=== PATIENT | male | born 1965 | race Caucasian/White ===

== ENCOUNTER 2019-08-23 18:44 | Inpatient (IN) | payer BC ==
--- NOTE | 2019-08-23 19:12 | EDM.PDOC ---
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 Patient has pain to his right knee with swelling and temperature despite taking Motrin. Patient has an unusual history of having a fever of unknown origin for 21 days and being on a respirator in another state. Patient is on no medication and is a healthy gentleman patient denies smoking or drinking or any previous injuries. Patient presents with a temperature 100.9 and tachycardic 120. At this time he meets sepsis criteria Onset: Gradual Duration: Day(s): (2 days) Location: Reports: Lower Extremity, Right Quality: Reports: Ache Severity: Moderate Improves with: Reports: None Worsens with: Reports: None Associated Symptoms: Reports: Fever/Chills Treatments INTERNAL CARVER: Reports: NSAIDS Right Knee Pain Score (Numeric/FACES): 9 - Related Data Allergies Allergy/AdvReac Type Severity Reaction Status Date / Time No Known Allergies Allergy Verified 08/23/19 19:03 Home Meds: Home Meds . [No Known Home Meds] 08/23/19 [History] Review of Systems - Review of Systems Review Of Systems: See Below Constitutional: Reports: Chills, Diaphoresis, Fever, Weakness Eyes: Reports: No Symptoms Ears: Reports: No Symptoms Nose: Reports: No Symptoms Mouth/Throat: Reports: No Symptoms Respiratory: Reports: Cough Cardiovascular: Reports: No Symptoms GI/Abdominal: Reports: No Symptoms Genitourinary: Reports: No Symptoms Musculoskeletal: Reports: Joint Pain, Joint Swelling, Other (And appears to have a bursitis in the right knee) Skin: Reports: No Symptoms Neurological: Reports: No Symptoms Psychiatric: Reports: No Symptoms ED EXAM, GENERAL - Physical Exam Exam: See Below Free Text/Narrative:: 4-year-old gentleman presenting to the emergency room with a fever and right knee pain after laying carpet 2 days ago. On physical exam vitals show patient has a fever of 100.9 and is tachycardic to 120. Patient's blood pressure is stable. HEENT: Head is normal pupils are equal reactive light and accommodation throat is normal no evidence of redness no nuchal rigidity Chest: Normal S1-S2 no murmurs Lungs are clear throughout abd : NABS non tender extreamity : rt knee bursitis with pain on movement negative flank pain Exam Limited By: No Limitations General Appearance: Alert, WD/WN, No Apparent Distress Eye Exam: Bilateral Eye: PERRL Ears: Normal External Exam, Normal Canal, Hearing Grossly Normal, Normal TMs Ear Exam: Bilateral Ear: Auricle Normal, Canal Normal Nose: Normal Inspection, Normal Mucosa, No Blood Throat/Mouth: Normal Inspection, Normal Lips, Normal Teeth, Normal Gums, Normal Voice, No Airway Compromise Head: Atraumatic, Normocephalic Neck: Normal Inspection, Supple, Non-Tender, Full Range of Motion Respiratory/Chest: No Respiratory Distress, Lungs Clear, Normal Breath Sounds, No Accessory Muscle Use, Chest Non-Tender Cardiovascular: Normal Peripheral Pulses, Regular Rate, Rhythm, No Edema, No Gallop, No JVD GI/Abdominal: Normal Bowel Sounds, Soft, Non-Tender, No Organomegaly, No Distention, No Abnormal Bruit, Tender (Male) Exam: No Hernia, Normal Inspection Rectal (Males) Exam: Deferred Back Exam: Normal Inspection, Full Range of Motion Extremities: Leg Pain, Other (HE has there is to be bursitis in the knee. Swelling over the knee pain on palpation and movement) ED TRAUMA EXTREMITY PROCEDURES - Additional/Other Procedure(s) Other (Free Text) Procedure(s): To to aspirate the bursa of the right knee it clean the area use lidocaine 1% unable to aspirate any fluids. Patient tolerated the procedure well. Course - Vital Signs Text/Narrative:: -54 year-old gentleman presents to the emergency room with a chief complaint of febrile illness and left right knee pain. 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 Patient also states he has had a cough in the past. Through the course of therapy patient has received antibiotics fluids and septic work-up. Patient's white count is 9.9. Patient is received antibiotics negative urine negative chest negative CT scan of the knee. Bursa was attempted to be aspirated. No redness to the knee Discussed case with Dr. Klein. For admission Last Recorded V/S: Last Vital Signs Temp 102.9 F H 08/23/19 22:19 Pulse 113 H 08/23/19 22:42 Resp 18 08/23/19 22:42 BP 99/59 L 08/23/19 22:42 Pulse Ox 94 L 08/23/19 22:42 - Orders/Labs/Meds Orders: Active Orders 24 hr Category Date Time Status CELL COUNT,BODY FLUID [BF] Stat Lab 08/23/19 22:00 Ordered CULTURE BLOOD [BC] Stat Lab 08/23/19 19:25 Received CULTURE BLOOD [BC] Stat Lab 08/23/19 19:48 Received GRAM STAIN [RM] Stat Lab 08/23/19 21:56 Ordered URIC ACID,SYNOVIAL FL [BF] Stat Lab 08/23/19 21:59 Ordered Sodium Chloride 0.9% [Normal Saline] 1,000 ml Med 08/23/19 22:43 Active IV .Bolus Sodium Chloride 0.9% [Saline Flush] Med 08/23/19 19:13 Active 10 ml FLUSH ASDIRECTED PRN Sodium Chloride 0.9% [Saline Flush] Med 08/23/19 19:13 Active 2.5 ml FLUSH ASDIRECTED PRN Blood Culture x2 Reflex Set [OM.PC] Stat Oth 08/23/19 19:13 Ordered Saline Lock Insert [OM.PC] Stat Oth 08/23/19 19:13 Ordered Medication Orders Sodium Chloride (Normal Saline) 1,000 mls @ 999 mls/hr IV .Bolus ONE Stop: 08/23/19 23:43 Last Admin: 08/23/19 22:44 Dose: 999 mls/hr Sodium Chloride (Saline Flush) 10 ml FLUSH ASDIRECTED PRN PRN Reason: Keep Vein Open Sodium Chloride (Saline Flush) 2.5 ml FLUSH ASDIRECTED PRN PRN Reason: Keep Vein Open Labs: Laboratory Tests 08/23/19 08/23/19 08/23/19 Range/Units 19:25 19:25 19:25 WBC 9.99 (4.0-11.0) K/uL RBC 4.51 (4.50-5.90) M/uL Hgb 13.9 (13.0-17.0) g/dL Hct 40.6 (38.0-50.0) % MCV 90.0 (80.0-98.0) fL MCH 30.8 (27.0-32.0) pg MCHC 34.2 (31.0-37.0) g/dL RDW Std Deviation 43.4 (28.0-62.0) fl RDW Coeff of [place] 13 (11.0-15.0) % Plt Count 255 (150-400) K/uL MPV 9.00 (7.40-12.00) fL Neut % (Auto) 86.2 H (48.0-80.0) % Lymph % (Auto) 8.7 L (16.0-40.0) % [facility] % (Auto) 3.6 (0.0-15.0) % Eos % (Auto) 1.4 (0.0-7.0) % Baso % (Auto) 0.1 (0.0-1.5) % Neut # (Auto) 8.6 H (1.4-5.7) K/uL Lymph # (Auto) 0.9 (0.6-2.4) K/uL [facility] # (Auto) 0.4 (0.0-0.8) K/uL Eos # (Auto) 0.1 (0.0-0.7) K/uL Baso # (Auto) 0.0 (0.0-0.1) K/uL Nucleated RBC % 0.0 /100WBC Nucleated RBCs # 0 K/uL Lactate 1.7 (0.20-2.00) mmol/L Sodium 140 (136-148) mmol/L Potassium 3.8 (3.5-5.1) mmol/L Chloride 103 (98-107) mmol/L Carbon Dioxide 24.9 (21.0-32.0) mmol/L BUN 21 H (7.0-18.0) mg/dL Creatinine 1.3 (0.8-1.3) mg/dL Est Cr Clr Drug Dosing 61.38 mL/min Estimated GFR (MDRD) 57.1 ml/min Glucose 115 H (74-106) mg/dL Calcium 9.0 (8.5-10.1) mg/dL Total Bilirubin 0.3 (0.2-1.0) mg/dL AST 22 (15-37) IU/L ALT 28 (14-63) IU/L Alkaline Phosphatase 142 H (46-116) U/L Total Protein 7.7 (6.4-8.2) g/dL Albumin 3.8 (3.4-5.0) g/dL Globulin 3.9 (2.6-4.0) g/dL Albumin/Globulin Ratio 1.0 (0.9-1.6) Urine Color Urine Appearance Urine pH (5.0-8.0) Ur Specific [place] (1.001-1.035) Urine Protein (NEGATIVE) mg/dL Urine Glucose (UA) (NEGATIVE) mg/dL Urine Ketones (NEGATIVE) mg/dL Urine Occult Blood (NEGATIVE) Urine Nitrite (NEGATIVE) Urine Bilirubin (NEGATIVE) Urine Urobilinogen (<2.0) EU/dL Ur Leukocyte Esterase (NEGATIVE) 08/23/19 Range/Units 21:20 WBC (4.0-11.0) K/uL RBC (4.50-5.90) M/uL Hgb (13.0-17.0) g/dL Hct (38.0-50.0) % MCV (80.0-98.0) fL MCH (27.0-32.0) pg MCHC (31.0-37.0) g/dL RDW Std Deviation (28.0-62.0) fl RDW Coeff of [place] (11.0-15.0) % Plt Count (150-400) K/uL MPV (7.40-12.00) fL Neut % (Auto) (48.0-80.0) % Lymph % (Auto) (16.0-40.0) % [facility] % (Auto) (0.0-15.0) % Eos % (Auto) (0.0-7.0) % Baso % (Auto) (0.0-1.5) % Neut # (Auto) (1.4-5.7) K/uL Lymph # (Auto) (0.6-2.4) K/uL [facility] # (Auto) (0.0-0.8) K/uL Eos # (Auto) (0.0-0.7) K/uL Baso # (Auto) (0.0-0.1) K/uL Nucleated RBC % /100WBC Nucleated RBCs # K/uL Lactate (0.20-2.00) mmol/L Sodium (136-148) mmol/L Potassium (3.5-5.1) mmol/L Chloride (98-107) mmol/L Carbon Dioxide (21.0-32.0) mmol/L BUN (7.0-18.0) mg/dL Creatinine (0.8-1.3) mg/dL Est Cr Clr Drug Dosing mL/min Estimated GFR (MDRD) ml/min Glucose (74-106) mg/dL Calcium (8.5-10.1) mg/dL Total Bilirubin (0.2-1.0) mg/dL AST (15-37) IU/L ALT (14-63) IU/L Alkaline Phosphatase (46-116) U/L Total Protein (6.4-8.2) g/dL Albumin (3.4-5.0) g/dL Globulin (2.6-4.0) g/dL Albumin/Globulin Ratio (0.9-1.6) Urine Color YELLOW Urine Appearance CLEAR Urine pH 6.5 (5.0-8.0) Ur Specific [place] <= 1.005 (1.001-1.035) Urine Protein NEGATIVE (NEGATIVE) mg/dL Urine Glucose (UA) NEGATIVE (NEGATIVE) mg/dL Urine Ketones NEGATIVE (NEGATIVE) mg/dL Urine Occult Blood NEGATIVE (NEGATIVE) Urine Nitrite NEGATIVE (NEGATIVE) Urine Bilirubin NEGATIVE (NEGATIVE) Urine Urobilinogen 0.2 (<2.0) EU/dL Ur Leukocyte Esterase NEGATIVE (NEGATIVE) Meds: Medications Generic Name Dose Route Start Last Admin Trade Name Freq PRN Reason Stop Dose Admin Sodium Chloride 1,000 mls @ 999 mls/hr 08/23/19 22:43 08/23/19 22:44 Normal Saline IV 08/23/19 23:43 999 mls/hr .Bolus ONE Administration Sodium Chloride 10 ml 08/23/19 19:13 Saline Flush FLUSH ASDIRECTED PRN Keep Vein Open Sodium Chloride 2.5 ml 08/23/19 19:13 Saline Flush FLUSH ASDIRECTED PRN Keep Vein Open Discontinued Medications Generic Name Dose Route Start Last Admin Trade Name Freq PRN Reason Stop Dose Admin Acetaminophen 1,000 mg 08/23/19 20:17 08/23/19 20:30 Tylenol Extra Strength PO 08/23/19 20:18 1,000 mg ONETIME ONE Administration Ampicillin Sodium/Sulbactam 100 mls @ 200 mls/hr 08/23/19 19:13 08/23/19 19: 49 Sodium 3 gm/ Sodium Chloride IV 08/23/19 19:42 200 mls/hr ONETIME ONE Administration Sodium Chloride 1,000 mls @ 999 mls/hr 08/23/19 19:19 08/23/19 19:35 Normal Saline IV 08/23/19 20:19 999 mls/hr .Bolus ONE Administration Sodium Chloride 1,000 mls @ 999 mls/hr 08/23/19 21:19 08/23/19 21:25 Normal Saline IV 08/23/19 22:19 999 mls/hr .Bolus ONE Administration Iopamidol 100 ml 08/23/19 20:50 08/23/19 20:50 Isovue Multipack-370 (76%) IVPUSH 08/23/19 20:51 100 ml ONETIME ONE Administration Lidocaine/Epinephrine 10 ml 08/23/19 22:02 08/23/19 22:20 Xylocaine 1% With Epinephrine 1:100,000 INJECT 08/23/19 22:03 10 ml ONETIME ONE Administration Lidocaine/Epinephrine Confirm 08/23/19 22:12 08/23/19 22:19 Xylocaine 1% With Epinephrine 1:100,000 Administered 08/23/19 22:13 Not Given Dose 20 ml .ROUTE .STK-MED ONE Departure - Departure Time of Disposition: 22:54 Disposition: Refer to Observation Clinical Impression: Fever and chills - Discharge Information Referrals: Satinder Gillis MD [Primary Care Provider] - Forms: ED Department Discharge Sepsis Event Note - Focused Exam Vital Signs: Vital Signs Temp Temp Temp Pulse Resp BP Pulse Ox 08/23/19 22:42 113 H 18 99/59 L 94 L 08/23/19 22:19 102.9 F H 114 H 20 102/51 L 94 L 08/23/19 21:00 102.7 F H 08/23/19 20:30 102.2 F H 08/23/19 20:12 102.2 F H 113 H 20 147/69 H 96 08/23/19 19:46 112 H 20 132/69 96 08/23/19 19:00 100.9 F H 119 H 18 119/84 93 L Date Exam was Performed: 08/23/19 Time Exam was Performed: 22:51 - My Orders Last 24 Hours: My Active Orders 08/23/19 19:13 Sodium Chloride 0.9% [Saline Flush] 10 ml FLUSH ASDIRECTED PRN Sodium Chloride 0.9% [Saline Flush] 2.5 ml FLUSH ASDIRECTED PRN Blood Culture x2 Reflex Set [OM.PC] Stat Saline Lock Insert [OM.PC] Stat 08/23/19 19:25 CULTURE BLOOD [BC] Stat 08/23/19 19:48 CULTURE BLOOD [BC] Stat 08/23/19 21:56 GRAM STAIN [RM] Stat 08/23/19 21:59 URIC ACID,SYNOVIAL FL [BF] Stat 08/23/19 22:00 CELL COUNT,BODY FLUID [BF] Stat 08/23/19 22:43 Sodium Chloride 0.9% [Normal Saline] 1,000 ml IV .Bolus - Assessment/Plan Last 24 Hours: My Active Orders 08/23/19 19:13 Sodium Chloride 0.9% [Saline Flush] 10 ml FLUSH ASDIRECTED PRN Sodium Chloride 0.9% [Saline Flush] 2.5 ml FLUSH ASDIRECTED PRN Blood Culture x2 Reflex Set [OM.PC] Stat Saline Lock Insert [OM.PC] Stat 08/23/19 19:25 CULTURE BLOOD [BC] Stat 08/23/19 19:48 CULTURE BLOOD [BC] Stat 08/23/19 21:56 GRAM STAIN [RM] Stat 08/23/19 21:59 URIC ACID,SYNOVIAL FL [BF] Stat 08/23/19 22:00 CELL COUNT,BODY FLUID [BF] Stat 08/23/19 22:43 Sodium Chloride 0.9% [Normal Saline] 1,000 ml IV .Bolus
[2019-08-23] MEDS ORDERED: Sodium Chloride 0.9% 2.5 ML Syringe FLUSH PRN (19:13)
[2019-08-23] MEDS ORDERED: Ampicillin/Sulbactam Na 3 GM in Sodium Chloride 0.9% 100 ML IV ONE (19:13)
[2019-08-23] MEDS ORDERED: Sodium Chloride 0.9% 10 ML Syringe FLUSH PRN (19:13)
[2019-08-23] MEDS ORDERED: Sodium Chloride 0.9% 1,000 ML IV ONE ×3 (19:19→22:43)
[2019-08-23 19:57] LABS: CARBON DIOXIDE,CO2 24.9 mmol/L (21.0-32.0); POTASSIUM,K 3.8 mmol/L (3.5-5.1)
[2019-08-23] MEDS ORDERED: Acetaminophen 500 MG Tab PO ONE (20:17)
[2019-08-23] MEDS ORDERED: Iopamidol 755 MG/ML 200 ML Multipack Bottle IVPUSH ONE (20:50)
--- NOTE | 2019-08-23 21:35 | CT ---
INDICATION: Knee pain. No injury. Fever. TECHNIQUE: Axial images. Sagittal and coronal reconstructions. 80 mL of Isovue-370 IV. FINDINGS: Prepatellar soft tissue swelling is noted which extends into the anterior infrapatellar soft tissues. No knee joint effusion. No fracture. No significant arthritic changes are identified. IMPRESSION: Prepatellar soft tissue swelling. Given the lack of recent trauma to suggest this is related to a contusion, this could be related to bursitis, which is likely either infectious or inflammatory in nature. Dictated by Dago Ray MD @ 08/23/2019 9:34:20 PM Please note that all CT scans at this facility use dose modulation, iterative reconstruction, and/or weight-based dosing when appropriate to reduce radiation dose to as low as reasonably achievable. Dictated by: Dago Ray MD @ 08/23/2019 21:34:26 (Electronically Signed)
--- NOTE | 2019-08-23 21:37 | CR ---
Indication: Fever Technique: Chest 2 views Comparison: None Findings/Impression: Cardiovascular and mediastinum: Normal cardiac size. Aortic arch calcifications. Lungs and pleural spaces: Apparent mild superior traction of the left hilum. No consolidation. An 8 mm left lower lung nodular opacity adjacent to the posterior 9th rib, which could represent a nipple shadow. Follow-up with nipple markers. No pleural effusions. Bones and soft tissues: No significant findings. Dictated by Conner Fuentes MD @ 08/23/2019 9:36:35 PM Dictated by: Conner Fuentes MD @ 08/23/2019 21:36:40 (Electronically Signed)
[2019-08-23] MEDS ORDERED: Lidocaine 1% with EPINEPHrine 1:100,000 10 ML MDV INJECT ONE (22:02)
[2019-08-23] MEDS ORDERED: Lidocaine 1% with EPINEPHrine 1:100,000 20 ML MDV ONE (22:12)
--- NOTE | 2019-08-23 23:43 | PCM.HP.2 ---
H&P History of Present Illness - General Date of Service: 08/23/19 Admit Problem/Dx: Admission Diagnosis/Problem Admission Diagnosis/Problem Cellulitis - History of Present Illness Initial Comments - Free Text/Narative: 54 yo male who presents with fever and knee pain. 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 He reports at 4 p.m. he started to develop fevers. HE noted a pain in his right knee and some mild swelling. He was noted to be tachycardic and febrile on admission. No erythema was noted over right knee. CT scan noted possible bursitis or contusion. ER physician attempted to aspirate fluid from right knee but no fluid was obtained. Dr. Veloz was consulted in the ED. Patient had abrasion of right arm several weeks ago. He reports a history of unknown febrile illness with respiratory failure in 1987 which he was hospitalized for months. Right Knee Pain Score (Numeric/FACES): 9 - Related Data Allergies/Adverse Reactions: Allergies Allergy/AdvReac Type Severity Reaction Status Date / Time No Known Allergies Allergy Verified 08/26/19 05:50 Home Medications: Home Meds . [No Known Home Meds] 08/23/19 [History] Past Medical History HEENT History: Reports: None Cardiovascular History: Reports: High Cholesterol Respiratory History: Reports: SOB Gastrointestinal History: Reports: None Genitourinary History: Reports: None Musculoskeletal History: Reports: None Neurological History: Reports: None Psychiatric History: Reports: None Endocrine/Metabolic History: Reports: None Hematologic History: Reports: Blood Transfusion(s) Immunologic History: Reports: None Oncologic (Cancer) History: Reports: None Dermatologic History: Reports: None - Infectious Disease History Infectious Disease History: Reports: Chicken Pox - Past Surgical History Head Surgeries/Procedures: Reports: None HEENT Surgical History: Reports: Oral Surgery Respiratory Surgical History: Reports: Lung Biopsies Social & Family History - Tobacco Use Smoking Status *Q: Former Smoker Used Tobacco, but Quit: Yes Month/Year Tobacco Last Used: 2009 - Caffeine Use Caffeine Use: Reports: Coffee - Recreational Drug Use Recreational Drug Use: No H&P Review of Systems - Review of Systems: Review Of Systems: Comprehensive ROS is negative, except as noted in HPI. Exam - Exam Exam: See Below - Vital Signs Vital Signs: Last Vital Signs Temp 39.4 C H 08/23/19 22:19 Pulse 111 H 08/23/19 23:21 Resp 26 H 08/23/19 23:21 BP 105/57 L 08/23/19 23:21 Pulse Ox 93 L 08/23/19 23:21 Weight: 74.843 kg - Exam General: Alert, Oriented HEENT: Mucosa Moist & [place], Normal Nasal Septum Neck: Supple, Trachea Midline Lungs: Clear to Auscultation, Normal Respiratory Effort Cardiovascular: Regular Rate, Regular Rhythm GI/Abdominal Exam: Soft, Non-Tender Extremities: Other (mild edema around right patela, no erythema, no ) - Patient Data Lab Results Last 24 hrs: Laboratory Results - last 24 hr 08/23/19 08/23/19 08/23/19 Range/Units 19:25 19:25 19:25 WBC 9.99 (4.0-11.0) K/uL RBC 4.51 (4.50-5.90) M/uL Hgb 13.9 (13.0-17.0) g/dL Hct 40.6 (38.0-50.0) % MCV 90.0 (80.0-98.0) fL MCH 30.8 (27.0-32.0) pg MCHC 34.2 (31.0-37.0) g/dL RDW Std Deviation 43.4 (28.0-62.0) fl RDW Coeff of [place] 13 (11.0-15.0) % Plt Count 255 (150-400) K/uL MPV 9.00 (7.40-12.00) fL Neut % (Auto) 86.2 H (48.0-80.0) % Lymph % (Auto) 8.7 L (16.0-40.0) % [place] % (Auto) 3.6 (0.0-15.0) % Eos % (Auto) 1.4 (0.0-7.0) % Baso % (Auto) 0.1 (0.0-1.5) % Neut # (Auto) 8.6 H (1.4-5.7) K/uL Lymph # (Auto) 0.9 (0.6-2.4) K/uL [place] # (Auto) 0.4 (0.0-0.8) K/uL Eos # (Auto) 0.1 (0.0-0.7) K/uL Baso # (Auto) 0.0 (0.0-0.1) K/uL Nucleated RBC % 0.0 /100WBC Nucleated RBCs # 0 K/uL Lactate 1.7 (0.20-2.00) mmol/L Sodium 140 (136-148) mmol/L Potassium 3.8 (3.5-5.1) mmol/L Chloride 103 (98-107) mmol/L Carbon Dioxide 24.9 (21.0-32.0) mmol/L BUN 21 H (7.0-18.0) mg/dL Creatinine 1.3 (0.8-1.3) mg/dL Est Cr Clr Drug Dosing 61.38 mL/min Estimated GFR (MDRD) 57.1 ml/min Glucose 115 H (74-106) mg/dL Calcium 9.0 (8.5-10.1) mg/dL Total Bilirubin 0.3 (0.2-1.0) mg/dL AST 22 (15-37) IU/L ALT 28 (14-63) IU/L Alkaline Phosphatase 142 H (46-116) U/L Total Protein 7.7 (6.4-8.2) g/dL Albumin 3.8 (3.4-5.0) g/dL Globulin 3.9 (2.6-4.0) g/dL Albumin/Globulin Ratio 1.0 (0.9-1.6) Urine Color Urine Appearance Urine pH (5.0-8.0) Ur Specific [place] (1.001-1.035) Urine Protein (NEGATIVE) mg/dL Urine Glucose (UA) (NEGATIVE) mg/dL Urine Ketones (NEGATIVE) mg/dL Urine Occult Blood (NEGATIVE) Urine Nitrite (NEGATIVE) Urine Bilirubin (NEGATIVE) Urine Urobilinogen (<2.0) EU/dL Ur Leukocyte Esterase (NEGATIVE) 08/23/19 Range/Units 21:20 WBC (4.0-11.0) K/uL RBC (4.50-5.90) M/uL Hgb (13.0-17.0) g/dL Hct (38.0-50.0) % MCV (80.0-98.0) fL MCH (27.0-32.0) pg MCHC (31.0-37.0) g/dL RDW Std Deviation (28.0-62.0) fl RDW Coeff of [place] (11.0-15.0) % Plt Count (150-400) K/uL MPV (7.40-12.00) fL Neut % (Auto) (48.0-80.0) % Lymph % (Auto) (16.0-40.0) % [place] % (Auto) (0.0-15.0) % Eos % (Auto) (0.0-7.0) % Baso % (Auto) (0.0-1.5) % Neut # (Auto) (1.4-5.7) K/uL Lymph # (Auto) (0.6-2.4) K/uL [place] # (Auto) (0.0-0.8) K/uL Eos # (Auto) (0.0-0.7) K/uL Baso # (Auto) (0.0-0.1) K/uL Nucleated RBC % /100WBC Nucleated RBCs # K/uL Lactate (0.20-2.00) mmol/L Sodium (136-148) mmol/L Potassium (3.5-5.1) mmol/L Chloride (98-107) mmol/L Carbon Dioxide (21.0-32.0) mmol/L BUN (7.0-18.0) mg/dL Creatinine (0.8-1.3) mg/dL Est Cr Clr Drug Dosing mL/min Estimated GFR (MDRD) ml/min Glucose (74-106) mg/dL Calcium (8.5-10.1) mg/dL Total Bilirubin (0.2-1.0) mg/dL AST (15-37) IU/L ALT (14-63) IU/L Alkaline Phosphatase (46-116) U/L Total Protein (6.4-8.2) g/dL Albumin (3.4-5.0) g/dL Globulin (2.6-4.0) g/dL Albumin/Globulin Ratio (0.9-1.6) Urine Color YELLOW Urine Appearance CLEAR Urine pH 6.5 (5.0-8.0) Ur Specific [place] <= 1.005 (1.001-1.035) Urine Protein NEGATIVE (NEGATIVE) mg/dL Urine Glucose (UA) NEGATIVE (NEGATIVE) mg/dL Urine Ketones NEGATIVE (NEGATIVE) mg/dL Urine Occult Blood NEGATIVE (NEGATIVE) Urine Nitrite NEGATIVE (NEGATIVE) Urine Bilirubin NEGATIVE (NEGATIVE) Urine Urobilinogen 0.2 (<2.0) EU/dL Ur Leukocyte Esterase NEGATIVE (NEGATIVE) Result Diagrams: 08/26/19 06:00 08/26/19 06:00 Rusty Results Last 24 hrs: Microbiology 08/23/19 21:15 Influenza Type A Antigen Screen - Final Nasopharyngeal Swab NEGATIVE INFLUENZA A VIRUS AG REFERENCE RANGE: NEGATIVE Influenza Type B Antigen Screen - Final NEGATIVE INFLUENZA B VIRUS AG REFERENCE RANGE: NEGATIVE Sepsis Event Note - Evaluation Sepsis Screening Result: Possible Sepsis Risk - Focused Exam Vital Signs: Vital Signs Temp Temp Temp Pulse Resp BP Pulse Ox 08/23/19 23:21 111 H 26 H 105/57 L 93 L 08/23/19 22:55 112 H 20 97/52 L 87 L 08/23/19 22:42 113 H 18 99/59 L 94 L 08/23/19 22:19 39.4 C H 114 H 20 102/51 L 94 L 08/23/19 21:00 39.3 C H 08/23/19 20:30 39.0 C H 08/23/19 20:12 39.0 C H 113 H 20 147/69 H 96 08/23/19 19:46 112 H 20 132/69 96 08/23/19 19:00 38.3 C H 119 H 18 119/84 93 L Date Exam was Performed: 08/26/19 Time Exam was Performed: 12:01 Problem List Initiated/Reviewed/Updated: Yes Orders Last 24hrs: Active Orders 24 hr Category Date Time Status Admission Status [Patient Status] [ADT] Stat ADT 08/23/19 23:21 Active Antiembolic Devices [RC] PER UNIT ROUTINE Care 08/23/19 23:34 Ordered Notify Provider Consults [RC] ASDIRECTED Care 08/23/19 23:35 Ordered Oxygen Therapy Adult [Oxygen Therapy, ED] [RC] Care 08/23/19 23:30 Ordered ASDIRECTED Oxygen Therapy [RC] PRN Care 08/23/19 23:33 Ordered VTE/DVT Education [RC] PER UNIT ROUTINE Care 08/23/19 23:33 Ordered Vital Signs [RC] Q4H Care 08/23/19 23:33 Ordered Consult to Physician [CONS] Stat Cons 08/23/19 23:34 Ordered Regular Diet [DIET] Diet 08/23/19 Breakfast Ordered BASIC METABOLIC PANEL,BMP [CHEM] AM Lab 08/24/19 05:11 Ordered CBC WITH AUTO DIFF [HEME] AM Lab 08/24/19 05:11 Ordered CELL COUNT,BODY FLUID [BF] Stat Lab 08/23/19 22:00 Ordered CULTURE BLOOD [BC] Stat Lab 08/23/19 19:25 Received CULTURE BLOOD [BC] Stat Lab 08/23/19 19:48 Received GRAM STAIN [RM] Stat Lab 08/23/19 21:56 Ordered LACTIC ACID,WHOLE BLOOD [BG] Q5H Lab 08/24/19 01:00 Ordered LACTIC ACID,WHOLE BLOOD [BG] Q5H Lab 08/24/19 06:00 Ordered URIC ACID,SYNOVIAL FL [BF] Stat Lab 08/23/19 21:59 Ordered Ampicillin/Sulbactam Na [Unasyn] 3 gm Med 08/24/19 02:00 Ordered Sodium Chloride 0.9% [Normal Saline] 100 ml IV Q6H Heparin Sodium Med 08/23/19 23:45 Ordered 5,000 units SUBCUT Q8H Pharmacy to Dose - Vancomycin Med 08/23/19 23:30 Ordered 1 dose .XX ASDIRECTED Sodium Chloride 0.9% @ 125 MLS/HR (1000ml) Med 08/23/19 23:45 Ordered Sodium Chloride 0.9% [Normal Saline] 1,000 ml IV ASDIRECTED Sodium Chloride 0.9% [Normal Saline] 1,000 ml Med 08/23/19 22:43 Active IV .Bolus Sodium Chloride 0.9% [Saline Flush] Med 08/23/19 19:13 Active 10 ml FLUSH ASDIRECTED PRN Sodium Chloride 0.9% [Saline Flush] Med 08/23/19 19:13 Active 2.5 ml FLUSH ASDIRECTED PRN Blood Culture x2 Reflex Set [OM.PC] Stat Oth 08/23/19 19:13 Ordered Saline Lock Insert [OM.PC] Stat Oth 08/23/19 19:13 Ordered Sequential Compression Device [OM.PC] Per Unit Routine Oth 08/23/19 23:33 Ordered Resuscitation Status Routine Resus Stat 08/23/19 23:32 Ordered Medication Orders Heparin Sodium (Porcine) (Heparin Sodium) 5,000 units SUBCUT Q8H ALIVIA Sodium Chloride (Normal Saline) 1,000 mls @ 999 mls/hr IV .Bolus ONE Stop: 08/23/19 23:43 Last Admin: 08/23/19 22:44 Dose: 999 mls/hr Ampicillin Sodium/Sulbactam (Sodium 3 gm/ Sodium Chloride) 100 mls @ 200 mls/ hr IV Q6H ALIVIA Sodium Chloride (Normal Saline) 1,000 mls @ 125 mls/hr IV ASDIRECTED ALIVIA Sodium Chloride (Saline Flush) 10 ml FLUSH ASDIRECTED PRN PRN Reason: Keep Vein Open Sodium Chloride (Saline Flush) 2.5 ml FLUSH ASDIRECTED PRN PRN Reason: Keep Vein Open Vancomycin HCl (Pharmacy To Dose - Vancomycin) 1 dose .XX ASDIRECTED [facility] Assessment/Plan Comment:: 54 yo male admitted for febrile illness, likely source is cellulitis/burstitis of right knee. Sepsis from cellulitis/bursitis: patient has received 3 liters of fluid with improvement in tachycardia, lactic acid is normal. Will treat with vancomycin and Unasyn. Dr. Veloz has been consulted.
[2019-08-23] MEDS: Sodium Chloride 0.9% 1,000 ML IV SCH (23:47)
[2019-08-24] MEDS: Heparin Sodium 5,000 Units/ML Vial SUBCUT SCH ×4 (00:11→23:56)
[2019-08-24] MEDS ORDERED: Pneumococcal Polyvalent-23 Vaccine 0.5 ML SDV IM ONE (00:17)
[2019-08-24] MEDS: Ampicillin/Sulbactam Na 3 GM in Sodium Chloride 0.9% 100 ML IV SCH ×4 (01:55→20:14)
[2019-08-24 06:30] LABS: BLOOD UREA NITROGEN,BUN 17 mg/dL (7.0-18.0); CARBON DIOXIDE,CO2 23.4 mmol/L (21.0-32.0); CHLORIDE,CL 108 mmol/L (98-107); GLUCOSE RANDOM 130 mg/dL (74-106); POTASSIUM,K 3.8 mmol/L (3.5-5.1); SODIUM,NA 141 mmol/L (136-148)
--- NOTE | 2019-08-24 07:52 | PCM.PN ---
Addendum entered and electronically signed by Alejandrina Christine NP 08/24/19 12:09 : Discussed imaging findings of CT chest, abdomen and pelvis with patient and . No acute findings. Did thorough skin assessment, has history of many abscesses to groin and buttock. He reports "they drain all the time, they fill up and drain and then slowly fill up again". Gluteal crease, old healing wound noted. No induration, no drainage and no erythema. He reports one to his R groin that has recently drained. This is tender to palpation, scant induration, no fluctuance. No drainage with palpation , tiny punctate opening noted. Many notable scars to buttock and groin from previous sores. Back has many blackheads, no abscesses or erythematous regions. Discussed region with Dr Carter, he reviewed CT and was not able to see anything suspicious in the nika-rectal region and no abscess noted to groin. Continue Vancomycin and Unasyn for now. Monitor skin daily. Dr Klein updated on above. Original Note: - General Info Date of Service: 08/24/19 Admission Dx/Problem (Free Text): Admission Diagnosis/Problem Admission Diagnosis/Problem Fevers, Sepsis secondary to R knee cellulitis/ bursitis Subjective Update: Feeling about the same this morning, knee pain continues. He is able to bend knee, mild pain elicited. No redness, but knee very hot to touch. No chest pain or SOB. No abdominal pain. No skin sores. Functional Status: Reports: Pain Controlled, Tolerating Diet - Review of Systems General: Reports: Fever, Weakness, Fatigue, Malaise HEENT: Reports: No Symptoms. Denies: Headaches, Sore Throat, Visual Changes Pulmonary: Denies: Shortness of Breath Cardiovascular: Denies: Chest Pain Gastrointestinal: Denies: Abdominal Pain, Nausea, Vomiting Genitourinary: Reports: No Symptoms. Denies: Dysuria, Frequency, Burning Musculoskeletal: Reports: Joint Pain (R knee pain). Denies: Neck Pain Skin: Reports: No Symptoms Neurological: Reports: No Symptoms Psychiatric: Reports: No Symptoms - Patient Data Vitals - Most Recent: Last Vital Signs Temp 102.2 F H 08/24/19 06:44 Pulse 108 H 08/24/19 03:23 Resp 26 H 08/24/19 03:23 BP 112/63 08/24/19 03:23 Pulse Ox 93 L 08/24/19 03:23 Weight - Most Recent: 79.7 kg I&O - Last 24 Hours: Intake & Output 08/23/19 08/24/19 08/24/19 22:59 06:59 14:59 Output Total 800 Balance -800 Lab Results Last 24 Hours: Laboratory Results - last 24 hr 08/23/19 08/23/19 08/23/19 Range/Units 19:25 19:25 19:25 WBC 9.99 (4.0-11.0) K/uL RBC 4.51 (4.50-5.90) M/uL Hgb 13.9 (13.0-17.0) g/dL Hct 40.6 (38.0-50.0) % MCV 90.0 (80.0-98.0) fL MCH 30.8 (27.0-32.0) pg MCHC 34.2 (31.0-37.0) g/dL RDW Std Deviation 43.4 (28.0-62.0) fl RDW Coeff of [place] 13 (11.0-15.0) % Plt Count 255 (150-400) K/uL MPV 9.00 (7.40-12.00) fL Neut % (Auto) 86.2 H (48.0-80.0) % Lymph % (Auto) 8.7 L (16.0-40.0) % [place] % (Auto) 3.6 (0.0-15.0) % Eos % (Auto) 1.4 (0.0-7.0) % Baso % (Auto) 0.1 (0.0-1.5) % Neut # (Auto) 8.6 H (1.4-5.7) K/uL Lymph # (Auto) 0.9 (0.6-2.4) K/uL [place] # (Auto) 0.4 (0.0-0.8) K/uL Eos # (Auto) 0.1 (0.0-0.7) K/uL Baso # (Auto) 0.0 (0.0-0.1) K/uL Nucleated RBC % 0.0 /100WBC Nucleated RBCs # 0 K/uL Lactate 1.7 (0.20-2.00) mmol/L Sodium 140 (136-148) mmol/L Potassium 3.8 (3.5-5.1) mmol/L Chloride 103 (98-107) mmol/L Carbon Dioxide 24.9 (21.0-32.0) mmol/L BUN 21 H (7.0-18.0) mg/dL Creatinine 1.3 (0.8-1.3) mg/dL Est Cr Clr Drug Dosing 61.38 mL/min Estimated GFR (MDRD) 57.1 ml/min Glucose 115 H (74-106) mg/dL Calcium 9.0 (8.5-10.1) mg/dL Total Bilirubin 0.3 (0.2-1.0) mg/dL AST 22 (15-37) IU/L ALT 28 (14-63) IU/L Alkaline Phosphatase 142 H (46-116) U/L Total Protein 7.7 (6.4-8.2) g/dL Albumin 3.8 (3.4-5.0) g/dL Globulin 3.9 (2.6-4.0) g/dL Albumin/Globulin Ratio 1.0 (0.9-1.6) Urine Color Urine Appearance Urine pH (5.0-8.0) Ur Specific Sunflower (1.001-1.035) Urine Protein (NEGATIVE) mg/dL Urine Glucose (UA) (NEGATIVE) mg/dL Urine Ketones (NEGATIVE) mg/dL Urine Occult Blood (NEGATIVE) Urine Nitrite (NEGATIVE) Urine Bilirubin (NEGATIVE) Urine Urobilinogen (<2.0) EU/dL Ur Leukocyte Esterase (NEGATIVE) 08/23/19 08/24/19 08/24/19 Range/Units 21:20 01:00 06:05 WBC (4.0-11.0) K/uL RBC (4.50-5.90) M/uL Hgb (13.0-17.0) g/dL Hct (38.0-50.0) % MCV (80.0-98.0) fL MCH (27.0-32.0) pg MCHC (31.0-37.0) g/dL RDW Std Deviation (28.0-62.0) fl RDW Coeff of [place] (11.0-15.0) % Plt Count (150-400) K/uL MPV (7.40-12.00) fL Neut % (Auto) (48.0-80.0) % Lymph % (Auto) (16.0-40.0) % [place] % (Auto) (0.0-15.0) % Eos % (Auto) (0.0-7.0) % Baso % (Auto) (0.0-1.5) % Neut # (Auto) (1.4-5.7) K/uL Lymph # (Auto) (0.6-2.4) K/uL [place] # (Auto) (0.0-0.8) K/uL Eos # (Auto) (0.0-0.7) K/uL Baso # (Auto) (0.0-0.1) K/uL Nucleated RBC % /100WBC Nucleated RBCs # K/uL Lactate 1.0 1.1 (0.20-2.00) mmol/L Sodium (136-148) mmol/L Potassium (3.5-5.1) mmol/L Chloride (98-107) mmol/L Carbon Dioxide (21.0-32.0) mmol/L BUN (7.0-18.0) mg/dL Creatinine (0.8-1.3) mg/dL Est Cr Clr Drug Dosing mL/min Estimated GFR (MDRD) ml/min Glucose (74-106) mg/dL Calcium (8.5-10.1) mg/dL Total Bilirubin (0.2-1.0) mg/dL AST (15-37) IU/L ALT (14-63) IU/L Alkaline Phosphatase (46-116) U/L Total Protein (6.4-8.2) g/dL Albumin (3.4-5.0) g/dL Globulin (2.6-4.0) g/dL Albumin/Globulin Ratio (0.9-1.6) Urine Color YELLOW Urine Appearance CLEAR Urine pH 6.5 (5.0-8.0) Ur Specific Sunflower <= 1.005 (1.001-1.035) Urine Protein NEGATIVE (NEGATIVE) mg/dL Urine Glucose (UA) NEGATIVE (NEGATIVE) mg/dL Urine Ketones NEGATIVE (NEGATIVE) mg/dL Urine Occult Blood NEGATIVE (NEGATIVE) Urine Nitrite NEGATIVE (NEGATIVE) Urine Bilirubin NEGATIVE (NEGATIVE) Urine Urobilinogen 0.2 (<2.0) EU/dL Ur Leukocyte Esterase NEGATIVE (NEGATIVE) 08/24/19 08/24/19 Range/Units 06:05 06:05 WBC 12.81 H (4.0-11.0) K/uL RBC 4.22 L (4.50-5.90) M/uL Hgb 12.9 L (13.0-17.0) g/dL Hct 38.5 (38.0-50.0) % MCV 91.2 (80.0-98.0) fL MCH 30.6 (27.0-32.0) pg MCHC 33.5 (31.0-37.0) g/dL RDW Std Deviation 45.6 (28.0-62.0) fl RDW Coeff of [place] 14 (11.0-15.0) % Plt Count 195 (150-400) K/uL MPV 9.10 (7.40-12.00) fL Neut % (Auto) 89.7 H (48.0-80.0) % Lymph % (Auto) 4.7 L (16.0-40.0) % [place] % (Auto) 5.4 (0.0-15.0) % Eos % (Auto) 0.1 (0.0-7.0) % Baso % (Auto) 0.1 (0.0-1.5) % Neut # (Auto) 11.5 H (1.4-5.7) K/uL Lymph # (Auto) 0.6 (0.6-2.4) K/uL [place] # (Auto) 0.7 (0.0-0.8) K/uL Eos # (Auto) 0.0 (0.0-0.7) K/uL Baso # (Auto) 0.0 (0.0-0.1) K/uL Nucleated RBC % 0.0 /100WBC Nucleated RBCs # 0 K/uL Lactate (0.20-2.00) mmol/L Sodium 141 (136-148) mmol/L Potassium 3.8 (3.5-5.1) mmol/L Chloride 108 H (98-107) mmol/L Carbon Dioxide 23.4 (21.0-32.0) mmol/L BUN 17 (7.0-18.0) mg/dL Creatinine 1.2 (0.8-1.3) mg/dL Est Cr Clr Drug Dosing 66.50 mL/min Estimated GFR (MDRD) > 60.0 ml/min Glucose 130 H (74-106) mg/dL Calcium 8.0 L (8.5-10.1) mg/dL Total Bilirubin (0.2-1.0) mg/dL AST (15-37) IU/L ALT (14-63) IU/L Alkaline Phosphatase (46-116) U/L Total Protein (6.4-8.2) g/dL Albumin (3.4-5.0) g/dL Globulin (2.6-4.0) g/dL Albumin/Globulin Ratio (0.9-1.6) Urine Color Urine Appearance Urine pH (5.0-8.0) Ur Specific Sun[place] (1.001-1.035) Urine Protein (NEGATIVE) mg/dL Urine Glucose (UA) (NEGATIVE) mg/dL Urine Ketones (NEGATIVE) mg/dL Urine Occult Blood (NEGATIVE) Urine Nitrite (NEGATIVE) Urine Bilirubin (NEGATIVE) Urine Urobilinogen (<2.0) EU/dL Ur Leukocyte Esterase (NEGATIVE) Rusty Results Last 24 Hours: Microbiology 08/23/19 21:15 Influenza Type A Antigen Screen - Final Nasopharyngeal Swab NEGATIVE INFLUENZA A VIRUS AG REFERENCE RANGE: NEGATIVE Influenza Type B Antigen Screen - Final NEGATIVE INFLUENZA B VIRUS AG REFERENCE RANGE: NEGATIVE Med Orders - Current: Current Medications Heparin Sodium (Porcine) (Heparin Sodium) 5,000 units SUBCUT Q8H [facility] Last Admin: 08/24/19 00:11 Dose: 5,000 units Ampicillin Sodium/Sulbactam (Sodium 3 gm/ Sodium Chloride) 100 mls @ 200 mls/ hr IV Q6H [facility] Last Admin: 08/24/19 01:55 Dose: 200 mls/hr Sodium Chloride (Normal Saline) 1,000 mls @ 125 mls/hr IV ASDIRECTED [facility] Last Admin: 08/23/19 23:47 Dose: 125 mls/hr Vancomycin HCl 1 gm/ Sodium (Chloride) 250 mls @ 166 mls/hr IV Q12H [facility] Last Admin: 08/24/19 00:12 Dose: 166 mls/hr Sodium Chloride (Saline Flush) 10 ml FLUSH ASDIRECTED PRN PRN Reason: Keep Vein Open Sodium Chloride (Saline Flush) 2.5 ml FLUSH ASDIRECTED PRN PRN Reason: Keep Vein Open Vancomycin HCl (Pharmacy To Dose - Vancomycin) 1 dose .XX ASDIRECTED ALIVIA Discontinued Medications Acetaminophen (Tylenol Extra Strength) 1,000 mg PO ONETIME ONE Stop: 08/23/19 20:18 Last Admin: 08/23/19 20:30 Dose: 1,000 mg Ampicillin Sodium/Sulbactam (Sodium 3 gm/ Sodium Chloride) 100 mls @ 200 mls/ hr IV ONETIME ONE Stop: 08/23/19 19:42 Last Admin: 08/23/19 19:49 Dose: 200 mls/hr Sodium Chloride (Normal Saline) 1,000 mls @ 999 mls/hr IV .Bolus ONE Stop: 08/23/19 20:19 Last Admin: 08/23/19 19:35 Dose: 999 mls/hr Sodium Chloride (Normal Saline) 1,000 mls @ 999 mls/hr IV .Bolus ONE Stop: 08/23/19 22:19 Last Admin: 08/23/19 21:25 Dose: 999 mls/hr Sodium Chloride (Normal Saline) 1,000 mls @ 999 mls/hr IV .Bolus ONE Stop: 08/23/19 23:43 Last Admin: 08/23/19 22:44 Dose: 999 mls/hr Influenza Virus Vaccine (Pharmacy To Dose - Influenza Vaccine) 1 each IM ONETIME ONE Stop: 08/24/19 00:18 Iopamidol (Isovue Multipack-370 (76%)) 100 ml IVPUSH ONETIME ONE Stop: 08/23/19 20:51 Last Admin: 08/23/19 20:50 Dose: 100 ml Lidocaine/Epinephrine (Xylocaine 1% With Epinephrine 1:100,000) 10 ml INJECT ONETIME ONE Stop: 08/23/19 22:03 Last Admin: 08/23/19 22:20 Dose: 10 ml Lidocaine/Epinephrine (Xylocaine 1% With Epinephrine 1:100,000) Confirm Administered Dose 20 ml .ROUTE .STK-MED ONE Stop: 08/23/19 22:13 Last Admin: 08/23/19 22:19 Dose: Not Given Pneumococcal Polyvalent Vaccine (Pneumovax 23) 0.5 ml IM .ONCE ONE Stop: 08/24/19 00:18 - Exam General: Alert, Oriented, Cooperative, No Acute Distress Lungs: Clear to Auscultation, Normal Respiratory Effort Cardiovascular: Regular Rate, Regular Rhythm GI/Abdominal Exam: Normal Bowel Sounds, Soft, Non-Tender Extremities: No Pedal Edema, Normal Capillary Refill. No: Normal Range of Motion (slihtly decreased to R knee due to pain) Wound/Incisions: Other (swelling noted to R knee with warmth.puncture wound noted from aspiration in the ED.). No: Erythema Neurological: No New Focal Deficit Psy/Mental Status: Alert, Normal Affect, Normal Mood Sepsis Event Note - Evaluation Sepsis Screening Result: Sepsis Risk - Focused Exam Vital Signs: Vital Signs Temp Temp Temp Pulse Resp BP Pulse Ox 08/24/19 06:44 102.2 F H 08/24/19 05:44 102.8 F H 08/24/19 04:37 102.6 F H 08/24/19 03:23 102.7 F H 102.1 F H 108 H 26 H 112/63 93 L 08/24/19 00:21 102.4 F H 107 H 17 105/58 L 94 L 08/23/19 23:21 111 H 26 H 105/57 L 93 L 08/23/19 22:55 112 H 20 97/52 L 87 L 08/23/19 22:42 113 H 18 99/59 L 94 L 08/23/19 22:19 102.9 F H 114 H 20 102/51 L 94 L 08/23/19 21:00 102.7 F H 08/23/19 20:30 102.2 F H 08/23/19 20:12 102.2 F H 113 H 20 147/69 H 96 Date Exam was Performed: 08/24/19 Time Exam was Performed: 10:50 - Problem List & Annotations (1) Fever and chills SNOMED Code(s): 720089406 Code(s): R50.9 - FEVER, UNSPECIFIED Status: Acute Current Visit: Yes (2) Knee pain, right SNOMED Code(s): 51786471 Code(s): M25.561 - PAIN IN RIGHT KNEE Status: Acute Current Visit: Yes Qualifiers: Chronicity: acute Qualified Code(s): M25.561 - Pain in right knee (3) Hx of respiratory failure SNOMED Code(s): 887792944 Code(s): Z87.09 - PERSONAL HISTORY OF OTHER DISEASES OF THE RESPIRATORY SYSTEM Status: Chronic Current Visit: Yes - Problem List Review Problem List Initiated/Reviewed/Updated: Yes - Plan Plan:: 54 yo male admitted for sepsis, febrile illness, likely source is cellulitis/ bursitis of right knee. 1. Sepsis from cellulitis/bursitis: VS remain stable. Continues to be febrile. BC return positive this morning with aerobic bottle, gram + cocci in chains. Repeat BC now. Continue Unasyn and Vancomycin. Orthopedics consulted, Dr. Veloz may consider knee wash out in am. Place NPO after midnight. 2. Fevers: Continued to be febrile all night. Added Tylenol for discomfort PRN. Source potentially R knee bursitis, cellulitis, but with past history of similar illness with subsequent respiratory failure, will obtain CT of chest and abdomen/pelvis to rule out another source of infection. ECHO and Doppler to R lower leg ordered as well. HIV negative, [place] negative, influenza negative. BC returned positive, gram + cocci in chains. Continue current regimen. Obtain records from previous hospitalization in [place] VTE prophylaxis: Heparin, will hold this evening for possible surgery tomorrow. DIspo: 2-3 days pending improvement.
[2019-08-24] MEDS: Acetaminophen 325 MG Tab PO PRN ×2 (09:07→15:50)
[2019-08-24] MEDS ORDERED: Iopamidol 755 MG/ML 500 ML Multipack Bottle IVPUSH STA (10:14)
[2019-08-24] MEDS: Sodium Chloride 0.9% 1,000 ML IV SCH ×2 (10:33→20:47)
--- NOTE | 2019-08-24 10:55 | CT ---
CT abdomen and pelvis Technique: Multiple axial sections were obtained from above the dome of the diaphragm inferiorly through the pubic symphysis. Intravenous contrast was utilized. No oral contrast has been given. Comparison: No prior abdominal imaging is available. Findings: Mild atelectasis noted within both posterior lung bases. Liver shows no focal parenchymal abnormality. Spleen appears within normal limits. Small hiatal hernia is noted. Adrenal glands show no nodule. Pancreas shows no discrete abnormality. Kidneys show symmetric contrast enhancement without hydronephrosis or mass. Gallbladder contains no calcified gallstones. Aorta shows atherosclerotic calcification which continues into the iliac vessels. No retroperitoneal adenopathy or mesenteric abnormalities are seen. Appendix is seen which is normal in size. No pelvic mass or adenopathy is noted. No free fluid or inflammatory change is identified. Bone window settings were reviewed which shows mild degenerative change within the spine most prominent at L5-S1 with vacuum disc phenomena. Degenerative change is also noted within both hips, worse on the right side. Impression: 1. Findings as noted above. 2. Nothing acute is appreciated on CT study of the abdomen and pelvis. Diagnostic code #2 This report was dictated in [place] Standard Time
--- NOTE | 2019-08-24 11:16 | CT ---
CT chest Technique: Multiple axial sections were obtained from above the lung apices inferiorly through the lung bases. Intravenous contrast was utilized. Findings: Minimal atelectasis is seen within the posterior right lung base. Mild emphysematous change appears to be present. Mild scattered areas of parenchymal scarring are noted. No acute appearing parenchymal densities are seen. No discrete nodule is seen. No pericardial thickening is seen. Extensive coronary artery calcification is noted. Aorta shows atherosclerotic change without aneurysm. Mediastinal lymph nodes are seen believed to be within normal limits. No axillary adenopathy is seen. Bone window settings were reviewed. Scattered degenerative endplate spurring is noted within the spine. No acute osseous finding is appreciated. Impression: 1. Mild emphysematous change with scattered areas of scarring. Mild atelectasis within the right posterior lung base. 2. Coronary artery calcification. 3. Nothing acute is appreciated on CT study of the chest. Diagnostic code #2 This report was dictated in [place] Standard Time
--- NOTE | 2019-08-24 13:21 | US ---
Right lower extremity deep venous ultrasound: Duplex and color Doppler imaging was obtained of the right common femoral, superficial femoral, popliteal, posterior tibial and anterior tibial veins. Comparison: No prior venous imaging is available. Findings: Normal compression and Doppler blood flow seen within the deep veins. Mild edema is noted around the knee and calf. Impression: 1. Mild soft tissue edema as noted above. 2. No evidence of deep venous thrombosis within the right lower extremity. Diagnostic code #2 This report was dictated in [place] Standard Time
--- NOTE | 2019-08-24 14:55 | PCM.CONS ---
H&P History of Present Illness - General Date of Service: 08/24/19 Admit Problem/Dx: Admission Diagnosis/Problem Admission Diagnosis/Problem Fevers, Sepsis secondary to R knee cellulitis/ bursitis Source of Information: Patient, Family, Provider History Limitations: Reports: No Limitations - History of Present Illness Onset of Symptoms: Reports: Gradual Symptom Onset Date: 08/22/19 Duration of Symptoms: Reports: Day(s): Location: Reports: Lower Extremity, Right Quality: Reports: Burning, Pressure, Throbbing Severity: Moderate Improves with: Reports: Immobilization Worsens with: Reports: Movement Associated Symptoms: Reports: Other Right Knee Pain Score (Numeric/FACES): 0 - Related Data Allergies/Adverse Reactions: Allergies Allergy/AdvReac Type Severity Reaction Status Date / Time No Known Allergies Allergy Verified 08/24/19 00:41 Home Medications: Home Meds . [No Known Home Meds] 08/23/19 [History] Past Medical History HEENT History: Reports: None Cardiovascular History: Reports: High Cholesterol Respiratory History: Reports: SOB Gastrointestinal History: Reports: None Genitourinary History: Reports: None Musculoskeletal History: Reports: None Neurological History: Reports: None Psychiatric History: Reports: None Endocrine/Metabolic History: Reports: None Hematologic History: Reports: Blood Transfusion(s) Immunologic History: Reports: None Oncologic (Cancer) History: Reports: None Dermatologic History: Reports: None - Infectious Disease History Infectious Disease History: Reports: Chicken Pox - Past Surgical History Head Surgeries/Procedures: Reports: None HEENT Surgical History: Reports: Oral Surgery Respiratory Surgical History: Reports: Lung Biopsies Social & Family History - Family History Family Medical History: Noncontributory - Tobacco Use Smoking Status *Q: Former Smoker Used Tobacco, but Quit: No Month/Year Tobacco Last Used: 2009 Tobacco Use Comment: uses dip currently. Second Hand Smoke Exposure: No - Caffeine Use Caffeine Use: Reports: Soda, Tea - Recreational Drug Use Recreational Drug Use: No H&P Review of Systems - Review of Systems: Review Of Systems: See Below General: Reports: Fever, Malaise, Weakness HEENT: Reports: No Symptoms Pulmonary: Reports: No Symptoms Cardiovascular: Reports: No Symptoms Gastrointestinal: Reports: No Symptoms Genitourinary: Reports: No Symptoms Musculoskeletal: Reports: Joint Pain, Joint Swelling Skin: Reports: Change in Color Psychiatric: Reports: No Symptoms Neurological: Reports: No Symptoms Hematologic/Lymphatic: Reports: No Symptoms Immunologic: Reports: No Symptoms Exam - Exam Exam: See Below - Vital Signs Vital Signs: Last Vital Signs Temp 37.7 C 08/24/19 12:00 Pulse 94 08/24/19 12:00 Resp 20 08/24/19 08:11 BP 108/58 L 08/24/19 12:00 Pulse Ox 92 L 08/24/19 08:11 Weight: 79.7 kg - Exam General: Alert, Oriented, Moderate Distress HEENT: Conjunctiva Clear, Hearing Intact, Mucosa Moist & [place], Nares Patent, Pupils Equal, Pupils Reactive Neck: Supple, Trachea Midline Lungs: Normal Respiratory Effort Extremities: Joint Swelling, Leg Pain, Increased Warmth Peripheral Pulses: 2+: Dorsalis Pedis (R) Skin: Warm, Dry, Intact Neurological: Cranial Nerves Intact Neuro Extensive - Mental Status: Alert, Oriented x3, Normal Mood/Affect, Normal Cognition, Memory Intact Psychiatric: Alert, Normal Affect, Normal Mood - Patient Data Lab Results Last 24 hrs: Laboratory Results - last 24 hr 08/23/19 08/23/19 08/23/19 Range/Units 19:25 19:25 19:25 WBC 9.99 (4.0-11.0) K/uL RBC 4.51 (4.50-5.90) M/uL Hgb 13.9 (13.0-17.0) g/dL Hct 40.6 (38.0-50.0) % MCV 90.0 (80.0-98.0) fL MCH 30.8 (27.0-32.0) pg MCHC 34.2 (31.0-37.0) g/dL RDW Std Deviation 43.4 (28.0-62.0) fl RDW Coeff of [place] 13 (11.0-15.0) % Plt Count 255 (150-400) K/uL MPV 9.00 (7.40-12.00) fL Neut % (Auto) 86.2 H (48.0-80.0) % Lymph % (Auto) 8.7 L (16.0-40.0) % [place] % (Auto) 3.6 (0.0-15.0) % Eos % (Auto) 1.4 (0.0-7.0) % Baso % (Auto) 0.1 (0.0-1.5) % Neut # (Auto) 8.6 H (1.4-5.7) K/uL Lymph # (Auto) 0.9 (0.6-2.4) K/uL [place] # (Auto) 0.4 (0.0-0.8) K/uL Eos # (Auto) 0.1 (0.0-0.7) K/uL Baso # (Auto) 0.0 (0.0-0.1) K/uL Nucleated RBC % 0.0 /100WBC Nucleated RBCs # 0 K/uL ESR (0-19) mm/hr Lactate 1.7 (0.20-2.00) mmol/L Sodium 140 (136-148) mmol/L Potassium 3.8 (3.5-5.1) mmol/L Chloride 103 (98-107) mmol/L Carbon Dioxide 24.9 (21.0-32.0) mmol/L BUN 21 H (7.0-18.0) mg/dL Creatinine 1.3 (0.8-1.3) mg/dL Est Cr Clr Drug Dosing 61.38 mL/min Estimated GFR (MDRD) 57.1 ml/min Glucose 115 H (74-106) mg/dL Hemoglobin A1c (4.5-6.2) % Calcium 9.0 (8.5-10.1) mg/dL Total Bilirubin 0.3 (0.2-1.0) mg/dL AST 22 (15-37) IU/L ALT 28 (14-63) IU/L Alkaline Phosphatase 142 H (46-116) U/L C-Reactive Protein (0.00-0.90) mg/dL Total Protein 7.7 (6.4-8.2) g/dL Albumin 3.8 (3.4-5.0) g/dL Globulin 3.9 (2.6-4.0) g/dL Albumin/Globulin Ratio 1.0 (0.9-1.6) Urine Color Urine Appearance Urine pH (5.0-8.0) Ur Specific [place] (1.001-1.035) Urine Protein (NEGATIVE) mg/dL Urine Glucose (UA) (NEGATIVE) mg/dL Urine Ketones (NEGATIVE) mg/dL Urine Occult Blood (NEGATIVE) Urine Nitrite (NEGATIVE) Urine Bilirubin (NEGATIVE) Urine Urobilinogen (<2.0) EU/dL Ur Leukocyte Esterase (NEGATIVE) Monoscreen (NEG) HIV 1&2 Ag/Ab, 4th Gen (<1.0) INDEX 08/23/19 08/24/19 08/24/19 Range/Units 21:20 01:00 06:05 WBC (4.0-11.0) K/uL RBC (4.50-5.90) M/uL Hgb (13.0-17.0) g/dL Hct (38.0-50.0) % MCV (80.0-98.0) fL MCH (27.0-32.0) pg MCHC (31.0-37.0) g/dL RDW Std Deviation (28.0-62.0) fl RDW Coeff of [place] (11.0-15.0) % Plt Count (150-400) K/uL MPV (7.40-12.00) fL Neut % (Auto) (48.0-80.0) % Lymph % (Auto) (16.0-40.0) % O[place]Brien % (Auto) (0.0-15.0) % Eos % (Auto) (0.0-7.0) % Baso % (Auto) (0.0-1.5) % Neut # (Auto) (1.4-5.7) K/uL Lymph # (Auto) (0.6-2.4) K/uL [place] # (Auto) (0.0-0.8) K/uL Eos # (Auto) (0.0-0.7) K/uL Baso # (Auto) (0.0-0.1) K/uL Nucleated RBC % /100WBC Nucleated RBCs # K/uL ESR (0-19) mm/hr Lactate 1.0 1.1 (0.20-2.00) mmol/L Sodium (136-148) mmol/L Potassium (3.5-5.1) mmol/L Chloride (98-107) mmol/L Carbon Dioxide (21.0-32.0) mmol/L BUN (7.0-18.0) mg/dL Creatinine (0.8-1.3) mg/dL Est Cr Clr Drug Dosing mL/min Estimated GFR (MDRD) ml/min Glucose (74-106) mg/dL Hemoglobin A1c (4.5-6.2) % Calcium (8.5-10.1) mg/dL Total Bilirubin (0.2-1.0) mg/dL AST (15-37) IU/L ALT (14-63) IU/L Alkaline Phosphatase (46-116) U/L C-Reactive Protein (0.00-0.90) mg/dL Total Protein (6.4-8.2) g/dL Albumin (3.4-5.0) g/dL Globulin (2.6-4.0) g/dL Albumin/Globulin Ratio (0.9-1.6) Urine Color YELLOW Urine Appearance CLEAR Urine pH 6.5 (5.0-8.0) Ur Specific [place] <= 1.005 (1.001-1.035) Urine Protein NEGATIVE (NEGATIVE) mg/dL Urine Glucose (UA) NEGATIVE (NEGATIVE) mg/dL Urine Ketones NEGATIVE (NEGATIVE) mg/dL Urine Occult Blood NEGATIVE (NEGATIVE) Urine Nitrite NEGATIVE (NEGATIVE) Urine Bilirubin NEGATIVE (NEGATIVE) Urine Urobilinogen 0.2 (<2.0) EU/dL Ur Leukocyte Esterase NEGATIVE (NEGATIVE) Monoscreen (NEG) HIV 1&2 Ag/Ab, 4th Gen (<1.0) INDEX 08/24/19 08/24/19 08/24/19 Range/Units 06:05 06:05 06:05 WBC 12.81 H (4.0-11.0) K/uL RBC 4.22 L (4.50-5.90) M/uL Hgb 12.9 L (13.0-17.0) g/dL Hct 38.5 (38.0-50.0) % MCV 91.2 (80.0-98.0) fL MCH 30.6 (27.0-32.0) pg MCHC 33.5 (31.0-37.0) g/dL RDW Std Deviation 45.6 (28.0-62.0) fl RDW Coeff of [place] 14 (11.0-15.0) % Plt Count 195 (150-400) K/uL MPV 9.10 (7.40-12.00) fL Neut % (Auto) 89.7 H (48.0-80.0) % Lymph % (Auto) 4.7 L (16.0-40.0) % [place] % (Auto) 5.4 (0.0-15.0) % Eos % (Auto) 0.1 (0.0-7.0) % Baso % (Auto) 0.1 (0.0-1.5) % Neut # (Auto) 11.5 H (1.4-5.7) K/uL Lymph # (Auto) 0.6 (0.6-2.4) K/uL [place] # (Auto) 0.7 (0.0-0.8) K/uL Eos # (Auto) 0.0 (0.0-0.7) K/uL Baso # (Auto) 0.0 (0.0-0.1) K/uL Nucleated RBC % 0.0 /100WBC Nucleated RBCs # 0 K/uL ESR 34 H (0-19) mm/hr Lactate (0.20-2.00) mmol/L Sodium 141 (136-148) mmol/L Potassium 3.8 (3.5-5.1) mmol/L Chloride 108 H (98-107) mmol/L Carbon Dioxide 23.4 (21.0-32.0) mmol/L BUN 17 (7.0-18.0) mg/dL Creatinine 1.2 (0.8-1.3) mg/dL Est Cr Clr Drug Dosing 66.50 mL/min Estimated GFR (MDRD) > 60.0 ml/min Glucose 130 H (74-106) mg/dL Hemoglobin A1c (4.5-6.2) % Calcium 8.0 L (8.5-10.1) mg/dL Total Bilirubin (0.2-1.0) mg/dL AST (15-37) IU/L ALT (14-63) IU/L Alkaline Phosphatase (46-116) U/L C-Reactive Protein (0.00-0.90) mg/dL Total Protein (6.4-8.2) g/dL Albumin (3.4-5.0) g/dL Globulin (2.6-4.0) g/dL Albumin/Globulin Ratio (0.9-1.6) Urine Color Urine Appearance Urine pH (5.0-8.0) Ur Specific [place] (1.001-1.035) Urine Protein (NEGATIVE) mg/dL Urine Glucose (UA) (NEGATIVE) mg/dL Urine Ketones (NEGATIVE) mg/dL Urine Occult Blood (NEGATIVE) Urine Nitrite (NEGATIVE) Urine Bilirubin (NEGATIVE) Urine Urobilinogen (<2.0) EU/dL Ur Leukocyte Esterase (NEGATIVE) Monoscreen (NEG) HIV 1&2 Ag/Ab, 4th Gen (<1.0) INDEX 08/24/19 08/24/19 08/24/19 Range/Units 06:05 06:05 06:05 WBC (4.0-11.0) K/uL RBC (4.50-5.90) M/uL Hgb (13.0-17.0) g/dL Hct (38.0-50.0) % MCV (80.0-98.0) fL MCH (27.0-32.0) pg MCHC (31.0-37.0) g/dL RDW Std Deviation (28.0-62.0) fl RDW Coeff of [place] (11.0-15.0) % Plt Count (150-400) K/uL MPV (7.40-12.00) fL Neut % (Auto) (48.0-80.0) % Lymph % (Auto) (16.0-40.0) % [place] % (Auto) (0.0-15.0) % Eos % (Auto) (0.0-7.0) % Baso % (Auto) (0.0-1.5) % Neut # (Auto) (1.4-5.7) K/uL Lymph # (Auto) (0.6-2.4) K/uL [place] # (Auto) (0.0-0.8) K/uL Eos # (Auto) (0.0-0.7) K/uL Baso # (Auto) (0.0-0.1) K/uL Nucleated RBC % /100WBC Nucleated RBCs # K/uL ESR (0-19) mm/hr Lactate (0.20-2.00) mmol/L Sodium (136-148) mmol/L Potassium (3.5-5.1) mmol/L Chloride (98-107) mmol/L Carbon Dioxide (21.0-32.0) mmol/L BUN (7.0-18.0) mg/dL Creatinine (0.8-1.3) mg/dL Est Cr Clr Drug Dosing mL/min Estimated GFR (MDRD) ml/min Glucose (74-106) mg/dL Hemoglobin A1c (4.5-6.2) % Calcium (8.5-10.1) mg/dL Total Bilirubin (0.2-1.0) mg/dL AST (15-37) IU/L ALT (14-63) IU/L Alkaline Phosphatase (46-116) U/L C-Reactive Protein 12.90 H (0.00-0.90) mg/dL Total Protein (6.4-8.2) g/dL Albumin (3.4-5.0) g/dL Globulin (2.6-4.0) g/dL Albumin/Globulin Ratio (0.9-1.6) Urine Color Urine Appearance Urine pH (5.0-8.0) Ur Specific [place] (1.001-1.035) Urine Protein (NEGATIVE) mg/dL Urine Glucose (UA) (NEGATIVE) mg/dL Urine Ketones (NEGATIVE) mg/dL Urine Occult Blood (NEGATIVE) Urine Nitrite (NEGATIVE) Urine Bilirubin (NEGATIVE) Urine Urobilinogen (<2.0) EU/dL Ur Leukocyte Esterase (NEGATIVE) Monoscreen NEGATIVE (NEG) HIV 1&2 Ag/Ab, 4th Gen 0.1 (<1.0) INDEX 08/24/19 Range/Units 06:05 WBC (4.0-11.0) K/uL RBC (4.50-5.90) M/uL Hgb (13.0-17.0) g/dL Hct (38.0-50.0) % MCV (80.0-98.0) fL MCH (27.0-32.0) pg MCHC (31.0-37.0) g/dL RDW Std Deviation (28.0-62.0) fl RDW Coeff of [place] (11.0-15.0) % Plt Count (150-400) K/uL MPV (7.40-12.00) fL Neut % (Auto) (48.0-80.0) % Lymph % (Auto) (16.0-40.0) % [place] % (Auto) (0.0-15.0) % Eos % (Auto) (0.0-7.0) % Baso % (Auto) (0.0-1.5) % Neut # (Auto) (1.4-5.7) K/uL Lymph # (Auto) (0.6-2.4) K/uL [place] # (Auto) (0.0-0.8) K/uL Eos # (Auto) (0.0-0.7) K/uL Baso # (Auto) (0.0-0.1) K/uL Nucleated RBC % /100WBC Nucleated RBCs # K/uL ESR (0-19) mm/hr Lactate (0.20-2.00) mmol/L Sodium (136-148) mmol/L Potassium (3.5-5.1) mmol/L Chloride (98-107) mmol/L Carbon Dioxide (21.0-32.0) mmol/L BUN (7.0-18.0) mg/dL Creatinine (0.8-1.3) mg/dL Est Cr Clr Drug Dosing mL/min Estimated GFR (MDRD) ml/min Glucose (74-106) mg/dL Hemoglobin A1c 6.0 (4.5-6.2) % Calcium (8.5-10.1) mg/dL Total Bilirubin (0.2-1.0) mg/dL AST (15-37) IU/L ALT (14-63) IU/L Alkaline Phosphatase (46-116) U/L C-Reactive Protein (0.00-0.90) mg/dL Total Protein (6.4-8.2) g/dL Albumin (3.4-5.0) g/dL Globulin (2.6-4.0) g/dL Albumin/Globulin Ratio (0.9-1.6) Urine Color Urine Appearance Urine pH (5.0-8.0) Ur Specific [place] (1.001-1.035) Urine Protein (NEGATIVE) mg/dL Urine Glucose (UA) (NEGATIVE) mg/dL Urine Ketones (NEGATIVE) mg/dL Urine Occult Blood (NEGATIVE) Urine Nitrite (NEGATIVE) Urine Bilirubin (NEGATIVE) Urine Urobilinogen (<2.0) EU/dL Ur Leukocyte Esterase (NEGATIVE) Monoscreen (NEG) HIV 1&2 Ag/Ab, 4th Gen (<1.0) INDEX Result Diagrams: 08/24/19 06:05 08/24/19 06:05 Rusty Results Last 24 hrs: Microbiology 08/23/19 19:48 Aerobic Blood Culture - Preliminary Blood - Venous - Lab Draw 08/23/19 21:15 Influenza Type A Antigen Screen - Final Nasopharyngeal Swab NEGATIVE INFLUENZA A VIRUS AG REFERENCE RANGE: NEGATIVE Influenza Type B Antigen Screen - Final NEGATIVE INFLUENZA B VIRUS AG REFERENCE RANGE: NEGATIVE Sepsis Event Note - Evaluation Sepsis Screening Result: Sepsis Risk - Focused Exam Vital Signs: Vital Signs Temp Temp Temp Pulse Resp BP Pulse Ox 08/24/19 12:00 37.7 C 94 108/58 L 08/24/19 09:07 38.2 C H 08/24/19 08:11 38.6 C H 99 20 105/51 L 92 L 08/24/19 06:44 39.0 C H 08/24/19 05:44 39.3 C H 08/24/19 04:37 39.2 C H 08/24/19 03:23 39.3 C H 38.9 C H 108 H 26 H 112/63 93 L Date Exam was Performed: 08/24/19 Time Exam was Performed: 14:51 Consult PN Assessment/Plan POD#: 0 Procedures: Procedures ASSAY OF FREE THYROXINE (10/05/17) ASSAY THYROID STIM HORMONE (10/05/17) COMPLETE CBC W/AUTO DIFF WBC (12/06/18) COMPREHEN METABOLIC PANEL (12/06/18) GLYCOSYLATED HEMOGLOBIN TEST (10/05/17) LIPID PANEL (12/06/18) ROUTINE VENIPUNCTURE (12/06/18) (1) Patellar bursitis of right knee SNOMED Code(s): 4459183223077586 Code(s): M70.51 - OTHER BURSITIS OF KNEE, RIGHT KNEE Current Visit: Yes Problem List Initiated/Reviewed/Updated: Yes Plan: A: 54 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
[2019-08-25] MEDS: Acetaminophen 325 MG Tab PO PRN ×3 (00:14→16:39)
[2019-08-25] MEDS: Ampicillin/Sulbactam Na 3 GM in Sodium Chloride 0.9% 100 ML IV SCH ×4 (02:57→20:18)
[2019-08-25 06:24] LABS: BLOOD UREA NITROGEN,BUN 13 mg/dL (7.0-18.0); CARBON DIOXIDE,CO2 21.6 mmol/L (21.0-32.0); CHLORIDE,CL 105 mmol/L (98-107); GLUCOSE RANDOM 97 mg/dL (74-106); POTASSIUM,K 3.5 mmol/L (3.5-5.1); SODIUM,NA 137 mmol/L (136-148)
[2019-08-25] MEDS: Sodium Chloride 0.9% 1,000 ML IV SCH ×2 (07:00→18:32)
--- NOTE | 2019-08-25 07:58 | PCM.PN ---
- General Info Date of Service: 08/25/19 Admission Dx/Problem (Free Text): Admission Diagnosis/Problem Admission Diagnosis/Problem Fevers, Sepsis secondary to R knee cellulitis/ bursitis Subjective Update: Pain continues to R knee. Febrile overnight. No chest pain or SOB. Denies overt pain to R groin, but it is tender to palpation and reports serous drainage. Functional Status: Reports: Pain Controlled - Review of Systems General: Reports: Fever, Malaise. Denies: Weakness HEENT: Reports: No Symptoms. Denies: Headaches, Sore Throat Pulmonary: Reports: No Symptoms. Denies: Shortness of Breath Cardiovascular: Reports: No Symptoms. Denies: Chest Pain Gastrointestinal: Reports: No Symptoms. Denies: Abdominal Pain, Nausea, Vomiting Genitourinary: Reports: No Symptoms. Denies: Dysuria, Frequency Musculoskeletal: Reports: Joint Pain (R knee pain) Skin: Reports: Other (draining area to R groin) Psychiatric: Reports: No Symptoms - Patient Data Vitals - Most Recent: Last Vital Signs Temp 100 F 08/25/19 07:00 Pulse 92 08/25/19 07:00 Resp 12 08/25/19 07:00 BP 111/63 08/25/19 07:00 Pulse Ox 92 L 08/25/19 07:00 Weight - Most Recent: 79.7 kg I&O - Last 24 Hours: Intake & Output 08/24/19 08/25/19 08/25/19 22:59 06:59 14:59 Intake Total 3412 700 999 Output Total 500 Balance 3412 200 999 Lab Results Last 24 Hours: Laboratory Results - last 24 hr 08/24/19 08/24/19 08/24/19 Range/Units 06:05 06:05 06:05 WBC (4.0-11.0) K/uL RBC (4.50-5.90) M/uL Hgb (13.0-17.0) g/dL Hct (38.0-50.0) % MCV (80.0-98.0) fL MCH (27.0-32.0) pg MCHC (31.0-37.0) g/dL RDW Std Deviation (28.0-62.0) fl RDW Coeff of [place] (11.0-15.0) % Plt Count (150-400) K/uL MPV (7.40-12.00) fL Neut % (Auto) (48.0-80.0) % Lymph % (Auto) (16.0-40.0) % [place] % (Auto) (0.0-15.0) % Eos % (Auto) (0.0-7.0) % Baso % (Auto) (0.0-1.5) % Neut # (Auto) (1.4-5.7) K/uL Lymph # (Auto) (0.6-2.4) K/uL [place] # (Auto) (0.0-0.8) K/uL Eos # (Auto) (0.0-0.7) K/uL Baso # (Auto) (0.0-0.1) K/uL Nucleated RBC % /100WBC Nucleated RBCs # K/uL ESR 34 H (0-19) mm/hr Sodium (136-148) mmol/L Potassium (3.5-5.1) mmol/L Chloride (98-107) mmol/L Carbon Dioxide (21.0-32.0) mmol/L BUN (7.0-18.0) mg/dL Creatinine (0.8-1.3) mg/dL Est Cr Clr Drug Dosing mL/min Estimated GFR (MDRD) ml/min Glucose (74-106) mg/dL Hemoglobin A1c (4.5-6.2) % Calcium (8.5-10.1) mg/dL C-Reactive Protein 12.90 H (0.00-0.90) mg/dL Monoscreen NEGATIVE (NEG) HIV 1&2 Ag/Ab, 4th Gen (<1.0) INDEX 08/24/19 08/24/19 08/25/19 Range/Units 06:05 06:05 05:44 WBC 15.19 H (4.0-11.0) K/uL RBC 4.16 L (4.50-5.90) M/uL Hgb 12.7 L (13.0-17.0) g/dL Hct 38.2 (38.0-50.0) % MCV 91.8 (80.0-98.0) fL MCH 30.5 (27.0-32.0) pg MCHC 33.2 (31.0-37.0) g/dL RDW Std Deviation 47.1 (28.0-62.0) fl RDW Coeff of [place] 14 (11.0-15.0) % Plt Count 171 (150-400) K/uL MPV 9.50 (7.40-12.00) fL Neut % (Auto) 90.7 H (48.0-80.0) % Lymph % (Auto) 6.7 L (16.0-40.0) % [place] % (Auto) 2.2 (0.0-15.0) % Eos % (Auto) 0.3 (0.0-7.0) % Baso % (Auto) 0.1 (0.0-1.5) % Neut # (Auto) 13.8 H (1.4-5.7) K/uL Lymph # (Auto) 1.0 (0.6-2.4) K/uL [place] # (Auto) 0.3 (0.0-0.8) K/uL Eos # (Auto) 0.0 (0.0-0.7) K/uL Baso # (Auto) 0.0 (0.0-0.1) K/uL Nucleated RBC % 0.0 /100WBC Nucleated RBCs # 0 K/uL ESR (0-19) mm/hr Sodium (136-148) mmol/L Potassium (3.5-5.1) mmol/L Chloride (98-107) mmol/L Carbon Dioxide (21.0-32.0) mmol/L BUN (7.0-18.0) mg/dL Creatinine (0.8-1.3) mg/dL Est Cr Clr Drug Dosing mL/min Estimated GFR (MDRD) ml/min Glucose (74-106) mg/dL Hemoglobin A1c 6.0 (4.5-6.2) % Calcium (8.5-10.1) mg/dL C-Reactive Protein (0.00-0.90) mg/dL Monoscreen (NEG) HIV 1&2 Ag/Ab, 4th Gen 0.1 (<1.0) INDEX 08/25/19 Range/Units 05:44 WBC (4.0-11.0) K/uL RBC (4.50-5.90) M/uL Hgb (13.0-17.0) g/dL Hct (38.0-50.0) % MCV (80.0-98.0) fL MCH (27.0-32.0) pg MCHC (31.0-37.0) g/dL RDW Std Deviation (28.0-62.0) fl RDW Coeff of [place] (11.0-15.0) % Plt Count (150-400) K/uL MPV (7.40-12.00) fL Neut % (Auto) (48.0-80.0) % Lymph % (Auto) (16.0-40.0) % [place] % (Auto) (0.0-15.0) % Eos % (Auto) (0.0-7.0) % Baso % (Auto) (0.0-1.5) % Neut # (Auto) (1.4-5.7) K/uL Lymph # (Auto) (0.6-2.4) K/uL [place] # (Auto) (0.0-0.8) K/uL Eos # (Auto) (0.0-0.7) K/uL Baso # (Auto) (0.0-0.1) K/uL Nucleated RBC % /100WBC Nucleated RBCs # K/uL ESR (0-19) mm/hr Sodium 137 (136-148) mmol/L Potassium 3.5 (3.5-5.1) mmol/L Chloride 105 (98-107) mmol/L Carbon Dioxide 21.6 (21.0-32.0) mmol/L BUN 13 (7.0-18.0) mg/dL Creatinine 1.2 (0.8-1.3) mg/dL Est Cr Clr Drug Dosing 66.50 mL/min Estimated GFR (MDRD) > 60.0 ml/min Glucose 97 (74-106) mg/dL Hemoglobin A1c (4.5-6.2) % Calcium 8.0 L (8.5-10.1) mg/dL C-Reactive Protein (0.00-0.90) mg/dL Monoscreen (NEG) HIV 1&2 Ag/Ab, 4th Gen (<1.0) INDEX Rusty Results Last 24 Hours: Microbiology 08/23/19 19:48 Aerobic Blood Culture - Preliminary Blood - Venous - Lab Draw Anaerobic Blood Culture - Preliminary NO GROWTH AFTER 1 DAY 08/23/19 19:25 Aerobic Blood Culture - Preliminary Blood - Venous NO GROWTH AFTER 1 DAY Anaerobic Blood Culture - Preliminary NO GROWTH AFTER 1 DAY Med Orders - Current: Current Medications Acetaminophen (Tylenol) 650 mg PO Q4H PRN PRN Reason: fever over 101 and pain Last Admin: 08/25/19 00:14 Dose: 650 mg Heparin Sodium (Porcine) (Heparin Sodium) 5,000 units SUBCUT Q8H [facility] Last Admin: 08/24/19 23:56 Dose: 5,000 units Ampicillin Sodium/Sulbactam (Sodium 3 gm/ Sodium Chloride) 100 mls @ 200 mls/ hr IV Q6H [facility] Last Admin: 08/25/19 02:57 Dose: 200 mls/hr Sodium Chloride (Normal Saline) 1,000 mls @ 125 mls/hr IV ASDIRECTED [facility] Last Admin: 08/25/19 07:00 Dose: 125 mls/hr Vancomycin HCl 1 gm/ Sodium (Chloride) 250 mls @ 166 mls/hr IV Q12H [facility] Last Admin: 08/24/19 23:53 Dose: 166 mls/hr Sodium Chloride (Saline Flush) 10 ml FLUSH ASDIRECTED PRN PRN Reason: Keep Vein Open Sodium Chloride (Saline Flush) 2.5 ml FLUSH ASDIRECTED PRN PRN Reason: Keep Vein Open Vancomycin HCl (Pharmacy To Dose - Vancomycin) 1 dose .XX ASDIRECTED [facility] Discontinued Medications Acetaminophen (Tylenol Extra Strength) 1,000 mg PO ONETIME ONE Stop: 08/23/19 20:18 Last Admin: 08/23/19 20:30 Dose: 1,000 mg Heparin Sodium (Porcine) (Heparin Sodium) 5,000 units SUBCUT Q8H [facility] Stop: 08/24/19 17:00 Last Admin: 08/24/19 15:18 Dose: 5,000 units Ampicillin Sodium/Sulbactam (Sodium 3 gm/ Sodium Chloride) 100 mls @ 200 mls/ hr IV ONETIME ONE Stop: 08/23/19 19:42 Last Admin: 08/23/19 19:49 Dose: 200 mls/hr Sodium Chloride (Normal Saline) 1,000 mls @ 999 mls/hr IV .Bolus ONE Stop: 08/23/19 20:19 Last Admin: 08/23/19 19:35 Dose: 999 mls/hr Sodium Chloride (Normal Saline) 1,000 mls @ 999 mls/hr IV .Bolus ONE Stop: 08/23/19 22:19 Last Admin: 08/23/19 21:25 Dose: 999 mls/hr Sodium Chloride (Normal Saline) 1,000 mls @ 999 mls/hr IV .Bolus ONE Stop: 08/23/19 23:43 Last Admin: 08/23/19 22:44 Dose: 999 mls/hr Influenza Virus Vaccine (Pharmacy To Dose - Influenza Vaccine) 1 each IM ONETIME ONE Stop: 08/24/19 00:18 Iopamidol (Isovue Multipack-370 (76%)) 100 ml IVPUSH ONETIME ONE Stop: 08/23/19 20:51 Last Admin: 08/23/19 20:50 Dose: 100 ml Iopamidol (Isovue Multipack-370 (76%)) 100 ml IVPUSH ONETIME STA Stop: 08/24/19 10:15 Last Admin: 08/24/19 10:15 Dose: 100 ml Lidocaine/Epinephrine (Xylocaine 1% With Epinephrine 1:100,000) 10 ml INJECT ONETIME ONE Stop: 08/23/19 22:03 Last Admin: 08/23/19 22:20 Dose: 10 ml Lidocaine/Epinephrine (Xylocaine 1% With Epinephrine 1:100,000) Confirm Administered Dose 20 ml .ROUTE .STK-MED ONE Stop: 08/23/19 22:13 Last Admin: 08/23/19 22:19 Dose: Not Given Pneumococcal Polyvalent Vaccine (Pneumovax 23) 0.5 ml IM .ONCE ONE Stop: 08/24/19 00:18 - Exam General: Alert, Oriented, Cooperative, No Acute Distress Lungs: Clear to Auscultation, Normal Respiratory Effort Cardiovascular: Regular Rate, Regular Rhythm GI/Abdominal Exam: Normal Bowel Sounds, Soft, Non-Tender Back Exam: Normal Inspection, Full Range of Motion Extremities: Normal Inspection, No Pedal Edema. No: Normal Range of Motion ( slightly decreased to R knee due to pain, but still able to joint.) Wound/Incisions: Erythema (Erythema noted to R knee and very hot to touch in comparision to rest of body temp.) Neurological: No New Focal Deficit Psy/Mental Status: Alert, Normal Affect, Normal Mood Sepsis Event Note - Evaluation Sepsis Screening Result: No Definite Risk - Focused Exam Vital Signs: Vital Signs Temp Temp Temp Pulse Resp BP Pulse Ox 08/25/19 07:00 100 F 92 12 111/63 92 L 08/25/19 04:00 100.4 F 89 22 H 101/57 L 94 L 08/25/19 01:30 100.0 F 08/25/19 00:14 102.5 F H 08/25/19 00:00 102.5 F H 95 20 107/55 L 93 L 08/24/19 20:00 100.4 F 83 21 H 90/52 L 92 L Date Exam was Performed: 08/25/19 Time Exam was Performed: 11:35 - Problem List & Annotations (1) Fever and chills SNOMED Code(s): 751217164 Code(s): R50.9 - FEVER, UNSPECIFIED Status: Acute Current Visit: Yes (2) Knee pain, right SNOMED Code(s): 71978749 Code(s): M25.561 - PAIN IN RIGHT KNEE Status: Acute Current Visit: Yes Qualifiers: Chronicity: acute Qualified Code(s): M25.561 - Pain in right knee (3) Hx of respiratory failure SNOMED Code(s): 228535686 Code(s): Z87.09 - PERSONAL HISTORY OF OTHER DISEASES OF THE RESPIRATORY SYSTEM Status: Chronic Current Visit: Yes - Problem List Review Problem List Initiated/Reviewed/Updated: Yes - My Orders Last 24 Hours: My Active Orders 08/24/19 08:13 Acetaminophen [Tylenol] 650 mg PO Q4H PRN 08/24/19 10:22 Blood Culture x2 Reflex Set [OM.PC] Stat 08/24/19 10:23 Echo Comp wo Cont [US] Urgent 08/24/19 10:38 CULTURE BLOOD [BC] Stat 08/24/19 10:48 CULTURE BLOOD [BC] Stat 08/24/19 Dinner NPO After Midnight [Nothing per Oral After Midnight Diet] [DIET] 08/26/19 05:11 BMP [BASIC METABOLIC PANEL,BMP] [CHEM] AM CBC WITH AUTO DIFF [HEME] AM 08/27/19 05:11 BMP [BASIC METABOLIC PANEL,BMP] [CHEM] AM CBC WITH AUTO DIFF [HEME] AM - Plan Plan:: 54 yo male admitted for sepsis, febrile illness, likely source is cellulitis/ bursitis of right knee. 1. Sepsis from cellulitis/bursitis: Sepsis resolved. VS remain stable. Continues to be febrile. BC return positive 1/4 aerobic bottle, gram + cocci in chains. Repeat BC negative. Continue Unasyn and Vancomycin. Orthopedics consulted, Dr. Veloz to take to OR today for knee wash out. Knee is more erythematous today and very hot to touch, pain continues. 2. Fevers: Continued to be febrile all night.Tylenol for discomfort PRN. Source likely R knee bursitis/cellulitis. CT of chest and abdomen/pelvis to rule out another source of infection, all negative. Does have draining area to R groin, which he says is there all the time, but not erythematous. Radiology reviewed CT again and was not able to see any type of abscess or fluid collection in this area. ECHO pending. Doppler to R lower leg negative for DVT. Unable to obtain records from previous hospitalization in [place] due how many years ago it was. VTE prophylaxis: Heparin on hold for surgery. DIspo: 2-3 days pending improvement.
[2019-08-25] MEDS: Heparin Sodium 5,000 Units/ML Vial SUBCUT SCH ×2 (08:07→16:31)
[2019-08-25] MEDS ORDERED: Propofol 200 MG/20 ML SDV ONE ×2 (09:55→12:12)
[2019-08-25] MEDS ORDERED: fentaNYL 100 MCG/2 ML SDV ONE ×2 (09:55→12:06)
[2019-08-25] MEDS ORDERED: Rocuronium 100 MG/10 ML Syringe ONE (09:56)
[2019-08-25] MEDS ORDERED: ePHEDrine 50 MG/ML SDV ONE (09:56)
[2019-08-25] MEDS ORDERED: Midazolam 1 MG/ML 2 ML SDV ONE (09:56)
[2019-08-25] MEDS ORDERED: Phenylephrine/Normal Saline 100 MCG/ML 10 ML Syringe ONE (09:56)
[2019-08-25] MEDS ORDERED: Sodium Chloride 0.9% 20 ML ONE (09:56)
[2019-08-25] MEDS ORDERED: Bupivacaine 0.25% 10 ML SDV ONE (10:35)
[2019-08-25] MEDS ORDERED: Bupivacaine 0.5% 30 ML SDV ONE (10:36)
[2019-08-25] MEDS ORDERED: Lidocaine 1% 20 ML MDV ONE (10:38)
--- NOTE | 2019-08-25 11:11 | PCM.PREANE ---
Preanesthetic Assessment - Anesthesia/Transfusion/Family Hx Anesthesia History: No Prior Anesthesia Family History of Anesthesia Reaction: No Transfusion History: Prior Transfusion Without Reaction Intubation History: Unknown - Review of Systems General: No Symptoms Pulmonary: No Symptoms Cardiovascular: No Symptoms Gastrointestinal: No Symptoms Neurological: No Symptoms Other: Reports: None - Physical Assessment Vital Signs: Last Vital Signs Temp 38.4 C H 08/25/19 08:27 Pulse 92 08/25/19 07:00 Resp 12 08/25/19 07:00 BP 111/63 08/25/19 07:00 Pulse Ox 92 L 08/25/19 07:00 Height: 5 ft 8 in Weight: 79.7 kg ASA Class: 2 Mental Status: Alert & Oriented x3 Airway Class: Mallampati = 1 Dentition: Reports: Dentures (upper and lower) Thyro-Mental Finger Breadths: 3 Mouth Opening Finger Breadths: 3 ROM/Head Extension: Full Lungs: Clear to Auscultation, Normal Respiratory Effort Cardiovascular: Regular Rate, Regular Rhythm - Lab Values: Laboratory Last Values WBC 15.19 K/uL (4.0-11.0) H 08/25/19 05:44 RBC 4.16 M/uL (4.50-5.90) L 08/25/19 05:44 Hgb 12.7 g/dL (13.0-17.0) L 08/25/19 05:44 Hct 38.2 % (38.0-50.0) 08/25/19 05:44 MCV 91.8 fL (80.0-98.0) 08/25/19 05:44 MCH 30.5 pg (27.0-32.0) 08/25/19 05:44 MCHC 33.2 g/dL (31.0-37.0) 08/25/19 05:44 RDW Std Deviation 47.1 fl (28.0-62.0) 08/25/19 05:44 RDW Coeff of [place] 14 % (11.0-15.0) 08/25/19 05:44 Plt Count 171 K/uL (150-400) 08/25/19 05:44 MPV 9.50 fL (7.40-12.00) 08/25/19 05:44 Neut % (Auto) 90.7 % (48.0-80.0) H 08/25/19 05:44 Lymph % (Auto) 6.7 % (16.0-40.0) L 08/25/19 05:44 [place] % (Auto) 2.2 % (0.0-15.0) 08/25/19 05:44 Eos % (Auto) 0.3 % (0.0-7.0) 08/25/19 05:44 Baso % (Auto) 0.1 % (0.0-1.5) 08/25/19 05:44 Neut # (Auto) 13.8 K/uL (1.4-5.7) H 08/25/19 05:44 Lymph # (Auto) 1.0 K/uL (0.6-2.4) 08/25/19 05:44 [place] # (Auto) 0.3 K/uL (0.0-0.8) 08/25/19 05:44 Eos # (Auto) 0.0 K/uL (0.0-0.7) 08/25/19 05:44 Baso # (Auto) 0.0 K/uL (0.0-0.1) 08/25/19 05:44 Nucleated RBC % 0.0 /100WBC 08/25/19 05:44 Nucleated RBCs # 0 K/uL 08/25/19 05:44 ESR 34 mm/hr (0-19) H 08/24/19 06:05 Lactate 1.1 mmol/L (0.20-2.00) 08/24/19 06:05 Sodium 137 mmol/L (136-148) 08/25/19 05:44 Potassium 3.5 mmol/L (3.5-5.1) 08/25/19 05:44 Chloride 105 mmol/L (98-107) 08/25/19 05:44 Carbon Dioxide 21.6 mmol/L (21.0-32.0) 08/25/19 05:44 BUN 13 mg/dL (7.0-18.0) 08/25/19 05:44 Creatinine 1.2 mg/dL (0.8-1.3) 08/25/19 05:44 Est Cr Clr Drug Dosing 66.50 mL/min 08/25/19 05:44 Estimated GFR (MDRD) > 60.0 ml/min 08/25/19 05:44 Glucose 97 mg/dL (74-106) 08/25/19 05:44 Hemoglobin A1c 6.0 % (4.5-6.2) 08/24/19 06:05 Calcium 8.0 mg/dL (8.5-10.1) L 08/25/19 05:44 Total Bilirubin 0.3 mg/dL (0.2-1.0) 08/23/19 19:25 AST 22 IU/L (15-37) 08/23/19 19:25 ALT 28 IU/L (14-63) 08/23/19 19:25 Alkaline Phosphatase 142 U/L (46-116) H 08/23/19 19:25 C-Reactive Protein 12.90 mg/dL (0.00-0.90) H 08/24/19 06:05 Total Protein 7.7 g/dL (6.4-8.2) 08/23/19 19:25 Albumin 3.8 g/dL (3.4-5.0) 08/23/19 19:25 Globulin 3.9 g/dL (2.6-4.0) 08/23/19 19:25 Albumin/Globulin Ratio 1.0 (0.9-1.6) 08/23/19 19:25 Urine Color YELLOW 08/23/19 21:20 Urine Appearance CLEAR 08/23/19 21:20 Urine pH 6.5 (5.0-8.0) 08/23/19 21:20 Ur Specific [place] <= 1.005 (1.001-1.035) 08/23/19 21:20 Urine Protein NEGATIVE mg/dL (NEGATIVE) 08/23/19 21:20 Urine Glucose (UA) NEGATIVE mg/dL (NEGATIVE) 08/23/19 21:20 Urine Ketones NEGATIVE mg/dL (NEGATIVE) 08/23/19 21:20 Urine Occult Blood NEGATIVE (NEGATIVE) 08/23/19 21:20 Urine Nitrite NEGATIVE (NEGATIVE) 08/23/19 21:20 Urine Bilirubin NEGATIVE (NEGATIVE) 08/23/19 21:20 Urine Urobilinogen 0.2 EU/dL (<2.0) 08/23/19 21:20 Ur Leukocyte Esterase NEGATIVE (NEGATIVE) 08/23/19 21:20 Monoscreen NEGATIVE (NEG) 08/24/19 06:05 HIV 1&2 Ag/Ab, 4th Gen 0.1 INDEX (<1.0) 08/24/19 06:05 - Allergies Allergies/Adverse Reactions: Allergies Allergy/AdvReac Type Severity Reaction Status Date / Time No Known Allergies Allergy Verified 08/24/19 00:41 - Blood Blood Available: No - Anesthesia Plan Pre-Op Medication Ordered: None - Acknowledgements Anesthesia Type Planned: General Anesthesia Pt an Appropriate Candidate for the Planned Anesthesia: Yes Alternatives and Risks of Anesthesia Discussed w Pt/Guardian: Yes Pt/Guardian Understands and Agrees with Anesthesia Plan: Yes PreAnesthesia Questionnaire HEENT History: Reports: None Cardiovascular History: Reports: High Cholesterol, Other (See Below) (venous dopler yesterday was ok, cardiac ECHO not red yet) Respiratory History: Reports: SOB (only on heavy exertion) Gastrointestinal History: Reports: None Genitourinary History: Reports: None Musculoskeletal History: Reports: Other (See Below) (infected rt. knee patellar bursa) Neurological History: Reports: None Psychiatric History: Reports: None Endocrine/Metabolic History: Reports: None Hematologic History: Reports: Blood Transfusion(s) Immunologic History: Reports: None Oncologic (Cancer) History: Reports: None Dermatologic History: Reports: None - Infectious Disease History Infectious Disease History: Reports: Chicken Pox - Past Surgical History Head Surgeries/Procedures: Reports: None HEENT Surgical History: Reports: Oral Surgery Respiratory Surgical History: Reports: Lung Biopsies (over 30 years ago) - SUBSTANCE USE Smoking Status *Q: Former Smoker (quit 2010) Tobacco Use Within Last Twelve Months: Cigarettes, Snuff/Dip Second Hand Smoke Exposure: No Recreational Drug Use History: No - HOME MEDS Home Medications: Home Meds . [No Known Home Meds] 08/23/19 [History] - CURRENT (IN HOUSE) MEDS Current Meds: Current Medications Acetaminophen (Tylenol) 650 mg PO Q4H PRN PRN Reason: fever over 101 and pain Last Admin: 08/25/19 08:27 Dose: 650 mg Heparin Sodium (Porcine) (Heparin Sodium) 5,000 units SUBCUT Q8H [facility] Last Admin: 08/25/19 08:07 Dose: 5,000 units Ampicillin Sodium/Sulbactam (Sodium 3 gm/ Sodium Chloride) 100 mls @ 200 mls/ hr IV Q6H [facility] Last Admin: 08/25/19 08:11 Dose: 200 mls/hr Sodium Chloride (Normal Saline) 1,000 mls @ 125 mls/hr IV ASDIRECTED [facility] Last Admin: 08/25/19 07:00 Dose: 125 mls/hr Vancomycin HCl 1 gm/ Sodium (Chloride) 250 mls @ 166 mls/hr IV Q12H [facility] Last Admin: 08/24/19 23:53 Dose: 166 mls/hr Sodium Chloride (Saline Flush) 10 ml FLUSH ASDIRECTED PRN PRN Reason: Keep Vein Open Sodium Chloride (Saline Flush) 2.5 ml FLUSH ASDIRECTED PRN PRN Reason: Keep Vein Open Vancomycin HCl (Pharmacy To Dose - Vancomycin) 1 dose .XX ASDIRECTED [facility] Discontinued Medications Acetaminophen (Tylenol Extra Strength) 1,000 mg PO ONETIME ONE Stop: 08/23/19 20:18 Last Admin: 08/23/19 20:30 Dose: 1,000 mg Bupivacaine HCl (Sensorcaine-Mpf 0.25%) Confirm Administered Dose 10 ml .ROUTE .STK-MED ONE Stop: 08/25/19 10:36 Bupivacaine HCl (Marcaine 0.5%) Confirm Administered Dose 30 ml .ROUTE .STK-MED ONE Stop: 08/25/19 10:37 Ephedrine Sulfate (Ephedrine Sulfate) Confirm Administered Dose 50 mg .ROUTE .STK-MED ONE Stop: 08/25/19 09:57 Fentanyl (Sublimaze) Confirm Administered Dose 100 mcg .ROUTE .STK-MED ONE Stop: 08/25/19 09:56 Heparin Sodium (Porcine) (Heparin Sodium) 5,000 units SUBCUT Q8H [facility] Stop: 08/24/19 17:00 Last Admin: 08/24/19 15:18 Dose: 5,000 units Ampicillin Sodium/Sulbactam (Sodium 3 gm/ Sodium Chloride) 100 mls @ 200 mls/ hr IV ONETIME ONE Stop: 08/23/19 19:42 Last Admin: 08/23/19 19:49 Dose: 200 mls/hr Sodium Chloride (Normal Saline) 1,000 mls @ 999 mls/hr IV .Bolus ONE Stop: 08/23/19 20:19 Last Admin: 08/23/19 19:35 Dose: 999 mls/hr Sodium Chloride (Normal Saline) 1,000 mls @ 999 mls/hr IV .Bolus ONE Stop: 08/23/19 22:19 Last Admin: 08/23/19 21:25 Dose: 999 mls/hr Sodium Chloride (Normal Saline) 1,000 mls @ 999 mls/hr IV .Bolus ONE Stop: 08/23/19 23:43 Last Admin: 08/23/19 22:44 Dose: 999 mls/hr Sodium Chloride (Normal Saline) Confirm Administered Dose 20 mls @ as directed .ROUTE .STK-MED ONE Stop: 08/25/19 09:57 Influenza Virus Vaccine (Pharmacy To Dose - Influenza Vaccine) 1 each IM ONETIME ONE Stop: 08/24/19 00:18 Iopamidol (Isovue Multipack-370 (76%)) 100 ml IVPUSH ONETIME ONE Stop: 08/23/19 20:51 Last Admin: 08/23/19 20:50 Dose: 100 ml Iopamidol (Isovue Multipack-370 (76%)) 100 ml IVPUSH ONETIME STA Stop: 08/24/19 10:15 Last Admin: 08/24/19 10:15 Dose: 100 ml Lidocaine HCl (Xylocaine 1%) Confirm Administered Dose 20 ml .ROUTE .STK-MED ONE Stop: 08/25/19 10:39 Lidocaine/Epinephrine (Xylocaine 1% With Epinephrine 1:100,000) 10 ml INJECT ONETIME ONE Stop: 08/23/19 22:03 Last Admin: 08/23/19 22:20 Dose: 10 ml Lidocaine/Epinephrine (Xylocaine 1% With Epinephrine 1:100,000) Confirm Administered Dose 20 ml .ROUTE .STK-MED ONE Stop: 08/23/19 22:13 Last Admin: 08/23/19 22:19 Dose: Not Given Midazolam HCl (Versed 1 Mg/Ml) Confirm Administered Dose 2 mg .ROUTE .STK-MED ONE Stop: 08/25/19 09:57 Phenylephrine HCl (Phenylephrine In Ns 100 Mcg/Ml) Confirm Administered Dose 1 mg .ROUTE .STK-MED ONE Stop: 08/25/19 09:57 Pneumococcal Polyvalent Vaccine (Pneumovax 23) 0.5 ml IM .ONCE ONE Stop: 08/24/19 00:18 Propofol (Diprivan 20 Ml) Confirm Administered Dose 200 mg .ROUTE .STK-MED ONE Stop: 08/25/19 09:56 Rocuronium [place] (Zemuron) Confirm Administered Dose 100 mg .ROUTE .STK-MED ONE Stop: 08/25/19 09:57 Succinylcholine Chloride (Succinylcholine Chloride) Confirm Administered Dose 200 mg .ROUTE .STK-MED ONE Stop: 08/25/19 09:57
[2019-08-25] MEDS ORDERED: EPINEPHrine 1:10,000 1 MG/10 ML Syringe IVPUSH PRN (11:26)
[2019-08-25] MEDS ORDERED: Naloxone 0.4 MG/ML Syringe IVPUSH PRN (11:26)
[2019-08-25] MEDS ORDERED: 50% Dextrose in Water 50 ML Syringe IVPUSH PRN (11:26)
[2019-08-25] MEDS ORDERED: Atropine 0.1 MG/ML 10 ML Syringe IVPUSH PRN ×2 (11:26)
[2019-08-25] MEDS ORDERED: Albuterol 0.083% 2.5 MG/3 ML Neb Soln NEB PRN (11:26)
[2019-08-25] MEDS ORDERED: fentaNYL 100 MCG/2 ML SDV IVPUSH PRN (11:26)
[2019-08-25] MEDS ORDERED: Bupivacaine 25%/EPINEPHrine/PF 0 ML ONE (11:42)
--- NOTE | 2019-08-25 12:33 | PCM.OPNOTE ---
- General Post-Op/Procedure Note Date of Surgery/Procedure: 08/25/19 Operative Procedure(s): right knee patellar bursectomy Pre Op Diagnosis: right knee patellar bursitis Post-Op Diagnosis: Same Anesthesia Technique: General LMA Primary Surgeon: James Veloz Pathology: aerobic and anaerobic cultures EBL in mLs: 200 Complications: None Condition: Fair Free Text/Narrative:: Intake & Output 08/24/19 08/25/19 08/25/19 22:59 06:59 14:59 Intake Total 3412 700 999 Output Total 500 Balance 3412 200 999
--- NOTE | 2019-08-25 13:06 | PCM.POSTAN ---
POST ANESTHESIA ASSESSMENT - MENTAL STATUS Mental Status: Alert, Oriented - VITAL SIGNS Vital Signs: Last Vital Signs Temp 36.7 C 08/25/19 12:31 Pulse 92 08/25/19 13:01 Resp 20 08/25/19 13:01 BP 94/60 08/25/19 13:01 Pulse Ox 95 08/25/19 13:01 - RESPIRATORY Respiratory Status: Respiratory Rate WNL, Airway Patent, O2 Saturation Stable, Supplemental Oxygen (Pt on 2L O2/NC) - CARDIOVASCULAR CV Status: Pulse Rate WNL, Blood Pressure Stable - GASTROINTESTINAL GI Status: No Symptoms - PAIN Pain Score: 2 - POST OP HYDRATION Hydration Status: Adequate & Stable
--- NOTE | 2019-08-25 13:25 | OR ---
SURGEON: James Veloz DATE OF PROCEDURE: 08/25/2019 PREOPERATIVE DIAGNOSIS: Right knee patellar bursitis. POSTOPERATIVE DIAGNOSIS: Right knee patellar bursitis. PROCEDURE: Right knee patellar bursectomy. PRIMARY SURGEON: James Veloz DO. ANESTHESIA: General endotracheal intubation. FLUID: Lactated Ringer's solution. ESTIMATED BLOOD LOSS: 200 mL. COMPLICATIONS: None. SPECIMEN: Aerobic and anaerobic cultures. DISCHARGE DISPOSITION: Stable to PACU. HISTORY AND INDICATIONS FOR THE PROCEDURE: The patient was seen on the floor, was admitted through the ED. 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 He was tachycardic, and the Medicine Service admitted him and found out that he was septic and that he had gram-positive cocci growing. He also had a very warm right knee with what appeared to be a mild bursitis. Multiple imaging studies were done and it was determined that the most likely source of the sepsis was the patellar bursitis. Risks and goals of the procedure were explained to the patient. Informed consent was obtained. DETAILS OF PROCEDURE: The patient was seen preoperatively by myself and the Anesthesia staff. He was brought to the operative suite by Anesthesia staff where general anesthesia was administered. All extremities were found to be well padded. The right lower extremity was prepped and draped in a sterile manner. Time-out was called to identify the correct patient, the correct procedure, the correct site, and that antibiotics were in at appropriate period of time. A midline incision was made. Bleeding was controlled with Bovie electrocautery. There was some purulent fluid encountered after incision, cultures were taken in that fluid sac. I used allis forceps to hold open the skin and then I did a full bursectomy removing as much material as possible. After that had been accomplished, I then copiously irrigated with Betadine infused irrigation and then packed it to stop the bleeding and applied some Avitene. I then closed with 0 Stratafix subcutaneously followed by skin graham followed by dressing with Betadine- soaked Adaptic, fluffs, and an Timothy wrap. The patient was allowed to awaken from general anesthesia and taken to the PACU in stable condition. [id number] / MODL /[id number] MTDShavon
[2019-08-26] MEDS: Acetaminophen 325 MG Tab PO PRN ×3 (00:20→19:01)
[2019-08-26] MEDS: Heparin Sodium 5,000 Units/ML Vial SUBCUT SCH ×3 (00:22→15:46)
[2019-08-26] MEDS: Ampicillin/Sulbactam Na 3 GM in Sodium Chloride 0.9% 100 ML IV SCH ×4 (02:42→20:00)
[2019-08-26] MEDS: Sodium Chloride 0.9% 1,000 ML IV SCH ×3 (07:00→20:50)
[2019-08-26 07:06] LABS: BLOOD UREA NITROGEN,BUN 11 mg/dL (7.0-18.0); CHLORIDE,CL 105 mmol/L (98-107); GLUCOSE RANDOM 103 mg/dL (74-106); POTASSIUM,K 3.5 mmol/L (3.5-5.1); SODIUM,NA 136 mmol/L (136-148)
--- NOTE | 2019-08-26 08:41 | PCM48HPAN ---
Post Anesthesia Note - EVALUATION WITHIN 48HRS OF ANESTHETIC Vital Signs in Normal Range: Yes Patient Participated in Evaluation: Yes Respiratory Function Stable: Yes Airway Patent: Yes Cardiovascular Function Stable: Yes Hydration Status Stable: Yes Pain Control Satisfactory: Yes Nausea and Vomiting Control Satisfactory: Yes Mental Status Recovered: Yes Vital Signs: Last Vital Signs Temp 37.1 C 08/26/19 07:10 Pulse 93 08/26/19 07:10 Resp 20 08/26/19 07:10 BP 133/79 08/26/19 07:10 Pulse Ox 93 L 08/26/19 07:10
--- NOTE | 2019-08-26 11:35 | PCM.PN ---
- General Info Date of Service: 08/26/19 - Review of Systems Systems Review Comment:: feeling better, knee still hurts - Patient Data Vitals - Most Recent: Last Vital Signs Temp 38.4 C H 08/26/19 09:39 Pulse 93 08/26/19 07:10 Resp 20 08/26/19 07:10 BP 133/79 08/26/19 07:10 Pulse Ox 93 L 08/26/19 07:10 Weight - Most Recent: 79.7 kg I&O - Last 24 Hours: Intake & Output 08/25/19 08/26/19 08/26/19 22:59 06:59 14:59 Intake Total 1387 2050 Output Total 920 880 Balance 467 1170 Lab Results Last 24 Hours: Laboratory Results - last 24 hr 08/26/19 08/26/19 Range/Units 06:00 06:00 WBC 11.72 H (4.0-11.0) K/uL RBC 3.26 L (4.50-5.90) M/uL Hgb 10.0 L (13.0-17.0) g/dL Hct 29.9 L (38.0-50.0) % MCV 91.7 (80.0-98.0) fL MCH 30.7 (27.0-32.0) pg MCHC 33.4 (31.0-37.0) g/dL RDW Std Deviation 47.1 (28.0-62.0) fl RDW Coeff of [place] 14 (11.0-15.0) % Plt Count 198 (150-400) K/uL MPV 9.80 (7.40-12.00) fL Neut % (Auto) 84.1 H (48.0-80.0) % Lymph % (Auto) 12.3 L (16.0-40.0) % [place] % (Auto) 3.0 (0.0-15.0) % Eos % (Auto) 0.5 (0.0-7.0) % Baso % (Auto) 0.1 (0.0-1.5) % Neut # (Auto) 9.9 H (1.4-5.7) K/uL Lymph # (Auto) 1.4 (0.6-2.4) K/uL [place] # (Auto) 0.4 (0.0-0.8) K/uL Eos # (Auto) 0.1 (0.0-0.7) K/uL Baso # (Auto) 0.0 (0.0-0.1) K/uL Nucleated RBC % 0.0 /100WBC Nucleated RBCs # 0 K/uL Sodium 136 (136-148) mmol/L Potassium 3.5 (3.5-5.1) mmol/L Chloride 105 (98-107) mmol/L Carbon Dioxide 20.0 L (21.0-32.0) mmol/L BUN 11 (7.0-18.0) mg/dL Creatinine 0.9 (0.8-1.3) mg/dL Est Cr Clr Drug Dosing 88.67 mL/min Estimated GFR (MDRD) > 60.0 ml/min Glucose 103 (74-106) mg/dL Calcium 7.6 L (8.5-10.1) mg/dL Rusty Results Last 24 Hours: Microbiology 08/24/19 10:48 Aerobic Blood Culture - Preliminary Blood - Venous - Lab Draw NO GROWTH AFTER 2 DAYS Anaerobic Blood Culture - Preliminary NO GROWTH AFTER 2 DAYS 08/24/19 10:38 Aerobic Blood Culture - Preliminary Blood - Venous NO GROWTH AFTER 2 DAYS Anaerobic Blood Culture - Preliminary NO GROWTH AFTER 2 DAYS 08/23/19 19:48 Aerobic Blood Culture - Final Blood - Venous - Lab Draw Streptococcus Group A Anaerobic Blood Culture - Preliminary NO GROWTH AFTER 2 DAYS 08/23/19 19:25 Aerobic Blood Culture - Preliminary Blood - Venous NO GROWTH AFTER 2 DAYS Anaerobic Blood Culture - Preliminary NO GROWTH AFTER 2 DAYS 08/25/19 12:08 Gram Stain - Final Knee, Right Med Orders - Current: Current Medications Acetaminophen (Tylenol) 650 mg PO Q4H PRN PRN Reason: fever over 101 and pain Last Admin: 08/26/19 09:39 Dose: 650 mg Albuterol (Proventil Neb Soln) 2.5 mg NEB ONETIME PRN PRN Reason: Wheezing Atropine Sulfate (Atropine 0.1 Mg/Ml) 1 mg IVPUSH ASDIRECTED PRN PRN Reason: Hypo-Perfusion Dextrose/Water (Dextrose 50% In Water) 50 ml IVPUSH ASDIRECTED PRN PRN Reason: Hypoglycemia Epinephrine HCl (Epinephrine 1:10,000) 1 mg IVPUSH ASDIRECTED PRN PRN Reason: ACLS Guidelines Fentanyl (Sublimaze) 50 mcg IVPUSH Q5M PRN PRN Reason: Pain Last Admin: 08/25/19 12:54 Dose: 50 mcg Heparin Sodium (Porcine) (Heparin Sodium) 5,000 units SUBCUT Q8H [facility] Last Admin: 08/26/19 08:41 Dose: 5,000 units Ampicillin Sodium/Sulbactam (Sodium 3 gm/ Sodium Chloride) 100 mls @ 200 mls/ hr IV Q6H [facility] Last Admin: 08/26/19 08:41 Dose: 200 mls/hr Sodium Chloride (Normal Saline) 1,000 mls @ 125 mls/hr IV ASDIRECTED [facility] Last Admin: 08/26/19 10:59 Dose: 125 mls/hr Vancomycin HCl 1.25 gm/ Sodium (Chloride) 250 mls @ 166.667 mls/hr IV Q12H [facility] Last Admin: 08/26/19 11:22 Dose: 166 mls/hr Naloxone HCl (Narcan) 0.1 mg IVPUSH ASDIRECTED PRN PRN Reason: Respiratory Depression Sodium Chloride (Saline Flush) 10 ml FLUSH ASDIRECTED PRN PRN Reason: Keep Vein Open Sodium Chloride (Saline Flush) 2.5 ml FLUSH ASDIRECTED PRN PRN Reason: Keep Vein Open Vancomycin HCl (Pharmacy To Dose - Vancomycin) 1 dose .XX ASDIRECTED [facility] Discontinued Medications Acetaminophen (Tylenol Extra Strength) 1,000 mg PO ONETIME ONE Stop: 08/23/19 20:18 Last Admin: 08/23/19 20:30 Dose: 1,000 mg Atropine Sulfate (Atropine 0.1 Mg/Ml) 0.5 mg IVPUSH ASDIRECTED PRN PRN Reason: Hypo-perfusion Stop: 08/25/19 11:27 Bupivacaine HCl (Sensorcaine-Mpf 0.25%) Confirm Administered Dose 10 ml .ROUTE .STK-MED ONE Stop: 08/25/19 10:36 Bupivacaine HCl (Marcaine 0.5%) Confirm Administered Dose 30 ml .ROUTE .STK-MED ONE Stop: 08/25/19 10:37 Ephedrine Sulfate (Ephedrine Sulfate) Confirm Administered Dose 50 mg .ROUTE .STK-MED ONE Stop: 08/25/19 09:57 Fentanyl (Sublimaze) Confirm Administered Dose 100 mcg .ROUTE .STK-MED ONE Stop: 08/25/19 09:56 Fentanyl (Sublimaze) Confirm Administered Dose 100 mcg .ROUTE .STK-MED ONE Stop: 08/25/19 12:07 Heparin Sodium (Porcine) (Heparin Sodium) 5,000 units SUBCUT Q8H [facility] Stop: 08/24/19 17:00 Last Admin: 08/24/19 15:18 Dose: 5,000 units Ampicillin Sodium/Sulbactam (Sodium 3 gm/ Sodium Chloride) 100 mls @ 200 mls/ hr IV ONETIME ONE Stop: 08/23/19 19:42 Last Admin: 08/23/19 19:49 Dose: 200 mls/hr Sodium Chloride (Normal Saline) 1,000 mls @ 999 mls/hr IV .Bolus ONE Stop: 08/23/19 20:19 Last Admin: 08/23/19 19:35 Dose: 999 mls/hr Sodium Chloride (Normal Saline) 1,000 mls @ 999 mls/hr IV .Bolus ONE Stop: 08/23/19 22:19 Last Admin: 08/23/19 21:25 Dose: 999 mls/hr Sodium Chloride (Normal Saline) 1,000 mls @ 999 mls/hr IV .Bolus ONE Stop: 08/23/19 23:43 Last Admin: 08/23/19 22:44 Dose: 999 mls/hr Vancomycin HCl 1 gm/ Sodium (Chloride) 250 mls @ 166 mls/hr IV Q12H [facility] Last Admin: 08/24/19 23:53 Dose: 166 mls/hr Sodium Chloride (Normal Saline) Confirm Administered Dose 20 mls @ as directed .ROUTE .STK-MED ONE Stop: 08/25/19 09:57 Bupivacaine HCl/Epinephrine Bitart (Sensorc Mpf 0.25%-Epi 1:780466) Confirm Administered Dose 30 mls @ as directed .ROUTE .STK-MED ONE Stop: 08/25/19 11:43 Influenza Virus Vaccine (Pharmacy To Dose - Influenza Vaccine) 1 each IM ONETIME ONE Stop: 08/24/19 00:18 Iopamidol (Isovue Multipack-370 (76%)) 100 ml IVPUSH ONETIME ONE Stop: 08/23/19 20:51 Last Admin: 08/23/19 20:50 Dose: 100 ml Iopamidol (Isovue Multipack-370 (76%)) 100 ml IVPUSH ONETIME STA Stop: 08/24/19 10:15 Last Admin: 08/24/19 10:15 Dose: 100 ml Lidocaine HCl (Xylocaine 1%) Confirm Administered Dose 20 ml .ROUTE .STK-MED ONE Stop: 08/25/19 10:39 Lidocaine/Epinephrine (Xylocaine 1% With Epinephrine 1:100,000) 10 ml INJECT ONETIME ONE Stop: 08/23/19 22:03 Last Admin: 08/23/19 22:20 Dose: 10 ml Lidocaine/Epinephrine (Xylocaine 1% With Epinephrine 1:100,000) Confirm Administered Dose 20 ml .ROUTE .STK-MED ONE Stop: 08/23/19 22:13 Last Admin: 08/23/19 22:19 Dose: Not Given Midazolam HCl (Versed 1 Mg/Ml) Confirm Administered Dose 2 mg .ROUTE .STK-MED ONE Stop: 08/25/19 09:57 Phenylephrine HCl (Phenylephrine In Ns 100 Mcg/Ml) Confirm Administered Dose 1 mg .ROUTE .STK-MED ONE Stop: 08/25/19 09:57 Pneumococcal Polyvalent Vaccine (Pneumovax 23) 0.5 ml IM .ONCE ONE Stop: 08/24/19 00:18 Propofol (Diprivan 20 Ml) Confirm Administered Dose 200 mg .ROUTE .STK-MED ONE Stop: 08/25/19 09:56 Propofol (Diprivan 20 Ml) Confirm Administered Dose 200 mg .ROUTE .STK-MED ONE Stop: 08/25/19 12:13 Rocuronium [place] (Zemuron) Confirm Administered Dose 100 mg .ROUTE .STK-MED ONE Stop: 08/25/19 09:57 Succinylcholine Chloride (Succinylcholine Chloride) Confirm Administered Dose 200 mg .ROUTE .STK-MED ONE Stop: 08/25/19 09:57 - Exam General: Alert, Oriented Lungs: Clear to Auscultation, Normal Respiratory Effort Cardiovascular: Regular Rate, Regular Rhythm Extremities: Other (no erythema or drainage around surgical wound knee still warm) Neurological: No New Focal Deficit Sepsis Event Note - Evaluation Sepsis Screening Result: Sepsis Risk - Focused Exam Vital Signs: Vital Signs Temp Temp Pulse Resp BP Pulse Ox 08/26/19 09:39 38.4 C H 08/26/19 07:10 37.1 C 93 20 133/79 93 L 08/26/19 04:00 38.1 C 85 20 90/46 L 92 L 08/26/19 00:20 39.1 C H 08/26/19 00:00 39.1 C H 102 H 21 H 140/68 95 Date Exam was Performed: 08/26/19 Time Exam was Performed: 11:36 - Problem List Review Problem List Initiated/Reviewed/Updated: Yes - My Orders Last 24 Hours: My Active Orders 08/25/19 12:00 Vancomycin 1.25 gm Sodium Chloride 0.9% [Normal Saline (AdvBag)] 250 ml IV Q12H 08/26/19 23:30 VANCOMYCIN TROUGH [CHEM] Routine - Plan Plan:: 54 yo male admitted for sepsis from cellulitis/bursitis of right knee. 1. Sepsis from cellulitis/pre patellar bursitis: Dr. Veloz performed prepatellar bursectomy and noted some purulent material. BC return positive 1/ 4 aerobic bottle, going Strep Group A s. Cultures from bursectomy pending. Still having fevers but white count is improving. Continue Unasyn and Vancomycin.
[2019-08-26] MEDS ORDERED: Docusate Sodium 100 MG Cap PO PRN (20:41)
[2019-08-27] MEDS: Heparin Sodium 5,000 Units/ML Vial SUBCUT SCH ×3 (00:47→16:31)
[2019-08-27] MEDS: Ampicillin/Sulbactam Na 3 GM in Sodium Chloride 0.9% 100 ML IV SCH ×4 (02:47→20:24)
[2019-08-27 06:27] LABS: BLOOD UREA NITROGEN,BUN 9 mg/dL (7.0-18.0); CARBON DIOXIDE,CO2 20.4 mmol/L (21.0-32.0); CHLORIDE,CL 106 mmol/L (98-107); GLUCOSE RANDOM 107 mg/dL (74-106); POTASSIUM,K 3.1 mmol/L (3.5-5.1); SODIUM,NA 138 mmol/L (136-148)
[2019-08-27] MEDS: Sodium Chloride 0.9% 1,000 ML IV SCH ×2 (07:07→16:34)
--- NOTE | 2019-08-27 11:07 | PCM.PN ---
- General Info Date of Service: 08/26/19 Admission Dx/Problem (Free Text): Admission Diagnosis/Problem Admission Diagnosis/Problem Cellulitis Functional Status: Reports: Pain Controlled, Tolerating Diet, Ambulating, Urinating - Review of Systems General: Reports: Fever, Chills HEENT: Reports: No Symptoms Pulmonary: Reports: No Symptoms Cardiovascular: Reports: No Symptoms Gastrointestinal: Reports: No Symptoms Genitourinary: Reports: No Symptoms Musculoskeletal: Reports: Leg Pain, Joint Pain, Joint Swelling Skin: Reports: No Symptoms Neurological: Reports: No Symptoms Psychiatric: Reports: No Symptoms - Patient Data Vitals - Most Recent: Last Vital Signs Temp 38.1 C 08/27/19 07:10 Pulse 80 08/27/19 07:10 Resp 20 08/27/19 07:10 BP 134/77 08/27/19 07:10 Pulse Ox 93 L 08/27/19 07:10 Weight - Most Recent: 74.843 kg I&O - Last 24 Hours: Intake & Output 08/26/19 08/27/19 08/27/19 22:59 06:59 14:59 Intake Total 2656 1863 Output Total 750 1375 Balance 1906 488 Lab Results Last 24 Hours: Laboratory Results - last 24 hr 08/27/19 08/27/19 08/27/19 Range/Units 00:00 05:55 05:55 WBC 8.79 (4.0-11.0) K/uL RBC 3.17 L (4.50-5.90) M/uL Hgb 9.7 L (13.0-17.0) g/dL Hct 28.7 L (38.0-50.0) % MCV 90.5 (80.0-98.0) fL MCH 30.6 (27.0-32.0) pg MCHC 33.8 (31.0-37.0) g/dL RDW Std Deviation 47.1 (28.0-62.0) fl RDW Coeff of [place] 14 (11.0-15.0) % Plt Count 186 (150-400) K/uL MPV 9.10 (7.40-12.00) fL Neut % (Auto) 78.9 (48.0-80.0) % Lymph % (Auto) 15.0 L (16.0-40.0) % [place] % (Auto) 4.6 (0.0-15.0) % Eos % (Auto) 1.4 (0.0-7.0) % Baso % (Auto) 0.1 (0.0-1.5) % Neut # (Auto) 6.9 H (1.4-5.7) K/uL Lymph # (Auto) 1.3 (0.6-2.4) K/uL [place] # (Auto) 0.4 (0.0-0.8) K/uL Eos # (Auto) 0.1 (0.0-0.7) K/uL Baso # (Auto) 0.0 (0.0-0.1) K/uL Nucleated RBC % 0.0 /100WBC Nucleated RBCs # 0 K/uL Sodium 138 (136-148) mmol/L Potassium 3.1 L (3.5-5.1) mmol/L Chloride 106 (98-107) mmol/L Carbon Dioxide 20.4 L (21.0-32.0) mmol/L BUN 9 (7.0-18.0) mg/dL Creatinine 0.8 (0.8-1.3) mg/dL Est Cr Clr Drug Dosing 99.75 mL/min Estimated GFR (MDRD) > 60.0 ml/min Glucose 107 H (74-106) mg/dL Calcium 7.8 L (8.5-10.1) mg/dL Total Bilirubin 0.6 (0.2-1.0) mg/dL AST 27 (15-37) IU/L ALT 32 (14-63) IU/L Alkaline Phosphatase 90 (46-116) U/L Total Protein 6.0 L (6.4-8.2) g/dL Albumin 2.1 L (3.4-5.0) g/dL Globulin 3.9 (2.6-4.0) g/dL Albumin/Globulin Ratio 0.5 L (0.9-1.6) Vancomycin Trough 8.7 (5.0-10.0) ug/mL Rusty Results Last 24 Hours: Microbiology 08/24/19 10:48 Aerobic Blood Culture - Preliminary Blood - Venous - Lab Draw NO GROWTH AFTER 3 DAYS Anaerobic Blood Culture - Preliminary NO GROWTH AFTER 3 DAYS 08/24/19 10:38 Aerobic Blood Culture - Preliminary Blood - Venous NO GROWTH AFTER 3 DAYS Anaerobic Blood Culture - Preliminary NO GROWTH AFTER 3 DAYS 08/23/19 19:48 Aerobic Blood Culture - Final Blood - Venous - Lab Draw Streptococcus Group A Anaerobic Blood Culture - Preliminary NO GROWTH AFTER 3 DAYS 08/23/19 19:25 Aerobic Blood Culture - Preliminary Blood - Venous NO GROWTH AFTER 3 DAYS Anaerobic Blood Culture - Preliminary NO GROWTH AFTER 3 DAYS Med Orders - Current: Current Medications Acetaminophen (Tylenol) 650 mg PO Q4H PRN PRN Reason: fever over 101 and pain Last Admin: 08/26/19 19:01 Dose: 650 mg Albuterol (Proventil Neb Soln) 2.5 mg NEB ONETIME PRN PRN Reason: Wheezing Atropine Sulfate (Atropine 0.1 Mg/Ml) 1 mg IVPUSH ASDIRECTED PRN PRN Reason: Hypo-Perfusion Dextrose/Water (Dextrose 50% In Water) 50 ml IVPUSH ASDIRECTED PRN PRN Reason: Hypoglycemia Docusate Sodium (Colace) 100 mg PO DAILY PRN PRN Reason: Constipation Last Admin: 08/27/19 01:01 Dose: 100 mg Epinephrine HCl (Epinephrine 1:10,000) 1 mg IVPUSH ASDIRECTED PRN PRN Reason: ACLS Guidelines Fentanyl (Sublimaze) 50 mcg IVPUSH Q5M PRN PRN Reason: Pain Last Admin: 08/25/19 12:54 Dose: 50 mcg Heparin Sodium (Porcine) (Heparin Sodium) 5,000 units SUBCUT Q8H [facility] Last Admin: 08/27/19 08:14 Dose: 5,000 units Ampicillin Sodium/Sulbactam (Sodium 3 gm/ Sodium Chloride) 100 mls @ 200 mls/ hr IV Q6H [facility] Last Admin: 08/27/19 08:13 Dose: 200 mls/hr Sodium Chloride (Normal Saline) 1,000 mls @ 125 mls/hr IV ASDIRECTED [facility] Last Admin: 08/27/19 07:07 Dose: 125 mls/hr Vancomycin HCl 1 gm/ Sodium (Chloride) 250 mls @ 166 mls/hr IV Q8H [facility] Last Admin: 08/27/19 09:27 Dose: 166 mls/hr Naloxone HCl (Narcan) 0.1 mg IVPUSH ASDIRECTED PRN PRN Reason: Respiratory Depression Sodium Chloride (Saline Flush) 10 ml FLUSH ASDIRECTED PRN PRN Reason: Keep Vein Open Sodium Chloride (Saline Flush) 2.5 ml FLUSH ASDIRECTED PRN PRN Reason: Keep Vein Open Vancomycin HCl (Pharmacy To Dose - Vancomycin) 1 dose .XX ASDIRECTED [facility] Discontinued Medications Acetaminophen (Tylenol Extra Strength) 1,000 mg PO ONETIME ONE Stop: 08/23/19 20:18 Last Admin: 08/23/19 20:30 Dose: 1,000 mg Atropine Sulfate (Atropine 0.1 Mg/Ml) 0.5 mg IVPUSH ASDIRECTED PRN PRN Reason: Hypo-perfusion Stop: 08/25/19 11:27 Bupivacaine HCl (Sensorcaine-Mpf 0.25%) Confirm Administered Dose 10 ml .ROUTE .STK-MED ONE Stop: 08/25/19 10:36 Bupivacaine HCl (Marcaine 0.5%) Confirm Administered Dose 30 ml .ROUTE .STK-MED ONE Stop: 08/25/19 10:37 Ephedrine Sulfate (Ephedrine Sulfate) Confirm Administered Dose 50 mg .ROUTE .STK-MED ONE Stop: 08/25/19 09:57 Fentanyl (Sublimaze) Confirm Administered Dose 100 mcg .ROUTE .STK-MED ONE Stop: 08/25/19 09:56 Fentanyl (Sublimaze) Confirm Administered Dose 100 mcg .ROUTE .STK-MED ONE Stop: 08/25/19 12:07 Heparin Sodium (Porcine) (Heparin Sodium) 5,000 units SUBCUT Q8H [facility] Stop: 08/24/19 17:00 Last Admin: 08/24/19 15:18 Dose: 5,000 units Ampicillin Sodium/Sulbactam (Sodium 3 gm/ Sodium Chloride) 100 mls @ 200 mls/ hr IV ONETIME ONE Stop: 08/23/19 19:42 Last Admin: 08/23/19 19:49 Dose: 200 mls/hr Sodium Chloride (Normal Saline) 1,000 mls @ 999 mls/hr IV .Bolus ONE Stop: 08/23/19 20:19 Last Admin: 08/23/19 19:35 Dose: 999 mls/hr Sodium Chloride (Normal Saline) 1,000 mls @ 999 mls/hr IV .Bolus ONE Stop: 08/23/19 22:19 Last Admin: 08/23/19 21:25 Dose: 999 mls/hr Sodium Chloride (Normal Saline) 1,000 mls @ 999 mls/hr IV .Bolus ONE Stop: 08/23/19 23:43 Last Admin: 08/23/19 22:44 Dose: 999 mls/hr Vancomycin HCl 1 gm/ Sodium (Chloride) 250 mls @ 166 mls/hr IV Q12H [facility] Last Admin: 08/24/19 23:53 Dose: 166 mls/hr Sodium Chloride (Normal Saline) Confirm Administered Dose 20 mls @ as directed .ROUTE .STK-MED ONE Stop: 08/25/19 09:57 Vancomycin HCl 1.25 gm/ Sodium (Chloride) 250 mls @ 166.667 mls/hr IV Q12H [facility] Last Admin: 08/27/19 01:11 Dose: Not Given Bupivacaine HCl/Epinephrine Bitart (Sensorc Mpf 0.25%-Epi 1:[id number]) Confirm Administered Dose 30 mls @ as directed .ROUTE .STK-MED ONE Stop: 08/25/19 11:43 Influenza Virus Vaccine (Pharmacy To Dose - Influenza Vaccine) 1 each IM ONETIME ONE Stop: 08/24/19 00:18 Iopamidol (Isovue Multipack-370 (76%)) 100 ml IVPUSH ONETIME ONE Stop: 08/23/19 20:51 Last Admin: 08/23/19 20:50 Dose: 100 ml Iopamidol (Isovue Multipack-370 (76%)) 100 ml IVPUSH ONETIME STA Stop: 08/24/19 10:15 Last Admin: 08/24/19 10:15 Dose: 100 ml Lidocaine HCl (Xylocaine 1%) Confirm Administered Dose 20 ml .ROUTE .STK-MED ONE Stop: 08/25/19 10:39 Lidocaine/Epinephrine (Xylocaine 1% With Epinephrine 1:100,000) 10 ml INJECT ONETIME ONE Stop: 08/23/19 22:03 Last Admin: 08/23/19 22:20 Dose: 10 ml Lidocaine/Epinephrine (Xylocaine 1% With Epinephrine 1:100,000) Confirm Administered Dose 20 ml .ROUTE .STK-MED ONE Stop: 08/23/19 22:13 Last Admin: 08/23/19 22:19 Dose: Not Given Midazolam HCl (Versed 1 Mg/Ml) Confirm Administered Dose 2 mg .ROUTE .STK-MED ONE Stop: 08/25/19 09:57 Phenylephrine HCl (Phenylephrine In Ns 100 Mcg/Ml) Confirm Administered Dose 1 mg .ROUTE .STK-MED ONE Stop: 08/25/19 09:57 Pneumococcal Polyvalent Vaccine (Pneumovax 23) 0.5 ml IM .ONCE ONE Stop: 08/24/19 00:18 Propofol (Diprivan 20 Ml) Confirm Administered Dose 200 mg .ROUTE .STK-MED ONE Stop: 08/25/19 09:56 Propofol (Diprivan 20 Ml) Confirm Administered Dose 200 mg .ROUTE .STK-MED ONE Stop: 08/25/19 12:13 Rocuronium [place] (Zemuron) Confirm Administered Dose 100 mg .ROUTE .STK-MED ONE Stop: 08/25/19 09:57 Succinylcholine Chloride (Succinylcholine Chloride) Confirm Administered Dose 200 mg .ROUTE .STK-MED ONE Stop: 08/25/19 09:57 - Exam General: Alert, Oriented HEENT: Pupils Equal, Pupils Reactive, EOMI, Mucous Membr. Moist/[place] Neck: Supple, Trachea Midline Lungs: Normal Respiratory Effort Extremities: Leg Pain, Increased Warmth Peripheral Pulses: 2+: Dorsalis Pedis (R) Skin: Warm, Dry, Intact Wound/Incisions: Healing Well, Dressing Dry and Intact, No Drainage Neurological: No New Focal Deficit Psy/Mental Status: Alert, Normal Affect, Normal Mood Physical Findings Comments:: continued good ROM of right knee without deep joint pain, appropriate incisional pain Sepsis Event Note - Evaluation Sepsis Screening Result: No Definite Risk - Focused Exam Vital Signs: Vital Signs Temp Pulse Resp BP Pulse Ox 08/27/19 07:10 38.1 C 80 20 134/77 93 L 08/27/19 04:57 38.1 C 08/27/19 04:01 36.6 C 79 20 117/73 96 08/27/19 02:49 37.9 C 08/27/19 00:00 37.2 C 93 23 H 112/68 95 Date Exam was Performed: 08/27/19 Time Exam was Performed: 11:05 - Problem List & Annotations (1) Patellar bursitis of right knee SNOMED Code(s): 4150330019674291 Code(s): M70.51 - OTHER BURSITIS OF KNEE, RIGHT KNEE Status: Acute Current Visit: Yes - Problem List Review Problem List Initiated/Reviewed/Updated: Yes - Plan Plan:: POD 1 right knee bursectomy with continued fever P: PT/OT, pain control, await C and S
--- NOTE | 2019-08-27 11:09 | PCM.PN ---
- General Info Date of Service: 08/27/19 Admission Dx/Problem (Free Text): Admission Diagnosis/Problem Admission Diagnosis/Problem Cellulitis Functional Status: Reports: Pain Controlled - Review of Systems General: Reports: Fever HEENT: Reports: No Symptoms Pulmonary: Reports: No Symptoms Cardiovascular: Reports: No Symptoms Gastrointestinal: Reports: No Symptoms Genitourinary: Reports: No Symptoms Musculoskeletal: Reports: Leg Pain, Joint Pain, Joint Swelling Neurological: Reports: No Symptoms Psychiatric: Reports: No Symptoms - Patient Data Vitals - Most Recent: Last Vital Signs Temp 38.1 C 08/27/19 07:10 Pulse 80 08/27/19 07:10 Resp 20 08/27/19 07:10 BP 134/77 08/27/19 07:10 Pulse Ox 93 L 08/27/19 07:10 Weight - Most Recent: 74.843 kg I&O - Last 24 Hours: Intake & Output 08/26/19 08/27/19 08/27/19 22:59 06:59 14:59 Intake Total 2656 1863 Output Total 750 1375 Balance 1906 488 Lab Results Last 24 Hours: Laboratory Results - last 24 hr 08/27/19 08/27/19 08/27/19 Range/Units 00:00 05:55 05:55 WBC 8.79 (4.0-11.0) K/uL RBC 3.17 L (4.50-5.90) M/uL Hgb 9.7 L (13.0-17.0) g/dL Hct 28.7 L (38.0-50.0) % MCV 90.5 (80.0-98.0) fL MCH 30.6 (27.0-32.0) pg MCHC 33.8 (31.0-37.0) g/dL RDW Std Deviation 47.1 (28.0-62.0) fl RDW Coeff of [place] 14 (11.0-15.0) % Plt Count 186 (150-400) K/uL MPV 9.10 (7.40-12.00) fL Neut % (Auto) 78.9 (48.0-80.0) % Lymph % (Auto) 15.0 L (16.0-40.0) % [place] % (Auto) 4.6 (0.0-15.0) % Eos % (Auto) 1.4 (0.0-7.0) % Baso % (Auto) 0.1 (0.0-1.5) % Neut # (Auto) 6.9 H (1.4-5.7) K/uL Lymph # (Auto) 1.3 (0.6-2.4) K/uL [place] # (Auto) 0.4 (0.0-0.8) K/uL Eos # (Auto) 0.1 (0.0-0.7) K/uL Baso # (Auto) 0.0 (0.0-0.1) K/uL Nucleated RBC % 0.0 /100WBC Nucleated RBCs # 0 K/uL Sodium 138 (136-148) mmol/L Potassium 3.1 L (3.5-5.1) mmol/L Chloride 106 (98-107) mmol/L Carbon Dioxide 20.4 L (21.0-32.0) mmol/L BUN 9 (7.0-18.0) mg/dL Creatinine 0.8 (0.8-1.3) mg/dL Est Cr Clr Drug Dosing 99.75 mL/min Estimated GFR (MDRD) > 60.0 ml/min Glucose 107 H (74-106) mg/dL Calcium 7.8 L (8.5-10.1) mg/dL Total Bilirubin 0.6 (0.2-1.0) mg/dL AST 27 (15-37) IU/L ALT 32 (14-63) IU/L Alkaline Phosphatase 90 (46-116) U/L Total Protein 6.0 L (6.4-8.2) g/dL Albumin 2.1 L (3.4-5.0) g/dL Globulin 3.9 (2.6-4.0) g/dL Albumin/Globulin Ratio 0.5 L (0.9-1.6) Vancomycin Trough 8.7 (5.0-10.0) ug/mL Rusty Results Last 24 Hours: Microbiology 08/24/19 10:48 Aerobic Blood Culture - Preliminary Blood - Venous - Lab Draw NO GROWTH AFTER 3 DAYS Anaerobic Blood Culture - Preliminary NO GROWTH AFTER 3 DAYS 08/24/19 10:38 Aerobic Blood Culture - Preliminary Blood - Venous NO GROWTH AFTER 3 DAYS Anaerobic Blood Culture - Preliminary NO GROWTH AFTER 3 DAYS 08/23/19 19:48 Aerobic Blood Culture - Final Blood - Venous - Lab Draw Streptococcus Group A Anaerobic Blood Culture - Preliminary NO GROWTH AFTER 3 DAYS 08/23/19 19:25 Aerobic Blood Culture - Preliminary Blood - Venous NO GROWTH AFTER 3 DAYS Anaerobic Blood Culture - Preliminary NO GROWTH AFTER 3 DAYS Med Orders - Current: Current Medications Acetaminophen (Tylenol) 650 mg PO Q4H PRN PRN Reason: fever over 101 and pain Last Admin: 08/26/19 19:01 Dose: 650 mg Albuterol (Proventil Neb Soln) 2.5 mg NEB ONETIME PRN PRN Reason: Wheezing Atropine Sulfate (Atropine 0.1 Mg/Ml) 1 mg IVPUSH ASDIRECTED PRN PRN Reason: Hypo-Perfusion Dextrose/Water (Dextrose 50% In Water) 50 ml IVPUSH ASDIRECTED PRN PRN Reason: Hypoglycemia Docusate Sodium (Colace) 100 mg PO DAILY PRN PRN Reason: Constipation Last Admin: 08/27/19 01:01 Dose: 100 mg Epinephrine HCl (Epinephrine 1:10,000) 1 mg IVPUSH ASDIRECTED PRN PRN Reason: ACLS Guidelines Fentanyl (Sublimaze) 50 mcg IVPUSH Q5M PRN PRN Reason: Pain Last Admin: 08/25/19 12:54 Dose: 50 mcg Heparin Sodium (Porcine) (Heparin Sodium) 5,000 units SUBCUT Q8H [facility] Last Admin: 08/27/19 08:14 Dose: 5,000 units Ampicillin Sodium/Sulbactam (Sodium 3 gm/ Sodium Chloride) 100 mls @ 200 mls/ hr IV Q6H [facility] Last Admin: 08/27/19 08:13 Dose: 200 mls/hr Sodium Chloride (Normal Saline) 1,000 mls @ 125 mls/hr IV ASDIRECTED [facility] Last Admin: 08/27/19 07:07 Dose: 125 mls/hr Vancomycin HCl 1 gm/ Sodium (Chloride) 250 mls @ 166 mls/hr IV Q8H [facility] Last Admin: 08/27/19 09:27 Dose: 166 mls/hr Naloxone HCl (Narcan) 0.1 mg IVPUSH ASDIRECTED PRN PRN Reason: Respiratory Depression Sodium Chloride (Saline Flush) 10 ml FLUSH ASDIRECTED PRN PRN Reason: Keep Vein Open Sodium Chloride (Saline Flush) 2.5 ml FLUSH ASDIRECTED PRN PRN Reason: Keep Vein Open Vancomycin HCl (Pharmacy To Dose - Vancomycin) 1 dose .XX ASDIRECTED [facility] Discontinued Medications Acetaminophen (Tylenol Extra Strength) 1,000 mg PO ONETIME ONE Stop: 08/23/19 20:18 Last Admin: 08/23/19 20:30 Dose: 1,000 mg Atropine Sulfate (Atropine 0.1 Mg/Ml) 0.5 mg IVPUSH ASDIRECTED PRN PRN Reason: Hypo-perfusion Stop: 08/25/19 11:27 Bupivacaine HCl (Sensorcaine-Mpf 0.25%) Confirm Administered Dose 10 ml .ROUTE .STK-MED ONE Stop: 08/25/19 10:36 Bupivacaine HCl (Marcaine 0.5%) Confirm Administered Dose 30 ml .ROUTE .STK-MED ONE Stop: 08/25/19 10:37 Ephedrine Sulfate (Ephedrine Sulfate) Confirm Administered Dose 50 mg .ROUTE .STK-MED ONE Stop: 08/25/19 09:57 Fentanyl (Sublimaze) Confirm Administered Dose 100 mcg .ROUTE .STK-MED ONE Stop: 08/25/19 09:56 Fentanyl (Sublimaze) Confirm Administered Dose 100 mcg .ROUTE .STK-MED ONE Stop: 08/25/19 12:07 Heparin Sodium (Porcine) (Heparin Sodium) 5,000 units SUBCUT Q8H [facility] Stop: 08/24/19 17:00 Last Admin: 08/24/19 15:18 Dose: 5,000 units Ampicillin Sodium/Sulbactam (Sodium 3 gm/ Sodium Chloride) 100 mls @ 200 mls/ hr IV ONETIME ONE Stop: 08/23/19 19:42 Last Admin: 08/23/19 19:49 Dose: 200 mls/hr Sodium Chloride (Normal Saline) 1,000 mls @ 999 mls/hr IV .Bolus ONE Stop: 08/23/19 20:19 Last Admin: 08/23/19 19:35 Dose: 999 mls/hr Sodium Chloride (Normal Saline) 1,000 mls @ 999 mls/hr IV .Bolus ONE Stop: 08/23/19 22:19 Last Admin: 08/23/19 21:25 Dose: 999 mls/hr Sodium Chloride (Normal Saline) 1,000 mls @ 999 mls/hr IV .Bolus ONE Stop: 08/23/19 23:43 Last Admin: 08/23/19 22:44 Dose: 999 mls/hr Vancomycin HCl 1 gm/ Sodium (Chloride) 250 mls @ 166 mls/hr IV Q12H [facility] Last Admin: 08/24/19 23:53 Dose: 166 mls/hr Sodium Chloride (Normal Saline) Confirm Administered Dose 20 mls @ as directed .ROUTE .STK-MED ONE Stop: 08/25/19 09:57 Vancomycin HCl 1.25 gm/ Sodium (Chloride) 250 mls @ 166.667 mls/hr IV Q12H [facility] Last Admin: 08/27/19 01:11 Dose: Not Given Bupivacaine HCl/Epinephrine Bitart (Sensorc Mpf 0.25%-Epi 1:478622) Confirm Administered Dose 30 mls @ as directed .ROUTE .STK-MED ONE Stop: 08/25/19 11:43 Influenza Virus Vaccine (Pharmacy To Dose - Influenza Vaccine) 1 each IM ONETIME ONE Stop: 08/24/19 00:18 Iopamidol (Isovue Multipack-370 (76%)) 100 ml IVPUSH ONETIME ONE Stop: 08/23/19 20:51 Last Admin: 08/23/19 20:50 Dose: 100 ml Iopamidol (Isovue Multipack-370 (76%)) 100 ml IVPUSH ONETIME STA Stop: 08/24/19 10:15 Last Admin: 08/24/19 10:15 Dose: 100 ml Lidocaine HCl (Xylocaine 1%) Confirm Administered Dose 20 ml .ROUTE .STK-MED ONE Stop: 08/25/19 10:39 Lidocaine/Epinephrine (Xylocaine 1% With Epinephrine 1:100,000) 10 ml INJECT ONETIME ONE Stop: 08/23/19 22:03 Last Admin: 08/23/19 22:20 Dose: 10 ml Lidocaine/Epinephrine (Xylocaine 1% With Epinephrine 1:100,000) Confirm Administered Dose 20 ml .ROUTE .STK-MED ONE Stop: 08/23/19 22:13 Last Admin: 08/23/19 22:19 Dose: Not Given Midazolam HCl (Versed 1 Mg/Ml) Confirm Administered Dose 2 mg .ROUTE .STK-MED ONE Stop: 08/25/19 09:57 Phenylephrine HCl (Phenylephrine In Ns 100 Mcg/Ml) Confirm Administered Dose 1 mg .ROUTE .STK-MED ONE Stop: 08/25/19 09:57 Pneumococcal Polyvalent Vaccine (Pneumovax 23) 0.5 ml IM .ONCE ONE Stop: 08/24/19 00:18 Propofol (Diprivan 20 Ml) Confirm Administered Dose 200 mg .ROUTE .STK-MED ONE Stop: 08/25/19 09:56 Propofol (Diprivan 20 Ml) Confirm Administered Dose 200 mg .ROUTE .STK-MED ONE Stop: 08/25/19 12:13 Rocuronium [place] (Zemuron) Confirm Administered Dose 100 mg .ROUTE .STK-MED ONE Stop: 08/25/19 09:57 Succinylcholine Chloride (Succinylcholine Chloride) Confirm Administered Dose 200 mg .ROUTE .STK-MED ONE Stop: 08/25/19 09:57 - Exam General: Alert, Oriented HEENT: Pupils Equal, Pupils Reactive, EOMI, Mucous Membr. Moist/[place] Neck: Supple, Trachea Midline Lungs: Clear to Auscultation, Normal Respiratory Effort GI/Abdominal Exam: No Distention Extremities: Leg Pain, Limited Range of Motion, Increased Warmth Peripheral Pulses: 2+: Dorsalis Pedis (R) Skin: Warm, Dry, Intact Wound/Incisions: Healing Well, Dressing Dry and Intact, No Drainage Neurological: No New Focal Deficit Psy/Mental Status: Alert, Normal Affect, Normal Mood Physical Findings Comments:: continue to have good post surgical rom of right knee without deep pain, appropriate incisional pain Sepsis Event Note - Evaluation Sepsis Screening Result: No Definite Risk - Focused Exam Vital Signs: Vital Signs Temp Pulse Resp BP Pulse Ox 08/27/19 07:10 38.1 C 80 20 134/77 93 L 08/27/19 04:57 38.1 C 08/27/19 04:01 36.6 C 79 20 117/73 96 08/27/19 02:49 37.9 C 08/27/19 00:00 37.2 C 93 23 H 112/68 95 Date Exam was Performed: 08/27/19 Time Exam was Performed: 11:07 - Problem List & Annotations (1) Patellar bursitis of right knee SNOMED Code(s): 6180361613427934 Code(s): M70.51 - OTHER BURSITIS OF KNEE, RIGHT KNEE Status: Acute Current Visit: Yes - Problem List Review Problem List Initiated/Reviewed/Updated: Yes - Plan Plan:: POD 2 right knee bursectomy with continued fever P: PT/OT, pain control, await C and S
[2019-08-27] MEDS ORDERED: Potassium Chloride 20 MEQ Tab.ER PO ONE (12:37)
--- NOTE | 2019-08-27 12:40 | PCM.PN ---
- General Info Date of Service: 08/27/19 - Review of Systems Systems Review Comment:: no complaints, feeling well - Patient Data Vitals - Most Recent: Last Vital Signs Temp 38.1 C 08/27/19 07:10 Pulse 80 08/27/19 07:10 Resp 20 08/27/19 07:10 BP 134/77 08/27/19 07:10 Pulse Ox 93 L 08/27/19 07:10 Weight - Most Recent: 74.843 kg I&O - Last 24 Hours: Intake & Output 08/26/19 08/27/19 08/27/19 22:59 06:59 14:59 Intake Total 2656 1863 Output Total 750 1375 Balance 1906 488 Lab Results Last 24 Hours: Laboratory Results - last 24 hr 08/27/19 08/27/19 08/27/19 Range/Units 00:00 05:55 05:55 WBC 8.79 (4.0-11.0) K/uL RBC 3.17 L (4.50-5.90) M/uL Hgb 9.7 L (13.0-17.0) g/dL Hct 28.7 L (38.0-50.0) % MCV 90.5 (80.0-98.0) fL MCH 30.6 (27.0-32.0) pg MCHC 33.8 (31.0-37.0) g/dL RDW Std Deviation 47.1 (28.0-62.0) fl RDW Coeff of [place] 14 (11.0-15.0) % Plt Count 186 (150-400) K/uL MPV 9.10 (7.40-12.00) fL Neut % (Auto) 78.9 (48.0-80.0) % Lymph % (Auto) 15.0 L (16.0-40.0) % [place] % (Auto) 4.6 (0.0-15.0) % Eos % (Auto) 1.4 (0.0-7.0) % Baso % (Auto) 0.1 (0.0-1.5) % Neut # (Auto) 6.9 H (1.4-5.7) K/uL Lymph # (Auto) 1.3 (0.6-2.4) K/uL [place] # (Auto) 0.4 (0.0-0.8) K/uL Eos # (Auto) 0.1 (0.0-0.7) K/uL Baso # (Auto) 0.0 (0.0-0.1) K/uL Nucleated RBC % 0.0 /100WBC Nucleated RBCs # 0 K/uL Sodium 138 (136-148) mmol/L Potassium 3.1 L (3.5-5.1) mmol/L Chloride 106 (98-107) mmol/L Carbon Dioxide 20.4 L (21.0-32.0) mmol/L BUN 9 (7.0-18.0) mg/dL Creatinine 0.8 (0.8-1.3) mg/dL Est Cr Clr Drug Dosing 99.75 mL/min Estimated GFR (MDRD) > 60.0 ml/min Glucose 107 H (74-106) mg/dL Calcium 7.8 L (8.5-10.1) mg/dL Total Bilirubin 0.6 (0.2-1.0) mg/dL AST 27 (15-37) IU/L ALT 32 (14-63) IU/L Alkaline Phosphatase 90 (46-116) U/L Total Protein 6.0 L (6.4-8.2) g/dL Albumin 2.1 L (3.4-5.0) g/dL Globulin 3.9 (2.6-4.0) g/dL Albumin/Globulin Ratio 0.5 L (0.9-1.6) Vancomycin Trough 8.7 (5.0-10.0) ug/mL Rusty Results Last 24 Hours: Microbiology 08/24/19 10:48 Aerobic Blood Culture - Preliminary Blood - Venous - Lab Draw NO GROWTH AFTER 3 DAYS Anaerobic Blood Culture - Preliminary NO GROWTH AFTER 3 DAYS 08/24/19 10:38 Aerobic Blood Culture - Preliminary Blood - Venous NO GROWTH AFTER 3 DAYS Anaerobic Blood Culture - Preliminary NO GROWTH AFTER 3 DAYS 08/23/19 19:48 Aerobic Blood Culture - Final Blood - Venous - Lab Draw Streptococcus Group A Anaerobic Blood Culture - Preliminary NO GROWTH AFTER 3 DAYS 08/23/19 19:25 Aerobic Blood Culture - Preliminary Blood - Venous NO GROWTH AFTER 3 DAYS Anaerobic Blood Culture - Preliminary NO GROWTH AFTER 3 DAYS Med Orders - Current: Current Medications Acetaminophen (Tylenol) 650 mg PO Q4H PRN PRN Reason: fever over 101 and pain Last Admin: 08/26/19 19:01 Dose: 650 mg Albuterol (Proventil Neb Soln) 2.5 mg NEB ONETIME PRN PRN Reason: Wheezing Atropine Sulfate (Atropine 0.1 Mg/Ml) 1 mg IVPUSH ASDIRECTED PRN PRN Reason: Hypo-Perfusion Dextrose/Water (Dextrose 50% In Water) 50 ml IVPUSH ASDIRECTED PRN PRN Reason: Hypoglycemia Docusate Sodium (Colace) 100 mg PO DAILY PRN PRN Reason: Constipation Last Admin: 08/27/19 01:01 Dose: 100 mg Epinephrine HCl (Epinephrine 1:10,000) 1 mg IVPUSH ASDIRECTED PRN PRN Reason: ACLS Guidelines Fentanyl (Sublimaze) 50 mcg IVPUSH Q5M PRN PRN Reason: Pain Last Admin: 08/25/19 12:54 Dose: 50 mcg Heparin Sodium (Porcine) (Heparin Sodium) 5,000 units SUBCUT Q8H [facility] Last Admin: 08/27/19 08:14 Dose: 5,000 units Ampicillin Sodium/Sulbactam (Sodium 3 gm/ Sodium Chloride) 100 mls @ 200 mls/ hr IV Q6H [facility] Last Admin: 08/27/19 08:13 Dose: 200 mls/hr Sodium Chloride (Normal Saline) 1,000 mls @ 125 mls/hr IV ASDIRECTED [facility] Last Admin: 08/27/19 07:07 Dose: 125 mls/hr Vancomycin HCl 1 gm/ Sodium (Chloride) 250 mls @ 166 mls/hr IV Q8H [facility] Last Admin: 08/27/19 09:27 Dose: 166 mls/hr Naloxone HCl (Narcan) 0.1 mg IVPUSH ASDIRECTED PRN PRN Reason: Respiratory Depression Potassium Chloride (Klor-Con M20) 40 meq PO ONETIME ONE Stop: 08/27/19 12:38 Sodium Chloride (Saline Flush) 10 ml FLUSH ASDIRECTED PRN PRN Reason: Keep Vein Open Sodium Chloride (Saline Flush) 2.5 ml FLUSH ASDIRECTED PRN PRN Reason: Keep Vein Open Vancomycin HCl (Pharmacy To Dose - Vancomycin) 1 dose .XX ASDIRECTED [facility] Discontinued Medications Acetaminophen (Tylenol Extra Strength) 1,000 mg PO ONETIME ONE Stop: 08/23/19 20:18 Last Admin: 08/23/19 20:30 Dose: 1,000 mg Atropine Sulfate (Atropine 0.1 Mg/Ml) 0.5 mg IVPUSH ASDIRECTED PRN PRN Reason: Hypo-perfusion Stop: 08/25/19 11:27 Bupivacaine HCl (Sensorcaine-Mpf 0.25%) Confirm Administered Dose 10 ml .ROUTE .STK-MED ONE Stop: 08/25/19 10:36 Bupivacaine HCl (Marcaine 0.5%) Confirm Administered Dose 30 ml .ROUTE .STK-MED ONE Stop: 08/25/19 10:37 Ephedrine Sulfate (Ephedrine Sulfate) Confirm Administered Dose 50 mg .ROUTE .STK-MED ONE Stop: 08/25/19 09:57 Fentanyl (Sublimaze) Confirm Administered Dose 100 mcg .ROUTE .STK-MED ONE Stop: 08/25/19 09:56 Fentanyl (Sublimaze) Confirm Administered Dose 100 mcg .ROUTE .STK-MED ONE Stop: 08/25/19 12:07 Heparin Sodium (Porcine) (Heparin Sodium) 5,000 units SUBCUT Q8H [facility] Stop: 08/24/19 17:00 Last Admin: 08/24/19 15:18 Dose: 5,000 units Ampicillin Sodium/Sulbactam (Sodium 3 gm/ Sodium Chloride) 100 mls @ 200 mls/ hr IV ONETIME ONE Stop: 08/23/19 19:42 Last Admin: 08/23/19 19:49 Dose: 200 mls/hr Sodium Chloride (Normal Saline) 1,000 mls @ 999 mls/hr IV .Bolus ONE Stop: 08/23/19 20:19 Last Admin: 08/23/19 19:35 Dose: 999 mls/hr Sodium Chloride (Normal Saline) 1,000 mls @ 999 mls/hr IV .Bolus ONE Stop: 08/23/19 22:19 Last Admin: 08/23/19 21:25 Dose: 999 mls/hr Sodium Chloride (Normal Saline) 1,000 mls @ 999 mls/hr IV .Bolus ONE Stop: 08/23/19 23:43 Last Admin: 08/23/19 22:44 Dose: 999 mls/hr Vancomycin HCl 1 gm/ Sodium (Chloride) 250 mls @ 166 mls/hr IV Q12H [facility] Last Admin: 08/24/19 23:53 Dose: 166 mls/hr Sodium Chloride (Normal Saline) Confirm Administered Dose 20 mls @ as directed .ROUTE .STK-MED ONE Stop: 08/25/19 09:57 Vancomycin HCl 1.25 gm/ Sodium (Chloride) 250 mls @ 166.667 mls/hr IV Q12H [facility] Last Admin: 08/27/19 01:11 Dose: Not Given Bupivacaine HCl/Epinephrine Bitart (Sensorc Mpf 0.25%-Epi 1:[id number]) Confirm Administered Dose 30 mls @ as directed .ROUTE .STK-MED ONE Stop: 08/25/19 11:43 Influenza Virus Vaccine (Pharmacy To Dose - Influenza Vaccine) 1 each IM ONETIME ONE Stop: 08/24/19 00:18 Iopamidol (Isovue Multipack-370 (76%)) 100 ml IVPUSH ONETIME ONE Stop: 08/23/19 20:51 Last Admin: 08/23/19 20:50 Dose: 100 ml Iopamidol (Isovue Multipack-370 (76%)) 100 ml IVPUSH ONETIME STA Stop: 08/24/19 10:15 Last Admin: 08/24/19 10:15 Dose: 100 ml Lidocaine HCl (Xylocaine 1%) Confirm Administered Dose 20 ml .ROUTE .STK-MED ONE Stop: 08/25/19 10:39 Lidocaine/Epinephrine (Xylocaine 1% With Epinephrine 1:100,000) 10 ml INJECT ONETIME ONE Stop: 08/23/19 22:03 Last Admin: 08/23/19 22:20 Dose: 10 ml Lidocaine/Epinephrine (Xylocaine 1% With Epinephrine 1:100,000) Confirm Administered Dose 20 ml .ROUTE .STK-MED ONE Stop: 08/23/19 22:13 Last Admin: 08/23/19 22:19 Dose: Not Given Midazolam HCl (Versed 1 Mg/Ml) Confirm Administered Dose 2 mg .ROUTE .STK-MED ONE Stop: 08/25/19 09:57 Phenylephrine HCl (Phenylephrine In Ns 100 Mcg/Ml) Confirm Administered Dose 1 mg .ROUTE .STK-MED ONE Stop: 08/25/19 09:57 Pneumococcal Polyvalent Vaccine (Pneumovax 23) 0.5 ml IM .ONCE ONE Stop: 08/24/19 00:18 Propofol (Diprivan 20 Ml) Confirm Administered Dose 200 mg .ROUTE .STK-MED ONE Stop: 08/25/19 09:56 Propofol (Diprivan 20 Ml) Confirm Administered Dose 200 mg .ROUTE .STK-MED ONE Stop: 08/25/19 12:13 Rocuronium [place] (Zemuron) Confirm Administered Dose 100 mg .ROUTE .STK-MED ONE Stop: 08/25/19 09:57 Succinylcholine Chloride (Succinylcholine Chloride) Confirm Administered Dose 200 mg .ROUTE .STK-MED ONE Stop: 08/25/19 09:57 - Exam General: Alert, Oriented Lungs: Clear to Auscultation, Normal Respiratory Effort Cardiovascular: Regular Rate, Regular Rhythm GI/Abdominal Exam: Soft, Non-Tender, No Distention Extremities: Other (edema of knee stable, wound healing well, erythema around patella stable) Neurological: No New Focal Deficit Sepsis Event Note - Evaluation Sepsis Screening Result: No Definite Risk - Focused Exam Vital Signs: Vital Signs Temp Pulse Resp BP Pulse Ox 08/27/19 07:10 38.1 C 80 20 134/77 93 L 08/27/19 04:57 38.1 C 08/27/19 04:01 36.6 C 79 20 117/73 96 08/27/19 02:49 37.9 C Date Exam was Performed: 08/27/19 Time Exam was Performed: 12:38 - Problem List Review Problem List Initiated/Reviewed/Updated: Yes - My Orders Last 24 Hours: My Active Orders 08/26/19 20:41 Docusate Sodium [Colace] 100 mg PO DAILY PRN 08/27/19 01:00 Vancomycin [Vancocin] 1 gm Sodium Chloride 0.9% [Normal Saline (AdvBag)] 250 ml IV Q8H 08/27/19 09:59 Communication Order [RC] PRN 08/27/19 12:37 Potassium Chloride [Klor-Con M20] 40 meq PO ONETIME ONE 08/28/19 05:11 BASIC METABOLIC PANEL,BMP [CHEM] AM CBC WITH AUTO DIFF [HEME] AM - Plan Plan:: 54 yo male with right knee prepatellar bursitis. We will continue Vancomycin and Unasyn. Awaiting cultures from washout.
[2019-08-27] MEDS: Acetaminophen 325 MG Tab PO PRN (16:30)
[2019-08-28] MEDS: Heparin Sodium 5,000 Units/ML Vial SUBCUT SCH ×3 (00:01→16:08)
[2019-08-28] MEDS: Ampicillin/Sulbactam Na 3 GM in Sodium Chloride 0.9% 100 ML IV SCH ×4 (01:44→20:30)
[2019-08-28] MEDS: Sodium Chloride 0.9% 1,000 ML IV SCH (05:11)
[2019-08-28 08:56] LABS: BLOOD UREA NITROGEN,BUN 7 mg/dL (7.0-18.0); CHLORIDE,CL 106 mmol/L (98-107); GLUCOSE RANDOM 100 mg/dL (74-106); POTASSIUM,K 3.5 mmol/L (3.5-5.1); SODIUM,NA 140 mmol/L (136-148)
[2019-08-28] MEDS: Acetaminophen 325 MG Tab PO PRN (09:37)
--- NOTE | 2019-08-28 09:47 | PCM.PN ---
- General Info Date of Service: 08/28/19 Admission Dx/Problem (Free Text): Admission Diagnosis/Problem Admission Diagnosis/Problem R knee Cellulitis and prepatellar bursitis Subjective Update: Feeling much improved today, getting up and ambulating with assistance. Had fever last evening around 1630. No chest pain or SOB. Knee pain is tolerable. Him and asking about discharge home. Functional Status: Reports: Pain Controlled, Tolerating Diet, Ambulating, Urinating - Review of Systems Pulmonary: Reports: No Symptoms. Denies: Shortness of Breath Cardiovascular: Reports: No Symptoms. Denies: Chest Pain Gastrointestinal: Reports: No Symptoms. Denies: Abdominal Pain, Diarrhea, Nausea, Vomiting Genitourinary: Reports: No Symptoms Musculoskeletal: Reports: Leg Pain (R knee pain.) Neurological: Reports: No Symptoms Psychiatric: Reports: No Symptoms - Patient Data Vitals - Most Recent: Last Vital Signs Temp 99.2 F 08/28/19 07:30 Pulse 75 08/28/19 07:30 Resp 14 08/28/19 07:30 BP 123/76 08/28/19 07:30 Pulse Ox 94 L 08/28/19 07:30 Weight - Most Recent: 74.843 kg I&O - Last 24 Hours: Intake & Output 08/27/19 08/28/19 08/28/19 22:59 06:59 14:59 Intake Total 2430 3218 Output Total 975 Balance 1455 3218 Lab Results Last 24 Hours: Laboratory Results - last 24 hr 08/28/19 08/28/19 08/28/19 Range/Units 08:07 08:07 08:07 WBC 6.98 (4.0-11.0) K/uL RBC 3.21 L (4.50-5.90) M/uL Hgb 9.8 L (13.0-17.0) g/dL Hct 29.1 L (38.0-50.0) % MCV 90.7 (80.0-98.0) fL MCH 30.5 (27.0-32.0) pg MCHC 33.7 (31.0-37.0) g/dL RDW Std Deviation 47.9 (28.0-62.0) fl RDW Coeff of [place] 14 (11.0-15.0) % Plt Count 214 (150-400) K/uL MPV 9.10 (7.40-12.00) fL Neut % (Auto) 69.3 (48.0-80.0) % Lymph % (Auto) 21.6 (16.0-40.0) % [place] % (Auto) 6.3 (0.0-15.0) % Eos % (Auto) 2.7 (0.0-7.0) % Baso % (Auto) 0.1 (0.0-1.5) % Neut # (Auto) 4.8 (1.4-5.7) K/uL Lymph # (Auto) 1.5 (0.6-2.4) K/uL [place] # (Auto) 0.4 (0.0-0.8) K/uL Eos # (Auto) 0.2 (0.0-0.7) K/uL Baso # (Auto) 0.0 (0.0-0.1) K/uL Nucleated RBC % 0.0 /100WBC Nucleated RBCs # 0 K/uL Sodium 140 (136-148) mmol/L Potassium 3.5 (3.5-5.1) mmol/L Chloride 106 (98-107) mmol/L Carbon Dioxide 22.0 (21.0-32.0) mmol/L BUN 7 (7.0-18.0) mg/dL Creatinine 0.8 (0.8-1.3) mg/dL Est Cr Clr Drug Dosing 99.75 mL/min Estimated GFR (MDRD) > 60.0 ml/min Glucose 100 (74-106) mg/dL Calcium 8.0 L (8.5-10.1) mg/dL Vancomycin Trough 8.8 (5.0-10.0) ug/mL Rusty Results Last 24 Hours: Microbiology 08/25/19 12:08 Gram Stain - Final Knee, Right Wound Culture - Final NO GROWTH AFTER 3 DAYS 08/23/19 19:48 Aerobic Blood Culture - Final Blood - Venous - Lab Draw Streptococcus Group A Anaerobic Blood Culture - Preliminary NO GROWTH AFTER 4 DAYS 08/23/19 19:25 Aerobic Blood Culture - Preliminary Blood - Venous NO GROWTH AFTER 4 DAYS Anaerobic Blood Culture - Preliminary NO GROWTH AFTER 4 DAYS 08/24/19 10:48 Aerobic Blood Culture - Preliminary Blood - Venous - Lab Draw NO GROWTH AFTER 3 DAYS Anaerobic Blood Culture - Preliminary NO GROWTH AFTER 3 DAYS 08/24/19 10:38 Aerobic Blood Culture - Preliminary Blood - Venous NO GROWTH AFTER 3 DAYS Anaerobic Blood Culture - Preliminary NO GROWTH AFTER 3 DAYS Med Orders - Current: Current Medications Acetaminophen (Tylenol) 650 mg PO Q4H PRN PRN Reason: fever over 101 and pain Last Admin: 08/28/19 09:37 Dose: 650 mg Docusate Sodium (Colace) 100 mg PO DAILY PRN PRN Reason: Constipation Last Admin: 08/27/19 01:01 Dose: 100 mg Heparin Sodium (Porcine) (Heparin Sodium) 5,000 units SUBCUT Q8H ALIVIA Last Admin: 08/28/19 08:31 Dose: 5,000 units Ampicillin Sodium/Sulbactam (Sodium 3 gm/ Sodium Chloride) 100 mls @ 200 mls/ hr IV Q6H [facility] Last Admin: 08/28/19 07:50 Dose: 200 mls/hr Vancomycin HCl 1 gm/ Sodium (Chloride) 250 mls @ 166 mls/hr IV Q8H [facility] Last Admin: 08/28/19 00:01 Dose: 166 mls/hr Sodium Chloride (Saline Flush) 10 ml FLUSH ASDIRECTED PRN PRN Reason: Keep Vein Open Sodium Chloride (Saline Flush) 2.5 ml FLUSH ASDIRECTED PRN PRN Reason: Keep Vein Open Vancomycin HCl (Pharmacy To Dose - Vancomycin) 1 dose .XX ASDIRECTED [facility] Discontinued Medications Acetaminophen (Tylenol Extra Strength) 1,000 mg PO ONETIME ONE Stop: 08/23/19 20:18 Last Admin: 08/23/19 20:30 Dose: 1,000 mg Albuterol (Proventil Neb Soln) 2.5 mg NEB ONETIME PRN PRN Reason: Wheezing Atropine Sulfate (Atropine 0.1 Mg/Ml) 0.5 mg IVPUSH ASDIRECTED PRN PRN Reason: Hypo-perfusion Stop: 08/25/19 11:27 Atropine Sulfate (Atropine 0.1 Mg/Ml) 1 mg IVPUSH ASDIRECTED PRN PRN Reason: Hypo-Perfusion Bupivacaine HCl (Sensorcaine-Mpf 0.25%) Confirm Administered Dose 10 ml .ROUTE .STK-MED ONE Stop: 08/25/19 10:36 Bupivacaine HCl (Marcaine 0.5%) Confirm Administered Dose 30 ml .ROUTE .STK-MED ONE Stop: 08/25/19 10:37 Dextrose/Water (Dextrose 50% In Water) 50 ml IVPUSH ASDIRECTED PRN PRN Reason: Hypoglycemia Ephedrine Sulfate (Ephedrine Sulfate) Confirm Administered Dose 50 mg .ROUTE .STK-MED ONE Stop: 08/25/19 09:57 Epinephrine HCl (Epinephrine 1:10,000) 1 mg IVPUSH ASDIRECTED PRN PRN Reason: ACLS Guidelines Fentanyl (Sublimaze) Confirm Administered Dose 100 mcg .ROUTE .STK-MED ONE Stop: 08/25/19 09:56 Fentanyl (Sublimaze) 50 mcg IVPUSH Q5M PRN PRN Reason: Pain Last Admin: 08/25/19 12:54 Dose: 50 mcg Fentanyl (Sublimaze) Confirm Administered Dose 100 mcg .ROUTE .STK-MED ONE Stop: 08/25/19 12:07 Heparin Sodium (Porcine) (Heparin Sodium) 5,000 units SUBCUT Q8H [facility]IVIA Stop: 08/24/19 17:00 Last Admin: 08/24/19 15:18 Dose: 5,000 units Ampicillin Sodium/Sulbactam (Sodium 3 gm/ Sodium Chloride) 100 mls @ 200 mls/ hr IV ONETIME ONE Stop: 08/23/19 19:42 Last Admin: 08/23/19 19:49 Dose: 200 mls/hr Sodium Chloride (Normal Saline) 1,000 mls @ 999 mls/hr IV .Bolus ONE Stop: 08/23/19 20:19 Last Admin: 08/23/19 19:35 Dose: 999 mls/hr Sodium Chloride (Normal Saline) 1,000 mls @ 999 mls/hr IV .Bolus ONE Stop: 08/23/19 22:19 Last Admin: 08/23/19 21:25 Dose: 999 mls/hr Sodium Chloride (Normal Saline) 1,000 mls @ 999 mls/hr IV .Bolus ONE Stop: 08/23/19 23:43 Last Admin: 08/23/19 22:44 Dose: 999 mls/hr Sodium Chloride (Normal Saline) 1,000 mls @ 125 mls/hr IV ASDIRECTED ALIVIA Last Admin: 08/28/19 05:11 Dose: 125 mls/hr Vancomycin HCl 1 gm/ Sodium (Chloride) 250 mls @ 166 mls/hr IV Q12H [facility] Last Admin: 08/24/19 23:53 Dose: 166 mls/hr Sodium Chloride (Normal Saline) Confirm Administered Dose 20 mls @ as directed .ROUTE .STK-MED ONE Stop: 08/25/19 09:57 Vancomycin HCl 1.25 gm/ Sodium (Chloride) 250 mls @ 166.667 mls/hr IV Q12H [facility] Last Admin: 08/27/19 01:11 Dose: Not Given Bupivacaine HCl/Epinephrine Bitart (Sensorc Mpf 0.25%-Epi 1:[id number]) Confirm Administered Dose 0 mls @ as directed .ROUTE .STK-MED ONE Stop: 08/25/19 11:43 Influenza Virus Vaccine (Pharmacy To Dose - Influenza Vaccine) 1 each IM ONETIME ONE Stop: 08/24/19 00:18 Iopamidol (Isovue Multipack-370 (76%)) 100 ml IVPUSH ONETIME ONE Stop: 08/23/19 20:51 Last Admin: 08/23/19 20:50 Dose: 100 ml Iopamidol (Isovue Multipack-370 (76%)) 100 ml IVPUSH ONETIME STA Stop: 08/24/19 10:15 Last Admin: 08/24/19 10:15 Dose: 100 ml Lidocaine HCl (Xylocaine 1%) Confirm Administered Dose 20 ml .ROUTE .STK-MED ONE Stop: 08/25/19 10:39 Lidocaine/Epinephrine (Xylocaine 1% With Epinephrine 1:100,000) 10 ml INJECT ONETIME ONE Stop: 08/23/19 22:03 Last Admin: 08/23/19 22:20 Dose: 10 ml Lidocaine/Epinephrine (Xylocaine 1% With Epinephrine 1:100,000) Confirm Administered Dose 20 ml .ROUTE .STK-MED ONE Stop: 08/23/19 22:13 Last Admin: 08/23/19 22:19 Dose: Not Given Midazolam HCl (Versed 1 Mg/Ml) Confirm Administered Dose 2 mg .ROUTE .STK-MED ONE Stop: 08/25/19 09:57 Naloxone HCl (Narcan) 0.1 mg IVPUSH ASDIRECTED PRN PRN Reason: Respiratory Depression Phenylephrine HCl (Phenylephrine In Ns 100 Mcg/Ml) Confirm Administered Dose 1 mg .ROUTE .STK-MED ONE Stop: 08/25/19 09:57 Pneumococcal Polyvalent Vaccine (Pneumovax 23) 0.5 ml IM .ONCE ONE Stop: 08/24/19 00:18 Potassium Chloride (Klor-Con M20) 40 meq PO ONETIME ONE Stop: 08/27/19 12:38 Last Admin: 08/27/19 12:54 Dose: 40 meq Propofol (Diprivan 20 Ml) Confirm Administered Dose 200 mg .ROUTE .STK-MED ONE Stop: 08/25/19 09:56 Propofol (Diprivan 20 Ml) Confirm Administered Dose 200 mg .ROUTE .STK-MED ONE Stop: 08/25/19 12:13 Rocuronium [place] (Zemuron) Confirm Administered Dose 100 mg .ROUTE .STK-MED ONE Stop: 08/25/19 09:57 Succinylcholine Chloride (Succinylcholine Chloride) Confirm Administered Dose 200 mg .ROUTE .STK-MED ONE Stop: 08/25/19 09:57 - Exam General: Alert, Oriented, Cooperative, No Acute Distress Lungs: Clear to Auscultation, Normal Respiratory Effort Cardiovascular: Regular Rate, Regular Rhythm GI/Abdominal Exam: Normal Bowel Sounds, Soft, Non-Tender Extremities: Normal Inspection, Normal Range of Motion, Non-Tender, No Pedal Edema Skin: Rash (red papules noted to back, no itching or irritation. ) Wound/Incisions: Dressing Dry and Intact (R knee) Psy/Mental Status: Alert, Normal Affect, Normal Mood Sepsis Event Note - Evaluation Sepsis Screening Result: No Definite Risk - Focused Exam Vital Signs: Vital Signs Temp Pulse Resp BP Pulse Ox 08/28/19 07:30 99.2 F 75 14 123/76 94 L 08/28/19 03:50 100 F 78 20 128/73 94 L 08/28/19 00:00 99 F 76 21 H 118/71 94 L Date Exam was Performed: 08/28/19 Time Exam was Performed: 11:20 - Problem List & Annotations (1) Fever and chills SNOMED Code(s): 884730022 Code(s): R50.9 - FEVER, UNSPECIFIED Status: Acute Current Visit: Yes (2) Knee pain, right SNOMED Code(s): 36461196 Code(s): M25.561 - PAIN IN RIGHT KNEE Status: Acute Current Visit: Yes Qualifiers: Chronicity: acute Qualified Code(s): M25.561 - Pain in right knee (3) Hx of respiratory failure SNOMED Code(s): 685879916 Code(s): Z87.09 - PERSONAL HISTORY OF OTHER DISEASES OF THE RESPIRATORY SYSTEM Status: Chronic Current Visit: Yes - Problem List Review Problem List Initiated/Reviewed/Updated: Yes - My Orders Last 24 Hours: My Active Orders 08/28/19 09:04 Enamel Buffer Discontinue [Cardiac Monitoring Discontinue] [RC] Click to Edit - Plan Plan:: 54 yo male admitted for sepsis secondary to prepatellar cellulitis/bursitis of right knee. 1. Bacteremia: 09/02 bottle Strep pyogenes, group A grew out. Repeat cultures negative. Will switch antibiotics to Clindamycin and leave Unasyn on for now. Will monitor for continued fevers. 2. R knee cellulitis/bursitis: Fevers improved, but continue x 1 yesterday evening. R knee washout with Orthopedics, cultures returned with no grow. VTE prophylaxis: Heparin DIspo: 1-2 days pending improvement in fevers
[2019-08-28] MEDS: Clindamycin Phosphate in D5W 600 MG in Premix Bag 1 BAG IV SCH ×6 (10:20→21:34)
[2019-08-29] MEDS: Heparin Sodium 5,000 Units/ML Vial SUBCUT SCH ×2 (00:06→08:19)
[2019-08-29] MEDS: Ampicillin/Sulbactam Na 3 GM in Sodium Chloride 0.9% 100 ML IV SCH ×2 (02:48→08:19)
[2019-08-29] MEDS: Clindamycin Phosphate in D5W 600 MG in Premix Bag 1 BAG IV SCH ×4 (03:38→10:07)
[2019-08-29 06:12] LABS: BLOOD UREA NITROGEN,BUN 9 mg/dL (7.0-18.0); CHLORIDE,CL 104 mmol/L (98-107); GLUCOSE RANDOM 107 mg/dL (74-106); POTASSIUM,K 3.3 mmol/L (3.5-5.1); SODIUM,NA 138 mmol/L (136-148)
[2019-08-29] MEDS ORDERED: Potassium Chloride 20 MEQ Tab.ER PO ONE (07:43)
--- NOTE | 2019-08-29 11:11 | PCM.DCSUM1 ---
Discharge Summary - Hospital Course Brief History: 54 yo male who presents with fever and knee pain. 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 He reports at 4 p.m. he started to develop fevers. HE noted a pain in his right knee and some mild swelling. He was noted to be tachycardic and febrile on admission. No erythema was noted over right knee. CT scan noted possible bursitis or contusion. ER physician attempted to aspirate fluid from right knee but no fluid was obtained. Dr. Veloz was consulted in the ED. Patient had abrasion of right arm several weeks ago. He reports a history of unknown febrile illness with respiratory failure in 1987 which he was hospitalized for months. Diagnosis: Stroke: No - Discharge Data Discharge Date: 08/29/19 Discharge Disposition: Home, Self-Care 01 Condition: Good - Referral to Home Health Primary Care Physician: Satinder Gillis MD - Discharge Diagnosis/Problem(s) (1) Fever and chills SNOMED Code(s): 423846726 ICD Code: R50.9 - FEVER, UNSPECIFIED Status: Acute (2) Knee pain, right SNOMED Code(s): 97553764 ICD Code: M25.561 - PAIN IN RIGHT KNEE Status: Acute Qualifiers: Chronicity: acute Qualified Code(s): M25.561 - Pain in right knee (3) Hx of respiratory failure SNOMED Code(s): 221790677 ICD Code: Z87.09 - PERSONAL HISTORY OF OTHER DISEASES OF THE RESPIRATORY SYSTEM Status: Chronic - Patient Summary/Data Operative Procedure(s) Performed: right knee patellar bursectomy Consults: Consultations 08/23/19 23:34 Consult to Physician [CONS] Stat 08/25/19 12:30 PT Evaluation and Treatment [CONS] Routine 08/25/19 12:31 OT Evaluation and Treatment [CONS] Routine - Patient Instructions Diet: Regular Diet as Tolerated Activity: No Strenuous Activities Showering/Bathing: May Shower, No Tub Bathing/Swimming Wound/Incision Care: Keep Operative Site/Wound Site Clean and Dry, Change Dressing Daily Notify Provider of: Fever, Increased Pain, Swelling and Redness, Drainage, Nausea and/or Vomiting - Discharge Plan *PRESCRIPTION DRUG MONITORING PROGRAM REVIEWED*: Not Applicable *COPY OF PRESCRIPTION DRUG MONITORING REPORT IN PATIENT ROCAEL: Not Applicable Prescriptions/Med Rec: RX: Clindamycin HCl [Cleocin] 450 mg PO Q8H 8 Days #72 cap RX: Ibuprofen 400 mg PO Q6H PRN #1 tablet PRN Reason: Pain Lactobacillus Acidophilus/Fos [Acidophilus Probiotic Tablet] 1 each PO DAILY # 60 tablet Home Medications: Home Meds Lactobacillus Acidophilus/Fos [Acidophilus Probiotic Tablet] 1 each PO DAILY # 60 tablet 08/29/19 [Rx] RX: Acetaminophen [Tylenol] 650 mg PO Q4H PRN tablet 08/29/19 [Rx] RX: Clindamycin HCl [Cleocin] 450 mg PO Q8H 8 Days #72 cap 08/29/19 [Rx] RX: Ibuprofen 400 mg PO Q6H PRN #1 tablet 08/29/19 [Rx] Oxygen Therapy Mode: Room Air Patient Handouts: Cellulitis, Adult, Lactobacillus Oral formulations, Ibuprofen tablets and capsules, Clindamycin capsules, Stitches, Torsten, or Adhesive Wound Closure Referrals: Asaf Lopez,[facility] [Ordering Only Provider] - Marcella Guerrero NP [Nurse Practitioner] - 09/15/19 8:00 am Satinder Gillis MD [Primary Care Provider] - 09/05/19 11:15 am - Discharge Summary/Plan Comment DC Time >30 min.: No Discharge Summary/Plan Comment: Admitting Diagnoses: Sepsis Cellulitis R knee pain/bursitis Discharge Diagnoses: Sepsis- resolved Strep A bacteremia R knee bursitis/cellulitis S/P Prepatellar bursectomy and wash out Jaden was admitted for sepsis with suspected R knee cellulitis. He was started on Vancomycin and Unasyn for possible septic joint. Initially source of infection not completely apparent. Full skin assessment completed, he is noted to have history of many abscess to groin and buttock. On small region was draining to R groin, but no erythema or purulence noted to this region. Monitored closely, CT chest negative as well as CT abd/pelvis for infectious site. Back noted to have multiple blackheads, no obvious abscess or cellulitic regions. Orthopedics, Dr Veloz was consulted and felt patient's knee was very concerning and planned for I/D in the OR. He continued to have fevers. Day 1 BC returned with gram positive cocci in chains, Vancomycin and Unasyn continued. Repeat cultures obtained, which remained negative x 4 days with no growth. I/D of knee found purulent drainage and bursectomy was performed, please see Dr Jeffery operative notes. Cultures from surgery negative for bacteria growth. Leukocytosis improved slowly. Strep pyogenes group A grew out 1/4 bottles of blood cultures. Antibiotics adjusted to Clindamycin and Unasyn. He then remained afebrile for over 24 hours. Leukocytosis has resolved after day 6 of admission. [place] to R knee in place, mild erythema noted around knee, no drainage. Pain well controlled. He will be discharged today with oral Clindamycin, as blood cultures have remained negative with no growth x 4 days, he is afebrile, and surgical debridement of infectious site was completed. He is to continue Clindamycin for another 8 days, 450 mg TID along with probiotic. He is to return to the ED or clinic if concerns should arise with diarrhea, fevers, chills or worsening pain to R knee. he verbalized understanding. he will have follow up with PCP and Orthopedics as outpatient. He was encouraged to change dressing to knee once daily and ok to shower, no tub bathing, per recommendations obtained from Dr Veloz. He will also be discharged home with a walker to help with ambulation. - General Info Date of Service: 08/29/19 Admission Dx/Problem (Free Text: Admission Diagnosis/Problem Admission Diagnosis/Problem R knee Cellulitis and prepatellar bursitis Subjective Update: Feeling well today, very eager for discharge today, he explains he is over eing in the hospital. No chest pain or SOB. Reports knee pain tolerable, no concerns. Functional Status: Reports: Pain Controlled, Tolerating Diet, Ambulating - Review of Systems Pulmonary: Reports: No Symptoms. Denies: Shortness of Breath Cardiovascular: Reports: No Symptoms. Denies: Chest Pain Gastrointestinal: Reports: No Symptoms. Denies: Abdominal Pain, Diarrhea, Nausea, Vomiting Skin: Reports: No Symptoms Neurological: Reports: No Symptoms Psychiatric: Reports: No Symptoms - Patient Data Vitals - Most Recent: Last Vital Signs Temp 98.4 F 08/29/19 08:00 Pulse 67 08/29/19 08:00 Resp 18 08/29/19 08:00 BP 135/72 08/29/19 08:00 Pulse Ox 96 08/29/19 08:00 Weight - Most Recent: 74.843 kg I&O - Last 24 hours: Intake & Output 08/28/19 08/29/19 08/29/19 22:59 06:59 14:59 Intake Total 1280 350 Output Total 1100 Balance 1280 -750 Lab Results - Last 24 hrs: Laboratory Results - last 24 hr 08/29/19 08/29/19 Range/Units 05:30 05:30 WBC 6.00 (4.0-11.0) K/uL RBC 3.08 L (4.50-5.90) M/uL Hgb 9.4 L (13.0-17.0) g/dL Hct 27.7 L (38.0-50.0) % MCV 89.9 (80.0-98.0) fL MCH 30.5 (27.0-32.0) pg MCHC 33.9 (31.0-37.0) g/dL RDW Std Deviation 47.3 (28.0-62.0) fl RDW Coeff of [place] 14 (11.0-15.0) % Plt Count 261 (150-400) K/uL MPV 9.20 (7.40-12.00) fL Neut % (Auto) 62.4 (48.0-80.0) % Lymph % (Auto) 25.7 (16.0-40.0) % [place] % (Auto) 9.5 (0.0-15.0) % Eos % (Auto) 2.2 (0.0-7.0) % Baso % (Auto) 0.2 (0.0-1.5) % Neut # (Auto) 3.8 (1.4-5.7) K/uL Lymph # (Auto) 1.5 (0.6-2.4) K/uL [place] # (Auto) 0.6 (0.0-0.8) K/uL Eos # (Auto) 0.1 (0.0-0.7) K/uL Baso # (Auto) 0.0 (0.0-0.1) K/uL Nucleated RBC % 0.0 /100WBC Nucleated RBCs # 0 K/uL Sodium 138 (136-148) mmol/L Potassium 3.3 L (3.5-5.1) mmol/L Chloride 104 (98-107) mmol/L Carbon Dioxide 21.0 (21.0-32.0) mmol/L BUN 9 (7.0-18.0) mg/dL Creatinine 0.8 (0.8-1.3) mg/dL Est Cr Clr Drug Dosing 99.75 mL/min Estimated GFR (MDRD) > 60.0 ml/min Glucose 107 H (74-106) mg/dL Calcium 7.9 L (8.5-10.1) mg/dL PATRIC Results - Last 24 hrs: Microbiology 08/24/19 10:48 Aerobic Blood Culture - Final Blood - Venous - Lab Draw NO GROWTH AFTER 5 DAYS Anaerobic Blood Culture - Final NO GROWTH AFTER 5 DAYS 08/24/19 10:38 Aerobic Blood Culture - Final Blood - Venous NO GROWTH AFTER 5 DAYS Anaerobic Blood Culture - Final NO GROWTH AFTER 5 DAYS 08/23/19 19:48 Aerobic Blood Culture - Final Blood - Venous - Lab Draw Streptococcus Group A Anaerobic Blood Culture - Final NO GROWTH AFTER 5 DAYS 08/23/19 19:25 Aerobic Blood Culture - Final Blood - Venous NO GROWTH AFTER 5 DAYS Anaerobic Blood Culture - Final NO GROWTH AFTER 5 DAYS 08/25/19 12:08 Anaerobic Culture - Preliminary Wound - Knee, Right 08/25/19 12:08 Gram Stain - Final Knee, Right Wound Culture - Final NO GROWTH AFTER 3 DAYS Med Orders - Current: Current Medications Acetaminophen (Tylenol) 650 mg PO Q4H PRN PRN Reason: fever over 101 and pain Last Admin: 08/28/19 09:37 Dose: 650 mg Docusate Sodium (Colace) 100 mg PO DAILY PRN PRN Reason: Constipation Last Admin: 08/27/19 01:01 Dose: 100 mg Heparin Sodium (Porcine) (Heparin Sodium) 5,000 units SUBCUT Q8H [facility] Last Admin: 08/29/19 08:19 Dose: 5,000 units Ampicillin Sodium/Sulbactam (Sodium 3 gm/ Sodium Chloride) 100 mls @ 200 mls/ hr IV Q6H [facility] Last Admin: 08/29/19 08:19 Dose: 200 mls/hr Clindamycin Phosphate 600 mg/ (Premix) 50 mls @ 100 mls/hr IV Q6H [facility] Last Admin: 08/29/19 10:07 Dose: 100 mls/hr Sodium Chloride (Saline Flush) 10 ml FLUSH ASDIRECTED PRN PRN Reason: Keep Vein Open Sodium Chloride (Saline Flush) 2.5 ml FLUSH ASDIRECTED PRN PRN Reason: Keep Vein Open Discontinued Medications Acetaminophen (Tylenol Extra Strength) 1,000 mg PO ONETIME ONE Stop: 08/23/19 20:18 Last Admin: 08/23/19 20:30 Dose: 1,000 mg Albuterol (Proventil Neb Soln) 2.5 mg NEB ONETIME PRN PRN Reason: Wheezing Atropine Sulfate (Atropine 0.1 Mg/Ml) 0.5 mg IVPUSH ASDIRECTED PRN PRN Reason: Hypo-perfusion Stop: 08/25/19 11:27 Atropine Sulfate (Atropine 0.1 Mg/Ml) 1 mg IVPUSH ASDIRECTED PRN PRN Reason: Hypo-Perfusion Bupivacaine HCl (Sensorcaine-Mpf 0.25%) Confirm Administered Dose 10 ml .ROUTE .STK-MED ONE Stop: 08/25/19 10:36 Bupivacaine HCl (Marcaine 0.5%) Confirm Administered Dose 30 ml .ROUTE .STK-MED ONE Stop: 08/25/19 10:37 Dextrose/Water (Dextrose 50% In Water) 50 ml IVPUSH ASDIRECTED PRN PRN Reason: Hypoglycemia Ephedrine Sulfate (Ephedrine Sulfate) Confirm Administered Dose 50 mg .ROUTE .STK-MED ONE Stop: 08/25/19 09:57 Epinephrine HCl (Epinephrine 1:10,000) 1 mg IVPUSH ASDIRECTED PRN PRN Reason: ACLS Guidelines Fentanyl (Sublimaze) Confirm Administered Dose 100 mcg .ROUTE .STK-MED ONE Stop: 08/25/19 09:56 Fentanyl (Sublimaze) 50 mcg IVPUSH Q5M PRN PRN Reason: Pain Last Admin: 08/25/19 12:54 Dose: 50 mcg Fentanyl (Sublimaze) Confirm Administered Dose 100 mcg .ROUTE .STK-MED ONE Stop: 08/25/19 12:07 Heparin Sodium (Porcine) (Heparin Sodium) 5,000 units SUBCUT Q8H ALIVIA Stop: 08/24/19 17:00 Last Admin: 08/24/19 15:18 Dose: 5,000 units Ampicillin Sodium/Sulbactam (Sodium 3 gm/ Sodium Chloride) 100 mls @ 200 mls/ hr IV ONETIME ONE Stop: 08/23/19 19:42 Last Admin: 08/23/19 19:49 Dose: 200 mls/hr Sodium Chloride (Normal Saline) 1,000 mls @ 999 mls/hr IV .Bolus ONE Stop: 08/23/19 20:19 Last Admin: 08/23/19 19:35 Dose: 999 mls/hr Sodium Chloride (Normal Saline) 1,000 mls @ 999 mls/hr IV .Bolus ONE Stop: 08/23/19 22:19 Last Admin: 08/23/19 21:25 Dose: 999 mls/hr Sodium Chloride (Normal Saline) 1,000 mls @ 999 mls/hr IV .Bolus ONE Stop: 08/23/19 23:43 Last Admin: 08/23/19 22:44 Dose: 999 mls/hr Sodium Chloride (Normal Saline) 1,000 mls @ 125 mls/hr IV ASDIRECTED [facility] Last Admin: 08/28/19 05:11 Dose: 125 mls/hr Vancomycin HCl 1 gm/ Sodium (Chloride) 250 mls @ 166 mls/hr IV Q12H [facility] Last Admin: 08/24/19 23:53 Dose: 166 mls/hr Sodium Chloride (Normal Saline) Confirm Administered Dose 20 mls @ as directed .ROUTE .STK-MED ONE Stop: 08/25/19 09:57 Vancomycin HCl 1.25 gm/ Sodium (Chloride) 250 mls @ 166.667 mls/hr IV Q12H [facility] Last Admin: 08/27/19 01:11 Dose: Not Given Bupivacaine HCl/Epinephrine Bitart (Sensorc Mpf 0.25%-Epi 1:[id number]) Confirm Administered Dose 0 mls @ as directed .ROUTE .STK-MED ONE Stop: 08/25/19 11:43 Vancomycin HCl 1 gm/ Sodium (Chloride) 250 mls @ 166 mls/hr IV Q8H [facility] Last Admin: 08/28/19 15:36 Dose: Not Given Vancomycin HCl 1.25 gm/ Sodium (Chloride) 250 mls @ 166 mls/hr IV Q8H [facility] Last Admin: 08/28/19 15:36 Dose: Not Given Influenza Virus Vaccine (Pharmacy To Dose - Influenza Vaccine) 1 each IM ONETIME ONE Stop: 08/24/19 00:18 Iopamidol (Isovue Multipack-370 (76%)) 100 ml IVPUSH ONETIME ONE Stop: 08/23/19 20:51 Last Admin: 08/23/19 20:50 Dose: 100 ml Iopamidol (Isovue Multipack-370 (76%)) 100 ml IVPUSH ONETIME STA Stop: 08/24/19 10:15 Last Admin: 08/24/19 10:15 Dose: 100 ml Lidocaine HCl (Xylocaine 1%) Confirm Administered Dose 20 ml .ROUTE .STK-MED ONE Stop: 08/25/19 10:39 Lidocaine/Epinephrine (Xylocaine 1% With Epinephrine 1:100,000) 10 ml INJECT ONETIME ONE Stop: 08/23/19 22:03 Last Admin: 08/23/19 22:20 Dose: 10 ml Lidocaine/Epinephrine (Xylocaine 1% With Epinephrine 1:100,000) Confirm Administered Dose 20 ml .ROUTE .STK-MED ONE Stop: 08/23/19 22:13 Last Admin: 08/23/19 22:19 Dose: Not Given Midazolam HCl (Versed 1 Mg/Ml) Confirm Administered Dose 2 mg .ROUTE .STK-MED ONE Stop: 08/25/19 09:57 Naloxone HCl (Narcan) 0.1 mg IVPUSH ASDIRECTED PRN PRN Reason: Respiratory Depression Phenylephrine HCl (Phenylephrine In Ns 100 Mcg/Ml) Confirm Administered Dose 1 mg .ROUTE .STK-MED ONE Stop: 08/25/19 09:57 Pneumococcal Polyvalent Vaccine (Pneumovax 23) 0.5 ml IM .ONCE ONE Stop: 08/24/19 00:18 Potassium Chloride (Klor-Con M20) 40 meq PO ONETIME ONE Stop: 08/27/19 12:38 Last Admin: 08/27/19 12:54 Dose: 40 meq Potassium Chloride (Klor-Con M20) 40 meq PO ONETIME ONE Stop: 08/29/19 07:44 Last Admin: 08/29/19 08:18 Dose: 40 meq Propofol (Diprivan 20 Ml) Confirm Administered Dose 200 mg .ROUTE .STK-MED ONE Stop: 08/25/19 09:56 Propofol (Diprivan 20 Ml) Confirm Administered Dose 200 mg .ROUTE .STK-MED ONE Stop: 08/25/19 12:13 Rocuronium [place] (Zemuron) Confirm Administered Dose 100 mg .ROUTE .STK-MED ONE Stop: 08/25/19 09:57 Succinylcholine Chloride (Succinylcholine Chloride) Confirm Administered Dose 200 mg .ROUTE .STK-MED ONE Stop: 08/25/19 09:57 Vancomycin HCl (Pharmacy To Dose - Vancomycin) 1 dose .XX ASDIRECTED ALIVIA - Exam Quality Assessment: Reports: DVT Prophylaxis. Denies: Supplemental Oxygen General: Reports: Alert, Oriented, Cooperative Lungs: Reports: Clear to Auscultation, Normal Respiratory Effort Cardiovascular: Reports: Regular Rate, Regular Rhythm GI/Abdominal Exam: Normal Bowel Sounds, Soft, Non-Tender Skin: Reports: Warm, Dry Wound/Incisions: Reports: Dressing Dry and Intact, No Drainage, Erythema Improving, Other (torsten intact.) Psy/Mental Status: Reports: Alert, Normal Affect, Normal Mood
--- NOTE | 2019-08-29 13:22 | ECHO ---
EXAM DATE: 08/23/19 PATIENT'S AGE: 54 The echocardiogram report can be seen in this patient's EMR (Electronic Medical Record) in the Reports section. The report has also been scanned into PACs. CLAUDE
== END 2019-08-29 12:00 | disposition home or self-care (01) | DRG 710 ==
LOC: MW.ED 18:44 → MW.MS 23:37
PROVIDERS: ADMIT Internal Medicine; ATTEND Internal Medicine
PROC: 0MTP0ZZ Resection of Left Knee Bursa and Ligament, Open Approach (ICD-10-PCS; principal; 2019-08-25)
DX: A40.0 Sepsis due to streptococcus, group A (principal); L03.115 Cellulitis of right lower limb; M70.51 Other bursitis of knee, right knee; E78.00 Pure hypercholesterolemia, unspecified; Z87.891 Personal history of nicotine dependence; Z79.2 Long term (current) use of antibiotics; Z79.899 Other long term (current) drug therapy
CPT/HCPCS: 36415; 71046; 71046-26; 71260; 71260-26; 73701-26-RT; 73701-RT; 74177; 74177-26; 80048; 80053; 80202; 81003; 83036; 83605; 85025; 85652; 86140; 86308; 87040; 87070; 87077; 87186; 87205; 87389; 87804; 93306; 93971-26-RT; 93971-RT; 96361; 96365; 97161-GP; 99285-25; A9270-GY; J0295; J0330; J1644; J2001; J2250; J2370; J2704; J3010; J3370; J3490; J7030; J7050; Q9967

== ENCOUNTER 2019-08-31 16:10 | Observation (INO) | payer BC ==
[2019-08-31] MEDS ORDERED: Sodium Chloride 0.9% 1,000 ML IV ONE (18:01)
[2019-08-31] MEDS ORDERED: Piperacillin/Tazobactam 3.375 GM in Sodium Chloride 0.9% 50 ML IV ONE (18:02)
[2019-08-31] MEDS ORDERED: Vancomycin 1.5 GM in Sodium Chloride 0.9% 500 ML IV SCH (18:15)
[2019-08-31 19:14] LABS: BLOOD UREA NITROGEN,BUN 10 mg/dL (7.0-18.0); CARBON DIOXIDE,CO2 21.9 mmol/L (21.0-32.0); CHLORIDE,CL 102 mmol/L (98-107); GLUCOSE RANDOM 98 mg/dL (74-106); POTASSIUM,K 4.1 mmol/L (3.5-5.1); SODIUM,NA 136 mmol/L (136-148)
--- NOTE | 2019-08-31 19:24 | CR ---
INDICATION: Right knee pain, swelling and fever. TECHNIQUE: X-ray right knee, 2 views. COMPARISON: CT knee 08/23/2019 Findings: There is similar appearing prepatellar soft tissue swelling. Surgical graham are present over the skin at the midline. Negative for joint effusion. Negative for acute fracture or dislocation. No osseous abnormality is seen. Negative for radiopaque foreign body. Impression: Postprocedural changes with multiple skin graham at the anterior midline of the knee. Similar-appearing underlying prepatellar soft tissue swelling. Negative for acute fracture, dislocation or other osseous abnormality. Dictated by Eden Arciniega MD @ 08/31/2019 7:23:02 PM Dictated by: Eden Arciniega MD @ 08/31/2019 19:23:15 (Electronically Signed)
--- NOTE | 2019-08-31 19:25 | EDM.PDOC ---
ED HPI GENERAL MEDICAL PROBLEM - General Chief Complaint: Fever Stated Complaint: FEVER Time Seen by Provider: 08/31/19 17:13 - History of Present Illness INITIAL COMMENTS - FREE TEXT/NARRATIVE: HPI 54 y/o male with recent sepsis 2/2 septic bursitis w/ surrounding cellulitis of the right knee presents with APAP responsive fevers of ~1 day duration along with increased right knee swelling, warmth, and pain. Patient received acetaminophen merely prior to arrival. Patient has had a temperature to 100.3F at home. Patient is without cough, shortness of breath, chills, dysuria, urinary frequency, diarrhea, constipation, rash, neck stiffness, headache. Patient on clindamycin. Surgery performed by Dr. James Veloz on 08/23/19. M/S/F/SocHx notable for: please see HPI; remainder reviewed with patient and in chart. ROS: Negative constitutional, eye, cardiovascular, pulmonary, GI, , MSK, skin , neurologic, psychiatric, endocrine unless noted in the HPI. Exam HR 64, RR 16, BP 91/56, T 36.9C, SaO2 96% at 5:20 PM. Gen: pleasant, mildly uncomfortable appearing but not in extremis. HEENT: NC, AT, PEERL, EOMI. Resp: Clear to auscultation bilaterally, normal work of breathing, no accessory muscle usage. Card: Regular rate and rhythm with no murmurs, rubs, or gallops, extremities warm and well perfused. GI: Non-tender to palpation throughout all quadrants, no focal tenderness at McBurney's point, negative Wilkins's sign, non-distended, no rebound or guarding. : No suprapubic tenderness to palpation. MSK/skin: right knee with a stapled midline anterior surgical incision. Surrounding erythema, warmth, and tenderness. No crepitus appreciated. Joint does not appear to have an effusion. No significant pain in the joint on flexion and extension, however patient endorses overlying pain. Mild distal edema on the calf and ankle. Foot warm and well perfused with sensation intact to touch. Neuro: alert and oriented 3, no facial asymmetry, vision and hearing WNL. Psych: Mood and affect appropriate. Labs / Imaging: WBC 8.3, HB 11.2, lactic acid 1.0, sodium 136, potassium 4.1, CRP 11.9. XR R knee: mild soft tissue swelling, no gas, no effusion. No periosteal reaction. Radiologist read pending. MDM Previous chart, nursing note, labs, imaging, and vitals reviewed. A: 54 y/o male with recent sepsis 2/2 septic bursitis w/ surrounding cellulitis of the right knee presents with APAP responsive fevers of ~1 day duration along with increased right knee swelling, warmth, and pain. Evaluation: patients worsening surgical site pain, warmth, and possible swelling in the setting of a fever and hypotension is concerning for early sepsis pathophysiology. However his white blood cell count and lactic acid are normal. CRP is elevated, however is unclear if this is secondary recovery surgery versus infection. The patient symptoms may represent a treatment failure versus an alternate process causing temperature elevation (e.g. early viral syndrome, etc.). History exam are without evidence of alternate source. Discuss case with Dr. Corbin, the orthopedist on-call, no clear operative interventions, admission (if warranted) the hospitalist recommended. Given the patients above features observation overnight is indicated in the patient was admitted to Dr. Klein. While in the ED the patient was given 1 L NS, 1.5 g vancomycin, and 3.375 g Zosyn. Impression: fever,? Knee infection. 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 - Related Data Allergies Allergy/AdvReac Type Severity Reaction Status Date / Time No Known Allergies Allergy Verified 08/31/19 16:56 Home Meds: Home Meds Acetaminophen [Tylenol] 650 mg PO Q4H PRN tablet 08/29/19 [Rx] Clindamycin HCl [Cleocin] 450 mg PO Q8H 8 Days #72 cap 08/29/19 [Rx] Ibuprofen 400 mg PO Q6H PRN #1 tablet 08/29/19 [Rx] Lactobacillus Acidophilus/Fos [Acidophilus Probiotic Tablet] 1 each PO DAILY # 60 tablet 08/29/19 [Rx] Past Medical History HEENT History: Reports: None Cardiovascular History: Reports: High Cholesterol Respiratory History: Reports: SOB Gastrointestinal History: Reports: None Genitourinary History: Reports: None Musculoskeletal History: Reports: None Neurological History: Reports: None Psychiatric History: Reports: None Endocrine/Metabolic History: Reports: None Hematologic History: Reports: Blood Transfusion(s) Immunologic History: Reports: None Oncologic (Cancer) History: Reports: None Dermatologic History: Reports: None - Infectious Disease History Infectious Disease History: Reports: Chicken Pox - Past Surgical History Head Surgeries/Procedures: Reports: None HEENT Surgical History: Reports: Oral Surgery Respiratory Surgical History: Reports: Lung Biopsies Musculoskeletal Surgical History: Reports: Arthroscopic Knee Other Musculoskeletal Surgeries/Procedures:: Aspiration of Right knee Social & Family History - Family History Family Medical History: Noncontributory - Tobacco Use Smoking Status *Q: Never Smoker Second Hand Smoke Exposure: No - Caffeine Use Caffeine Use: Reports: Coffee - Recreational Drug Use Recreational Drug Use: No ED ROS GENERAL - Review of Systems Review Of Systems: See Below ED EXAM, GENERAL - Physical Exam Exam: See Below Course - Vital Signs Last Recorded V/S: Last Vital Signs Temp 36.9 C 08/31/19 17:20 Pulse 64 08/31/19 17:20 Resp 16 08/31/19 17:20 BP 91/56 L 08/31/19 17:20 Pulse Ox 96 08/31/19 17:20 - Orders/Labs/Meds Orders: Active Orders 24 hr Category Date Time Status CULTURE BLOOD [BC] Stat Lab 08/31/19 18:15 Results CULTURE BLOOD [BC] Stat Lab 08/31/19 18:25 Received SEDIMENTATION RATE AUTO [HEME] Stat Lab 08/31/19 18:15 Received Vancomycin/Water For Inj (Peg) [Vancomycin 1.5 GM/300 Med 08/31/19 19:30 Active ML Bag] 1.5 gm Premix Bag 1 bag IV Q24H Blood Culture x2 Reflex Set [OM.PC] Stat Oth 08/31/19 17:35 Ordered Medication Orders Vancomycin HCl 1.5 gm/ Premix 300 mls @ 300 mls/hr IV Q24H ALIVIA Labs: Laboratory Tests 08/31/19 08/31/19 08/31/19 Range/Units 18:15 18:15 18:15 WBC 8.31 (4.0-11.0) K/uL RBC 3.68 L (4.50-5.90) M/uL Hgb 11.2 L (13.0-17.0) g/dL Hct 33.4 L (38.0-50.0) % MCV 90.8 (80.0-98.0) fL MCH 30.4 (27.0-32.0) pg MCHC 33.5 (31.0-37.0) g/dL RDW Std Deviation 47.7 (28.0-62.0) fl RDW Coeff of [place] 14 (11.0-15.0) % Plt Count 471 H (150-400) K/uL MPV 9.00 (7.40-12.00) fL Neut % (Auto) 61.0 (48.0-80.0) % Lymph % (Auto) 28.2 (16.0-40.0) % [place] % (Auto) 7.1 (0.0-15.0) % Eos % (Auto) 3.5 (0.0-7.0) % Baso % (Auto) 0.2 (0.0-1.5) % Neut # (Auto) 5.1 (1.4-5.7) K/uL Lymph # (Auto) 2.3 (0.6-2.4) K/uL [place]rell # (Auto) 0.6 (0.0-0.8) K/uL Eos # (Auto) 0.3 (0.0-0.7) K/uL Baso # (Auto) 0.0 (0.0-0.1) K/uL Nucleated RBC % 0.0 /100WBC Nucleated RBCs # 0 K/uL Lactate 1.0 (0.20-2.00) mmol/L Sodium 136 (136-148) mmol/L Potassium 4.1 (3.5-5.1) mmol/L Chloride 102 (98-107) mmol/L Carbon Dioxide 21.9 (21.0-32.0) mmol/L BUN 10 (7.0-18.0) mg/dL Creatinine 0.9 (0.8-1.3) mg/dL Est Cr Clr Drug Dosing 88.67 mL/min Estimated GFR (MDRD) > 60.0 ml/min Glucose 98 (74-106) mg/dL Calcium 8.6 (8.5-10.1) mg/dL C-Reactive Protein 11.90 H (0.00-0.90) mg/dL Meds: Medications Generic Name Dose Route Start Last Admin Trade Name Freq PRN Reason Stop Dose Admin Vancomycin HCl 1.5 gm/ Premix 300 mls @ 300 mls/hr 08/31/19 19:30 IV Q24H ALIVIA Discontinued Medications Generic Name Dose Route Start Last Admin Trade Name Freq PRN Reason Stop Dose Admin Piperacillin Sod/Tazobactam 50 mls @ 100 mls/hr 08/31/19 18:02 08/31/19 18:59 Sod 3.375 gm/ Sodium Chloride IV 08/31/19 18:31 100 mls/hr ONETIME ONE Administration Sodium Chloride 1,000 mls @ 1,000 mls/hr 08/31/19 18:01 08/31/19 18:59 Normal Saline IV 08/31/19 19:00 1,000 mls/hr .Bolus ONE Administration Vancomycin HCl 1.5 gm/ Sodium 500 mls @ 333 mls/hr 08/31/19 18:15 Chloride IV Q24H ALIVIA Departure - Departure Time of Disposition: 19:25 Disposition: Admitted As Inpatient 64 Clinical Impression: Fever - Discharge Information Referrals: Satinder Gillis MD [Primary Care Provider] - Sepsis Event Note - Evaluation Sepsis Screening Result: No Definite Risk - Focused Exam Vital Signs: Vital Signs Temp Pulse Resp BP Pulse Ox 08/31/19 17:20 36.9 C 64 16 91/56 L 96 Date Exam was Performed: 08/31/19 Time Exam was Performed: 19:25 - My Orders Last 24 Hours: My Active Orders 08/31/19 17:35 Blood Culture x2 Reflex Set [OM.PC] Stat 08/31/19 18:15 CULTURE BLOOD [BC] Stat SEDIMENTATION RATE AUTO [HEME] Stat 08/31/19 18:25 CULTURE BLOOD [BC] Stat 08/31/19 19:30 Vancomycin/Water For Inj (Peg) [Vancomycin 1.5 GM/300 ML Bag] 1.5 gm Premix Bag 1 bag IV Q24H - Assessment/Plan Last 24 Hours: My Active Orders 08/31/19 17:35 Blood Culture x2 Reflex Set [OM.PC] Stat 08/31/19 18:15 CULTURE BLOOD [BC] Stat SEDIMENTATION RATE AUTO [HEME] Stat 08/31/19 18:25 CULTURE BLOOD [BC] Stat 08/31/19 19:30 Vancomycin/Water For Inj (Peg) [Vancomycin 1.5 GM/300 ML Bag] 1.5 gm Premix Bag 1 bag IV Q24H
[2019-08-31] MEDS ORDERED: VANCOMYCIN/WATER FOR INJ (PEG) 1.5 GM in Premix Bag 1 BAG IV SCH (19:30)
[2019-08-31] MEDS ORDERED: Ibuprofen 400 MG Tab PO PRN (23:31)
--- NOTE | 2019-08-31 23:50 | PCM.HP.2 ---
H&P History of Present Illness - General Date of Service: 08/31/19 Admit Problem/Dx: Admission Diagnosis/Problem Admission Diagnosis/Problem Fever - History of Present Illness Initial Comments - Free Text/Narative: 54 yo male who was discharged two days ago for a hospitalization for treatment of sepsis from right knee cellulitis and patellar bursitis. He had a right patellar bursectomy performed by Dr. Veloz. He did have 1/4 blood cultures grow Group A strep. PAtient was treated with VAncomycin and Unasyn and switched to oral clindamycin at discharge. Patient reports since discharge he has noted fevers and the redness of his knee has spread. Right Knee Pain Score (Numeric/FACES): 7 - Related Data Allergies/Adverse Reactions: Allergies Allergy/AdvReac Type Severity Reaction Status Date / Time No Known Allergies Allergy Verified 08/31/19 20:56 Home Medications: Home Meds Acetaminophen [Tylenol] 650 mg PO Q4H PRN tablet 08/29/19 [Rx] Clindamycin HCl [Cleocin] 450 mg PO Q8H 8 Days #72 cap 08/29/19 [Rx] Ibuprofen 400 mg PO Q6H PRN #1 tablet 08/29/19 [Rx] Lactobacillus Acidophilus/Fos [Acidophilus Probiotic Tablet] 1 each PO DAILY # 60 tablet 08/29/19 [Rx] Past Medical History HEENT History: Reports: None Cardiovascular History: Reports: High Cholesterol Respiratory History: Reports: SOB Gastrointestinal History: Reports: None Genitourinary History: Reports: None Musculoskeletal History: Reports: Back Pain, Chronic Neurological History: Reports: None Psychiatric History: Reports: None Endocrine/Metabolic History: Reports: None Hematologic History: Reports: Blood Transfusion(s) Immunologic History: Reports: None Oncologic (Cancer) History: Reports: None Dermatologic History: Reports: None - Infectious Disease History Infectious Disease History: Reports: Chicken Pox - Past Surgical History Head Surgeries/Procedures: Reports: None HEENT Surgical History: Reports: Oral Surgery Cardiovascular Surgical History: Reports: None Respiratory Surgical History: Reports: Lung Biopsies Musculoskeletal Surgical History: Reports: Other (See Below) Other Musculoskeletal Surgeries/Procedures:: Aspiration of Right knee Social & Family History - Family History Family Medical History: Noncontributory - Tobacco Use Smoking Status *Q: Former Smoker Used Tobacco, but Quit: Yes Month/Year Tobacco Last Used: 2014 Second Hand Smoke Exposure: No - Caffeine Use Caffeine Use: Reports: Coffee - Recreational Drug Use Recreational Drug Use: No H&P Review of Systems - Review of Systems: Review Of Systems: Comprehensive ROS is negative, except as noted in HPI. Exam - Exam Exam: See Below - Vital Signs Vital Signs: Last Vital Signs Temp 37.0 C 08/31/19 20:44 Pulse 75 08/31/19 20:44 Resp 18 08/31/19 20:44 BP 91/56 L 08/31/19 17:20 Pulse Ox 98 08/31/19 20:44 Weight: 78.2 kg - Exam General: Alert, Oriented HEENT: Mucosa Moist & [place] Lungs: Clear to Auscultation, Normal Respiratory Effort Cardiovascular: Regular Rate, Regular Rhythm GI/Abdominal Exam: Normal Bowel Sounds, Soft, Non-Tender Extremities: Other (right knee erythmea extending has spread since discharge. No drainage noted from surgical wound. He has full extension of his knee but can only bend his knee 90 degrees) Neurological: Cranial Nerves Intact - Patient Data Lab Results Last 24 hrs: Laboratory Results - last 24 hr 08/31/19 08/31/19 08/31/19 Range/Units 18:15 18:15 18:15 WBC 8.31 (4.0-11.0) K/uL RBC 3.68 L (4.50-5.90) M/uL Hgb 11.2 L (13.0-17.0) g/dL Hct 33.4 L (38.0-50.0) % MCV 90.8 (80.0-98.0) fL MCH 30.4 (27.0-32.0) pg MCHC 33.5 (31.0-37.0) g/dL RDW Std Deviation 47.7 (28.0-62.0) fl RDW Coeff of [place] 14 (11.0-15.0) % Plt Count 471 H (150-400) K/uL MPV 9.00 (7.40-12.00) fL Neut % (Auto) 61.0 (48.0-80.0) % Lymph % (Auto) 28.2 (16.0-40.0) % [place] % (Auto) 7.1 (0.0-15.0) % Eos % (Auto) 3.5 (0.0-7.0) % Baso % (Auto) 0.2 (0.0-1.5) % Neut # (Auto) 5.1 (1.4-5.7) K/uL Lymph # (Auto) 2.3 (0.6-2.4) K/uL [place] # (Auto) 0.6 (0.0-0.8) K/uL Eos # (Auto) 0.3 (0.0-0.7) K/uL Baso # (Auto) 0.0 (0.0-0.1) K/uL Nucleated RBC % 0.0 /100WBC Nucleated RBCs # 0 K/uL ESR 109 H (0-19) mm/hr Lactate 1.0 (0.20-2.00) mmol/L Sodium (136-148) mmol/L Potassium (3.5-5.1) mmol/L Chloride (98-107) mmol/L Carbon Dioxide (21.0-32.0) mmol/L BUN (7.0-18.0) mg/dL Creatinine (0.8-1.3) mg/dL Est Cr Clr Drug Dosing mL/min Estimated GFR (MDRD) ml/min Glucose (74-106) mg/dL Calcium (8.5-10.1) mg/dL C-Reactive Protein (0.00-0.90) mg/dL 08/31/19 Range/Units 18:15 WBC (4.0-11.0) K/uL RBC (4.50-5.90) M/uL Hgb (13.0-17.0) g/dL Hct (38.0-50.0) % MCV (80.0-98.0) fL MCH (27.0-32.0) pg MCHC (31.0-37.0) g/dL RDW Std Deviation (28.0-62.0) fl RDW Coeff of [place] (11.0-15.0) % Plt Count (150-400) K/uL MPV (7.40-12.00) fL Neut % (Auto) (48.0-80.0) % Lymph % (Auto) (16.0-40.0) % [place] % (Auto) (0.0-15.0) % Eos % (Auto) (0.0-7.0) % Baso % (Auto) (0.0-1.5) % Neut # (Auto) (1.4-5.7) K/uL Lymph # (Auto) (0.6-2.4) K/uL [place] # (Auto) (0.0-0.8) K/uL Eos # (Auto) (0.0-0.7) K/uL Baso # (Auto) (0.0-0.1) K/uL Nucleated RBC % /100WBC Nucleated RBCs # K/uL ESR (0-19) mm/hr Lactate (0.20-2.00) mmol/L Sodium 136 (136-148) mmol/L Potassium 4.1 (3.5-5.1) mmol/L Chloride 102 (98-107) mmol/L Carbon Dioxide 21.9 (21.0-32.0) mmol/L BUN 10 (7.0-18.0) mg/dL Creatinine 0.9 (0.8-1.3) mg/dL Est Cr Clr Drug Dosing 88.67 mL/min Estimated GFR (MDRD) > 60.0 ml/min Glucose 98 (74-106) mg/dL Calcium 8.6 (8.5-10.1) mg/dL C-Reactive Protein 11.90 H (0.00-0.90) mg/dL Result Diagrams: 08/31/19 18:15 08/31/19 18:15 Rusty Results Last 24 hrs: Microbiology 08/31/19 18:15 Anaerobic Blood Culture - Final Blood Sepsis Event Note - Evaluation Sepsis Screening Result: No Definite Risk - Focused Exam Vital Signs: Vital Signs Temp Pulse Resp BP Pulse Ox 08/31/19 20:44 37.0 C 75 18 98 08/31/19 17:20 36.9 C 64 16 91/56 L 96 Date Exam was Performed: 08/31/19 Time Exam was Performed: 23:44 Problem List Initiated/Reviewed/Updated: Yes Orders Last 24hrs: Active Orders 24 hr Category Date Time Status Patient Status [ADT] Stat ADT 08/31/19 19:32 Active Oxygen Therapy [RC] PRN Care 08/31/19 23:37 Active VTE/DVT Education [RC] PER UNIT ROUTINE Care 08/31/19 23:37 Active Vital Signs [RC] Q4H Care 08/31/19 23:37 Active Regular Diet [DIET] Diet 08/31/19 Breakfast Active BASIC METABOLIC PANEL,BMP [CHEM] AM Lab 09/01/19 05:11 Ordered CBC WITH AUTO DIFF [HEME] AM Lab 09/01/19 05:11 Ordered CULTURE BLOOD [BC] Stat Lab 08/31/19 18:15 Results CULTURE BLOOD [BC] Stat Lab 08/31/19 18:25 Received Heparin Sodium Med 08/31/19 23:45 Ordered 5,000 units SUBCUT Q8H Ibuprofen [Motrin] Med 08/31/19 23:31 Active 400 mg PO Q6H PRN Pharmacy to Dose - Vancomycin Med 08/31/19 23:45 Ordered 1 dose .XX ASDIRECTED Piperacillin/Tazobactam [Piperacil-Tazobact] 3.375 gm Med 09/01/19 01:00 Active Sodium Chloride 0.9% [Normal Saline] 50 ml IV Q6H Blood Culture x2 Reflex Set [OM.PC] Stat Oth 08/31/19 17:35 Ordered Resuscitation Status Routine Resus Stat 08/31/19 23:37 Ordered Medication Orders Heparin Sodium (Porcine) (Heparin Sodium) 5,000 units SUBCUT Q8H ALIVIA Piperacillin Sod/Tazobactam (Sod 3.375 gm/ Sodium Chloride) 50 mls @ 100 mls/ hr IV Q6H ALIVIA Ibuprofen (Motrin) 400 mg PO Q6H PRN PRN Reason: Pain Vancomycin HCl (Pharmacy To Dose - Vancomycin) 1 dose .XX ASDIRECTED ON LICENSE OF [facility] Assessment/Plan Comment:: 54 yo male admitted for worsening right knee cellulitis. We will switch back to IV antibiotics with Vancomycin and Zosyn. We will consult orthpedic surgeon for further evaluation of knee joint.
[2019-09-01] MEDS: Heparin Sodium 5,000 Units/ML Vial SUBCUT SCH ×3 (00:30→16:54)
[2019-09-01] MEDS: Piperacillin/Tazobactam 3.375 GM in Sodium Chloride 0.9% 50 ML IV SCH ×4 (00:32→18:06)
[2019-09-01 06:46] LABS: BLOOD UREA NITROGEN,BUN 12 mg/dL (7.0-18.0); CARBON DIOXIDE,CO2 21.5 mmol/L (21.0-32.0); CHLORIDE,CL 103 mmol/L (98-107); GLUCOSE RANDOM 108 mg/dL (74-106); POTASSIUM,K 4.1 mmol/L (3.5-5.1); SODIUM,NA 136 mmol/L (136-148)
--- NOTE | 2019-09-01 10:32 | US ---
Right lower extremity deep venous ultrasound: Duplex and color Doppler evaluation was obtained of the right common femoral, superficial femoral, popliteal and posterior tibial veins. Comparison: Previous right lower extremity venous ultrasound of 08/24/19. Findings: Normal compression and Doppler blood flow seen within the deep veins. Mild amount of fluid is seen around the patella Impression: 1. Fluid again noted around the patella. 2. No evidence of deep venous thrombosis within the right lower extremity. Diagnostic code #2 This report was dictated in [place] Standard Time
--- NOTE | 2019-09-01 11:47 | PCM.PN ---
- General Info Date of Service: 09/01/19 Admission Dx/Problem (Free Text): Admission Diagnosis/Problem Admission Diagnosis/Problem Fever Subjective Update: Feeling ok this morning, no concerns. No chest pain or SOB. Pain to R knee with palpation, mild temp. Functional Status: Reports: Pain Controlled, Tolerating Diet, Ambulating, Urinating - Review of Systems General: Reports: Fever, Malaise Pulmonary: Reports: No Symptoms. Denies: Shortness of Breath Cardiovascular: Reports: No Symptoms Gastrointestinal: Reports: No Symptoms. Denies: Abdominal Pain, Nausea, Vomiting Genitourinary: Reports: No Symptoms. Denies: Dysuria, Frequency Musculoskeletal: Reports: Joint Pain (R knee pain) Skin: Reports: No Symptoms Neurological: Reports: No Symptoms Psychiatric: Reports: No Symptoms - Patient Data Vitals - Most Recent: Last Vital Signs Temp 100.8 F H 09/01/19 08:12 Pulse 76 09/01/19 08:12 Resp 18 09/01/19 08:12 BP 116/69 09/01/19 08:12 Pulse Ox 95 09/01/19 08:12 Weight - Most Recent: 78.2 kg I&O - Last 24 Hours: Intake & Output 08/31/19 09/01/19 09/01/19 22:59 06:59 14:59 Intake Total 300 250 Balance 300 250 Lab Results Last 24 Hours: Laboratory Results - last 24 hr 08/31/19 08/31/19 08/31/19 Range/Units 18:15 18:15 18:15 WBC 8.31 (4.0-11.0) K/uL RBC 3.68 L (4.50-5.90) M/uL Hgb 11.2 L (13.0-17.0) g/dL Hct 33.4 L (38.0-50.0) % MCV 90.8 (80.0-98.0) fL MCH 30.4 (27.0-32.0) pg MCHC 33.5 (31.0-37.0) g/dL RDW Std Deviation 47.7 (28.0-62.0) fl RDW Coeff of [place] 14 (11.0-15.0) % Plt Count 471 H (150-400) K/uL MPV 9.00 (7.40-12.00) fL Neut % (Auto) 61.0 (48.0-80.0) % Lymph % (Auto) 28.2 (16.0-40.0) % Evans % (Auto) 7.1 (0.0-15.0) % Eos % (Auto) 3.5 (0.0-7.0) % Baso % (Auto) 0.2 (0.0-1.5) % Neut # (Auto) 5.1 (1.4-5.7) K/uL Lymph # (Auto) 2.3 (0.6-2.4) K/uL Evans # (Auto) 0.6 (0.0-0.8) K/uL Eos # (Auto) 0.3 (0.0-0.7) K/uL Baso # (Auto) 0.0 (0.0-0.1) K/uL Nucleated RBC % 0.0 /100WBC Nucleated RBCs # 0 K/uL ESR 109 H (0-19) mm/hr Lactate 1.0 (0.20-2.00) mmol/L Sodium (136-148) mmol/L Potassium (3.5-5.1) mmol/L Chloride (98-107) mmol/L Carbon Dioxide (21.0-32.0) mmol/L BUN (7.0-18.0) mg/dL Creatinine (0.8-1.3) mg/dL Est Cr Clr Drug Dosing mL/min Estimated GFR (MDRD) ml/min Glucose (74-106) mg/dL Calcium (8.5-10.1) mg/dL C-Reactive Protein (0.00-0.90) mg/dL 08/31/19 09/01/19 09/01/19 Range/Units 18:15 06:05 06:05 WBC 8.41 (4.0-11.0) K/uL RBC 3.59 L (4.50-5.90) M/uL Hgb 10.7 L (13.0-17.0) g/dL Hct 33.0 L (38.0-50.0) % MCV 91.9 (80.0-98.0) fL MCH 29.8 (27.0-32.0) pg MCHC 32.4 (31.0-37.0) g/dL RDW Std Deviation 48.8 (28.0-62.0) fl RDW Coeff of [place] 15 (11.0-15.0) % Plt Count 495 H (150-400) K/uL MPV 9.00 (7.40-12.00) fL Neut % (Auto) 66.8 (48.0-80.0) % Lymph % (Auto) 22.2 (16.0-40.0) % Evans % (Auto) 7.5 (0.0-15.0) % Eos % (Auto) 3.1 (0.0-7.0) % Baso % (Auto) 0.4 (0.0-1.5) % Neut # (Auto) 5.6 (1.4-5.7) K/uL Lymph # (Auto) 1.9 (0.6-2.4) K/uL Evans # (Auto) 0.6 (0.0-0.8) K/uL Eos # (Auto) 0.3 (0.0-0.7) K/uL Baso # (Auto) 0.0 (0.0-0.1) K/uL Nucleated RBC % 0.0 /100WBC Nucleated RBCs # 0 K/uL ESR (0-19) mm/hr Lactate (0.20-2.00) mmol/L Sodium 136 136 (136-148) mmol/L Potassium 4.1 4.1 (3.5-5.1) mmol/L Chloride 102 103 (98-107) mmol/L Carbon Dioxide 21.9 21.5 (21.0-32.0) mmol/L BUN 10 12 (7.0-18.0) mg/dL Creatinine 0.9 0.9 (0.8-1.3) mg/dL Est Cr Clr Drug Dosing 88.67 88.67 mL/min Estimated GFR (MDRD) > 60.0 > 60.0 ml/min Glucose 98 108 H (74-106) mg/dL Calcium 8.6 8.2 L (8.5-10.1) mg/dL C-Reactive Protein 11.90 H (0.00-0.90) mg/dL Rusty Results Last 24 Hours: Microbiology 08/31/19 18:15 Anaerobic Blood Culture - Final Blood Med Orders - Current: Current Medications Heparin Sodium (Porcine) (Heparin Sodium) 5,000 units SUBCUT Q8H [facility] Last Admin: 09/01/19 08:04 Dose: 5,000 units Piperacillin Sod/Tazobactam (Sod 3.375 gm/ Sodium Chloride) 50 mls @ 100 mls/ hr IV Q6H [facility] Last Admin: 09/01/19 07:03 Dose: 100 mls/hr Vancomycin HCl 1.25 gm/ Sodium (Chloride) 250 mls @ 166.667 mls/hr IV Q12H [facility] Last Admin: 09/01/19 09:01 Dose: 166.667 mls/hr Ibuprofen (Motrin) 400 mg PO Q6H PRN PRN Reason: Pain Vancomycin HCl (Pharmacy To Dose - Vancomycin) 1 dose .XX ASDIRECTED [facility] Discontinued Medications Piperacillin Sod/Tazobactam (Sod 3.375 gm/ Sodium Chloride) 50 mls @ 100 mls/ hr IV ONETIME ONE Stop: 08/31/19 18:31 Last Admin: 08/31/19 18:59 Dose: 100 mls/hr Sodium Chloride (Normal Saline) 1,000 mls @ 1,000 mls/hr IV .Bolus ONE Stop: 08/31/19 19:00 Last Admin: 08/31/19 18:59 Dose: 1,000 mls/hr Vancomycin HCl 1.5 gm/ Sodium (Chloride) 500 mls @ 333 mls/hr IV Q24H [facility] Last Admin: 08/31/19 19:36 Dose: Not Given Vancomycin HCl 1.5 gm/ Premix 300 mls @ 300 mls/hr IV Q24H [facility] Last Admin: 08/31/19 19:37 Dose: 300 mls/hr Vancomycin HCl 1.25 gm/ Sodium (Chloride) 250 mls @ 166.667 mls/hr IV Q12H [facility] Last Admin: 09/01/19 09:21 Dose: Not Given - Exam General: Alert, Oriented, Cooperative, No Acute Distress Lungs: Clear to Auscultation, Normal Respiratory Effort Cardiovascular: Regular Rate, Regular Rhythm GI/Abdominal Exam: Normal Bowel Sounds, Soft, Non-Tender Extremities: Normal Inspection, Normal Range of Motion, Non-Tender, Pedal Edema (+1 pitting to R foot) Wound/Incisions: Erythema (Surround anterior knee and extends down to medial malleous, lightening in color distally. Pain to palpation of R patellar region with noted possible fluctuance) Psy/Mental Status: Alert, Normal Affect, Normal Mood Sepsis Event Note - Evaluation Sepsis Screening Result: No Definite Risk - Focused Exam Vital Signs: Vital Signs Temp Pulse Resp BP Pulse Ox 09/01/19 08:12 100.8 F H 76 18 116/69 95 09/01/19 04:00 99.1 F 70 16 101/64 93 L 09/01/19 00:00 99.0 F 71 18 122/67 92 L Date Exam was Performed: 09/01/19 Time Exam was Performed: 11:42 - Problem List & Annotations (1) Cellulitis SNOMED Code(s): 801692634 Code(s): L03.90 - CELLULITIS, UNSPECIFIED Status: Acute Current Visit: Yes (2) Fever SNOMED Code(s): 549683860 Code(s): R50.9 - FEVER, UNSPECIFIED Status: Acute Current Visit: Yes (3) Hx of bacteremia SNOMED Code(s): 319335757 Code(s): Z87.898 - PERSONAL HISTORY OF OTHER SPECIFIED CONDITIONS Status: Chronic Current Visit: Yes (4) Knee pain, right SNOMED Code(s): 23346635 Code(s): M25.561 - PAIN IN RIGHT KNEE Status: Acute Current Visit: No Qualifiers: Chronicity: acute Qualified Code(s): M25.561 - Pain in right knee (5) Patellar bursitis of right knee SNOMED Code(s): 4035013516776402 Code(s): M70.51 - OTHER BURSITIS OF KNEE, RIGHT KNEE Status: Acute Current Visit: No - Problem List Review Problem List Initiated/Reviewed/Updated: Yes - My Orders Last 24 Hours: My Active Orders 09/01/19 08:31 Consult to Physician [CONS] Urgent 09/01/19 08:33 Notify Provider Consults [RC] ASDIRECTED - Plan Plan:: 54 yo male admitted for worsening right knee cellulitis. 1. R knee cellulitis: Worsening erythema. Sent home on Clindamycin. Orthopedics consulted due to recent bursectomy with last admission, Dr Corbin will see patient today. Continue Vancomycin and Zosyn. BC pending. Doppler negative for DVT. VTE prophylaxis: Heparin. Dispo: 1-2 days
[2019-09-01] MEDS ORDERED: oxyCODONE 5 MG Tab PO PRN (12:32)
--- NOTE | 2019-09-01 12:42 | PCM.SN ---
- Free Text/Narrative Note: Ortho Note Patient with history of right septic prepatellar bursitis. I&D by Dr. Veloz last week. Seen in ER last night with temperature to 100.6. Normal labs. Admitted to hospital service due to history of sepsis. Ask to assess right knee today. PE: Graham intact without drainage Skin looks ecchymotic, not cellulitis No fluid collection to palpation Removed 3 graham from mid incision and opened incision No fluid collection drained Assessment: Healing right septic prepatellar bursitis Plan: Dry gauze over incision, change daily Follow-up in Ortho as scheduled IV antibiotic per Hospital Service until cultures cleared
[2019-09-02] MEDS: Heparin Sodium 5,000 Units/ML Vial SUBCUT SCH ×2 (01:14→09:09)
[2019-09-02] MEDS: Piperacillin/Tazobactam 3.375 GM in Sodium Chloride 0.9% 50 ML IV SCH ×3 (01:14→13:30)
[2019-09-02 06:49] LABS: BLOOD UREA NITROGEN,BUN 10 mg/dL (7.0-18.0); CARBON DIOXIDE,CO2 24.8 mmol/L (21.0-32.0); CHLORIDE,CL 101 mmol/L (98-107); GLUCOSE RANDOM 108 mg/dL (74-106); POTASSIUM,K 4.5 mmol/L (3.5-5.1); SODIUM,NA 137 mmol/L (136-148)
--- NOTE | 2019-09-02 18:49 | PCM.DCSUM1 ---
Discharge Summary - Hospital Course Free Text/Narrative:: Discharge summary Consultations: Orthopedic Hospital course: Patient is a 4-year-old male recently discharged 2 days prior for treatment of sepsis of right knee cellulitis and patellar bursitis. Patient is status post right patellar bursectomy performed by Dr. Veloz of orthopedics. Patient did have 1 out of 4 blood cultures grow group A strep and was treated with vancomycin and Unasyn ; patient was sent home with clindamycin at discharge. Patient returned secondary to increased fevers and redness of right knee. On admission patient was restarted on vancomycin and Zosyn and orthopedic surgeon was consulted for further evaluation. Per surgery 3 graham removed and incision was opened; no fluid was drained; recommended follow-up in outpatient setting. During remainder of stay patient remained afebrile. Patient was discharged home and advised to complete course of clindamycin. Appropriate appointments were set up ; advised to return if fevers, chills, rigors or any other new symptoms develop. Patient understood plan. Discharge condition:Stable Disposition: Home - Discharge Data Discharge Date: 09/02/19 Discharge Disposition: Home, Self-Care 01 Condition: Stable - Referral to Home Health Primary Care Physician: Satinder Gillis MD - Patient Summary/Data Consults: Consultations 09/01/19 08:31 Consult to Physician [CONS] Urgent - Patient Instructions Diet: Heart Healthy Diet Notify Provider of: Fever, Increased Pain, Swelling and Redness, Drainage, Nausea and/or Vomiting Other/Special Instructions: COMPLETE THE COURSE OF ANTIBIOTICS GIVEN ON YOUR PREVIOUS ADMISSION; CLINDAMYCIN. FOLLOW UP WITH YOUR SURGEON AT THE SCHEDULED DATE. RETURN IF FEVERS DEVELOP OR REDNESS , SWELLING WORSENS. - Discharge Plan Home Medications: Home Meds Acetaminophen [Tylenol] 650 mg PO Q4H PRN tablet 08/29/19 [Rx] Clindamycin HCl [Cleocin] 450 mg PO Q8H 8 Days #72 cap 08/29/19 [Rx] Ibuprofen 400 mg PO Q6H PRN #1 tablet 08/29/19 [Rx] Lactobacillus Acidophilus/Fos [Acidophilus Probiotic Tablet] 1 each PO DAILY # 60 tablet 08/29/19 [Rx] oxyCODONE 5 mg PO Q4H PRN tablet 09/02/19 [Rx] Patient Handouts: Fever, Adult, [id number] Referrals: Marcella Guerrero NP [Nurse Practitioner] - 09/15/19 8:00 am Satinder Gillis MD [Primary Care Provider] - 09/05/19 11:15 am - Discharge Summary/Plan Comment DC Time >30 min.: No - Patient Data Vitals - Most Recent: Last Vital Signs Temp 98.7 F 09/02/19 15:52 Pulse 68 09/02/19 15:52 Resp 16 09/02/19 15:52 BP 120/70 09/02/19 15:52 Pulse Ox 95 09/02/19 15:52 Weight - Most Recent: 172 lb 6.424 oz I&O - Last 24 hours: Intake & Output 09/02/19 09/02/19 09/02/19 06:59 14:59 22:59 Intake Total 1050 350 Output Total 1675 Balance -625 350 Lab Results - Last 24 hrs: Laboratory Results - last 24 hr 09/02/19 09/02/19 09/02/19 Range/Units 05:55 05:55 07:35 WBC 8.52 (4.0-11.0) K/uL RBC 3.80 L (4.50-5.90) M/uL Hgb 11.5 L (13.0-17.0) g/dL Hct 35.4 L (38.0-50.0) % MCV 93.2 (80.0-98.0) fL MCH 30.3 (27.0-32.0) pg MCHC 32.5 (31.0-37.0) g/dL RDW Std Deviation 49.8 (28.0-62.0) fl RDW Coeff of [place] 15 (11.0-15.0) % Plt Count 527 H (150-400) K/uL MPV 9.10 (7.40-12.00) fL Neut % (Auto) 66.3 (48.0-80.0) % Lymph % (Auto) 23.2 (16.0-40.0) % [place] % (Auto) 7.3 (0.0-15.0) % Eos % (Auto) 2.8 (0.0-7.0) % Baso % (Auto) 0.4 (0.0-1.5) % Neut # (Auto) 5.7 (1.4-5.7) K/uL Lymph # (Auto) 2.0 (0.6-2.4) K/uL [place] # (Auto) 0.6 (0.0-0.8) K/uL Eos # (Auto) 0.2 (0.0-0.7) K/uL Baso # (Auto) 0.0 (0.0-0.1) K/uL Nucleated RBC % 0.0 /100WBC Nucleated RBCs # 0 K/uL Sodium 137 (136-148) mmol/L Potassium 4.5 (3.5-5.1) mmol/L Chloride 101 (98-107) mmol/L Carbon Dioxide 24.8 (21.0-32.0) mmol/L BUN 10 (7.0-18.0) mg/dL Creatinine 1.0 (0.8-1.3) mg/dL Est Cr Clr Drug Dosing 79.80 mL/min Estimated GFR (MDRD) > 60.0 ml/min Glucose 108 H (74-106) mg/dL Calcium 8.9 (8.5-10.1) mg/dL Vancomycin Trough 12.8 H (5.0-10.0) ug/mL PATRIC Results - Last 24 hrs: Microbiology 08/31/19 18:25 Aerobic Blood Culture - Preliminary Blood - Venous - Lab Draw NO GROWTH AFTER 1 DAY Anaerobic Blood Culture - Preliminary NO GROWTH AFTER 1 DAY 08/31/19 18:15 Aerobic Blood Culture - Preliminary Blood NO GROWTH AFTER 1 DAY Anaerobic Blood Culture - Final Med Orders - Current: Current Medications Discontinued Medications Heparin Sodium (Porcine) (Heparin Sodium) 5,000 units SUBCUT Q8H [facility] Last Admin: 09/02/19 09:09 Dose: 5,000 units Piperacillin Sod/Tazobactam (Sod 3.375 gm/ Sodium Chloride) 50 mls @ 100 mls/ hr IV ONETIME ONE Stop: 08/31/19 18:31 Last Admin: 08/31/19 18:59 Dose: 100 mls/hr Sodium Chloride (Normal Saline) 1,000 mls @ 1,000 mls/hr IV .Bolus ONE Stop: 08/31/19 19:00 Last Admin: 08/31/19 18:59 Dose: 1,000 mls/hr Vancomycin HCl 1.5 gm/ Sodium (Chloride) 500 mls @ 333 mls/hr IV Q24H [facility] Last Admin: 08/31/19 19:36 Dose: Not Given Vancomycin HCl 1.5 gm/ Premix 300 mls @ 300 mls/hr IV Q24H [facility] Last Admin: 08/31/19 19:37 Dose: 300 mls/hr Piperacillin Sod/Tazobactam (Sod 3.375 gm/ Sodium Chloride) 50 mls @ 100 mls/ hr IV Q6H [facility] Last Admin: 09/02/19 13:30 Dose: 100 mls/hr Vancomycin HCl 1.25 gm/ Sodium (Chloride) 250 mls @ 166.667 mls/hr IV Q12H [facility] Last Admin: 09/01/19 09:21 Dose: Not Given Vancomycin HCl 1.25 gm/ Sodium (Chloride) 250 mls @ 166.667 mls/hr IV Q12H [facility] Last Admin: 09/02/19 09:08 Dose: 166.667 mls/hr Ibuprofen (Motrin) 400 mg PO Q6H PRN PRN Reason: Pain Last Admin: 09/01/19 12:53 Dose: 400 mg Oxycodone HCl (Oxycodone) 5 mg PO Q4H PRN PRN Reason: Pain Vancomycin HCl (Pharmacy To Dose - Vancomycin) 1 dose .XX ASDIRECTED [facility]
== END 2019-09-02 15:45 | disposition home or self-care (01) ==
LOC: MW.ED 16:10 → MW.MS 19:32
PROVIDERS: ADMIT Internal Medicine; ATTEND Internal Medicine
DX: L03.115 Cellulitis of right lower limb (principal); B95.0 Streptococcus, group A, as the cause of diseases classified elsewhere; E78.00 Pure hypercholesterolemia, unspecified; Z87.891 Personal history of nicotine dependence; Z98.890 Other specified postprocedural states; Z86.19 Personal history of other infectious and parasitic diseases
CPT/HCPCS: 36415; 73560; 80048; 80202; 83605; 85025; 85652; 86140; 87040; 93971; A9270; J1644; J2543; J3370; J7030; J7050; 96365; 96366; 96367; 96372; 96376; 99284-25; G0378

== ENCOUNTER 2019-09-27 16:01 | Emergency (ER) | payer BC ==
--- NOTE | 2019-09-27 16:45 | EDM.PDOC ---
ED HPI GENERAL MEDICAL PROBLEM - General Chief Complaint: Lower Extremity Injury/Pain Stated Complaint: OPEN WOUND RT KNEE, 2 DAYS POST OP Time Seen by Provider: 09/27/19 16:42 Source of Information: Reports: Patient History Limitations: Reports: No Limitations - History of Present Illness INITIAL COMMENTS - FREE TEXT/NARRATIVE: HISTORY AND PHYSICAL: History of present illness: Patient is a 54-year-old male presents to the ED with complaint of open wound to the right knee. Patient had surgery to the right knee to have a bursectomy after this was presumed to be a source of sepsis. Patient states he follow up with orthopedics yesterday and was cleared to go to work. Patient states about an hour prior to arrival to the ED the scab fell off. Patient states he has not had any increased redness or pain, purulent drainage or fevers. He has been able to walk on his right leg without difficulty. Review of systems: As per history of present illness and below otherwise all systems reviewed and negative. Past medical history: As per history of present illness and as reviewed below otherwise noncontributory. Surgical history: As per history of present illness and as reviewed below otherwise noncontributory. Social history: No reported history of drug or alcohol abuse. Family history: As per history of present illness and as reviewed below otherwise noncontributory. Physical exam: General: Patient sitting comfortably in no acute distress and nontoxic appearing HEENT: Atraumatic, normocephalic, pupils reactive, negative for conjunctival pallor or scleral icterus, mucous membranes moist, throat clear, neck supple, nontender, trachea midline. No meningeal signs. Lungs: Clear to auscultation, breath sounds equal bilaterally, chest nontender. Heart: S1S2, regular, negative for clicks, rubs, or overt murmur. Abdomen: Soft, nondistended, nontender. Negative for masses or hepatosplenomegaly. Negative for costovertebral tenderness. No rigidity, rebound , guarding. Pelvis: Stable nontender. Genitourinary: Deferred. Rectal: Deferred. Extremities: There is a 5 x 1cm open wound to the incision of the right knee with healthy healing tissue. There is no purulence or fluctuance. There is no surrounding erythema and minimal tenderness to palpation. Atraumatic, negative for cords or calf pain. Neurovascular unremarkable. Neuro: Awake, alert, oriented. Cranial nerves II through XII unremarkable. Cerebellum unremarkable. Motor and sensory unremarkable throughout. Exam nonfocal. Notes: Diagnostics: none Therapeutics: wound dressing applied by nursing staff Prescriptions: none Impression: Wound recheck Plan: Keep the area clean and dry as instructed Follow up with primary care provider Return to ED as needed as discussed Definitive disposition and diagnosis as appropriate pending reevaluation and review of above. - Related Data Allergies Allergy/AdvReac Type Severity Reaction Status Date / Time No Known Allergies Allergy Verified 08/31/19 20:56 Home Meds: Home Meds . [No Known Home Meds] 09/27/19 [History] Past Medical History HEENT History: Reports: None Cardiovascular History: Reports: High Cholesterol Respiratory History: Reports: SOB Gastrointestinal History: Reports: None Genitourinary History: Reports: None Musculoskeletal History: Reports: Back Pain, Chronic Neurological History: Reports: None Psychiatric History: Reports: None Endocrine/Metabolic History: Reports: None Hematologic History: Reports: Blood Transfusion(s) Immunologic History: Reports: None Oncologic (Cancer) History: Reports: None Dermatologic History: Reports: None - Infectious Disease History Infectious Disease History: Reports: Chicken Pox - Past Surgical History Head Surgeries/Procedures: Reports: None HEENT Surgical History: Reports: Oral Surgery Cardiovascular Surgical History: Reports: None Respiratory Surgical History: Reports: Lung Biopsies Musculoskeletal Surgical History: Reports: Other (See Below) Other Musculoskeletal Surgeries/Procedures:: Aspiration of Right knee Social & Family History - Family History Family Medical History: Noncontributory - Tobacco Use Smoking Status *Q: Never Smoker - Caffeine Use Caffeine Use: Reports: Coffee - Recreational Drug Use Recreational Drug Use: No Review of Systems - Review of Systems Review Of Systems: Comprehensive ROS is negative, except as noted in HPI. ED EXAM, GENERAL - Physical Exam Exam: See Below (see dictation) Course - Vital Signs Last Recorded V/S: Last Vital Signs Temp 97.4 F 09/27/19 16:21 Pulse 82 09/27/19 16:21 Resp 16 09/27/19 16:21 BP 115/68 09/27/19 16:21 Pulse Ox 98 09/27/19 16:21 Departure - Departure Time of Disposition: 16:43 Disposition: Home, Self-Care 01 Condition: Good Clinical Impression: Encounter for wound re-check - Discharge Information Instructions: Wound Care, Adult Referrals: Satinder Gillis MD [Primary Care Provider] - Forms: ED Department Discharge Additional Instructions: The following information is given to patients seen in the emergency department who are being discharged to home. This information is to outline your options for follow-up care. We provide all patients seen in our emergency department with a follow-up referral. The need for follow-up, as well as the timing and circumstances, are variable depending upon the specifics of your emergency department visit. If you don't have a primary care physician on staff, we will provide you with a referral. We always advise you to contact your personal physician following an emergency department visit to inform them of the circumstance of the visit and for follow-up with them and/or the need for any referrals to a consulting specialist. The emergency department will also refer you to a specialist when appropriate. This referral assures that you have the opportunity for follow-up care with a specialist. All of these measure are taken in an effort to provide you with optimal care, which includes your follow-up. Under all circumstances we always encourage you to contact your private physician who remains a resource for coordinating your care. When calling for follow-up care, please make the office aware that this follow-up is from your recent emergency room visit. If for any reason you are refused follow-up, please contact the [facility] Emergency Department at and asked to speak to the emergency department charge nurse. [facility] [address] [place] [address] [place] [address] Keep the area clean and dry as instructed Follow up with primary care provider Return to ED as needed as discussed Sepsis Event Note - Evaluation Sepsis Screening Result: No Definite Risk - Focused Exam Vital Signs: Vital Signs Temp Pulse Resp BP Pulse Ox 09/27/19 16:21 97.4 F 82 16 115/68 98 Date Exam was Performed: 09/27/19 Time Exam was Performed: 16:57
== END 2019-09-27 17:06 | disposition home or self-care (01) ==
LOC: MW.ED 16:01
DX: Z48.01 Encounter for change or removal of surgical wound dressing (principal)
CPT/HCPCS: 99282

== ENCOUNTER 2019-10-10 10:53 | Emergency (ER) | payer BC ==
--- NOTE | 2019-10-10 11:20 | EDM.PDOC ---
ED HPI GENERAL MEDICAL PROBLEM - General Chief Complaint: Skin Complaint Stated Complaint: RT KNEE PAIN Time Seen by Provider: 10/10/19 11:13 Source of Information: Reports: Patient History Limitations: Reports: No Limitations - History of Present Illness INITIAL COMMENTS - FREE TEXT/NARRATIVE: Patient is a 54-year-old male who comes in the emergency department for me having some discharge which looks like from his incision site at his right knee today. Patient was seen here a week ago for similar symptoms but no culture was done. Patient had surgery August 31 for an infectious bursitis at which time he was on vancomycin and Zosyn and was discharged in the hospital with clindamycin. Patient was seen 2 weeks ago by his orthopedic surgeon Dr. Veloz who removed his stitches. Patient denies increased redness or swelling at the incision site and knee though I can see erythematous with warmth and a nonfluctuant collection medially to the incision site. I have discussed the patient with Dr. Corbin who is on-call for orthopedics who encouraged me if necessary to put a needle aspiration of the fluctuant site and have patient follow-up with Dr. Veloz week. Duration: Week(s): (two) Location: Reports: Lower Extremity, Right Quality: Reports: Ache Severity: Mild Improves with: Reports: None Worsens with: Reports: None Associated Symptoms: Reports: No Other Symptoms right knee Pain Score (Numeric/FACES): 2 - Related Data Allergies Allergy/AdvReac Type Severity Reaction Status Date / Time No Known Allergies Allergy Verified 10/10/19 11:12 Home Meds: Home Meds . [No Known Home Meds] 09/27/19 [History] Past Medical History HEENT History: Reports: None Cardiovascular History: Reports: High Cholesterol Respiratory History: Reports: SOB Gastrointestinal History: Reports: None Genitourinary History: Reports: None Musculoskeletal History: Reports: Back Pain, Chronic Neurological History: Reports: None Psychiatric History: Reports: None Endocrine/Metabolic History: Reports: None Hematologic History: Reports: Blood Transfusion(s) Immunologic History: Reports: None Oncologic (Cancer) History: Reports: None Dermatologic History: Reports: None - Infectious Disease History Infectious Disease History: Reports: Chicken Pox - Past Surgical History Head Surgeries/Procedures: Reports: None HEENT Surgical History: Reports: Oral Surgery Cardiovascular Surgical History: Reports: None Respiratory Surgical History: Reports: Lung Biopsies Musculoskeletal Surgical History: Reports: Other (See Below) Other Musculoskeletal Surgeries/Procedures:: Aspiration of Right knee Social & Family History - Family History Family Medical History: Noncontributory - Caffeine Use Caffeine Use: Reports: Coffee ED ROS GENERAL - Review of Systems Review Of Systems: Comprehensive ROS is negative, except as noted in HPI. ED EXAM, SKIN/RASH Exam: See Below Exam Limited By: No Limitations General Appearance: Alert Head: Atraumatic Neck: Normal Inspection Respiratory/Chest: No Respiratory Distress Back Exam: Normal Inspection Extremities: Increased Warmth, Redness, Other (Adjacent to incision site on right knee anteriorly.) Neurological: Alert Psychiatric: Normal Affect Skin: Warm, Dry Location, Skin: Upper Extremity, Right Characteristics: Macular, Erythematous Associated features: Warmth, Tenderness, Swelling (Proximately 3 cm x 3 cm in size medial to incision site on right knee.) Course - Vital Signs Text/Narrative:: Using sterile technique I did a needle I&D of fluctuant area on the right knee after numbing the area with 2% lidocaine without any complication. I only got a few drops of a serous brownish fluid which I sent for culture. This does not look infectious to me. Starting patient on antibiotic and recommending follow- up with his orthopedic doctor next week return to emergency department if worse. Last Recorded V/S: Last Vital Signs Temp 36.7 C 10/10/19 11:08 Pulse 81 10/10/19 11:08 Resp 18 10/10/19 11:08 BP 131/79 10/10/19 11:08 Pulse Ox 95 10/10/19 11:08 - Orders/Labs/Meds Meds: Medications Discontinued Medications Generic Name Dose Route Start Last Admin Trade Name Gigi PRN Reason Stop Dose Admin Lidocaine 5 ml 10/10/19 11:55 Xylocaine-Mpf 2% INJECT 10/10/19 11:56 ONETIME ONE Lidocaine/Epinephrine 20 ml 10/10/19 12:03 Xylocaine 1% With Epinephrine 1:100,000 INJECT 10/10/19 12:04 ONETIME ONE Lidocaine/Epinephrine Confirm 10/10/19 12:03 Xylocaine 1% With Epinephrine 1:100,000 Administered 10/10/19 12:04 Dose 20 ml .ROUTE .STK-MED ONE Departure - Departure Time of Disposition: 12:29 Disposition: Home, Self-Care 01 Condition: Good Clinical Impression: Postoperative infection, Patellar bursitis of right knee, Encounter for wound re-check - Discharge Information Referrals: Satinder Gillis MD [Primary Care Provider] - Forms: ED Department Discharge Additional Instructions: Warm compresses up to 4 times a day. Antibiotic as prescribed. Follow-up with orthopedic surgeon next week. Call them sooner if not improving or return to ER if worse. Care Plan Goals: The following information is given to patients seen in the emergency department who are being discharged to home. This information is to outline your options for follow-up care. We provide all patients seen in our emergency department with a follow-up referral. The need for follow-up, as well as the timing and circumstances, are variable depending upon the specifics of your emergency department visit. If you don't have a primary care physician on staff, we will provide you with a referral. We always advise you to contact your personal physician following an emergency department visit to inform them of the circumstance of the visit and for follow-up with them and/or the need for any referrals to a consulting specialist. The emergency department will also refer you to a specialist when appropriate. This referral assures that you have the opportunity for follow-up care with a specialist. All of these measure are taken in an effort to provide you with optimal care, which includes your follow-up. Under all circumstances we always encourage you to contact your private physician who remains a resource for coordinating your care. When calling for follow-up care, please make the office aware that this follow-up is from your recent emergency room visit. If for any reason you are refused follow-up, please contact the [facility] Emergency Department at and asked to speak to the emergency department charge nurse. Sepsis Event Note - Evaluation Sepsis Screening Result: No Definite Risk - Focused Exam Vital Signs: Vital Signs Temp Pulse Resp BP Pulse Ox 10/10/19 11:08 36.7 C 81 18 131/79 95 Date Exam was Performed: 10/10/19 Time Exam was Performed: 12:21
[2019-10-10] MEDS ORDERED: Lidocaine 2% 5 ML SDV INJECT ONE (11:55)
[2019-10-10] MEDS ORDERED: Lidocaine 1% with EPINEPHrine 1:100,000 20 ML MDV ONE (12:03)
[2019-10-10] MEDS ORDERED: Lidocaine 1% with EPINEPHrine 1:100,000 20 ML MDV INJECT ONE (12:03)
== END 2019-10-10 12:46 | disposition home or self-care (01) ==
LOC: MW.ED 10:53
DX: T81.40XA Infection following a procedure, unspecified, initial encounter (principal); M70.41 Prepatellar bursitis, right knee; L02.415 Cutaneous abscess of right lower limb
CPT/HCPCS: 10060; 87070; 99282; 99283-25

== ENCOUNTER 2019-10-30 19:33 | Emergency (ER) | payer BC ==
--- NOTE | 2019-10-30 20:03 | EDM.PDOC ---
ED HPI GENERAL MEDICAL PROBLEM - General Chief Complaint: Gastrointestinal Problem Stated Complaint: SICK Time Seen by Provider: 10/30/19 19:48 Source of Information: Reports: Patient - History of Present Illness INITIAL COMMENTS - FREE TEXT/NARRATIVE: CC diarrhea HPI: This is a 54-year-old male that is been on antibiotics recently for sepsis secondary to postop knee surgery infection. Patient has been having diarrhea more than 10 times per day for weeks now. No vomiting no abdominal pain no melena. Patient denies any fever. Patient is says of the patient is very solid and but has been particularly quiet and withdrawn for the past few weeks. Patient denies any suicidal or homicidal ideation, auditory or visual hallucinations, drug or alcohol use. PMHX/PSHX: Sepsis Social History: Negative for tobacco, negative for alcohol, negative for street drugs or marijuana Family history: Hypertension ROS: see chart PE: VS afebrile vital signs stable General: No apparent distress Head: Atraumatic normocephalic no lumps bumps or bruises Eyes: EOMI PERRLA Ears: TMs intact no hemotympanum no signs of infection no mastoid tenderness Nose: No epistaxis nares patent no septal wall hematoma Throat: No pharyngeal erythema or exudate no tonsillar enlargement Neck: Supple, no cervical lymphadenopathy Chest wall: No point tenderness Heart: Regular rate and rhythm without murmur gallop or rub Lungs: Clear to auscultation and percussion without rales rhonchi or wheeze Abdomen: Soft nontender nondistended without guarding rigidity or rebound Neck: No spinal point tenderness full range of motion in all 6 directions Back: No spinal paraspinal or CVA tenderness Extremities: full rom through out. no effusions well-healing wound to the patient's right knee with some surrounding erythema but no purulence no fluctuance. skin: Warm dry intact no rashes neurologic: cranial nerves II through XII intact. No focal motor or sensory deficits noted MDM: Differential diagnosis: Colitis infectious diarrhea ED course: Patient appears to have mild nonsevere C. difficile infection his stool is positive for C. difficile his white count and electrolytes are normal. His abdomen is benign. Patient will be started on a 10-day course of vancomycin to follow-up with his primary care doctor within 2 to 3 days. He was given strict return precautions. Diagnosis: C. difficile colitis Disposition: Home - Related Data Allergies Allergy/AdvReac Type Severity Reaction Status Date / Time No Known Allergies Allergy Verified 10/30/19 19:46 Home Meds: Home Meds Menthol/Zinc Oxide [Calmoseptine] 71 gm .XX QID PRN #1 tube 10/30/19 [Rx] Vancomycin HCl 125 mg PO QID 10 Days #40 capsule 10/30/19 [Rx] Past Medical History HEENT History: Reports: None Cardiovascular History: Reports: High Cholesterol Respiratory History: Reports: SOB Gastrointestinal History: Reports: None Genitourinary History: Reports: None Musculoskeletal History: Reports: Back Pain, Chronic Neurological History: Reports: None Psychiatric History: Reports: None Endocrine/Metabolic History: Reports: None Hematologic History: Reports: Blood Transfusion(s) Immunologic History: Reports: None Oncologic (Cancer) History: Reports: None Dermatologic History: Reports: None - Infectious Disease History Infectious Disease History: Reports: Chicken Pox, Measles - Past Surgical History Head Surgeries/Procedures: Reports: None HEENT Surgical History: Reports: Oral Surgery Cardiovascular Surgical History: Reports: None Respiratory Surgical History: Reports: Lung Biopsies Musculoskeletal Surgical History: Reports: Other (See Below) Other Musculoskeletal Surgeries/Procedures:: Aspiration of Right knee Social & Family History - Family History Family Medical History: Noncontributory - Caffeine Use Caffeine Use: Reports: Coffee - Recreational Drug Use Recreational Drug Use: No ED ROS GENERAL - Review of Systems Review Of Systems: Comprehensive ROS is negative, except as noted in HPI. ED EXAM, GI/ABD - Physical Exam Exam: See Below Text/Narrative:: My H&P Course - Vital Signs Last Recorded V/S: Last Vital Signs Temp 36.2 C 10/30/19 21:44 Pulse 78 10/30/19 21:44 Resp 18 10/30/19 21:44 BP 118/68 10/30/19 21:44 Pulse Ox 98 10/30/19 21:44 - Orders/Labs/Meds Orders: Active Orders 24 hr Category Date Time Status STOOL CULTURE/SHIGA TOXIN [MREF] Stat Lab 10/30/19 19:56 Ordered Labs: Laboratory Tests 10/30/19 10/30/19 10/30/19 Range/Units 20:00 20:00 21:12 WBC 9.45 (4.0-11.0) K/uL RBC 3.97 L (4.50-5.90) M/uL Hgb 12.1 L (13.0-17.0) g/dL Hct 36.4 L (38.0-50.0) % MCV 91.7 (80.0-98.0) fL MCH 30.5 (27.0-32.0) pg MCHC 33.2 (31.0-37.0) g/dL RDW Std Deviation 47.0 (28.0-62.0) fl RDW Coeff of [place] 14 (11.0-15.0) % Plt Count 325 (150-400) K/uL MPV 8.50 (7.40-12.00) fL Neut % (Auto) 62.4 (48.0-80.0) % Lymph % (Auto) 26.5 (16.0-40.0) % Barren % (Auto) 7.1 (0.0-15.0) % Eos % (Auto) 3.8 (0.0-7.0) % Baso % (Auto) 0.2 (0.0-1.5) % Neut # (Auto) 5.9 H (1.4-5.7) K/uL Lymph # (Auto) 2.5 H (0.6-2.4) K/uL Barren # (Auto) 0.7 (0.0-0.8) K/uL Eos # (Auto) 0.4 (0.0-0.7) K/uL Baso # (Auto) 0.0 (0.0-0.1) K/uL Nucleated RBC % 0.0 /100WBC Nucleated RBCs # 0 K/uL Sodium 140 (136-148) mmol/L Potassium 3.8 (3.5-5.1) mmol/L Chloride 105 (98-107) mmol/L Carbon Dioxide 23.9 (21.0-32.0) mmol/L BUN 13 (7.0-18.0) mg/dL Creatinine 1.2 (0.8-1.3) mg/dL Est Cr Clr Drug Dosing 66.50 mL/min Estimated GFR (MDRD) > 60.0 ml/min Glucose 96 (74-106) mg/dL Calcium 8.5 (8.5-10.1) mg/dL Urine Color YELLOW Urine Appearance CLEAR Urine pH 6.0 (5.0-8.0) Ur Specific [place] 1.015 (1.001-1.035) Urine Protein NEGATIVE (NEGATIVE) mg/dL Urine Glucose (UA) NEGATIVE (NEGATIVE) mg/dL Urine Ketones NEGATIVE (NEGATIVE) mg/dL Urine Occult Blood NEGATIVE (NEGATIVE) Urine Nitrite NEGATIVE (NEGATIVE) Urine Bilirubin NEGATIVE (NEGATIVE) Urine Urobilinogen 0.2 (<2.0) EU/dL Ur Leukocyte Esterase NEGATIVE (NEGATIVE) Departure - Departure Time of Disposition: 22:40 Disposition: Home, Self-Care 01 Clinical Impression: C. difficile colitis, Diarrhea - Discharge Information Prescriptions: Menthol/Zinc Oxide [Calmoseptine] 71 gm .XX QID PRN #1 tube PRN Reason: Skin irritation Vancomycin HCl 125 mg PO QID 10 Days #40 capsule Instructions: Clostridium Difficile Infection, [id number] Referrals: Satinder Gillis MD [Primary Care Provider] - Forms: ED Department Discharge Sepsis Event Note - Evaluation Sepsis Screening Result: No Definite Risk - Focused Exam Vital Signs: Vital Signs Temp Pulse Resp BP Pulse Ox 10/30/19 21:44 36.2 C 78 18 118/68 98 10/30/19 19:43 36.3 C 81 18 121/79 96 Date Exam was Performed: 10/30/19 Time Exam was Performed: 22:39 - My Orders Last 24 Hours: My Active Orders 10/30/19 19:56 STOOL CULTURE/SHIGA TOXIN [MREF] Stat - Assessment/Plan Last 24 Hours: My Active Orders 10/30/19 19:56 STOOL CULTURE/SHIGA TOXIN [MREF] Stat
[2019-10-30 20:40] LABS: BLOOD UREA NITROGEN,BUN 13 mg/dL (7.0-18.0); CARBON DIOXIDE,CO2 23.9 mmol/L (21.0-32.0); CHLORIDE,CL 105 mmol/L (98-107); GLUCOSE RANDOM 96 mg/dL (74-106); POTASSIUM,K 3.8 mmol/L (3.5-5.1); SODIUM,NA 140 mmol/L (136-148)
[2019-10-31] MEDS ORDERED: Vancomycin 125 MG Cap PO SCH
[2019-10-31] MEDS ORDERED: Vancomycin 25 MG/ML Compounding Kit PO SCH
== END 2019-10-30 23:15 | disposition home or self-care (01) ==
LOC: MW.ED 19:33
DX: A04.72 Enterocolitis due to Clostridium difficile, not specified as recurrent (principal)
CPT/HCPCS: 36415; 80048; 81003; 85025; 87045; 87046; 87324; 87899; 99284

== ENCOUNTER 2021-05-12 18:17 | Inpatient (IN) | payer BC ==
--- NOTE | 2021-05-12 18:59 | EDM.PDOC ---
<Nas Cueva - Last Filed: 05/12/21 19:54> ED HPI GENERAL MEDICAL PROBLEM - General Chief Complaint: Respiratory Problem Stated Complaint: COVID, LOW OXYGEN Time Seen by Provider: 05/12/21 18:51 - History of Present Illness INITIAL COMMENTS - FREE TEXT/NARRATIVE: CHIEF COMPLAINT(S): Low oxygen HISTORY OF PRESENT ILLNESS: This is a 56-year-old man and without any significant reported past medical history who comes to the emergency department with a chief complaint of low oxygen. The patient states that on May 08, 2021 he was diagnosed with COVID-19. He states that at that time he had a cough which was nonproductive. He denied any other symptoms. He states that since that time he has been checking his oxygen at home and he has noticed that his oxygen was low. He states that it was 85%. He states that he has a cough which is productive of whitish sputum. He denies any shortness of breath and he does endorse some mild chest pain which he describes as sharp when he coughs. O therwise he denies any chest pain. The chest pain is located throughout the entire front of his rib cage. He denies any radiation of this pain. He currently rates his pain as 0 out of 10. He denies any relieving factors. He states that he does not have a history of COPD or asthma. He denies any history of CAD or CHF. He denies any recent travel, recent surgery or prior history of DVT or PE. He states that he is also not been able to tolerating p.o. as he tries to eat he vomits. He states that he has some occasional diarrhea. He denies any melena, hematochezia, hematemesis or bilious emesis. He denies any other symptoms. REVIEW OF SYSTEMS: Constitutional: Denies fever, chills. Eyes: Denies eye pain Ears, Nose, Mouth, & Throat: Denies earache Cardiovascular: Positive for posttussive chest pain. Respiratory: Positive for productive cough. Denies shortness of breath Gastrointestinal: Positive for nausea, vomiting, diarrhea. Denies hematochezia, hematemesis, bilious emesis, melena, medic easier Genitourinary: Denies hematuria Skin:Denies a rash MSK: Denies joint pain Neurological: Denies blurred vision Psychiatric: Denies depression PAST MEDICAL HISTORY: As per history of present illness and as reviewed below otherwise noncontributory. SURGICAL HISTORY: As per history of present illness and as reviewed below otherwise noncontributory. SOCIAL HISTORY: As per history of present illness and as reviewed below otherwise noncontributory. FAMILY HISTORY: As per history of present illness and as reviewed below otherwise noncontributory. EXAMINATION OF ORGAN SYSTEMS/BODY AREAS: Constitutional: Blood pressure is 129/77, heart rate 101, respiratory rate 16 with an oxygen saturation of 85% on room air. Temperature 38.0. On 2 L nasal cannula patient's oxygen saturation came up to 94%. General: Middle-aged gentleman who does not appear to be in acute distress Psychiatric: Appropriate mood and affect. Eyes: No scleral icterus or conjunctival erythema ENMT: Dry mucous membranes. No pharyngeal erythema. Cardiovascular: Regular, rate, and rhythm. No gallops, murmurs, or rubs. Bilateral upper extremity pulses symmetric and intact. No peripheral edema. No JVD. Respiratory: Lungs clear to auscultation bilaterally. No wheezes, rales, or rhonchi. Gastrointestinal: Soft, non-tender, non-distended. Normoactive bowel sounds Genitourinary: No suprapubic tenderness Musculoskeletal: Normal range of motion. Skin: No lesions or abrasions. Neurological: Alert, GCS 15 MEDICAL DECISION MAKING AND COURSE IN THE ED WITH INTERPRETATION/REVIEW OF DIAGNOSTIC STUDIES: This is a 56-year-old man without any reported significant past medical history with a recent diagnosis of COVID-19 who comes to the emergency department with 2 days of productive cough, vomiting, and diarrhea with hypoxia. At this time I do believe this is all likely secondary to COVID- 19. We will obtain an EKG. EKG was obtained which not reveal any acute signs of ischemia. We did place the patient on nasal cannula 2 L and pulse oximetry with good waveform was 94 to 95%. Cardiac monitoring at this time did reveal sinus rhythm. Will obtain a work-up including CBC, CMP, magnesium, troponin, and chest x-ray. At the time of signout patient's work-up was pending. DISPOSITION: Patient was signed out oncoming night team physician pending work- up and final disposition CONDITION: Serious PROCEDURES: Cardiac monitoring interpretation, pulse oximetry interpretation FINAL IMPRESSION(S)/DIAGNOSES: 1. Acute hypoxic respiratory failure requiring nasal cannula secondary to COVID-19 Nas Cueva M.D. - Related Data Allergies Allergy/AdvReac Type Severity Reaction Status Date / Time No Known Allergies Allergy Verified 10/30/19 19:46 Past Medical History HEENT History: Reports: None Cardiovascular History: Reports: High Cholesterol Respiratory History: Reports: SOB Gastrointestinal History: Reports: None Genitourinary History: Reports: None Musculoskeletal History: Reports: Back Pain, Chronic Neurological History: Reports: None Psychiatric History: Reports: None Endocrine/Metabolic History: Reports: None Hematologic History: Reports: Blood Transfusion(s) Immunologic History: Reports: None Oncologic (Cancer) History: Reports: None Dermatologic History: Reports: None - Infectious Disease History Infectious Disease History: Reports: Chicken Pox, Measles - Past Surgical History Head Surgeries/Procedures: Reports: None HEENT Surgical History: Reports: Oral Surgery Cardiovascular Surgical History: Reports: None Respiratory Surgical History: Reports: Lung Biopsies Musculoskeletal Surgical History: Reports: Other (See Below) Other Musculoskeletal Surgeries/Procedures:: Aspiration of Right knee Social & Family History - Family History Family Medical History: No Pertinent Family History - Tobacco Use Tobacco Use Status *Q: Never Tobacco User - Caffeine Use Caffeine Use: Reports: Coffee - Recreational Drug Use Recreational Drug Use: No ED ROS GENERAL - Review of Systems Review Of Systems: See Below ED EXAM, GENERAL - Physical Exam Exam: See Below Departure - Departure Disposition: Admitted As Inpatient 64 Clinical Impression: COVID-19, Hypoxia - Discharge Information Instructions: COVID-19 Vaccine Information, Hypoxemia, COVID-19 Referrals: Rojas Lewis MD [Primary Care Provider] - Forms: ED Department Discharge <Alverto Alvarez - Last Filed: 05/12/21 20:51> Course - Vital Signs Last Recorded V/S: Last Vital Signs Temp 100.7 F H 05/12/21 19:18 Pulse 109 H 05/12/21 19:18 Resp 18 05/12/21 19:18 BP 115/72 05/12/21 19:18 Pulse Ox 95 05/12/21 19:18 - Orders/Labs/Meds Orders: Active Orders 24 hr Category Date Time Status Patient Status [ADT] Routine ADT 05/12/21 20:50 Ordered Labs: Laboratory Tests 05/12/21 05/12/21 Range/Units 18:57 18:57 WBC 4.78 (4.0-11.0) K/uL RBC 5.08 (4.50-5.90) M/uL Hgb 15.9 (13.0-17.0) g/dL Hct 45.2 (38.0-50.0) % MCV 89.0 (80.0-98.0) fL MCH 31.3 (27.0-32.0) pg MCHC 35.2 (31.0-37.0) g/dL RDW Std Deviation 42.8 (28.0-62.0) fl RDW Coeff of [place] 13 (11.0-15.0) % Plt Count 131 L (150-400) K/uL MPV 9.60 (7.40-12.00) fL Neut % (Auto) 66.6 (48.0-80.0) % Lymph % (Auto) 28.2 (16.0-40.0) % [place] % (Auto) 5.2 (0.0-15.0) % Eos % (Auto) 0.0 (0.0-7.0) % Baso % (Auto) 0.0 (0.0-1.5) % Neut # (Auto) 3.2 (1.4-5.7) K/uL Lymph # (Auto) 1.4 (0.6-2.4) K/uL [place] # (Auto) 0.3 (0.0-0.8) K/uL Eos # (Auto) 0.0 (0.0-0.7) K/uL Baso # (Auto) 0.0 (0.0-0.1) K/uL Nucleated RBC % 0.0 /100WBC Nucleated RBCs # 0 K/uL Sodium 133 L (136-148) mmol/L Potassium 4.4 (3.5-5.1) mmol/L Chloride 98 (98-107) mmol/L Carbon Dioxide 25.5 (21.0-32.0) mmol/L BUN 19 H (7.0-18.0) mg/dL Creatinine 1.3 (0.8-1.3) mg/dL Est Cr Clr Drug Dosing 59.92 mL/min Estimated GFR (MDRD) 56.7 ml/min Glucose 140 H (74-106) mg/dL Calcium 9.2 (8.5-10.1) mg/dL Magnesium 2.0 (1.8-2.4) mg/dL Total Bilirubin 0.5 (0.2-1.0) mg/dL AST 53 H (15-37) IU/L ALT 43 (14-63) IU/L Alkaline Phosphatase 99 (46-116) U/L Troponin I < 0.050 (0.000-0.056) ng/mL Total Protein 7.7 (6.4-8.2) g/dL Albumin 3.7 (3.4-5.0) g/dL Globulin 4.0 (2.6-4.0) g/dL Albumin/Globulin Ratio 0.9 (0.9-1.6) Meds: Medications Discontinued Medications Generic Name Dose Route Start Last Admin Trade Name Freq PRN Reason Stop Dose Admin Acetaminophen 1,000 mg 05/12/21 19:55 05/12/21 20:00 Acetaminophen 325 Mg Tab PO 05/12/21 19:56 1,000 mg NOW ONE Administration - Re-Assessments/Exams Free Text/Narrative Re-Assessment/Exam: 05/12/21 20:[address] Alvarado, who agrees to admit patient. The hospitalist's documentation supersedes all other documentation on this patient with regard to any conflicts or discrepancies from this point forward. Any emergency conditions have been treated to the ability of the ED prior to admission. Departure - Departure Time of Disposition: 20:50 Condition: Good - Discharge Information *PRESCRIPTION DRUG MONITORING PROGRAM REVIEWED*: Not Applicable *COPY OF PRESCRIPTION DRUG MONITORING REPORT IN PATIENT ROCAEL: Not Applicable Sepsis Event Note (ED) - Focused Exam Vital Signs: Vital Signs Temp Pulse Resp BP Pulse Ox 05/12/21 19:18 100.7 F H 109 H 18 115/72 95 05/12/21 18:38 100.4 F 101 H 16 129/77 85 L - My Orders Last 24 Hours: My Active Orders 05/12/21 20:50 Patient Status [ADT] Routine - Assessment/Plan Last 24 Hours: My Active Orders 05/12/21 20:50 Patient Status [ADT] Routine
--- NOTE | 2021-05-12 19:00 | PCM.EKG ---
#1 Interpretation EKG Date: 05/12/21 Time: 18:50 Rhythm: NSR Rate (Beats/Min): 84 [place]: Normal P-Wave: Present QRS: Normal ST-T: Normal QT: Normal Comparison: No Change EKG Interpretation Comments: Sinus Rhythm
[2021-05-12 19:27] LABS: BLOOD UREA NITROGEN,BUN 19 mg/dL (7.0-18.0); CARBON DIOXIDE,CO2 25.5 mmol/L (21.0-32.0); CHLORIDE,CL 98 mmol/L (98-107); GLUCOSE RANDOM 140 mg/dL (74-106); POTASSIUM,K 4.4 mmol/L (3.5-5.1); SODIUM,NA 133 mmol/L (136-148)
--- NOTE | 2021-05-12 19:37 | CR ---
INDICATION: Shortness of breath. TECHNIQUE: Chest 1 views. COMPARISON: 08/23/2019. FINDINGS: Cardiovascular and mediastinum: Heart size and vasculature are normal in caliber and appearance. Lungs and pleural spaces: Lungs are clear. No sign of infiltrate or mass. No sign of pleural effusion. No pneumothorax. Bones and soft tissues: No significant findings. IMPRESSION: No acute findings and no significant changes from the prior exam. Dictated by Kale Montenegro MD @ 05/12/2021 7:35:14 PM (Electronically Signed)
[2021-05-12] MEDS ORDERED: Acetaminophen 325 MG Tab PO ONE (19:55)
[2021-05-12] MEDS ORDERED: Ondansetron 4 MG/2 ML SDV IVPUSH PRN (21:44)
[2021-05-12] MEDS ORDERED: Enoxaparin 40 MG/0.4 ML Syringe SUBCUT SCH (21:45)
[2021-05-12] MEDS ORDERED: REMDESIVIR 200 MG in Sodium Chloride 0.9% 250 ML IV ONE (21:47)
[2021-05-12] MEDS ORDERED: guaiFENesin/Dextromethorphan 100-10 MG/5 ML Soln 10 ML Cup PO PRN (21:52)
[2021-05-12] MEDS ORDERED: Enoxaparin 100 MG/1 ML Syringe SUBCUT SCH (22:00)
[2021-05-12] MEDS: Dexamethasone 4 MG Tab PO SCH (23:02)
--- NOTE | 2021-05-12 23:28 | PCM.HP.2 ---
H&P History of Present Illness - General Date of Service: 05/12/21 Admit Problem/Dx: Admission Diagnosis/Problem Admission Diagnosis/Problem Hypoxia - History of Present Illness Initial Comments - Free Text/Narative: 56-year-old man and without any significant reported past medical history who comes to the emergency department with a chief complaint of low oxygen at home. Patient was diagnosed with COVID_19 on May 08, 2021. Patient states his symptoms started with cough which was nonproductive, some vom iting and loose stools. He denied any other symptoms. His oxygen was fine up till today when it dropped to 80s. He denies any shortness of breath, chest pain. He denies any history of CAD or CHF. He denies any recent travel, recent surgery or prior history of DVT or PE. He states that he is also not been able to tolerating p.o. as he tries to eat he vomits. He states that he has some occasional diarrhea. He denies any melena, hematochezia, hematemesis or bilious emesis. He denies any other symptoms. EKG was obtained which not reveal any acute signs of ischemia. patient was placed on nasal cannula 2 L and pulse oximetry with good waveform was 94 to 95%. Lab work was unremarkable, D-dimer was slightly elevated. Per ER physician low suspicion for PE so CTA wasn't obtained. Patient was admitted to hospital for further management. - Related Data Allergies/Adverse Reactions: Allergies Allergy/AdvReac Type Severity Reaction Status Date / Time No Known Allergies Allergy Verified 05/12/21 22:31 Past Medical History HEENT History: Reports: None Cardiovascular History: Reports: High Cholesterol Respiratory History: Reports: SOB Gastrointestinal History: Reports: None Genitourinary History: Reports: None Musculoskeletal History: Reports: Back Pain, Chronic Neurological History: Reports: Other (See Below) Other Neuro History: Was in a coma for unknown reason 38 years ago Psychiatric History: Reports: None Endocrine/Metabolic History: Reports: None Hematologic History: Reports: Blood Transfusion(s) Immunologic History: Reports: None Oncologic (Cancer) History: Reports: None Dermatologic History: Reports: None - Infectious Disease History Infectious Disease History: Reports: Chicken Pox, Measles - Past Surgical History Head Surgeries/Procedures: Reports: None HEENT Surgical History: Reports: Oral Surgery Cardiovascular Surgical History: Reports: None Respiratory Surgical History: Reports: Lung Biopsies Musculoskeletal Surgical History: Reports: Other (See Below) Other Musculoskeletal Surgeries/Procedures:: Aspiration of Right knee Social & Family History - Family History Family Medical History: No Pertinent Family History - Tobacco Use Tobacco Use Status *Q: Current Every Day Tobacco User Years of Tobacco use: 20 Packs/Tins Daily: 1 Second Hand Smoke Exposure: No - Caffeine Use Caffeine Use: Reports: Coffee Other Caffeine Use: 1 cup/day - Recreational Drug Use Recreational Drug Use: No H&P Review of Systems - Review of Systems: Review Of Systems: See Below General: Reports: Weakness, Fatigue. Denies: Fever, Chills, Malaise Pulmonary: Reports: Pleuritic Chest Pain, Cough, Sputum. Denies: Shortness of Breath Cardiovascular: Denies: Chest Pain, Palpitations, Dyspnea on Exertion, Orthopnea, Syncope, Claudication, Blood Pressure Problem Gastrointestinal: Reports: Anorexia, Diarrhea, Nausea, Vomiting. Denies: Abdominal Pain, Distension, Flatus, Hematemesis Genitourinary: Denies: Dysuria, Frequency, Burning Musculoskeletal: Denies: Neck Pain, Shoulder Pain, Arm Pain Skin: Denies: Cyanosis, Jaundice, Mottled Psychiatric: Denies: Confusion, Depression, Mood Lability Neurological: Denies: Confusion, Dizziness, Headache Exam - Exam Exam: See Below - Vital Signs Vital Signs: Last Vital Signs Temp 36.9 C 05/12/21 22:32 Pulse 74 05/12/21 22:32 Resp 20 05/12/21 22:32 BP 102/67 05/12/21 22:32 Pulse Ox 94 L 05/12/21 22:32 Weight: 77.292 kg - Exam Quality Assessment: Supplemental Oxygen General: Alert, Oriented, Cooperative Neck: Supple Lungs: Normal Respiratory Effort, Crackles. No: Rales, Rhonchi Cardiovascular: Regular Rate, Regular Rhythm GI/Abdominal Exam: Normal Bowel Sounds, Soft, Non-Tender Extremities: Normal Inspection, Normal Range of Motion, Non-Tender - Patient Data Lab Results Last 24 hrs: Laboratory Results - last 24 hr 05/12/21 05/12/21 05/12/21 Range/Units 18:57 18:57 22:20 WBC 4.78 (4.0-11.0) K/uL RBC 5.08 (4.50-5.90) M/uL Hgb 15.9 (13.0-17.0) g/dL Hct 45.2 (38.0-50.0) % MCV 89.0 (80.0-98.0) fL MCH 31.3 (27.0-32.0) pg MCHC 35.2 (31.0-37.0) g/dL RDW Std Deviation 42.8 (28.0-62.0) fl RDW Coeff of [place] 13 (11.0-15.0) % Plt Count 131 L (150-400) K/uL MPV 9.60 (7.40-12.00) fL Neut % (Auto) 66.6 (48.0-80.0) % Lymph % (Auto) 28.2 (16.0-40.0) % [place] % (Auto) 5.2 (0.0-15.0) % Eos % (Auto) 0.0 (0.0-7.0) % Baso % (Auto) 0.0 (0.0-1.5) % Neut # (Auto) 3.2 (1.4-5.7) K/uL Lymph # (Auto) 1.4 (0.6-2.4) K/uL [place] # (Auto) 0.3 (0.0-0.8) K/uL Eos # (Auto) 0.0 (0.0-0.7) K/uL Baso # (Auto) 0.0 (0.0-0.1) K/uL Nucleated RBC % 0.0 /100WBC Nucleated RBCs # 0 K/uL D-Dimer, Quantitative 0.75 H (0.0-0.50) mg/L FEU Sodium 133 L (136-148) mmol/L Potassium 4.4 (3.5-5.1) mmol/L Chloride 98 (98-107) mmol/L Carbon Dioxide 25.5 (21.0-32.0) mmol/L BUN 19 H (7.0-18.0) mg/dL Creatinine 1.3 (0.8-1.3) mg/dL Est Cr Clr Drug Dosing 59.92 mL/min Estimated GFR (MDRD) 56.7 ml/min Glucose 140 H (74-106) mg/dL Calcium 9.2 (8.5-10.1) mg/dL Magnesium 2.0 (1.8-2.4) mg/dL Total Bilirubin 0.5 (0.2-1.0) mg/dL AST 53 H (15-37) IU/L ALT 43 (14-63) IU/L Alkaline Phosphatase 99 (46-116) U/L Troponin I < 0.050 (0.000-0.056) ng/mL Total Protein 7.7 (6.4-8.2) g/dL Albumin 3.7 (3.4-5.0) g/dL Globulin 4.0 (2.6-4.0) g/dL Albumin/Globulin Ratio 0.9 (0.9-1.6) Result Diagrams: 05/19/21 05:40 05/19/21 05:40 Sepsis Event Note - Focused Exam Vital Signs: Vital Signs Temp Pulse Resp BP Pulse Ox 05/12/21 22:32 36.9 C 74 20 102/67 94 L 05/12/21 21:18 36.9 C 79 16 116/63 95 05/12/21 19:18 38.2 C H 109 H 18 115/72 95 05/12/21 18:38 38.0 C 101 H 16 129/77 85 L - Problem List (1) COVID-19 SNOMED Code(s): 898417884 ICD Code: U07.1 - COVID-19 Status: Acute Current Visit: Yes (2) Hypoxia SNOMED Code(s): 839714566 ICD Code: R09.02 - HYPOXEMIA Status: Acute Current Visit: Yes (3) Diarrhea SNOMED Code(s): 09233192 ICD Code: R19.7 - DIARRHEA, UNSPECIFIED Status: Acute Current Visit: No (4) Fever SNOMED Code(s): 209977592 ICD Code: R50.9 - FEVER, UNSPECIFIED Status: Acute Current Visit: No Problem List Initiated/Reviewed/Updated: Yes Orders Last 24hrs: Active Orders 24 hr Category Date Time Status Patient Status [ADT] Routine ADT 05/12/21 20:50 Active Ambulate [RC] ASDIRECTED Care 05/12/21 21:44 Active Antiembolic Devices [RC] PER UNIT ROUTINE Care 05/12/21 21:46 Active Oxygen Therapy [RC] PRN Care 05/12/21 21:45 Active Pulse Oximetry [RC] PRN Care 05/12/21 21:45 Active RT Post Treatment Assessment [RC] Click to Edit Care 05/12/21 21:47 Active RT Pre-Treatment Assessment [RC] Click to Edit Care 05/12/21 21:47 Active VTE/DVT Education [RC] PER UNIT ROUTINE Care 05/12/21 21:45 Active Vital Signs [RC] Q4H Care 05/12/21 21:45 Active Regular Diet [DIET] Diet 05/12/21 Dinner Active CBC WITH AUTO DIFF [HEME] AM Lab 05/13/21 05:11 Ordered CMP [COMPREHENSIVE METABOLIC PN,CMP] [CHEM] AM Lab 05/13/21 05:11 Ordered UA W/PATRIC RFLX IF INDICATED [URIN] Routine Lab 05/12/21 21:55 Ordered Albuterol/Ipratropium [Combivent Respimat] Med 05/13/21 00:00 Active See Dose Instructions INH QID Dextromethorphan/guaiFENesin [Robitussin DM] Med 05/12/21 21:52 Active 10 ml PO Q4H PRN Enoxaparin [Lovenox] Med 05/12/21 22:00 Active 70 mg SUBCUT Q12H Ondansetron [Zofran] Med 05/12/21 21:44 Active 4 mg IVPUSH Q4H PRN Pantoprazole [ProTONIX] Med 05/13/21 07:30 Active 40 mg PO ACBREAKFAST Remdesivir 100 mg Med 05/13/21 22:00 Active Sodium Chloride 0.9% [Normal Saline] 100 ml IV Q24H dexAMETHasone Med 05/12/21 21:47 Active 6 mg PO DAILY Sequential Compression Device [OM.PC] Per Unit Routine Oth 05/12/21 21:45 Ordered Resuscitation Status Routine Resus Stat 05/12/21 21:44 Ordered Medication Orders Albuterol/Ipratropium (Albuterol/Ipratropium 4 Gm Inhalation [place]) 0 gm INH QID ALIVIA Dexamethasone (Dexamethasone 4 Mg Tab) 6 mg PO DAILY ALIVIA Last Admin: 05/12/21 23:02 Dose: 6 mg Documented by: SUN Enoxaparin Sodium (Enoxaparin 100 Mg/1 Ml Syringe) 70 mg SUBCUT Q12H [facility] Last Admin: 05/12/21 23:04 Dose: 70 mg Documented by: SUN Guaifenesin/Dextromethorphan (Guaifenesin/Dextromethorphan 100-10 Mg/5 Ml Soln 10 Ml Cup) 10 ml PO Q4H PRN PRN Reason: Cough Remdesivir 100 mg/ Sodium (Chloride) 100 mls @ 100 mls/hr IV Q24H [facility] Stop: 05/16/21 22:59 Ondansetron HCl (Ondansetron 4 Mg/2 Ml Sdv) 4 mg IVPUSH Q4H PRN PRN Reason: Nausea/Vomiting Pantoprazole Sodium (Pantoprazole 40 Mg Tab.Cr) 40 mg PO ACBREAKFAST [facility] Assessment/Plan Comment:: 56 y/o M admitted for hypoxia CXR unremarkable, but COVID positive cont oxygenation via [place] Start Remdesivir for now oral Decadron Combivent ALIVIA Lovenox full dose for now due to high D-Dimer, will consider obtaining CTA chest Regular diet LFTs daily
[2021-05-13] MEDS: Albuterol/Ipratropium 4 GM Inhalation Spray INH SCH ×5 (01:55→23:56)
[2021-05-13] MEDS: Pantoprazole 40 MG Tab.CR PO SCH (06:34)
[2021-05-13 06:55] LABS: BLOOD UREA NITROGEN,BUN 20 mg/dL (7.0-18.0); CARBON DIOXIDE,CO2 23.8 mmol/L (21.0-32.0); CHLORIDE,CL 100 mmol/L (98-107); GLUCOSE RANDOM 144 mg/dL (74-106); POTASSIUM,K 4.2 mmol/L (3.5-5.1); SODIUM,NA 133 mmol/L (136-148)
--- NOTE | 2021-05-13 08:34 | PCM.PN ---
- General Info Date of Service: 05/13/21 Admission Dx/Problem (Free Text): Admission Diagnosis/Problem Admission Diagnosis/Problem Hypoxia Subjective Update: Reports he is feeling okay this morning. Reports mild dyspnea and cough. Denies any productive cough and no bloody sputum. Denies any chest pain. He has not been ambulating in his room. No concerns Functional Status: Reports: Pain Controlled, Tolerating Diet, Ambulating, Urinating - Review of Systems General: Reports: Fatigue, Malaise. Denies: Fever HEENT: Reports: No Symptoms Pulmonary: Reports: Shortness of Breath, Cough. Denies: Sputum, Hemoptysis Cardiovascular: Denies: Chest Pain Gastrointestinal: Reports: No Symptoms. Denies: Abdominal Pain, Nausea, Vomiting Genitourinary: Reports: No Symptoms Musculoskeletal: Reports: No Symptoms Skin: Reports: No Symptoms Neurological: Reports: No Symptoms Psychiatric: Reports: No Symptoms - Patient Data Vitals - Most Recent: Last Vital Signs Temp 97.6 F 05/13/21 07:24 Pulse 67 05/13/21 07:24 Resp 17 05/13/21 07:24 BP 124/70 05/13/21 07:24 Pulse Ox 96 05/13/21 07:24 Weight - Most Recent: 77.292 kg I&O - Last 24 Hours: Intake & Output 05/12/21 05/13/21 05/13/21 22:59 06:59 14:59 Intake Total 250 Balance 250 Lab Results Last 24 Hours: Laboratory Results - last 24 hr 05/12/21 05/12/21 05/12/21 Range/Units 18:57 18:57 22:20 WBC 4.78 (4.0-11.0) K/uL RBC 5.08 (4.50-5.90) M/uL Hgb 15.9 (13.0-17.0) g/dL Hct 45.2 (38.0-50.0) % MCV 89.0 (80.0-98.0) fL MCH 31.3 (27.0-32.0) pg MCHC 35.2 (31.0-37.0) g/dL RDW Std Deviation 42.8 (28.0-62.0) fl RDW Coeff of [place] 13 (11.0-15.0) % Plt Count 131 L (150-400) K/uL MPV 9.60 (7.40-12.00) fL Neut % (Auto) 66.6 (48.0-80.0) % Lymph % (Auto) 28.2 (16.0-40.0) % [place] % (Auto) 5.2 (0.0-15.0) % Eos % (Auto) 0.0 (0.0-7.0) % Baso % (Auto) 0.0 (0.0-1.5) % Neut # (Auto) 3.2 (1.4-5.7) K/uL Lymph # (Auto) 1.4 (0.6-2.4) K/uL [place] # (Auto) 0.3 (0.0-0.8) K/uL Eos # (Auto) 0.0 (0.0-0.7) K/uL Baso # (Auto) 0.0 (0.0-0.1) K/uL Nucleated RBC % 0.0 /100WBC Nucleated RBCs # 0 K/uL D-Dimer, Quantitative 0.75 H (0.0-0.50) mg/L FEU Sodium 133 L (136-148) mmol/L Potassium 4.4 (3.5-5.1) mmol/L Chloride 98 (98-107) mmol/L Carbon Dioxide 25.5 (21.0-32.0) mmol/L BUN 19 H (7.0-18.0) mg/dL Creatinine 1.3 (0.8-1.3) mg/dL Est Cr Clr Drug Dosing 59.92 mL/min Estimated GFR (MDRD) 56.7 ml/min Glucose 140 H (74-106) mg/dL Calcium 9.2 (8.5-10.1) mg/dL Magnesium 2.0 (1.8-2.4) mg/dL Total Bilirubin 0.5 (0.2-1.0) mg/dL AST 53 H (15-37) IU/L ALT 43 (14-63) IU/L Alkaline Phosphatase 99 (46-116) U/L Troponin I < 0.050 (0.000-0.056) ng/mL Total Protein 7.7 (6.4-8.2) g/dL Albumin 3.7 (3.4-5.0) g/dL Globulin 4.0 (2.6-4.0) g/dL Albumin/Globulin Ratio 0.9 (0.9-1.6) Urine Color Urine Appearance Urine pH (5.0-8.0) Ur Specific [place] (1.001-1.035) Urine Protein (NEGATIVE) mg/dL Urine Glucose (UA) (NEGATIVE) mg/dL Urine Ketones (NEGATIVE) mg/dL Urine Occult Blood (NEGATIVE) Urine Nitrite (NEGATIVE) Urine Bilirubin (NEGATIVE) Urine Urobilinogen (<2.0) EU/dL Ur Leukocyte Esterase (NEGATIVE) Urine RBC (0-2/HPF) Urine WBC (0-5/HPF) Ur Epithelial Cells (NONE-FEW) Urine Bacteria (NEGATIVE) 05/13/21 05/13/21 05/13/21 Range/Units 05:35 05:35 06:30 WBC 3.75 L (4.0-11.0) K/uL RBC 4.89 (4.50-5.90) M/uL Hgb 15.2 (13.0-17.0) g/dL Hct 43.2 (38.0-50.0) % MCV 88.3 (80.0-98.0) fL MCH 31.1 (27.0-32.0) pg MCHC 35.2 (31.0-37.0) g/dL RDW Std Deviation 41.9 (28.0-62.0) fl RDW Coeff of [place] 13 (11.0-15.0) % Plt Count 127 L (150-400) K/uL MPV 9.80 (7.40-12.00) fL Neut % (Auto) 72.5 (48.0-80.0) % Lymph % (Auto) 22.4 (16.0-40.0) % [place] % (Auto) 4.8 (0.0-15.0) % Eos % (Auto) 0.0 (0.0-7.0) % Baso % (Auto) 0.3 (0.0-1.5) % Neut # (Auto) 2.7 (1.4-5.7) K/uL Lymph # (Auto) 0.8 (0.6-2.4) K/uL [place] # (Auto) 0.2 (0.0-0.8) K/uL Eos # (Auto) 0.0 (0.0-0.7) K/uL Baso # (Auto) 0.0 (0.0-0.1) K/uL Nucleated RBC % 0.0 /100WBC Nucleated RBCs # 0 K/uL D-Dimer, Quantitative (0.0-0.50) mg/L FEU Sodium 133 L (136-148) mmol/L Potassium 4.2 (3.5-5.1) mmol/L Chloride 100 (98-107) mmol/L Carbon Dioxide 23.8 (21.0-32.0) mmol/L BUN 20 H (7.0-18.0) mg/dL Creatinine 1.0 (0.8-1.3) mg/dL Est Cr Clr Drug Dosing 77.90 mL/min Estimated GFR (MDRD) > 60.0 ml/min Glucose 144 H (74-106) mg/dL Calcium 8.8 (8.5-10.1) mg/dL Magnesium (1.8-2.4) mg/dL Total Bilirubin 0.5 (0.2-1.0) mg/dL AST 57 H (15-37) IU/L ALT 44 (14-63) IU/L Alkaline Phosphatase 89 (46-116) U/L Troponin I (0.000-0.056) ng/mL Total Protein 7.2 (6.4-8.2) g/dL Albumin 3.3 L (3.4-5.0) g/dL Globulin 3.9 (2.6-4.0) g/dL Albumin/Globulin Ratio 0.9 (0.9-1.6) Urine Color YELLOW Urine Appearance CLEAR Urine pH 6.0 (5.0-8.0) Ur Specific [place] >= 1.030 (1.001-1.035) Urine Protein TRACE H (NEGATIVE) mg/dL Urine Glucose (UA) NEGATIVE (NEGATIVE) mg/dL Urine Ketones 15 H (NEGATIVE) mg/dL Urine Occult Blood NEGATIVE (NEGATIVE) Urine Nitrite NEGATIVE (NEGATIVE) Urine Bilirubin NEGATIVE (NEGATIVE) Urine Urobilinogen 0.2 (<2.0) EU/dL Ur Leukocyte Esterase NEGATIVE (NEGATIVE) Urine RBC 0-1 (0-2/HPF) Urine WBC 0-1 (0-5/HPF) Ur Epithelial Cells RARE (NONE-FEW) Urine Bacteria RARE (NEGATIVE) Med Orders - Current: Current Medications Albuterol/Ipratropium (Albuterol/Ipratropium 4 Gm Inhalation [place]) 0 gm INH QID [facility] Last Admin: 05/13/21 05:58 Dose: 1 puff Documented by: Dexamethasone (Dexamethasone 4 Mg Tab) 6 mg PO DAILY [facility] Last Admin: 05/12/21 23:02 Dose: 6 mg Documented by: Enoxaparin Sodium (Enoxaparin 100 Mg/1 Ml Syringe) 80 mg SUBCUT Q12H [facility] Guaifenesin/Dextromethorphan (Guaifenesin/Dextromethorphan 100-10 Mg/5 Ml Soln 10 Ml Cup) 10 ml PO Q4H PRN PRN Reason: Cough Remdesivir 100 mg/ Sodium (Chloride) 100 mls @ 100 mls/hr IV Q24H [facility] Stop: 05/16/21 22:59 Ondansetron HCl (Ondansetron 4 Mg/2 Ml Sdv) 4 mg IVPUSH Q4H PRN PRN Reason: Nausea/Vomiting Pantoprazole Sodium (Pantoprazole 40 Mg Tab.Cr) 40 mg PO ACBREAKFAST [facility] Last Admin: 05/13/21 06:34 Dose: 40 mg Documented by: Discontinued Medications Acetaminophen (Acetaminophen 325 Mg Tab) 1,000 mg PO NOW ONE Stop: 05/12/21 19:56 Last Admin: 05/12/21 20:00 Dose: 1,000 mg Documented by: Enoxaparin Sodium (Enoxaparin 40 Mg/0.4 Ml Syringe) 40 mg SUBCUT Q24H [facility] Last Admin: 05/12/21 23:25 Dose: Not Given Documented by: Enoxaparin Sodium (Enoxaparin 100 Mg/1 Ml Syringe) 70 mg SUBCUT Q12H [facility] Last Admin: 05/12/21 23:04 Dose: 70 mg Documented by: Pantoprazole Sodium 40 mg/ (Sodium Chloride) 10 mls @ 200 mls/hr IV DAILY [facility] Remdesivir 200 mg/ Sodium (Chloride) 250 mls @ 250 mls/hr IV ONETIME ONE Stop: 05/12/21 21:48 Last Admin: 05/12/21 23:09 Dose: 250 mls/hr Documented by: - Exam General: Alert, Oriented, Cooperative, No Acute Distress Lungs: Decreased Breath Sounds, Crackles (Bibasilar, fine). No: Normal Respiratory Effort Cardiovascular: Regular Rate, Regular Rhythm GI/Abdominal Exam: Normal Bowel Sounds, Soft, Non-Tender Extremities: Normal Inspection, Normal Range of Motion, Non-Tender, No Pedal Edema Wound/Incisions: Healing Well Neurological: No New Focal Deficit Psy/Mental Status: Alert, Normal Affect, Normal Mood - Patient Data Lab Results Last 24 hrs: Laboratory Results - last 24 hr 05/12/21 05/12/21 05/12/21 Range/Units 18:57 18:57 22:20 WBC 4.78 (4.0-11.0) K/uL RBC 5.08 (4.50-5.90) M/uL Hgb 15.9 (13.0-17.0) g/dL Hct 45.2 (38.0-50.0) % MCV 89.0 (80.0-98.0) fL MCH 31.3 (27.0-32.0) pg MCHC 35.2 (31.0-37.0) g/dL RDW Std Deviation 42.8 (28.0-62.0) fl RDW Coeff of [place] 13 (11.0-15.0) % Plt Count 131 L (150-400) K/uL MPV 9.60 (7.40-12.00) fL Neut % (Auto) 66.6 (48.0-80.0) % Lymph % (Auto) 28.2 (16.0-40.0) % [place] % (Auto) 5.2 (0.0-15.0) % Eos % (Auto) 0.0 (0.0-7.0) % Baso % (Auto) 0.0 (0.0-1.5) % Neut # (Auto) 3.2 (1.4-5.7) K/uL Lymph # (Auto) 1.4 (0.6-2.4) K/uL [place] # (Auto) 0.3 (0.0-0.8) K/uL Eos # (Auto) 0.0 (0.0-0.7) K/uL Baso # (Auto) 0.0 (0.0-0.1) K/uL Nucleated RBC % 0.0 /100WBC Nucleated RBCs # 0 K/uL D-Dimer, Quantitative 0.75 H (0.0-0.50) mg/L FEU Sodium 133 L (136-148) mmol/L Potassium 4.4 (3.5-5.1) mmol/L Chloride 98 (98-107) mmol/L Carbon Dioxide 25.5 (21.0-32.0) mmol/L BUN 19 H (7.0-18.0) mg/dL Creatinine 1.3 (0.8-1.3) mg/dL Est Cr Clr Drug Dosing 59.92 mL/min Estimated GFR (MDRD) 56.7 ml/min Glucose 140 H (74-106) mg/dL Calcium 9.2 (8.5-10.1) mg/dL Magnesium 2.0 (1.8-2.4) mg/dL Total Bilirubin 0.5 (0.2-1.0) mg/dL AST 53 H (15-37) IU/L ALT 43 (14-63) IU/L Alkaline Phosphatase 99 (46-116) U/L Troponin I < 0.050 (0.000-0.056) ng/mL Total Protein 7.7 (6.4-8.2) g/dL Albumin 3.7 (3.4-5.0) g/dL Globulin 4.0 (2.6-4.0) g/dL Albumin/Globulin Ratio 0.9 (0.9-1.6) Urine Color Urine Appearance Urine pH (5.0-8.0) Ur Specific [place] (1.001-1.035) Urine Protein (NEGATIVE) mg/dL Urine Glucose (UA) (NEGATIVE) mg/dL Urine Ketones (NEGATIVE) mg/dL Urine Occult Blood (NEGATIVE) Urine Nitrite (NEGATIVE) Urine Bilirubin (NEGATIVE) Urine Urobilinogen (<2.0) EU/dL Ur Leukocyte Esterase (NEGATIVE) Urine RBC (0-2/HPF) Urine WBC (0-5/HPF) Ur Epithelial Cells (NONE-FEW) Urine Bacteria (NEGATIVE) 05/13/21 05/13/21 05/13/21 Range/Units 05:35 05:35 06:30 WBC 3.75 L (4.0-11.0) K/uL RBC 4.89 (4.50-5.90) M/uL Hgb 15.2 (13.0-17.0) g/dL Hct 43.2 (38.0-50.0) % MCV 88.3 (80.0-98.0) fL MCH 31.1 (27.0-32.0) pg MCHC 35.2 (31.0-37.0) g/dL RDW Std Deviation 41.9 (28.0-62.0) fl RDW Coeff of [place] 13 (11.0-15.0) % Plt Count 127 L (150-400) K/uL MPV 9.80 (7.40-12.00) fL Neut % (Auto) 72.5 (48.0-80.0) % Lymph % (Auto) 22.4 (16.0-40.0) % [place] % (Auto) 4.8 (0.0-15.0) % Eos % (Auto) 0.0 (0.0-7.0) % Baso % (Auto) 0.3 (0.0-1.5) % Neut # (Auto) 2.7 (1.4-5.7) K/uL Lymph # (Auto) 0.8 (0.6-2.4) K/uL [place] # (Auto) 0.2 (0.0-0.8) K/uL Eos # (Auto) 0.0 (0.0-0.7) K/uL Baso # (Auto) 0.0 (0.0-0.1) K/uL Nucleated RBC % 0.0 /100WBC Nucleated RBCs # 0 K/uL D-Dimer, Quantitative (0.0-0.50) mg/L FEU Sodium 133 L (136-148) mmol/L Potassium 4.2 (3.5-5.1) mmol/L Chloride 100 (98-107) mmol/L Carbon Dioxide 23.8 (21.0-32.0) mmol/L BUN 20 H (7.0-18.0) mg/dL Creatinine 1.0 (0.8-1.3) mg/dL Est Cr Clr Drug Dosing 77.90 mL/min Estimated GFR (MDRD) > 60.0 ml/min Glucose 144 H (74-106) mg/dL Calcium 8.8 (8.5-10.1) mg/dL Magnesium (1.8-2.4) mg/dL Total Bilirubin 0.5 (0.2-1.0) mg/dL AST 57 H (15-37) IU/L ALT 44 (14-63) IU/L Alkaline Phosphatase 89 (46-116) U/L Troponin I (0.000-0.056) ng/mL Total Protein 7.2 (6.4-8.2) g/dL Albumin 3.3 L (3.4-5.0) g/dL Globulin 3.9 (2.6-4.0) g/dL Albumin/Globulin Ratio 0.9 (0.9-1.6) Urine Color YELLOW Urine Appearance CLEAR Urine pH 6.0 (5.0-8.0) Ur Specific [place] >= 1.030 (1.001-1.035) Urine Protein TRACE H (NEGATIVE) mg/dL Urine Glucose (UA) NEGATIVE (NEGATIVE) mg/dL Urine Ketones 15 H (NEGATIVE) mg/dL Urine Occult Blood NEGATIVE (NEGATIVE) Urine Nitrite NEGATIVE (NEGATIVE) Urine Bilirubin NEGATIVE (NEGATIVE) Urine Urobilinogen 0.2 (<2.0) EU/dL Ur Leukocyte Esterase NEGATIVE (NEGATIVE) Urine RBC 0-1 (0-2/HPF) Urine WBC 0-1 (0-5/HPF) Ur Epithelial Cells RARE (NONE-FEW) Urine Bacteria RARE (NEGATIVE) Result Diagrams: 05/13/21 05:35 05/13/21 05:35 Sepsis Event Note - Evaluation Sepsis Screening Result: No Definite Risk - Focused Exam Vital Signs: Vital Signs Temp Pulse Resp BP Pulse Ox 05/13/21 07:24 97.6 F 67 17 124/70 96 05/13/21 04:17 97.7 F 60 20 105/69 94 L 05/13/21 00:20 97.4 F 71 19 108/72 94 L 05/12/21 22:32 98.5 F 74 20 102/67 94 L 05/12/21 21:18 98.4 F 79 16 116/63 95 - Problem List & Annotations (1) Acute respiratory failure with hypoxia SNOMED Code(s): 52329999, 896571320 Code(s): J96.01 - ACUTE RESPIRATORY FAILURE WITH HYPOXIA Status: Acute Current Visit: Yes (2) COVID-19 SNOMED Code(s): 307057695 Code(s): U07.1 - COVID-19 Status: Acute Current Visit: Yes - Problem List Review Problem List Initiated/Reviewed/Updated: Yes - Plan Plan:: 56 y/o M admitted for hypoxia 1. Acute hypoxic respiratory failure/COVID-19 -D-dimer elevated CT angio obtained which shows no signs of acute PE. Bilateral Covid pneumonia noted. Pulmonary emphysema noted. -Oxygen to keep sats greater than 90%. Wean as possible -Continue remdesivir -Continue dexamethasone -Continue Combivent -Lovenox -Monitor LFTs daily -Encourage I-S and self proning VTE prophylaxis: Decreased Lovenox to once daily with no PE noted GI prophylaxis: Protonix CODE STATUS: Full code Dispo: 2 to 3 days pending improvement.
[2021-05-13] MEDS ORDERED: Pantoprazole 40 MG Vial IV SCH (09:00)
[2021-05-13] MEDS ORDERED: Pantoprazole 40 MG in Sodium Chloride 0.9% 10 ML IV SCH (09:00)
[2021-05-13] MEDS: Dexamethasone 4 MG Tab PO SCH (09:56)
[2021-05-13] MEDS ORDERED: Enoxaparin 100 MG/1 ML Syringe SUBCUT SCH (10:30)
[2021-05-13] MEDS ORDERED: Iopamidol 755 MG/ML 500 ML Multipack Bottle IVPUSH STA (11:20)
--- NOTE | 2021-05-13 12:03 | CT ---
HISTORY: COVID-19. Hypoxia. Evaluate for pulmonary embolism. TECHNIQUE: Intravenous contrast enhanced CT of the chest. 75 mL of intravenous contrast administered. COMPARISON: Radiographs 05/12/2021. FINDINGS: There is no thoracic aortic aneurysm or dissection. Coronary arteriosclerotic vascular calcifications are present. No significant pericardial effusion. There is no acute pulmonary embolism. Small mediastinal and hilar lymph nodes may be reactive. There are areas of ground-glass and reticular infiltrate within both lungs which may relate to COVID-19 pneumonia. Areas of atelectasis are present within the right lower lobe. Mild pulmonary emphysema. No pneumothorax or pleural effusion. Degenerative changes of the spine. No acute fractures. IMPRESSION: 1. Bilateral lung infiltrates which may relate to COVID-19 pneumonia. 2. No acute pulmonary embolism. 3. Mild pulmonary emphysema. Please note that all CT scans at this facility use dose modulation, iterative reconstruction, and/or weight-based dosing when appropriate to reduce radiation dose to as low as reasonably achievable. Dictated by Toby Wright MD @ 05/13/2021 12:02:38 PM (Electronically Signed)
[2021-05-13] MEDS: REMDESIVIR 100 MG in Sodium Chloride 0.9% 100 ML IV SCH (22:45)
[2021-05-14] MEDS: Albuterol/Ipratropium 4 GM Inhalation Spray INH SCH ×3 (06:15→17:30)
[2021-05-14] MEDS: Pantoprazole 40 MG Tab.CR PO SCH ×2 (06:22→06:39)
[2021-05-14] MEDS: Enoxaparin 40 MG/0.4 ML Syringe SUBCUT SCH (08:08)
[2021-05-14] MEDS: Dexamethasone 4 MG Tab PO SCH (08:08)
--- NOTE | 2021-05-14 08:08 | PCM.PN ---
- General Info Date of Service: 05/14/21 Admission Dx/Problem (Free Text): Admission Diagnosis/Problem Admission Diagnosis/Problem Hypoxia Subjective Update: Reports feeling improved today currently on 1 to 2 L nasal cannula. Has some pleuritic chest pain with coughing denies any productive sputum. Reports he is using I-S and Acapella. No other concerns today. He is eating and drinking well Functional Status: Reports: Pain Controlled - Review of Systems General: Reports: Fatigue, Malaise. Denies: Weakness HEENT: Reports: No Symptoms. Denies: Headaches, Sore Throat, Visual Changes Pulmonary: Reports: Shortness of Breath, Pleuritic Chest Pain, Cough. Denies: Sputum, Hemoptysis Cardiovascular: Reports: No Symptoms. Denies: Chest Pain Gastrointestinal: Reports: No Symptoms. Denies: Abdominal Pain, Nausea, Vomiting Genitourinary: Reports: No Symptoms Musculoskeletal: Reports: No Symptoms Skin: Reports: No Symptoms Neurological: Reports: No Symptoms Psychiatric: Reports: No Symptoms - Patient Data Vitals - Most Recent: Last Vital Signs Temp 98.4 F 05/14/21 08:05 Pulse 72 05/14/21 08:05 Resp 17 05/14/21 08:05 BP 111/68 05/14/21 08:05 Pulse Ox 91 L 05/14/21 08:05 Weight - Most Recent: 77.292 kg I&O - Last 24 Hours: Intake & Output 05/13/21 05/14/21 05/14/21 22:59 06:59 14:59 Intake Total 350 Balance 350 Med Orders - Current: Current Medications Albuterol/Ipratropium (Albuterol/Ipratropium 4 Gm Inhalation [place]) 0 gm INH QID [facility] Last Admin: 05/14/21 06:15 Dose: 1 puff Documented by: Dexamethasone (Dexamethasone 4 Mg Tab) 6 mg PO DAILY [facility] Last Admin: 05/13/21 09:56 Dose: 6 mg Documented by: Enoxaparin Sodium (Enoxaparin 40 Mg/0.4 Ml Syringe) 40 mg SUBCUT Q24H [facility] Guaifenesin/Dextromethorphan (Guaifenesin/Dextromethorphan 100-10 Mg/5 Ml Soln 10 Ml Cup) 10 ml PO Q4H PRN PRN Reason: Cough Remdesivir 100 mg/ Sodium (Chloride) 100 mls @ 100 mls/hr IV Q24H [facility] Stop: 05/16/21 22:59 Last Admin: 05/13/21 22:45 Dose: 100 mls/hr Documented by: Ondansetron HCl (Ondansetron 4 Mg/2 Ml Sdv) 4 mg IVPUSH Q4H PRN PRN Reason: Nausea/Vomiting Pantoprazole Sodium (Pantoprazole 40 Mg Tab.Cr) 40 mg PO ACBREAKFAST [facility] Last Admin: 05/14/21 06:39 Dose: Not Given Documented by: Discontinued Medications Acetaminophen (Acetaminophen 325 Mg Tab) 1,000 mg PO NOW ONE Stop: 05/12/21 19:56 Last Admin: 05/12/21 20:00 Dose: 1,000 mg Documented by: Enoxaparin Sodium (Enoxaparin 40 Mg/0.4 Ml Syringe) 40 mg SUBCUT Q24H [facility] Last Admin: 05/12/21 23:25 Dose: Not Given Documented by: Enoxaparin Sodium (Enoxaparin 100 Mg/1 Ml Syringe) 70 mg SUBCUT Q12H [facility] Last Admin: 05/12/21 23:04 Dose: 70 mg Documented by: Enoxaparin Sodium (Enoxaparin 100 Mg/1 Ml Syringe) 80 mg SUBCUT Q12H [facility] Last Admin: 05/13/21 10:35 Dose: 80 mg Documented by: Pantoprazole Sodium 40 mg/ (Sodium Chloride) 10 mls @ 200 mls/hr IV DAILY [facility] Remdesivir 200 mg/ Sodium (Chloride) 250 mls @ 250 mls/hr IV ONETIME ONE Stop: 05/12/21 21:48 Last Admin: 05/12/21 23:09 Dose: 250 mls/hr Documented by: Iopamidol (Iopamidol 755 Mg/Ml 500 Ml Multipack Bottle) 75 ml IVPUSH ONETIME STA Stop: 05/13/21 11:21 Last Admin: 05/13/21 11:30 Dose: 75 ml Documented by: - Exam Quality Assessment: Supplemental Oxygen (1 to 2 L nasal cannula), DVT Proph ylaxis General: Alert, Oriented, Cooperative, No Acute Distress Lungs: Crackles (Bibasilar fine improving from yesterday). No: Normal Respiratory Effort (Mild dyspnea noted) Cardiovascular: Regular Rate, Regular Rhythm GI/Abdominal Exam: Normal Bowel Sounds, Soft, Non-Tender Extremities: Normal Inspection, Normal Range of Motion, Non-Tender, No Pedal Edema Wound/Incisions: Healing Well Neurological: No New Focal Deficit Psy/Mental Status: Alert, Normal Affect, Normal Mood - Patient Data Result Diagrams: 05/14/21 08:45 05/14/21 08:45 Sepsis Event Note - Evaluation Sepsis Screening Result: No Definite Risk - Focused Exam Vital Signs: Vital Signs Temp Pulse Resp BP Pulse Ox 05/14/21 08:05 98.4 F 72 17 111/68 91 L 05/14/21 04:00 98.2 F 68 19 107/69 92 L 05/13/21 23:53 97.7 F 69 18 110/70 91 L - Problem List & Annotations (1) Acute respiratory failure with hypoxia SNOMED Code(s): 86318518, 762851157 Code(s): J96.01 - ACUTE RESPIRATORY FAILURE WITH HYPOXIA Status: Acute Current Visit: Yes (2) COVID-19 SNOMED Code(s): 772939990 Code(s): U07.1 - COVID-19 Status: Acute Current Visit: Yes - Problem List Review Problem List Initiated/Reviewed/Updated: Yes - My Orders Last 24 Hours: My Active Orders 05/14/21 08:06 CBC WITH AUTO DIFF [HEME] Routine COMPREHENSIVE METABOLIC PN,CMP [CHEM] Routine 05/14/21 09:00 Enoxaparin [Lovenox] 40 mg SUBCUT Q24H - Plan Plan:: 56 y/o M admitted for hypoxia 1. Acute hypoxic respiratory failure/COVID-19 -D-dimer elevated CT angio obtained which shows no signs of acute PE. Bilateral Covid pneumonia noted. Pulmonary emphysema noted. -Oxygen to keep sats greater than 90%. Wean as possible -Continue remdesivir day 3 of 5 -Continue dexamethasone -Continue Combivent -Lovenox -Monitor LFTs daily -Encourage I-S and self proning VTE prophylaxis: Lovenox daily GI prophylaxis: Protonix CODE STATUS: Full code Dispo: 2 to 3 days pending improvement.
[2021-05-14 10:04] LABS: BLOOD UREA NITROGEN,BUN 23 mg/dL (7.0-18.0); CHLORIDE,CL 101 mmol/L (98-107); GLUCOSE RANDOM 145 mg/dL (74-106); POTASSIUM,K 3.9 mmol/L (3.5-5.1); SODIUM,NA 136 mmol/L (136-148)
[2021-05-14] MEDS: REMDESIVIR 100 MG in Sodium Chloride 0.9% 100 ML IV SCH (21:33)
[2021-05-15] MEDS: Albuterol/Ipratropium 4 GM Inhalation Spray INH SCH ×4 (06:14→17:09)
[2021-05-15 06:33] LABS: BLOOD UREA NITROGEN,BUN 21 mg/dL (7.0-18.0); CARBON DIOXIDE,CO2 23.6 mmol/L (21.0-32.0); CHLORIDE,CL 103 mmol/L (98-107); GLUCOSE RANDOM 126 mg/dL (74-106); POTASSIUM,K 3.9 mmol/L (3.5-5.1); SODIUM,NA 137 mmol/L (136-148)
[2021-05-15] MEDS: Dexamethasone 4 MG Tab PO SCH (09:45)
[2021-05-15] MEDS: Enoxaparin 40 MG/0.4 ML Syringe SUBCUT SCH (09:45)
[2021-05-15] MEDS: Pantoprazole 40 MG Tab.CR PO SCH (09:45)
--- NOTE | 2021-05-15 10:23 | PCM.PN ---
- General Info Date of Service: 05/15/21 Admission Dx/Problem (Free Text): Admission Diagnosis/Problem Admission Diagnosis/Problem Hypoxia Subjective Update: Continues to feel okay today. Overnight oxygen demands increased to 5 L. Patient reports he feels mildly more short of breath but nothing significant. Reports coughing with pleuritic chest pain continues to have nonproductive cough. Denies any chest pain. Denies any abdominal pain. He is eating and dri nking okay. He is working with [email or web address] and [email or web address] again urged to prone as possible. Functional Status: Reports: Pain Controlled, Tolerating Diet, Ambulating, Urinating - Review of Systems General: Reports: Fatigue, Malaise HEENT: Denies: Headaches, Sore Throat, Visual Changes Pulmonary: Reports: Shortness of Breath, Pleuritic Chest Pain, Cough. Denies: Sputum, Hemoptysis, Wheezing Cardiovascular: Reports: Dyspnea on Exertion Gastrointestinal: Reports: No Symptoms. Denies: Abdominal Pain, Nausea, Vomiting Genitourinary: Reports: No Symptoms. Denies: Dysuria, Frequency, Burning Musculoskeletal: Reports: No Symptoms Skin: Reports: No Symptoms Neurological: Reports: No Symptoms Psychiatric: Reports: No Symptoms - Patient Data Vitals - Most Recent: Last Vital Signs Temp 97.7 F 05/15/21 04:00 Pulse 65 05/15/21 08:00 Resp 20 05/15/21 08:00 BP 110/66 05/15/21 08:00 Pulse Ox 92 L 05/15/21 08:00 Weight - Most Recent: 77.292 kg I&O - Last 24 Hours: Intake & Output 05/14/21 05/15/21 05/15/21 22:59 06:59 14:59 Intake Total 1480 100 Balance 1480 100 Lab Results Last 24 Hours: Laboratory Results - last 24 hr 05/15/21 05/15/21 Range/Units 05:25 05:25 WBC 10.06 (4.0-11.0) K/uL RBC 4.83 (4.50-5.90) M/uL Hgb 14.6 (13.0-17.0) g/dL Hct 42.1 (38.0-50.0) % MCV 87.2 (80.0-98.0) fL MCH 30.2 (27.0-32.0) pg MCHC 34.7 (31.0-37.0) g/dL RDW Std Deviation 41.0 (28.0-62.0) fl RDW Coeff of [place] 13 (11.0-15.0) % Plt Count 173 (150-400) K/uL MPV 9.70 (7.40-12.00) fL Neut % (Auto) 84.5 H (48.0-80.0) % Lymph % (Auto) 9.3 L (16.0-40.0) % [place] % (Auto) 6.2 (0.0-15.0) % Eos % (Auto) 0.0 (0.0-7.0) % Baso % (Auto) 0.0 (0.0-1.5) % Neut # (Auto) 8.5 H (1.4-5.7) K/uL Lymph # (Auto) 0.9 (0.6-2.4) K/uL [place] # (Auto) 0.6 (0.0-0.8) K/uL Eos # (Auto) 0.0 (0.0-0.7) K/uL Baso # (Auto) 0.0 (0.0-0.1) K/uL Nucleated RBC % 0.0 /100WBC Nucleated RBCs # 0 K/uL Sodium 137 (136-148) mmol/L Potassium 3.9 (3.5-5.1) mmol/L Chloride 103 (98-107) mmol/L Carbon Dioxide 23.6 (21.0-32.0) mmol/L BUN 21 H (7.0-18.0) mg/dL Creatinine 0.9 (0.8-1.3) mg/dL Est Cr Clr Drug Dosing 86.56 mL/min Estimated GFR (MDRD) > 60.0 ml/min Glucose 126 H (74-106) mg/dL Calcium 7.8 L (8.5-10.1) mg/dL Total Bilirubin 0.4 (0.2-1.0) mg/dL AST 45 H (15-37) IU/L ALT 41 (14-63) IU/L Alkaline Phosphatase 83 (46-116) U/L Total Protein 6.7 (6.4-8.2) g/dL Albumin 3.0 L (3.4-5.0) g/dL Globulin 3.7 (2.6-4.0) g/dL Albumin/Globulin Ratio 0.8 L (0.9-1.6) Med Orders - Current: Current Medications Albuterol/Ipratropium (Albuterol/Ipratropium 4 Gm Inhalation [place]) 0 gm INH QID [facility] Last Admin: 05/15/21 06:14 Dose: 1 puff Documented by: Dexamethasone (Dexamethasone 4 Mg Tab) 6 mg PO DAILY [facility] Last Admin: 05/15/21 09:45 Dose: 6 mg Documented by: Enoxaparin Sodium (Enoxaparin 40 Mg/0.4 Ml Syringe) 40 mg SUBCUT Q24H [facility] Last Admin: 05/15/21 09:45 Dose: 40 mg Documented by: Guaifenesin/Dextromethorphan (Guaifenesin/Dextromethorphan 100-10 Mg/5 Ml Soln 10 Ml Cup) 10 ml PO Q4H PRN PRN Reason: Cough Remdesivir 100 mg/ Sodium (Chloride) 100 mls @ 100 mls/hr IV Q24H [facility] Stop: 05/16/21 22:59 Last Admin: 05/14/21 21:33 Dose: 100 mls/hr Documented by: Ondansetron HCl (Ondansetron 4 Mg/2 Ml Sdv) 4 mg IVPUSH Q4H PRN PRN Reason: Nausea/Vomiting Pantoprazole Sodium (Pantoprazole 40 Mg Tab.Cr) 40 mg PO ACBREAKFAST [facility] Last Admin: 05/15/21 09:45 Dose: 40 mg Documented by: Discontinued Medications Acetaminophen (Acetaminophen 325 Mg Tab) 1,000 mg PO NOW ONE Stop: 05/12/21 19:56 Last Admin: 05/12/21 20:00 Dose: 1,000 mg Documented by: Enoxaparin Sodium (Enoxaparin 40 Mg/0.4 Ml Syringe) 40 mg SUBCUT Q24H [facility] Last Admin: 05/12/21 23:25 Dose: Not Given Documented by: Enoxaparin Sodium (Enoxaparin 100 Mg/1 Ml Syringe) 70 mg SUBCUT Q12H [facility] Last Admin: 05/12/21 23:04 Dose: 70 mg Documented by: Enoxaparin Sodium (Enoxaparin 100 Mg/1 Ml Syringe) 80 mg SUBCUT Q12H [facility] Last Admin: 05/13/21 10:35 Dose: 80 mg Documented by: Pantoprazole Sodium 40 mg/ (Sodium Chloride) 10 mls @ 200 mls/hr IV DAILY [facility] Remdesivir 200 mg/ Sodium (Chloride) 250 mls @ 250 mls/hr IV ONETIME ONE Stop: 05/12/21 21:48 Last Admin: 05/12/21 23:09 Dose: 250 mls/hr Documented by: Iopamidol (Iopamidol 755 Mg/Ml 500 Ml Multipack Bottle) 75 ml IVPUSH ONETIME [facility] Stop: 05/13/21 11:21 Last Admin: 05/13/21 11:30 Dose: 75 ml Documented by: - Exam Quality Assessment: Supplemental Oxygen (4 L), DVT Prophylaxis General: Alert, Oriented, Cooperative, No Acute Distress Lungs: Decreased Breath Sounds, Crackles (Bibasilar fine). No: Normal Respiratory Effort (Cough and dyspnea with exertion or deep breathing) Cardiovascular: Regular Rate, Regular Rhythm GI/Abdominal Exam: Normal Bowel Sounds, Soft, Non-Tender Back Exam: Normal Inspection, Full Range of Motion Extremities: Normal Inspection, Normal Range of Motion, Non-Tender, No Pedal Edema Neurological: No New Focal Deficit Psy/Mental Status: Alert, Normal Affect, Normal Mood - Patient Data Lab Results Last 24 hrs: Laboratory Results - last 24 hr 05/15/21 05/15/21 Range/Units 05:25 05:25 WBC 10.06 (4.0-11.0) K/uL RBC 4.83 (4.50-5.90) M/uL Hgb 14.6 (13.0-17.0) g/dL Hct 42.1 (38.0-50.0) % MCV 87.2 (80.0-98.0) fL MCH 30.2 (27.0-32.0) pg MCHC 34.7 (31.0-37.0) g/dL RDW Std Deviation 41.0 (28.0-62.0) fl RDW Coeff of [place] 13 (11.0-15.0) % Plt Count 173 (150-400) K/uL MPV 9.70 (7.40-12.00) fL Neut % (Auto) 84.5 H (48.0-80.0) % Lymph % (Auto) 9.3 L (16.0-40.0) % [place] % (Auto) 6.2 (0.0-15.0) % Eos % (Auto) 0.0 (0.0-7.0) % Baso % (Auto) 0.0 (0.0-1.5) % Neut # (Auto) 8.5 H (1.4-5.7) K/uL Lymph # (Auto) 0.9 (0.6-2.4) K/uL [place] # (Auto) 0.6 (0.0-0.8) K/uL Eos # (Auto) 0.0 (0.0-0.7) K/uL Baso # (Auto) 0.0 (0.0-0.1) K/uL Nucleated RBC % 0.0 /100WBC Nucleated RBCs # 0 K/uL Sodium 137 (136-148) mmol/L Potassium 3.9 (3.5-5.1) mmol/L Chloride 103 (98-107) mmol/L Carbon Dioxide 23.6 (21.0-32.0) mmol/L BUN 21 H (7.0-18.0) mg/dL Creatinine 0.9 (0.8-1.3) mg/dL Est Cr Clr Drug Dosing 86.56 mL/min Estimated GFR (MDRD) > 60.0 ml/min Glucose 126 H (74-106) mg/dL Calcium 7.8 L (8.5-10.1) mg/dL Total Bilirubin 0.4 (0.2-1.0) mg/dL AST 45 H (15-37) IU/L ALT 41 (14-63) IU/L Alkaline Phosphatase 83 (46-116) U/L Total Protein 6.7 (6.4-8.2) g/dL Albumin 3.0 L (3.4-5.0) g/dL Globulin 3.7 (2.6-4.0) g/dL Albumin/Globulin Ratio 0.8 L (0.9-1.6) Result Diagrams: 05/15/21 05:25 05/15/21 05:25 Sepsis Event Note - Evaluation Sepsis Screening Result: No Definite Risk - Focused Exam Vital Signs: Vital Signs Temp Pulse Resp BP Pulse Ox 05/15/21 08:00 65 20 110/66 92 L 09/16/21 04:00 97.7 F 66 20 113/69 91 L 05/15/21 00:01 97.2 F 68 18 111/67 89 L - Problem List & Annotations (1) Acute respiratory failure with hypoxia SNOMED Code(s): 87492209, 606776535 Code(s): J96.01 - ACUTE RESPIRATORY FAILURE WITH HYPOXIA Status: Acute Current Visit: Yes (2) COVID-19 SNOMED Code(s): 485728246 Code(s): U07.1 - COVID-19 Status: Acute Current Visit: Yes - Problem List Review Problem List Initiated/Reviewed/Updated: Yes - My Orders Last 24 Hours: My Active Orders 05/14/21 13:35 [facility] Administrator Discontinue [Cardiac Monitoring Discontinue] [RC] Click to Edit 05/16/21 05:11 CBC WITH AUTO DIFF [HEME] AM CMP [COMPREHENSIVE METABOLIC PN,CMP] [CHEM] AM 05/17/21 05:11 CBC WITH AUTO DIFF [HEME] AM CMP [COMPREHENSIVE METABOLIC PN,CMP] [CHEM] AM - Plan Plan:: 56 y/o M admitted for hypoxia 1. Acute hypoxic respiratory failure/COVID-19 -D-dimer elevated CT angio obtained which shows no signs of acute PE. Bilateral Covid pneumonia noted. Pulmonary emphysema noted. -Oxygen to keep sats greater than 90%. Wean as possible -Continue 4 L of oxygen if patient demands continue to increase to high flow will consider Actemra. -Continue remdesivir day 4 of 5 -Continue dexamethasone -Continue Combivent -Lovenox -Monitor LFTs daily -Encourage I-S and self proning VTE prophylaxis: Lovenox daily GI prophylaxis: Protonix CODE STATUS: Full code Dispo: 2 to 3 days pending improvement.
[2021-05-15] MEDS: REMDESIVIR 100 MG in Sodium Chloride 0.9% 100 ML IV SCH (22:32)
[2021-05-16] MEDS: Albuterol/Ipratropium 4 GM Inhalation Spray INH SCH ×5 (00:39→23:17)
[2021-05-16 06:58] LABS: BLOOD UREA NITROGEN,BUN 18 mg/dL (7.0-18.0); CARBON DIOXIDE,CO2 24.1 mmol/L (21.0-32.0); CHLORIDE,CL 103 mmol/L (98-107); GLUCOSE RANDOM 127 mg/dL (74-106); POTASSIUM,K 3.8 mmol/L (3.5-5.1); SODIUM,NA 138 mmol/L (136-148)
[2021-05-16] MEDS: Pantoprazole 40 MG Tab.CR PO SCH (08:29)
[2021-05-16] MEDS: Enoxaparin 40 MG/0.4 ML Syringe SUBCUT SCH (08:30)
[2021-05-16] MEDS: Dexamethasone 4 MG Tab PO SCH (08:30)
--- NOTE | 2021-05-16 10:25 | CR ---
INDICATION: COVID infection. Worsening hypoxia COMPARISON: Portable chest dated 05/12/2021 TECHNIQUE: Portable chest performed at 10:06 a.m. FINDINGS: There has been progression ground-glass opacities within the mid and upper lung zones and left lung base. There is no evidence of pneumothorax. The heart, mediastinum and pulmonary vessels are of normal size. There is no evidence of pleural fluid. IMPRESSION: Progressive ground-glass infiltrates. Dictated by Chas Spears MD @ 05/16/2021 10:24:02 AM (Electronically Signed)
--- NOTE | 2021-05-16 11:50 | PCM.PN ---
- General Info Date of Service: 05/16/21 Admission Dx/Problem (Free Text): Admission Diagnosis/Problem Admission Diagnosis/Problem Hypoxia Subjective Update: Patient reports he feeling okay this morning. Continues to have increased oxygen needs. Denies any overt shortness of breath but is noticeably dyspneic with exertion. Denies any chest pain. Has mild intermittent dry cough. Again counseled heavily on I-S and Acapella use along with proning. We also did discuss possible Actemra use did add CRP and chest x-ray on. He did agree to have MRI but unfortunately CRP is not elevated high enough to fit guidelines for treatment. I will call and speak with her regarding oxygenation requirements. He otherwise had no concerns or questions at this time. - Review of Systems General: Reports: Fatigue, Malaise HEENT: Denies: Headaches, Sore Throat Pulmonary: Reports: Shortness of Breath, Cough. Denies: Sputum, Wheezing Cardiovascular: Reports: No Symptoms. Denies: Chest Pain, Palpitations, Lightheadedness Gastrointestinal: Reports: No Symptoms. Denies: Abdominal Pain, Nausea, Vomiting Genitourinary: Reports: No Symptoms. Denies: Dysuria, Frequency, Burning Musculoskeletal: Reports: No Symptoms Skin: Reports: No Symptoms Neurological: Reports: No Symptoms Psychiatric: Reports: No Symptoms - Patient Data Vitals - Most Recent: Last Vital Signs Temp 97.4 F 05/16/21 08:32 Pulse 64 05/16/21 05:31 Resp 22 H 05/16/21 08:32 BP 123/77 05/16/21 08:32 Pulse Ox 90 L 05/16/21 08:32 Weight - Most Recent: 77.292 kg Lab Results Last 24 Hours: Laboratory Results - last 24 hr 05/16/21 05/16/21 05/16/21 Range/Units 05:50 05:50 05:50 WBC 7.93 (4.0-11.0) K/uL RBC 4.81 (4.50-5.90) M/uL Hgb 14.7 (13.0-17.0) g/dL Hct 41.9 (38.0-50.0) % MCV 87.1 (80.0-98.0) fL MCH 30.6 (27.0-32.0) pg MCHC 35.1 (31.0-37.0) g/dL RDW Std Deviation 41.0 (28.0-62.0) fl RDW Coeff of [place] 13 (11.0-15.0) % Plt Count 172 (150-400) K/uL MPV 9.30 (7.40-12.00) fL Neut % (Auto) 79.3 (48.0-80.0) % Lymph % (Auto) 12.5 L (16.0-40.0) % [place] % (Auto) 8.1 (0.0-15.0) % Eos % (Auto) 0.0 (0.0-7.0) % Baso % (Auto) 0.1 (0.0-1.5) % Neut # (Auto) 6.3 H (1.4-5.7) K/uL Lymph # (Auto) 1.0 (0.6-2.4) K/uL [place] # (Auto) 0.6 (0.0-0.8) K/uL Eos # (Auto) 0.0 (0.0-0.7) K/uL Baso # (Auto) 0.0 (0.0-0.1) K/uL Nucleated RBC % 0.0 /100WBC Nucleated RBCs # 0 K/uL Sodium 138 (136-148) mmol/L Potassium 3.8 (3.5-5.1) mmol/L Chloride 103 (98-107) mmol/L Carbon Dioxide 24.1 (21.0-32.0) mmol/L BUN 18 (7.0-18.0) mg/dL Creatinine 0.9 (0.8-1.3) mg/dL Est Cr Clr Drug Dosing 86.56 mL/min Estimated GFR (MDRD) > 60.0 ml/min Glucose 127 H (74-106) mg/dL Calcium 8.8 (8.5-10.1) mg/dL Total Bilirubin 0.5 (0.2-1.0) mg/dL AST 44 H (15-37) IU/L ALT 52 (14-63) IU/L Alkaline Phosphatase 92 (46-116) U/L C-Reactive Protein 2.20 H (0.00-0.90) mg/dL Total Protein 6.8 (6.4-8.2) g/dL Albumin 3.0 L (3.4-5.0) g/dL Globulin 3.8 (2.6-4.0) g/dL Albumin/Globulin Ratio 0.8 L (0.9-1.6) Med Orders - Current: Current Medications Albuterol/Ipratropium (Albuterol/Ipratropium 4 Gm Inhalation [place]) 0 gm INH QID [facility] Last Admin: 05/16/21 05:36 Dose: 1 puff Documented by: Dexamethasone (Dexamethasone 4 Mg Tab) 6 mg PO DAILY [facility] Last Admin: 05/16/21 08:30 Dose: 6 mg Documented by: Enoxaparin Sodium (Enoxaparin 40 Mg/0.4 Ml Syringe) 40 mg SUBCUT Q24H [facility] Last Admin: 05/16/21 08:30 Dose: 40 mg Documented by: Guaifenesin/Dextromethorphan (Guaifenesin/Dextromethorphan 100-10 Mg/5 Ml Soln 10 Ml Cup) 10 ml PO Q4H PRN PRN Reason: Cough Remdesivir 100 mg/ Sodium (Chloride) 100 mls @ 100 mls/hr IV Q24H [facility] Stop: 05/16/21 22:59 Last Admin: 05/15/21 22:32 Dose: 100 mls/hr Documented by: Ondansetron HCl (Ondansetron 4 Mg/2 Ml Sdv) 4 mg IVPUSH Q4H PRN PRN Reason: Nausea/Vomiting Pantoprazole Sodium (Pantoprazole 40 Mg Tab.Cr) 40 mg PO ACBREAKFAST [facility] Last Admin: 05/16/21 08:29 Dose: 40 mg Documented by: Discontinued Medications Acetaminophen (Acetaminophen 325 Mg Tab) 1,000 mg PO NOW ONE Stop: 05/12/21 19:56 Last Admin: 05/12/21 20:00 Dose: 1,000 mg Documented by: Enoxaparin Sodium (Enoxaparin 40 Mg/0.4 Ml Syringe) 40 mg SUBCUT Q24H [facility] Last Admin: 05/12/21 23:25 Dose: Not Given Documented by: Enoxaparin Sodium (Enoxaparin 100 Mg/1 Ml Syringe) 70 mg SUBCUT Q12H [facility] Last Admin: 05/12/21 23:04 Dose: 70 mg Documented by: Enoxaparin Sodium (Enoxaparin 100 Mg/1 Ml Syringe) 80 mg SUBCUT Q12H [facility] Last Admin: 05/13/21 10:35 Dose: 80 mg Documented by: Pantoprazole Sodium 40 mg/ (Sodium Chloride) 10 mls @ 200 mls/hr IV DAILY [facility] Remdesivir 200 mg/ Sodium (Chloride) 250 mls @ 250 mls/hr IV ONETIME ONE Stop: 05/12/21 21:48 Last Admin: 05/12/21 23:09 Dose: 250 mls/hr Documented by: Iopamidol (Iopamidol 755 Mg/Ml 500 Ml Multipack Bottle) 75 ml IVPUSH ONETIME STA Stop: 05/13/21 11:21 Last Admin: 05/13/21 11:30 Dose: 75 ml Documented by: - Exam Quality Assessment: Supplemental Oxygen (Currently needing upwards of 6 to 7 L high flow will transition to Vapotherm RT consulted and will come place patient on Vapotherm), DVT Prophylaxis General: Alert, Oriented, Cooperative, No Acute Distress Lungs: Decreased Breath Sounds, Crackles (Fine crackles bibasilar). No: Normal Respiratory Effort (Dyspnea with exertion) Cardiovascular: Regular Rate, Regular Rhythm GI/Abdominal Exam: Normal Bowel Sounds, Soft, Non-Tender Back Exam: Normal Inspection, Full Range of Motion Extremities: Normal Inspection, Normal Range of Motion, Non-Tender, No Pedal Edema Neurological: No New Focal Deficit Psy/Mental Status: Alert, Normal Affect, Normal Mood - Patient Data Lab Results Last 24 hrs: Laboratory Results - last 24 hr 05/16/21 05/16/21 05/16/21 Range/Units 05:50 05:50 05:50 WBC 7.93 (4.0-11.0) K/uL RBC 4.81 (4.50-5.90) M/uL Hgb 14.7 (13.0-17.0) g/dL Hct 41.9 (38.0-50.0) % MCV 87.1 (80.0-98.0) fL MCH 30.6 (27.0-32.0) pg MCHC 35.1 (31.0-37.0) g/dL RDW Std Deviation 41.0 (28.0-62.0) fl RDW Coeff of [place] 13 (11.0-15.0) % Plt Count 172 (150-400) K/uL MPV 9.30 (7.40-12.00) fL Neut % (Auto) 79.3 (48.0-80.0) % Lymph % (Auto) 12.5 L (16.0-40.0) % [place] % (Auto) 8.1 (0.0-15.0) % Eos % (Auto) 0.0 (0.0-7.0) % Baso % (Auto) 0.1 (0.0-1.5) % Neut # (Auto) 6.3 H (1.4-5.7) K/uL Lymph # (Auto) 1.0 (0.6-2.4) K/uL [place] # (Auto) 0.6 (0.0-0.8) K/uL Eos # (Auto) 0.0 (0.0-0.7) K/uL Baso # (Auto) 0.0 (0.0-0.1) K/uL Nucleated RBC % 0.0 /100WBC Nucleated RBCs # 0 K/uL Sodium 138 (136-148) mmol/L Potassium 3.8 (3.5-5.1) mmol/L Chloride 103 (98-107) mmol/L Carbon Dioxide 24.1 (21.0-32.0) mmol/L BUN 18 (7.0-18.0) mg/dL Creatinine 0.9 (0.8-1.3) mg/dL Est Cr Clr Drug Dosing 86.56 mL/min Estimated GFR (MDRD) > 60.0 ml/min Glucose 127 H (74-106) mg/dL Calcium 8.8 (8.5-10.1) mg/dL Total Bilirubin 0.5 (0.2-1.0) mg/dL AST 44 H (15-37) IU/L ALT 52 (14-63) IU/L Alkaline Phosphatase 92 (46-116) U/L C-Reactive Protein 2.20 H (0.00-0.90) mg/dL Total Protein 6.8 (6.4-8.2) g/dL Albumin 3.0 L (3.4-5.0) g/dL Globulin 3.8 (2.6-4.0) g/dL Albumin/Globulin Ratio 0.8 L (0.9-1.6) Result Diagrams: 05/16/21 05:50 09/17/21 05:50 Sepsis Event Note - Evaluation Sepsis Screening Result: No Definite Risk - Focused Exam Vital Signs: Vital Signs Temp Pulse Resp BP Pulse Ox Pulse Ox 05/16/21 08:32 97.4 F 22 H 123/77 90 L 05/16/21 06:00 89 L 05/16/21 05:31 97.3 F 64 20 110/47 L 89 L 05/16/21 00:40 97.6 F 62 18 116/65 90 L - Problem List & Annotations (1) Acute respiratory failure with hypoxia SNOMED Code(s): 63251709, 540193879 Code(s): J96.01 - ACUTE RESPIRATORY FAILURE WITH HYPOXIA Status: Acute Current Visit: Yes (2) COVID-19 SNOMED Code(s): 360878262 Code(s): U07.1 - COVID-19 Status: Acute Current Visit: Yes - Problem List Review Problem List Initiated/Reviewed/Updated: Yes - My Orders Last 24 Hours: My Active Orders 05/16/21 10:05 RT Oxygen High Humidity High Flow [RESPCARE] Routine 05/17/21 05:11 CBC WITH AUTO DIFF [HEME] AM CMP [COMPREHENSIVE METABOLIC PN,CMP] [CHEM] AM - Plan Plan:: 56 y/o M admitted for hypoxia 1. Acute hypoxic respiratory failure/COVID-19 -Oxygen needs increased will place on Vapotherm. -Repeat chest x-ray shows worsening bilateral COVID-19 pneumonia -Oxygen to keep sats greater than 90%. Wean as possible -CRP 2.2 does not meet requirements for Actemra or baricitinib treatment at this time -Continue remdesivir day 5 of 5 -Continue dexamethasone until discharge or total of 10 days -Continue Combivent -Lovenox -Monitor LFTs daily -Encourage I-S and self proning VTE prophylaxis: Lovenox daily GI prophylaxis: Protonix CODE STATUS: Full code Dispo: 2 to 3 days pending improvement, spoke with and updated on current treatment plan and status.
[2021-05-16] MEDS ORDERED: Acetaminophen 325 MG Tab PO PRN (11:55)
[2021-05-16] MEDS: REMDESIVIR 100 MG in Sodium Chloride 0.9% 100 ML IV SCH (21:52)
[2021-05-17] MEDS: Albuterol/Ipratropium 4 GM Inhalation Spray INH SCH ×3 (05:45→17:26)
[2021-05-17 07:55] LABS: BLOOD UREA NITROGEN,BUN 18 mg/dL (7.0-18.0); CARBON DIOXIDE,CO2 23.9 mmol/L (21.0-32.0); CHLORIDE,CL 104 mmol/L (98-107); GLUCOSE RANDOM 118 mg/dL (74-106); POTASSIUM,K 3.9 mmol/L (3.5-5.1); SODIUM,NA 138 mmol/L (136-148)
[2021-05-17] MEDS: Pantoprazole 40 MG Tab.CR PO SCH (07:56)
[2021-05-17] MEDS: Dexamethasone 4 MG Tab PO SCH (08:32)
[2021-05-17] MEDS: Enoxaparin 40 MG/0.4 ML Syringe SUBCUT SCH (08:33)
--- NOTE | 2021-05-17 15:13 | PCM.PN ---
- General Info Date of Service: 05/17/21 - Review of Systems Systems Review Comment:: reports shortness of breath stable, dypsnic with exertion. dry cough - Patient Data Vitals - Most Recent: Last Vital Signs Temp 36.2 C 05/17/21 12:00 Pulse 64 05/17/21 12:00 Resp 16 05/17/21 12:00 BP 108/66 05/17/21 12:00 Pulse Ox 93 L 05/17/21 12:00 Weight - Most Recent: 77.292 kg I&O - Last 24 Hours: Intake & Output 05/17/21 05/17/21 05/17/21 06:59 14:59 22:59 Intake Total 720 100 Output Total 650 Balance 70 100 Lab Results Last 24 Hours: Laboratory Results - last 24 hr 05/17/21 05/17/21 Range/Units 06:33 06:33 WBC 8.67 (4.0-11.0) K/uL RBC 4.76 (4.50-5.90) M/uL Hgb 14.8 (13.0-17.0) g/dL Hct 41.4 (38.0-50.0) % MCV 87.0 (80.0-98.0) fL MCH 31.1 (27.0-32.0) pg MCHC 35.7 (31.0-37.0) g/dL RDW Std Deviation 41.2 (28.0-62.0) fl RDW Coeff of [place] 13 (11.0-15.0) % Plt Count 195 (150-400) K/uL MPV 10.10 (7.40-12.00) fL Neut % (Auto) 78.9 (48.0-80.0) % Lymph % (Auto) 13.6 L (16.0-40.0) % [place] % (Auto) 7.5 (0.0-15.0) % Eos % (Auto) 0.0 (0.0-7.0) % Baso % (Auto) 0.0 (0.0-1.5) % Neut # (Auto) 6.8 H (1.4-5.7) K/uL Lymph # (Auto) 1.2 (0.6-2.4) K/uL [place] # (Auto) 0.7 (0.0-0.8) K/uL Eos # (Auto) 0.0 (0.0-0.7) K/uL Baso # (Auto) 0.0 (0.0-0.1) K/uL Nucleated RBC % 0.0 /100WBC Nucleated RBCs # 0 K/uL Sodium 138 (136-148) mmol/L Potassium 3.9 (3.5-5.1) mmol/L Chloride 104 (98-107) mmol/L Carbon Dioxide 23.9 (21.0-32.0) mmol/L BUN 18 (7.0-18.0) mg/dL Creatinine 0.8 (0.8-1.3) mg/dL Est Cr Clr Drug Dosing 97.38 mL/min Estimated GFR (MDRD) > 60.0 ml/min Glucose 118 H (74-106) mg/dL Calcium 8.7 (8.5-10.1) mg/dL Total Bilirubin 0.5 (0.2-1.0) mg/dL AST 36 (15-37) IU/L ALT 54 (14-63) IU/L Alkaline Phosphatase 89 (46-116) U/L Total Protein 6.9 (6.4-8.2) g/dL Albumin 3.0 L (3.4-5.0) g/dL Globulin 3.9 (2.6-4.0) g/dL Albumin/Globulin Ratio 0.8 L (0.9-1.6) Med Orders - Current: Current Medications Acetaminophen (Acetaminophen 325 Mg Tab) 650 mg PO Q4H PRN PRN Reason: Pain Albuterol/Ipratropium (Albuterol/Ipratropium 4 Gm Inhalation [place]) 0 gm INH QID [facility] Last Admin: 05/17/21 11:42 Dose: 1 puff Documented by: Dexamethasone (Dexamethasone 4 Mg Tab) 6 mg PO DAILY [facility] Last Admin: 05/17/21 08:32 Dose: 6 mg Documented by: Enoxaparin Sodium (Enoxaparin 40 Mg/0.4 Ml Syringe) 40 mg SUBCUT Q24H [facility] Last Admin: 05/17/21 08:33 Dose: 40 mg Documented by: Guaifenesin/Dextromethorphan (Guaifenesin/Dextromethorphan 100-10 Mg/5 Ml Soln 10 Ml Cup) 10 ml PO Q4H PRN PRN Reason: Cough Ondansetron HCl (Ondansetron 4 Mg/2 Ml Sdv) 4 mg IVPUSH Q4H PRN PRN Reason: Nausea/Vomiting Pantoprazole Sodium (Pantoprazole 40 Mg Tab.Cr) 40 mg PO ACBREAKFAST [facility] Last Admin: 05/17/21 07:56 Dose: 40 mg Documented by: Discontinued Medications Acetaminophen (Acetaminophen 325 Mg Tab) 1,000 mg PO NOW ONE Stop: 05/12/21 19:56 Last Admin: 05/12/21 20:00 Dose: 1,000 mg Documented by: Enoxaparin Sodium (Enoxaparin 40 Mg/0.4 Ml Syringe) 40 mg SUBCUT Q24H [facility] Last Admin: 05/12/21 23:25 Dose: Not Given Documented by: Enoxaparin Sodium (Enoxaparin 100 Mg/1 Ml Syringe) 70 mg SUBCUT Q12H [facility] Last Admin: 05/12/21 23:04 Dose: 70 mg Documented by: Enoxaparin Sodium (Enoxaparin 100 Mg/1 Ml Syringe) 80 mg SUBCUT Q12H [facility] Last Admin: 05/13/21 10:35 Dose: 80 mg Documented by: Pantoprazole Sodium 40 mg/ (Sodium Chloride) 10 mls @ 200 mls/hr IV DAILY [facility] Remdesivir 100 mg/ Sodium (Chloride) 100 mls @ 100 mls/hr IV Q24H [facility] Stop: 05/16/21 22:59 Last Admin: 05/16/21 21:52 Dose: 100 mls/hr Documented by: Remdesivir 200 mg/ Sodium (Chloride) 250 mls @ 250 mls/hr IV ONETIME ONE Stop: 05/12/21 21:48 Last Admin: 05/12/21 23:09 Dose: 250 mls/hr Documented by: Iopamidol (Iopamidol 755 Mg/Ml 500 Ml Multipack Bottle) 75 ml IVPUSH ONETIME [facility]A Stop: 05/13/21 11:21 Last Admin: 05/13/21 11:30 Dose: 75 ml Documented by: - Exam General: Alert, Oriented HEENT: Pupils Equal Lungs: Normal Respiratory Effort, Rhonchi Cardiovascular: Regular Rate, Regular Rhythm GI/Abdominal Exam: Normal Bowel Sounds, Soft, Non-Tender Extremities: Non-Tender, No Pedal Edema Skin: Warm, Dry, Intact Neurological: No New Focal Deficit - Patient Data Lab Results Last 24 hrs: Laboratory Results - last 24 hr 05/17/21 05/17/21 Range/Units 06:33 06:33 WBC 8.67 (4.0-11.0) K/uL RBC 4.76 (4.50-5.90) M/uL Hgb 14.8 (13.0-17.0) g/dL Hct 41.4 (38.0-50.0) % MCV 87.0 (80.0-98.0) fL MCH 31.1 (27.0-32.0) pg MCHC 35.7 (31.0-37.0) g/dL RDW Std Deviation 41.2 (28.0-62.0) fl RDW Coeff of [place] 13 (11.0-15.0) % Plt Count 195 (150-400) K/uL MPV 10.10 (7.40-12.00) fL Neut % (Auto) 78.9 (48.0-80.0) % Lymph % (Auto) 13.6 L (16.0-40.0) % [place] % (Auto) 7.5 (0.0-15.0) % Eos % (Auto) 0.0 (0.0-7.0) % Baso % (Auto) 0.0 (0.0-1.5) % Neut # (Auto) 6.8 H (1.4-5.7) K/uL Lymph # (Auto) 1.2 (0.6-2.4) K/uL [place] # (Auto) 0.7 (0.0-0.8) K/uL Eos # (Auto) 0.0 (0.0-0.7) K/uL Baso # (Auto) 0.0 (0.0-0.1) K/uL Nucleated RBC % 0.0 /100WBC Nucleated RBCs # 0 K/uL Sodium 138 (136-148) mmol/L Potassium 3.9 (3.5-5.1) mmol/L Chloride 104 (98-107) mmol/L Carbon Dioxide 23.9 (21.0-32.0) mmol/L BUN 18 (7.0-18.0) mg/dL Creatinine 0.8 (0.8-1.3) mg/dL Est Cr Clr Drug Dosing 97.38 mL/min Estimated GFR (MDRD) > 60.0 ml/min Glucose 118 H (74-106) mg/dL Calcium 8.7 (8.5-10.1) mg/dL Total Bilirubin 0.5 (0.2-1.0) mg/dL AST 36 (15-37) IU/L ALT 54 (14-63) IU/L Alkaline Phosphatase 89 (46-116) U/L Total Protein 6.9 (6.4-8.2) g/dL Albumin 3.0 L (3.4-5.0) g/dL Globulin 3.9 (2.6-4.0) g/dL Albumin/Globulin Ratio 0.8 L (0.9-1.6) Result Diagrams: 05/17/21 06:33 05/17/21 06:33 Sepsis Event Note - Evaluation Sepsis Screening Result: No Definite Risk - Focused Exam Vital Signs: Vital Signs Temp Temp Pulse Resp BP Pulse Ox Pulse Ox 05/17/21 12:00 36.2 C 64 16 108/66 93 L 05/17/21 08:26 36.0 C L 69 18 111/64 90 L 05/17/21 06:00 94 L 05/17/21 05:46 94 L 05/17/21 04:05 93 L 05/17/21 04:00 36.1 C 52 L 16 120/61 95 - Problem List Review Problem List Initiated/Reviewed/Updated: Yes - My Orders Last 24 Hours: My Active Orders 05/18/21 05:11 CBC WITH AUTO DIFF [HEME] AM COMPREHENSIVE METABOLIC PN,CMP [CHEM] AM 05/19/21 05:11 CBC WITH AUTO DIFF [HEME] AM COMPREHENSIVE METABOLIC PN,CMP [CHEM] AM - Plan Plan:: 56 y/o M admitted for hypoxia 1. Acute hypoxic respiratory failure/COVID-19 -continue Vapotherm. -Oxygen to keep sats greater than 90%. Wean as possible -CRP 2.2 does not meet requirements for Actemra or baricitinib treatment at this time -finished remdesivir day 5 of 5 -Continue dexamethasone until discharge or total of 10 days -Continue Combivent -Lovenox -Monitor LFTs daily -Encourage I-S and self proning VTE prophylaxis: Lovenox daily GI prophylaxis: Protonix CODE STATUS: Full code Dispo: 2 to 3 days pending improvement,
[2021-05-18] MEDS: Albuterol/Ipratropium 4 GM Inhalation Spray INH SCH ×4 (00:56→17:12)
[2021-05-18] MEDS: Pantoprazole 40 MG Tab.CR PO SCH (06:31)
[2021-05-18 08:07] LABS: BLOOD UREA NITROGEN,BUN 23 mg/dL (7.0-18.0); CARBON DIOXIDE,CO2 22.8 mmol/L (21.0-32.0); CHLORIDE,CL 104 mmol/L (98-107); GLUCOSE RANDOM 110 mg/dL (74-106); POTASSIUM,K 3.6 mmol/L (3.5-5.1); SODIUM,NA 138 mmol/L (136-148)
[2021-05-18] MEDS: Dexamethasone 4 MG Tab PO SCH (08:52)
[2021-05-18] MEDS: Enoxaparin 40 MG/0.4 ML Syringe SUBCUT SCH (08:53)
--- NOTE | 2021-05-18 12:23 | PCM.PN ---
- General Info Date of Service: 05/18/21 - Review of Systems Systems Review Comment:: shortness of breath stable, proning in bed - Patient Data Vitals - Most Recent: Last Vital Signs Temp 36.1 C 05/18/21 12:06 Pulse 82 05/18/21 12:06 Resp 17 05/18/21 12:06 BP 123/67 05/18/21 12:06 Pulse Ox 96 05/18/21 12:06 Weight - Most Recent: 77.292 kg I&O - Last 24 Hours: Intake & Output 05/17/21 05/18/21 05/18/21 22:59 06:59 14:59 Intake Total 581 240 Output Total 625 450 Balance -44 -210 Lab Results Last 24 Hours: Laboratory Results - last 24 hr 05/18/21 05/18/21 Range/Units 07:30 07:30 WBC 8.98 (4.0-11.0) K/uL RBC 4.64 (4.50-5.90) M/uL Hgb 14.3 (13.0-17.0) g/dL Hct 40.3 (38.0-50.0) % MCV 86.9 (80.0-98.0) fL MCH 30.8 (27.0-32.0) pg MCHC 35.5 (31.0-37.0) g/dL RDW Std Deviation 41.2 (28.0-62.0) fl RDW Coeff of [place] 13 (11.0-15.0) % Plt Count 223 (150-400) K/uL MPV 9.50 (7.40-12.00) fL Neut % (Auto) 79.8 (48.0-80.0) % Lymph % (Auto) 13.8 L (16.0-40.0) % [place] % (Auto) 6.3 (0.0-15.0) % Eos % (Auto) 0.0 (0.0-7.0) % Baso % (Auto) 0.1 (0.0-1.5) % Neut # (Auto) 7.2 H (1.4-5.7) K/uL Lymph # (Auto) 1.2 (0.6-2.4) K/uL [place] # (Auto) 0.6 (0.0-0.8) K/uL Eos # (Auto) 0.0 (0.0-0.7) K/uL Baso # (Auto) 0.0 (0.0-0.1) K/uL Nucleated RBC % 0.0 /100WBC Nucleated RBCs # 0 K/uL Sodium 138 (136-148) mmol/L Potassium 3.6 (3.5-5.1) mmol/L Chloride 104 (98-107) mmol/L Carbon Dioxide 22.8 (21.0-32.0) mmol/L BUN 23 H (7.0-18.0) mg/dL Creatinine 0.9 (0.8-1.3) mg/dL Est Cr Clr Drug Dosing 86.56 mL/min Estimated GFR (MDRD) > 60.0 ml/min Glucose 110 H (74-106) mg/dL Calcium 8.6 (8.5-10.1) mg/dL Total Bilirubin 0.6 (0.2-1.0) mg/dL AST 38 H (15-37) IU/L ALT 61 (14-63) IU/L Alkaline Phosphatase 87 (46-116) U/L Total Protein 6.5 (6.4-8.2) g/dL Albumin 2.8 L (3.4-5.0) g/dL Globulin 3.7 (2.6-4.0) g/dL Albumin/Globulin Ratio 0.8 L (0.9-1.6) Med Orders - Current: Current Medications Acetaminophen (Acetaminophen 325 Mg Tab) 650 mg PO Q4H PRN PRN Reason: Pain Albuterol/Ipratropium (Albuterol/Ipratropium 4 Gm Inhalation [place]) 0 gm INH QID [facility] Last Admin: 05/18/21 12:08 Dose: 1 puff Documented by: Dexamethasone (Dexamethasone 4 Mg Tab) 6 mg PO DAILY [facility] Last Admin: 05/18/21 08:52 Dose: 6 mg Documented by: Enoxaparin Sodium (Enoxaparin 40 Mg/0.4 Ml Syringe) 40 mg SUBCUT Q24H [facility] Last Admin: 05/18/21 08:53 Dose: 40 mg Documented by: Guaifenesin/Dextromethorphan (Guaifenesin/Dextromethorphan 100-10 Mg/5 Ml Soln 10 Ml Cup) 10 ml PO Q4H PRN PRN Reason: Cough Ondansetron HCl (Ondansetron 4 Mg/2 Ml Sdv) 4 mg IVPUSH Q4H PRN PRN Reason: Nausea/Vomiting Pantoprazole Sodium (Pantoprazole 40 Mg Tab.Cr) 40 mg PO ACBREAKFAST [facility] Last Admin: 05/18/21 06:31 Dose: 40 mg Documented by: Discontinued Medications Acetaminophen (Acetaminophen 325 Mg Tab) 1,000 mg PO NOW ONE Stop: 05/12/21 19:56 Last Admin: 05/12/21 20:00 Dose: 1,000 mg Documented by: Enoxaparin Sodium (Enoxaparin 40 Mg/0.4 Ml Syringe) 40 mg SUBCUT Q24H [facility] Last Admin: 05/12/21 23:25 Dose: Not Given Documented by: Enoxaparin Sodium (Enoxaparin 100 Mg/1 Ml Syringe) 70 mg SUBCUT Q12H [facility] Last Admin: 05/12/21 23:04 Dose: 70 mg Documented by: Enoxaparin Sodium (Enoxaparin 100 Mg/1 Ml Syringe) 80 mg SUBCUT Q12H [facility] Last Admin: 05/13/21 10:35 Dose: 80 mg Documented by: Pantoprazole Sodium 40 mg/ (Sodium Chloride) 10 mls @ 200 mls/hr IV DAILY [facility] Remdesivir 100 mg/ Sodium (Chloride) 100 mls @ 100 mls/hr IV Q24H [facility] Stop: 05/16/21 22:59 Last Admin: 05/16/21 21:52 Dose: 100 mls/hr Documented by: Remdesivir 200 mg/ Sodium (Chloride) 250 mls @ 250 mls/hr IV ONETIME ONE Stop: 05/12/21 21:48 Last Admin: 05/12/21 23:09 Dose: 250 mls/hr Documented by: Iopamidol (Iopamidol 755 Mg/Ml 500 Ml Multipack Bottle) 75 ml IVPUSH ONETIME [facility] Stop: 05/13/21 11:21 Last Admin: 05/13/21 11:30 Dose: 75 ml Documented by: - Exam General: Alert, Oriented Neck: Supple Lungs: Normal Respiratory Effort, Rhonchi Cardiovascular: Regular Rate, Regular Rhythm GI/Abdominal Exam: Normal Bowel Sounds, Soft, Non-Tender, No Distention Extremities: Non-Tender, No Pedal Edema Skin: Warm, Dry, Intact Neurological: No New Focal Deficit - Patient Data Lab Results Last 24 hrs: Laboratory Results - last 24 hr 05/18/21 05/18/21 Range/Units 07:30 07:30 WBC 8.98 (4.0-11.0) K/uL RBC 4.64 (4.50-5.90) M/uL Hgb 14.3 (13.0-17.0) g/dL Hct 40.3 (38.0-50.0) % MCV 86.9 (80.0-98.0) fL MCH 30.8 (27.0-32.0) pg MCHC 35.5 (31.0-37.0) g/dL RDW Std Deviation 41.2 (28.0-62.0) fl RDW Coeff of [place] 13 (11.0-15.0) % Plt Count 223 (150-400) K/uL MPV 9.50 (7.40-12.00) fL Neut % (Auto) 79.8 (48.0-80.0) % Lymph % (Auto) 13.8 L (16.0-40.0) % [place] % (Auto) 6.3 (0.0-15.0) % Eos % (Auto) 0.0 (0.0-7.0) % Baso % (Auto) 0.1 (0.0-1.5) % Neut # (Auto) 7.2 H (1.4-5.7) K/uL Lymph # (Auto) 1.2 (0.6-2.4) K/uL [place] # (Auto) 0.6 (0.0-0.8) K/uL Eos # (Auto) 0.0 (0.0-0.7) K/uL Baso # (Auto) 0.0 (0.0-0.1) K/uL Nucleated RBC % 0.0 /100WBC Nucleated RBCs # 0 K/uL Sodium 138 (136-148) mmol/L Potassium 3.6 (3.5-5.1) mmol/L Chloride 104 (98-107) mmol/L Carbon Dioxide 22.8 (21.0-32.0) mmol/L BUN 23 H (7.0-18.0) mg/dL Creatinine 0.9 (0.8-1.3) mg/dL Est Cr Clr Drug Dosing 86.56 mL/min Estimated GFR (MDRD) > 60.0 ml/min Glucose 110 H (74-106) mg/dL Calcium 8.6 (8.5-10.1) mg/dL Total Bilirubin 0.6 (0.2-1.0) mg/dL AST 38 H (15-37) IU/L ALT 61 (14-63) IU/L Alkaline Phosphatase 87 (46-116) U/L Total Protein 6.5 (6.4-8.2) g/dL Albumin 2.8 L (3.4-5.0) g/dL Globulin 3.7 (2.6-4.0) g/dL Albumin/Globulin Ratio 0.8 L (0.9-1.6) Result Diagrams: 05/18/21 07:30 05/18/21 07:30 Sepsis Event Note - Evaluation Sepsis Screening Result: No Definite Risk - Focused Exam Vital Signs: Vital Signs Temp Pulse Resp BP Pulse Ox 05/18/21 12:06 36.1 C 82 17 123/67 96 05/18/21 08:44 35.7 C L 93 17 118/66 92 L 05/18/21 04:00 36.6 C 65 16 110/63 92 L 05/18/21 00:57 36.2 C 64 18 112/63 94 L - Problem List Review Problem List Initiated/Reviewed/Updated: Yes - My Orders Last 24 Hours: My Active Orders 05/19/21 05:11 CBC WITH AUTO DIFF [HEME] AM COMPREHENSIVE METABOLIC PN,CMP [CHEM] AM - Plan Plan:: 56 y/o M admitted for hypoxia 1. Acute hypoxic respiratory failure/COVID-19 -continue Vapotherm. -Oxygen to keep sats greater than 90%. Wean as possible -finished remdesivir -Continue dexamethasone until discharge or total of 10 days -Continue Combivent -Lovenox -Monitor LFTs daily -Encourage I-S and self proning VTE prophylaxis: Lovenox daily GI prophylaxis: Protonix CODE STATUS: Full code Dispo: 2 to 3 days pending improvement,
[2021-05-19] MEDS: Albuterol/Ipratropium 4 GM Inhalation Spray INH SCH ×4 (00:14→17:07)
[2021-05-19] MEDS: Pantoprazole 40 MG Tab.CR PO SCH (06:40)
[2021-05-19 06:59] LABS: BLOOD UREA NITROGEN,BUN 19 mg/dL (7.0-18.0); CARBON DIOXIDE,CO2 24.1 mmol/L (21.0-32.0); CHLORIDE,CL 101 mmol/L (98-107); GLUCOSE RANDOM 100 mg/dL (74-106); POTASSIUM,K 3.8 mmol/L (3.5-5.1); SODIUM,NA 137 mmol/L (136-148)
--- NOTE | 2021-05-19 08:06 | PCM.PN ---
- General Info Date of Service: 05/19/21 Admission Dx/Problem (Free Text): Admission Diagnosis/Problem Admission Diagnosis/Problem Hypoxia Subjective Update: Patient self proning time of rounds. Denies any chest pain. Reports shortness of breath and intermittent cough. Reports having increased back and leg pain that is chronic with laying on his belly will add pain medication to help alleviate or make this pain improved to increase protein ability. Denies any other concerns at this time. Functional Status: Reports: Tolerating Diet, Ambulating, Urinating. Denies: Pain Controlled - Review of Systems General: Reports: Fatigue, Malaise Pulmonary: Reports: Shortness of Breath, Cough Cardiovascular: Reports: Dyspnea on Exertion. Denies: Chest Pain, Palpitations, Lightheadedness Gastrointestinal: Reports: No Symptoms. Denies: Abdominal Pain, Nausea, Vomiting Genitourinary: Reports: No Symptoms Musculoskeletal: Reports: Back Pain (Chronic especially with proning) Skin: Reports: No Symptoms Neurological: Reports: No Symptoms Psychiatric: Reports: No Symptoms - Patient Data Vitals - Most Recent: Last Vital Signs Temp 98.5 F 05/19/21 04:00 Pulse 61 05/19/21 04:00 Resp 15 05/19/21 04:00 BP 131/61 05/19/21 04:00 Pulse Ox 95 05/19/21 04:00 Weight - Most Recent: 77.292 kg I&O - Last 24 Hours: Intake & Output 05/18/21 05/19/21 05/19/21 22:59 06:59 14:59 Intake Total 645 100 Output Total 450 600 Balance 195 -500 Lab Results Last 24 Hours: Laboratory Results - last 24 hr 05/18/21 05/19/21 05/19/21 Range/Units 07:30 05:40 05:40 WBC 7.67 (4.0-11.0) K/uL RBC 4.84 (4.50-5.90) M/uL Hgb 14.8 (13.0-17.0) g/dL Hct 42.1 (38.0-50.0) % MCV 87.0 (80.0-98.0) fL MCH 30.6 (27.0-32.0) pg MCHC 35.2 (31.0-37.0) g/dL RDW Std Deviation 41.2 (28.0-62.0) fl RDW Coeff of [place] 13 (11.0-15.0) % Plt Count 261 (150-400) K/uL MPV 9.50 (7.40-12.00) fL Neut % (Auto) 78.4 (48.0-80.0) % Lymph % (Auto) 15.4 L (16.0-40.0) % [place] % (Auto) 6.1 (0.0-15.0) % Eos % (Auto) 0.1 (0.0-7.0) % Baso % (Auto) 0.0 (0.0-1.5) % Neut # (Auto) 6.0 H (1.4-5.7) K/uL Lymph # (Auto) 1.2 (0.6-2.4) K/uL [place] # (Auto) 0.5 (0.0-0.8) K/uL Eos # (Auto) 0.0 (0.0-0.7) K/uL Baso # (Auto) 0.0 (0.0-0.1) K/uL Nucleated RBC % 0.0 /100WBC Nucleated RBCs # 0 K/uL Sodium 138 137 (136-148) mmol/L Potassium 3.6 3.8 (3.5-5.1) mmol/L Chloride 104 101 (98-107) mmol/L Carbon Dioxide 22.8 24.1 (21.0-32.0) mmol/L BUN 23 H 19 H (7.0-18.0) mg/dL Creatinine 0.9 0.7 L (0.8-1.3) mg/dL Est Cr Clr Drug Dosing 86.56 111.29 mL/min Estimated GFR (MDRD) > 60.0 > 60.0 ml/min Glucose 110 H 100 (74-106) mg/dL Calcium 8.6 8.8 (8.5-10.1) mg/dL Total Bilirubin 0.6 0.7 (0.2-1.0) mg/dL AST 38 H 28 (15-37) IU/L ALT 61 52 (14-63) IU/L Alkaline Phosphatase 87 91 (46-116) U/L Total Protein 6.5 7.3 (6.4-8.2) g/dL Albumin 2.8 L 2.9 L (3.4-5.0) g/dL Globulin 3.7 4.4 H (2.6-4.0) g/dL Albumin/Globulin Ratio 0.8 L 0.7 L (0.9-1.6) Med Orders - Current: Current Medications Acetaminophen (Acetaminophen 325 Mg Tab) 650 mg PO Q4H PRN PRN Reason: Pain Albuterol/Ipratropium (Albuterol/Ipratropium 4 Gm Inhalation [place]) 0 gm INH QID [facility] Last Admin: 05/19/21 06:01 Dose: 1 puff Documented by: Dexamethasone (Dexamethasone 4 Mg Tab) 6 mg PO DAILY [facility] Last Admin: 05/18/21 08:52 Dose: 6 mg Documented by: Enoxaparin Sodium (Enoxaparin 40 Mg/0.4 Ml Syringe) 40 mg SUBCUT Q24H [facility] Last Admin: 05/18/21 08:53 Dose: 40 mg Documented by: Guaifenesin/Dextromethorphan (Guaifenesin/Dextromethorphan 100-10 Mg/5 Ml Soln 10 Ml Cup) 10 ml PO Q4H PRN PRN Reason: Cough Ondansetron HCl (Ondansetron 4 Mg/2 Ml Sdv) 4 mg IVPUSH Q4H PRN PRN Reason: Nausea/Vomiting Pantoprazole Sodium (Pantoprazole 40 Mg Tab.Cr) 40 mg PO ACBREAKFAST [facility] Last Admin: 05/19/21 06:40 Dose: 40 mg Documented by: Discontinued Medications Acetaminophen (Acetaminophen 325 Mg Tab) 1,000 mg PO NOW ONE Stop: 05/12/21 19:56 Last Admin: 05/12/21 20:00 Dose: 1,000 mg Documented by: Enoxaparin Sodium (Enoxaparin 40 Mg/0.4 Ml Syringe) 40 mg SUBCUT Q24H [facility] Last Admin: 05/12/21 23:25 Dose: Not Given Documented by: Enoxaparin Sodium (Enoxaparin 100 Mg/1 Ml Syringe) 70 mg SUBCUT Q12H [facility] Last Admin: 05/12/21 23:04 Dose: 70 mg Documented by: Enoxaparin Sodium (Enoxaparin 100 Mg/1 Ml Syringe) 80 mg SUBCUT Q12H [facility] Last Admin: 05/13/21 10:35 Dose: 80 mg Documented by: Pantoprazole Sodium 40 mg/ (Sodium Chloride) 10 mls @ 200 mls/hr IV DAILY [facility] Remdesivir 100 mg/ Sodium (Chloride) 100 mls @ 100 mls/hr IV Q24H [facility] Stop: 05/16/21 22:59 Last Admin: 05/16/21 21:52 Dose: 100 mls/hr Documented by: Remdesivir 200 mg/ Sodium (Chloride) 250 mls @ 250 mls/hr IV ONETIME ONE Stop: 05/12/21 21:48 Last Admin: 05/12/21 23:09 Dose: 250 mls/hr Documented by: Iopamidol (Iopamidol 755 Mg/Ml 500 Ml Multipack Bottle) 75 ml IVPUSH ONETIME STA Stop: 05/13/21 11:21 Last Admin: 05/13/21 11:30 Dose: 75 ml Documented by: - Exam Quality Assessment: Supplemental Oxygen (Vapotherm continue to wean), DVT Prophylaxis General: Alert, Oriented, Cooperative, No Acute Distress Lungs: Crackles (Fine left basilar crackles). No: Normal Respiratory Effort (Dyspnea with exertion) Cardiovascular: Regular Rate, Regular Rhythm GI/Abdominal Exam: Normal Bowel Sounds, Soft, Non-Tender Extremities: Normal Inspection, Normal Range of Motion, Non-Tender, No Pedal Edema Neurological: No New Focal Deficit Psy/Mental Status: Alert, Normal Affect, Normal Mood - Patient Data Lab Results Last 24 hrs: Laboratory Results - last 24 hr 05/18/21 05/19/21 05/19/21 Range/Units 07:30 05:40 05:40 WBC 7.67 (4.0-11.0) K/uL RBC 4.84 (4.50-5.90) M/uL Hgb 14.8 (13.0-17.0) g/dL Hct 42.1 (38.0-50.0) % MCV 87.0 (80.0-98.0) fL MCH 30.6 (27.0-32.0) pg MCHC 35.2 (31.0-37.0) g/dL RDW Std Deviation 41.2 (28.0-62.0) fl RDW Coeff of [place] 13 (11.0-15.0) % Plt Count 261 (150-400) K/uL MPV 9.50 (7.40-12.00) fL Neut % (Auto) 78.4 (48.0-80.0) % Lymph % (Auto) 15.4 L (16.0-40.0) % [place] % (Auto) 6.1 (0.0-15.0) % Eos % (Auto) 0.1 (0.0-7.0) % Baso % (Auto) 0.0 (0.0-1.5) % Neut # (Auto) 6.0 H (1.4-5.7) K/uL Lymph # (Auto) 1.2 (0.6-2.4) K/uL [place] # (Auto) 0.5 (0.0-0.8) K/uL Eos # (Auto) 0.0 (0.0-0.7) K/uL Baso # (Auto) 0.0 (0.0-0.1) K/uL Nucleated RBC % 0.0 /100WBC Nucleated RBCs # 0 K/uL Sodium 138 137 (136-148) mmol/L Potassium 3.6 3.8 (3.5-5.1) mmol/L Chloride 104 101 (98-107) mmol/L Carbon Dioxide 22.8 24.1 (21.0-32.0) mmol/L BUN 23 H 19 H (7.0-18.0) mg/dL Creatinine 0.9 0.7 L (0.8-1.3) mg/dL Est Cr Clr Drug Dosing 86.56 111.29 mL/min Estimated GFR (MDRD) > 60.0 > 60.0 ml/min Glucose 110 H 100 (74-106) mg/dL Calcium 8.6 8.8 (8.5-10.1) mg/dL Total Bilirubin 0.6 0.7 (0.2-1.0) mg/dL AST 38 H 28 (15-37) IU/L ALT 61 52 (14-63) IU/L Alkaline Phosphatase 87 91 (46-116) U/L Total Protein 6.5 7.3 (6.4-8.2) g/dL Albumin 2.8 L 2.9 L (3.4-5.0) g/dL Globulin 3.7 4.4 H (2.6-4.0) g/dL Albumin/Globulin Ratio 0.8 L 0.7 L (0.9-1.6) Result Diagrams: 05/19/21 05:40 05/19/21 05:40 Sepsis Event Note - Evaluation Sepsis Screening Result: No Definite Risk - Focused Exam Vital Signs: Vital Signs Temp Pulse Resp BP Pulse Ox 05/19/21 04:00 98.5 F 61 15 131/61 95 05/19/21 00:00 97 F 57 L 16 135/61 96 05/18/21 21:00 97.4 F 61 16 110/63 95 - Problem List & Annotations (1) Acute respiratory failure with hypoxia SNOMED Code(s): 39871437, 401998859 Code(s): J96.01 - ACUTE RESPIRATORY FAILURE WITH HYPOXIA Status: Acute Current Visit: Yes (2) COVID-19 SNOMED Code(s): 094755595 Code(s): U07.1 - COVID-19 Status: Acute Current Visit: Yes - Problem List Review Problem List Initiated/Reviewed/Updated: Yes - Plan Plan:: 56 y/o M admitted for hypoxia 1. Acute hypoxic respiratory failure/COVID-19 -continue Vapotherm. -Oxygen to keep sats greater than 90%. Wean as possible -finished remdesivir course -Continue dexamethasone 04/08 -Continue Combivent -Lovenox -Monitor LFTs daily -Encourage I-S and self proning VTE prophylaxis: Lovenox daily GI prophylaxis: Protonix CODE STATUS: Full code Dispo: Pending improvement and ability to wean off high flow oxygen.
[2021-05-19] MEDS: Dexamethasone 4 MG Tab PO SCH (08:10)
[2021-05-19] MEDS: Enoxaparin 40 MG/0.4 ML Syringe SUBCUT SCH (08:11)
[2021-05-19] MEDS ORDERED: Acetaminophen/HYDROcodone 325-7.5 MG Tab PO PRN (08:56)
[2021-05-20] MEDS: Albuterol/Ipratropium 4 GM Inhalation Spray INH SCH ×4 (00:38→17:05)
[2021-05-20] MEDS: Pantoprazole 40 MG Tab.CR PO SCH (06:40)
--- NOTE | 2021-05-20 07:57 | PCM.PN ---
- General Info Date of Service: 05/20/21 Admission Dx/Problem (Free Text): Admission Diagnosis/Problem Admission Diagnosis/Problem Hypoxia Subjective Update: Patient continues to be withdrawn and conversations with him are more one-sided. Patient does not interact significantly with daily interviews. Patient reports he is feeling okay overtly shows rolling of eyes and annoyance and frustration with continued need for hospitalization. I discussed with him at length that we are dealing with significant inflammation from his bodies inflammatory reactions to Covid and that now it is merely time to allow for his lungs to heal. He is on significant amounts of oxygen which are slowly improving but these need to be significantly better closer to 2 L nasal cannula first it is safe for discharge. He does verbalize understanding but again shows annoyance and rolling of his eyes. He denies any rest pain. Denies any significant cough or productive cough. Reports back pain that is maintained well with the addition of Drift yesterday to help with continued proning. Patient has been proning for significant amount of time which he was congratulated for. Reported that him doing his lung exercises and proning are helping him significantly to get discharged sooner. He denies any concerns currently. He did ask if I could call his . Functional Status: Reports: Pain Controlled, Tolerating Diet, Ambulating, Urinating - Review of Systems General: Reports: Fatigue, Malaise HEENT: Reports: No Symptoms. Denies: Headaches, Sore Throat, Visual Changes Pulmonary: Reports: Shortness of Breath. Denies: Cough, Sputum Cardiovascular: Reports: Chest Pain, Dyspnea on Exertion Gastrointestinal: Reports: No Symptoms. Denies: Abdominal Pain, Nausea, Vomiting Genitourinary: Reports: No Symptoms. Denies: Dysuria, Frequency Musculoskeletal: Reports: Back Pain (Chronic back pain exacerbated by proning but pain medications are making this more tolerable.) Skin: Reports: No Symptoms Neurological: Reports: No Symptoms Psychiatric: Reports: No Symptoms - Patient Data Vitals - Most Recent: Last Vital Signs Temp 96.8 F L 05/20/21 04:00 Pulse 77 05/20/21 04:00 Resp 16 05/20/21 04:00 BP 99/57 L 05/20/21 04:00 Pulse Ox 97 05/20/21 04:00 Weight - Most Recent: 77.292 kg I&O - Last 24 Hours: Intake & Output 05/19/21 05/20/21 05/20/21 22:59 06:59 14:59 Intake Total 960 150 Balance 960 150 Med Orders - Current: Current Medications Acetaminophen (Acetaminophen 325 Mg Tab) 650 mg PO Q4H PRN PRN Reason: Pain Hydrocodone Bitart/Acetaminophen (Acetaminophen/Hydrocodone 325-7.5 Mg Tab) 1 tab PO Q4H PRN PRN Reason: Pain Last Admin: 05/19/21 09:33 Dose: 1 tab Documented by: Albuterol/Ipratropium (Albuterol/Ipratropium 4 Gm Inhalation [place]) 0 gm INH QID [facility] Last Admin: 05/20/21 05:29 Dose: 1 puff Documented by: Dexamethasone (Dexamethasone 4 Mg Tab) 6 mg PO DAILY [facility] Stop: 05/21/21 09:01 Last Admin: 05/19/21 08:10 Dose: 6 mg Documented by: Enoxaparin Sodium (Enoxaparin 40 Mg/0.4 Ml Syringe) 40 mg SUBCUT Q24H [facility] Last Admin: 05/19/21 08:11 Dose: 40 mg Documented by: Guaifenesin/Dextromethorphan (Guaifenesin/Dextromethorphan 100-10 Mg/5 Ml Soln 10 Ml Cup) 10 ml PO Q4H PRN PRN Reason: Cough Ondansetron HCl (Ondansetron 4 Mg/2 Ml Sdv) 4 mg IVPUSH Q4H PRN PRN Reason: Nausea/Vomiting Pantoprazole Sodium (Pantoprazole 40 Mg Tab.Cr) 40 mg PO ACBREAKFAST [facility] Last Admin: 05/20/21 06:40 Dose: 40 mg Documented by: Discontinued Medications Acetaminophen (Acetaminophen 325 Mg Tab) 1,000 mg PO NOW ONE Stop: 05/12/21 19:56 Last Admin: 05/12/21 20:00 Dose: 1,000 mg Documented by: Enoxaparin Sodium (Enoxaparin 40 Mg/0.4 Ml Syringe) 40 mg SUBCUT Q24H [facility] Last Admin: 05/12/21 23:25 Dose: Not Given Documented by: Enoxaparin Sodium (Enoxaparin 100 Mg/1 Ml Syringe) 70 mg SUBCUT Q12H [facility] Last Admin: 05/12/21 23:04 Dose: 70 mg Documented by: Enoxaparin Sodium (Enoxaparin 100 Mg/1 Ml Syringe) 80 mg SUBCUT Q12H [facility] Last Admin: 05/13/21 10:35 Dose: 80 mg Documented by: Pantoprazole Sodium 40 mg/ (Sodium Chloride) 10 mls @ 200 mls/hr IV DAILY [facility] Remdesivir 100 mg/ Sodium (Chloride) 100 mls @ 100 mls/hr IV Q24H [facility] Stop: 05/16/21 22:59 Last Admin: 05/16/21 21:52 Dose: 100 mls/hr Documented by: Remdesivir 200 mg/ Sodium (Chloride) 250 mls @ 250 mls/hr IV ONETIME ONE Stop: 05/12/21 21:48 Last Admin: 05/12/21 23:09 Dose: 250 mls/hr Documented by: Iopamidol (Iopamidol 755 Mg/Ml 500 Ml Multipack Bottle) 75 ml IVPUSH ONETIME STA Stop: 05/13/21 11:21 Last Admin: 05/13/21 11:30 Dose: 75 ml Documented by: - Exam Quality Assessment: Supplemental Oxygen (Remains on Vapotherm), DVT Prophylaxis General: Alert, Oriented, Cooperative (Does not interact much with interviews da chandni.), No Acute Distress Lungs: Crackles (Fine crackles to left base continue to improve daily.). No: Normal Respiratory Effort (Dyspnea with exertion) Cardiovascular: Regular Rate, Regular Rhythm, No Murmurs GI/Abdominal Exam: Normal Bowel Sounds, Soft, Non-Tender Extremities: Normal Inspection, Normal Range of Motion, Non-Tender, No Pedal Edema Wound/Incisions: Healing Well Neurological: No New Focal Deficit Psy/Mental Status: Alert, Depressed. No: Suicidal Ideation - Patient Data Result Diagrams: 05/19/21 05:40 05/19/21 05:40 Sepsis Event Note - Evaluation Sepsis Screening Result: No Definite Risk - Focused Exam Vital Signs: Vital Signs Temp Temp Pulse Resp BP Pulse Ox 05/20/21 04:00 96.8 F L 77 16 99/57 L 97 05/20/21 00:00 95.1 F L 68 20 134/60 98 05/19/21 21:00 92 L 05/19/21 20:00 97.9 F 66 18 106/62 95 - Problem List & Annotations (1) Acute respiratory failure with hypoxia SNOMED Code(s): 95287368, 799592178 Code(s): J96.01 - ACUTE RESPIRATORY FAILURE WITH HYPOXIA Status: Acute Current Visit: Yes (2) COVID-19 SNOMED Code(s): 473467784 Code(s): U07.1 - COVID-19 Status: Acute Current Visit: Yes - Problem List Review Problem List Initiated/Reviewed/Updated: Yes - My Orders Last 24 Hours: My Active Orders 05/19/21 08:56 Acetaminophen/HYDROcodone [[place] 325-7.5 MG] 1 tab PO Q4H PRN - Plan Plan:: 56 y/o M admitted for hypoxia secondary to COVID 19 1. Acute hypoxic respiratory failure/COVID-19 -continue Vapotherm, Oxygen to keep sats greater than 90%. Wean as possible -finished remdesivir course -Continue dexamethasone 05/09 -Continue Combivent -Lovenox -Monitor LFTs daily -Encourage I-S and self proning VTE prophylaxis: Lovenox daily GI prophylaxis: Protonix CODE STATUS: Full code Dispo: Pending improvement and ability to wean off high flow oxygen. Will give Tereza, a call today and update on progress.
[2021-05-20] MEDS: Enoxaparin 40 MG/0.4 ML Syringe SUBCUT SCH (08:36)
[2021-05-20] MEDS: Dexamethasone 4 MG Tab PO SCH (08:36)
[2021-05-21] MEDS: Albuterol/Ipratropium 4 GM Inhalation Spray INH SCH ×4 (00:03→17:22)
[2021-05-21] MEDS: Pantoprazole 40 MG Tab.CR PO SCH (06:50)
[2021-05-21 06:56] LABS: BLOOD UREA NITROGEN,BUN 22 mg/dL (7.0-18.0); CARBON DIOXIDE,CO2 23.5 mmol/L (21.0-32.0); CHLORIDE,CL 102 mmol/L (98-107); GLUCOSE RANDOM 98 mg/dL (74-106); POTASSIUM,K 4.2 mmol/L (3.5-5.1); SODIUM,NA 138 mmol/L (136-148)
[2021-05-21] MEDS: Dexamethasone 4 MG Tab PO SCH (09:34)
[2021-05-21] MEDS: Enoxaparin 40 MG/0.4 ML Syringe SUBCUT SCH (09:34)
--- NOTE | 2021-05-21 13:34 | PCM.PN ---
<Aldair Barraza - Last Filed: 05/21/21 13:41> - General Info Date of Service: 05/21/21 Subjective Update: Patient states he feels fine this morning. Denies chest pain, shortness of breath, dizziness. Denies any concerns overnight. - Review of Systems General: Denies: Fever, Chills Pulmonary: Denies: Shortness of Breath, Cough Cardiovascular: Denies: Chest Pain, Edema Gastrointestinal: Denies: Abdominal Pain, Nausea, Vomiting Neurological: Denies: Confusion, Dizziness, Headache Psychiatric: Denies: Confusion - Patient Data Vitals - Most Recent: Last Vital Signs Temp 98.2 F 05/21/21 09:29 Pulse 91 05/21/21 09:29 Resp 22 H 05/21/21 09:29 BP 111/70 05/21/21 09:29 Pulse Ox 88 L 05/21/21 11:38 Weight - Most Recent: 77.292 kg I&O - Last 24 Hours: Intake & Output 05/20/21 05/21/21 05/21/21 22:59 06:59 14:59 Intake Total 700 300 Output Total 600 925 Balance 100 -625 Lab Results Last 24 Hours: Laboratory Results - last 24 hr 05/21/21 05/21/21 Range/Units 05:50 05:50 WBC 8.14 (4.0-11.0) K/uL RBC 4.98 (4.50-5.90) M/uL Hgb 15.3 (13.0-17.0) g/dL Hct 43.0 (38.0-50.0) % MCV 86.3 (80.0-98.0) fL MCH 30.7 (27.0-32.0) pg MCHC 35.6 (31.0-37.0) g/dL RDW Std Deviation 40.2 (28.0-62.0) fl RDW Coeff of [place] 13 (11.0-15.0) % Plt Count 308 (150-400) K/uL MPV 9.40 (7.40-12.00) fL Neut % (Auto) 81.6 H (48.0-80.0) % Lymph % (Auto) 13.0 L (16.0-40.0) % [place] % (Auto) 4.8 (0.0-15.0) % Eos % (Auto) 0.6 (0.0-7.0) % Baso % (Auto) 0.0 (0.0-1.5) % Neut # (Auto) 6.6 H (1.4-5.7) K/uL Lymph # (Auto) 1.1 (0.6-2.4) K/uL [place] # (Auto) 0.4 (0.0-0.8) K/uL Eos # (Auto) 0.1 (0.0-0.7) K/uL Baso # (Auto) 0.0 (0.0-0.1) K/uL Nucleated RBC % 0.0 /100WBC Nucleated RBCs # 0 K/uL Sodium 138 (136-148) mmol/L Potassium 4.2 (3.5-5.1) mmol/L Chloride 102 (98-107) mmol/L Carbon Dioxide 23.5 (21.0-32.0) mmol/L BUN 22 H (7.0-18.0) mg/dL Creatinine 0.8 (0.8-1.3) mg/dL Est Cr Clr Drug Dosing 97.38 mL/min Estimated GFR (MDRD) > 60.0 ml/min Glucose 98 (74-106) mg/dL Calcium 8.6 (8.5-10.1) mg/dL Total Bilirubin 0.7 (0.2-1.0) mg/dL AST 33 (15-37) IU/L ALT 51 (14-63) IU/L Alkaline Phosphatase 94 (46-116) U/L Total Protein 6.8 (6.4-8.2) g/dL Albumin 2.8 L (3.4-5.0) g/dL Globulin 4.0 (2.6-4.0) g/dL Albumin/Globulin Ratio 0.7 L (0.9-1.6) Med Orders - Current: Current Medications Acetaminophen (Acetaminophen 325 Mg Tab) 650 mg PO Q4H PRN PRN Reason: Pain Hydrocodone Bitart/Acetaminophen (Acetaminophen/Hydrocodone 325-7.5 Mg Tab) 1 tab PO Q4H PRN PRN Reason: Pain Last Admin: 05/19/21 09:33 Dose: 1 tab Documented by: Albuterol/Ipratropium (Albuterol/Ipratropium 4 Gm Inhalation [place]) 0 gm INH QID [facility] Last Admin: 05/21/21 11:23 Dose: 1 puff Documented by: Enoxaparin Sodium (Enoxaparin 40 Mg/0.4 Ml Syringe) 40 mg SUBCUT Q24H [facility] Last Admin: 05/21/21 09:34 Dose: 40 mg Documented by: Guaifenesin/Dextromethorphan (Guaifenesin/Dextromethorphan 100-10 Mg/5 Ml Soln 10 Ml Cup) 10 ml PO Q4H PRN PRN Reason: Cough Ondansetron HCl (Ondansetron 4 Mg/2 Ml Sdv) 4 mg IVPUSH Q4H PRN PRN Reason: Nausea/Vomiting Pantoprazole Sodium (Pantoprazole 40 Mg Tab.Cr) 40 mg PO ACBREAKFAST [facility] Last Admin: 05/21/21 06:50 Dose: 40 mg Documented by: Discontinued Medications Acetaminophen (Acetaminophen 325 Mg Tab) 1,000 mg PO NOW ONE Stop: 05/12/21 19:56 Last Admin: 05/12/21 20:00 Dose: 1,000 mg Documented by: Dexamethasone (Dexamethasone 4 Mg Tab) 6 mg PO DAILY [facility] Stop: 05/21/21 09:01 Last Admin: 05/21/21 09:34 Dose: 6 mg Documented by: Enoxaparin Sodium (Enoxaparin 40 Mg/0.4 Ml Syringe) 40 mg SUBCUT Q24H [facility] Last Admin: 05/12/21 23:25 Dose: Not Given Documented by: Enoxaparin Sodium (Enoxaparin 100 Mg/1 Ml Syringe) 70 mg SUBCUT Q12H [facility] Last Admin: 05/12/21 23:04 Dose: 70 mg Documented by: Enoxaparin Sodium (Enoxaparin 100 Mg/1 Ml Syringe) 80 mg SUBCUT Q12H [facility] Last Admin: 05/13/21 10:35 Dose: 80 mg Documented by: Pantoprazole Sodium 40 mg/ (Sodium Chloride) 10 mls @ 200 mls/hr IV DAILY [facility] Remdesivir 100 mg/ Sodium (Chloride) 100 mls @ 100 mls/hr IV Q24H [facility] Stop: 05/16/21 22:59 Last Admin: 05/16/21 21:52 Dose: 100 mls/hr Documented by: Remdesivir 200 mg/ Sodium (Chloride) 250 mls @ 250 mls/hr IV ONETIME ONE Stop: 05/12/21 21:48 Last Admin: 05/12/21 23:09 Dose: 250 mls/hr Documented by: Iopamidol (Iopamidol 755 Mg/Ml 500 Ml Multipack Bottle) 75 ml IVPUSH ONETIME STA Stop: 05/13/21 11:21 Last Admin: 05/13/21 11:30 Dose: 75 ml Documented by: - Exam Quality Assessment: Supplemental Oxygen (hhf) General: Alert, Oriented Lungs: Clear to Auscultation, Normal Respiratory Effort Cardiovascular: Regular Rate, Regular Rhythm GI/Abdominal Exam: Soft, Non-Tender Extremities: No Pedal Edema Psy/Mental Status: Alert - Patient Data Lab Results Last 24 hrs: Laboratory Results - last 24 hr 05/21/21 05/21/21 Range/Units 05:50 05:50 WBC 8.14 (4.0-11.0) K/uL RBC 4.98 (4.50-5.90) M/uL Hgb 15.3 (13.0-17.0) g/dL Hct 43.0 (38.0-50.0) % MCV 86.3 (80.0-98.0) fL MCH 30.7 (27.0-32.0) pg MCHC 35.6 (31.0-37.0) g/dL RDW Std Deviation 40.2 (28.0-62.0) fl RDW Coeff of [place] 13 (11.0-15.0) % Plt Count 308 (150-400) K/uL MPV 9.40 (7.40-12.00) fL Neut % (Auto) 81.6 H (48.0-80.0) % Lymph % (Auto) 13.0 L (16.0-40.0) % [place] % (Auto) 4.8 (0.0-15.0) % Eos % (Auto) 0.6 (0.0-7.0) % Baso % (Auto) 0.0 (0.0-1.5) % Neut # (Auto) 6.6 H (1.4-5.7) K/uL Lymph # (Auto) 1.1 (0.6-2.4) K/uL [place] # (Auto) 0.4 (0.0-0.8) K/uL Eos # (Auto) 0.1 (0.0-0.7) K/uL Baso # (Auto) 0.0 (0.0-0.1) K/uL Nucleated RBC % 0.0 /100WBC Nucleated RBCs # 0 K/uL Sodium 138 (136-148) mmol/L Potassium 4.2 (3.5-5.1) mmol/L Chloride 102 (98-107) mmol/L Carbon Dioxide 23.5 (21.0-32.0) mmol/L BUN 22 H (7.0-18.0) mg/dL Creatinine 0.8 (0.8-1.3) mg/dL Est Cr Clr Drug Dosing 97.38 mL/min Estimated GFR (MDRD) > 60.0 ml/min Glucose 98 (74-106) mg/dL Calcium 8.6 (8.5-10.1) mg/dL Total Bilirubin 0.7 (0.2-1.0) mg/dL AST 33 (15-37) IU/L ALT 51 (14-63) IU/L Alkaline Phosphatase 94 (46-116) U/L Total Protein 6.8 (6.4-8.2) g/dL Albumin 2.8 L (3.4-5.0) g/dL Globulin 4.0 (2.6-4.0) g/dL Albumin/Globulin Ratio 0.7 L (0.9-1.6) Result Diagrams: 05/21/21 05:50 05/21/21 05:50 Sepsis Event Note - Evaluation Sepsis Screening Result: No Definite Risk - Focused Exam Vital Signs: Vital Signs Temp Pulse Resp BP Pulse Ox 05/21/21 11:38 88 L 05/21/21 09:29 98.2 F 91 22 H 111/70 91 L 05/21/21 04:00 98.7 F 78 20 119/69 93 L - Problem List & Annotations (1) Acute respiratory failure with hypoxia SNOMED Code(s): 12941763, 933369128 Code(s): J96.01 - ACUTE RESPIRATORY FAILURE WITH HYPOXIA Status: Acute Current Visit: Yes (2) COVID-19 SNOMED Code(s): 515407791 Code(s): U07.1 - COVID-19 Status: Acute Current Visit: Yes - Problem List Review Problem List Initiated/Reviewed/Updated: Yes - Plan Plan:: Acute hypoxic respiratory failure/COVID-19 continue HHF, Oxygen to keep sats greater than 90%. Currently at flow 40, fiO2 79, continue to wean dexamethasone completed today Combivent, Encourage I/S, proning, Robitussin <Calvin Chung - Last Filed: 05/23/21 12:16> - Patient Data Vitals - Most Recent: Last Vital Signs Temp 36.5 C 05/23/21 04:00 Pulse 64 05/21/21 20:57 Resp 24 H 05/23/21 10:00 BP 116/62 05/23/21 10:00 Pulse Ox 91 L 05/23/21 10:00 I&O - Last 24 Hours: Intake & Output 05/22/21 05/23/21 05/23/21 22:59 06:59 14:59 Intake Total 1000 680 Output Total 1400 750 Balance -400 -70 Lab Results Last 24 Hours: Laboratory Results - last 24 hr 05/22/21 05/23/21 05/23/21 Range/Units 05:10 05:28 05:28 WBC 6.78 (4.0-11.0) K/uL RBC 4.65 (4.50-5.90) M/uL Hgb 14.2 (13.0-17.0) g/dL Hct 41.4 (38.0-50.0) % MCV 89.0 (80.0-98.0) fL MCH 30.5 (27.0-32.0) pg MCHC 34.3 (31.0-37.0) g/dL RDW Std Deviation 40.1 (28.0-62.0) fl RDW Coeff of [place] 13 (11.0-15.0) % Plt Count 326 (150-400) K/uL MPV 9.40 (7.40-12.00) fL Neut % (Auto) 81.8 H (48.0-80.0) % Lymph % (Auto) 12.1 L (16.0-40.0) % [place] % (Auto) 4.6 (0.0-15.0) % Eos % (Auto) 1.5 (0.0-7.0) % Baso % (Auto) 0.0 (0.0-1.5) % Neut # (Auto) 5.6 (1.4-5.7) K/uL Lymph # (Auto) 0.8 (0.6-2.4) K/uL [place] # (Auto) 0.3 (0.0-0.8) K/uL Eos # (Auto) 0.1 (0.0-0.7) K/uL Baso # (Auto) 0.0 (0.0-0.1) K/uL Sodium 132 L (136-148) mmol/L Potassium 3.9 (3.5-5.1) mmol/L Chloride 97 L (98-107) mmol/L Carbon Dioxide 27.2 (21.0-32.0) mmol/L BUN 22 H (7.0-18.0) mg/dL Creatinine 0.9 (0.8-1.3) mg/dL Est Cr Clr Drug Dosing 86.56 mL/min Estimated GFR (MDRD) > 60.0 ml/min Glucose 100 (74-106) mg/dL Calcium 9.0 (8.5-10.1) mg/dL Procalcitonin <0.05 ng/mL Med Orders - Current: Current Medications Acetaminophen (Acetaminophen 325 Mg Tab) 650 mg PO Q4H PRN PRN Reason: Pain Hydrocodone Bitart/Acetaminophen (Acetaminophen/Hydrocodone 325-7.5 Mg Tab) 1 tab PO Q4H PRN PRN Reason: Pain Last Admin: 05/19/21 09:33 Dose: 1 tab Documented by: Albuterol/Ipratropium (Albuterol/Ipratropium 4 Gm Inhalation [place]) 0 gm INH QID [facility] Last Admin: 05/23/21 05:56 Dose: 1 puff Documented by: Cholecalciferol (Cholecalciferol (Vitamin D3) 25 Mcg Tab) 50 mcg PO DAILY [facility] Last Admin: 05/23/21 08:34 Dose: 50 mcg Documented by: Docusate Sodium (Docusate Sodium 100 Mg Cap) 100 mg PO BID [facility] Last Admin: 05/23/21 10:13 Dose: 100 mg Documented by: Enoxaparin Sodium (Enoxaparin 40 Mg/0.4 Ml Syringe) 40 mg SUBCUT Q24H [facility] Last Admin: 05/23/21 08:34 Dose: 40 mg Documented by: Guaifenesin/Dextromethorphan (Guaifenesin/Dextromethorphan 100-10 Mg/5 Ml Soln 10 Ml Cup) 10 ml PO Q4H PRN PRN Reason: Cough Levofloxacin/Dextrose 750 mg/ (Premix) 150 mls @ 100 mls/hr IV Q24H [facility] Last Admin: 05/22/21 21:40 Dose: 100 mls/hr Documented by: Ondansetron HCl (Ondansetron 4 Mg/2 Ml Sdv) 4 mg IVPUSH Q4H PRN PRN Reason: Nausea/Vomiting Pantoprazole Sodium (Pantoprazole 40 Mg Tab.Cr) 40 mg PO ACBREAKFAST [facility] Last Admin: 05/23/21 08:34 Dose: 40 mg Documented by: Polyethylene Glycol (Polyethylene Glycol 3350 Powder 17 Gm Packet) 17 gm PO BEDTIME [facility] Last Admin: 05/22/21 21:40 Dose: 17 gm Documented by: Discontinued Medications Acetaminophen (Acetaminophen 325 Mg Tab) 1,000 mg PO NOW ONE Stop: 05/12/21 19:56 Last Admin: 05/12/21 20:00 Dose: 1,000 mg Documented by: Dexamethasone (Dexamethasone 4 Mg Tab) 6 mg PO DAILY [facility] Stop: 05/21/21 09:01 Last Admin: 05/21/21 09:34 Dose: 6 mg Documented by: Enoxaparin Sodium (Enoxaparin 40 Mg/0.4 Ml Syringe) 40 mg SUBCUT Q24H [facility] Last Admin: 05/12/21 23:25 Dose: Not Given Documented by: Enoxaparin Sodium (Enoxaparin 100 Mg/1 Ml Syringe) 70 mg SUBCUT Q12H [facility] Last Admin: 05/12/21 23:04 Dose: 70 mg Documented by: Enoxaparin Sodium (Enoxaparin 100 Mg/1 Ml Syringe) 80 mg SUBCUT Q12H [facility] Last Admin: 05/13/21 10:35 Dose: 80 mg Documented by: Furosemide (Furosemide 20 Mg/2 Ml Vial) 20 mg IVPUSH NOW ONE Stop: 05/22/21 09:29 Last Admin: 05/22/21 10:13 Dose: 20 mg Documented by: Pantoprazole Sodium 40 mg/ (Sodium Chloride) 10 mls @ 200 mls/hr IV DAILY [facility] Remdesivir 100 mg/ Sodium (Chloride) 100 mls @ 100 mls/hr IV Q24H [facility] Stop: 05/16/21 22:59 Last Admin: 05/16/21 21:52 Dose: 100 mls/hr Documented by: Remdesivir 200 mg/ Sodium (Chloride) 250 mls @ 250 mls/hr IV ONETIME ONE Stop: 05/12/21 21:48 Last Admin: 05/12/21 23:09 Dose: 250 mls/hr Documented by: Iopamidol (Iopamidol 755 Mg/Ml 500 Ml Multipack Bottle) 75 ml IVPUSH ONETIME STA Stop: 05/13/21 11:21 Last Admin: 05/13/21 11:30 Dose: 75 ml Documented by: - Patient Data Lab Results Last 24 hrs: Laboratory Results - last 24 hr 05/22/21 05/23/21 05/23/21 Range/Units 05:10 05:28 05:28 WBC 6.78 (4.0-11.0) K/uL RBC 4.65 (4.50-5.90) M/uL Hgb 14.2 (13.0-17.0) g/dL Hct 41.4 (38.0-50.0) % MCV 89.0 (80.0-98.0) fL MCH 30.5 (27.0-32.0) pg MCHC 34.3 (31.0-37.0) g/dL RDW Std Deviation 40.1 (28.0-62.0) fl RDW Coeff of [place] 13 (11.0-15.0) % Plt Count 326 (150-400) K/uL MPV 9.40 (7.40-12.00) fL Neut % (Auto) 81.8 H (48.0-80.0) % Lymph % (Auto) 12.1 L (16.0-40.0) % [place] % (Auto) 4.6 (0.0-15.0) % Eos % (Auto) 1.5 (0.0-7.0) % Baso % (Auto) 0.0 (0.0-1.5) % Neut # (Auto) 5.6 (1.4-5.7) K/uL Lymph # (Auto) 0.8 (0.6-2.4) K/uL [place] # (Auto) 0.3 (0.0-0.8) K/uL Eos # (Auto) 0.1 (0.0-0.7) K/uL Baso # (Auto) 0.0 (0.0-0.1) K/uL Sodium 132 L (136-148) mmol/L Potassium 3.9 (3.5-5.1) mmol/L Chloride 97 L (98-107) mmol/L Carbon Dioxide 27.2 (21.0-32.0) mmol/L BUN 22 H (7.0-18.0) mg/dL Creatinine 0.9 (0.8-1.3) mg/dL Est Cr Clr Drug Dosing 86.56 mL/min Estimated GFR (MDRD) > 60.0 ml/min Glucose 100 (74-106) mg/dL Calcium 9.0 (8.5-10.1) mg/dL Procalcitonin <0.05 ng/mL Result Diagrams: 05/23/21 05:28 05/23/21 05:28 Sepsis Event Note - Focused Exam Vital Signs: Vital Signs Temp Resp BP Pulse Ox 05/23/21 10:00 24 H 116/62 91 L 05/23/21 09:00 25 H 109/70 89 L 05/23/21 08:00 21 H 103/65 94 L 05/23/21 07:00 17 116/69 98 05/23/21 06:00 18 106/70 98 05/23/21 05:00 18 98/61 95 05/23/21 04:00 36.5 C 18 96/61 96 05/23/21 03:00 22 H 104/58 L 95 05/23/21 02:00 25 H 105/53 L 93 L 05/23/21 01:00 21 H 99/62 94 L - Problem List & Annotations (1) COVID-19 SNOMED Code(s): 628815234 Code(s): U07.1 - COVID-19 Status: Acute Current Visit: Yes (2) Hypoxia SNOMED Code(s): 287188029 Code(s): R09.02 - HYPOXEMIA Status: Acute Current Visit: Yes (3) Diarrhea SNOMED Code(s): 68264528 Code(s): R19.7 - DIARRHEA, UNSPECIFIED Status: Acute Current Visit: No (4) Fever SNOMED Code(s): 593918550 Code(s): R50.9 - FEVER, UNSPECIFIED Status: Acute Current Visit: No - Plan Plan:: I have seen and evaluated the patient and agree with the residents note unless specified in my note
--- NOTE | 2021-05-21 20:34 | CR ---
Indication: COVID infection, increased oxygen requirement Technique: Chest 1 view Comparison: Chest x-ray 05/16/2021 Findings/Impression: Cardiovascular and mediastinum: Heart size and vasculature are normal in caliber and appearance. Lungs and pleural space: No pleural effusion or pneumothorax. Hazy opacities within the left lung showing interval worsening compared to the prior examination consistent with worsening COVID pneumonia. Bones and soft tissues: No acute findings. Dictated by Jeramy Hassan MD @ 05/21/2021 8:33:12 PM (Electronically Signed)
[2021-05-21] MEDS: Polyethylene Glycol 3350 Powder 17 GM Packet PO SCH (20:58)
[2021-05-21] MEDS: Levofloxacin/Dextrose 5%-Water 750 MG in Premix Bag 1 BAG IV SCH (22:04)
[2021-05-22] MEDS: Albuterol/Ipratropium 4 GM Inhalation Spray INH SCH ×4 (00:15→17:10)
--- NOTE | 2021-05-22 00:28 | PN ---
CHILO Physician - Brief Progress [id number]/23/2021 00:22[facility] [place], [place] - [facility] - CHAR ICUSAHIL, JEN Jono, COVID+Date of Service 05/22/2021 00:22HPI/ Events of Note eICU admission noteActive problems:1. Acute hypoxemic respiratory failure2. Severe C OVID-19 pneumoniaHPI:History obtained from reviewing medical records.56-year-old male presented on with shortness of breath and hypoxemia, tested positive for COVID-19. CT chest showed no pulmonar y embolism showed pulmonary opacities consistent with COVID-19 infection. Patient was treated with r emdesivir and completed 10 days of dexamethasone. He is currently on high flow nasal cannula oxygen with 50% FiO2 oxygen saturation 94 to 96%.Patient was seen by E elle Zayas, no acute distressVi tals:T 36.5 xC, BP 111/64, P 64, SPO2 97% on high flow nasal cannula oxygen 50% [id number], labs and dominik Paulino recommendations:Continue current treatment plan as per primary medical team: Dexam ethasone completed, antibiotics, bronchodilators, high flow nasal cannula oxygen, titrate oxygen for SPO2 greater than 90%, maintain euvolemic to negative fluid balance, DVT prophylaxisThank you for all owing us to participate in care of your patient.Interventions Major-Respiratory failure - evaluation and management
[2021-05-22 06:16] LABS: BLOOD UREA NITROGEN,BUN 18 mg/dL (7.0-18.0); CARBON DIOXIDE,CO2 26.6 mmol/L (21.0-32.0); CHLORIDE,CL 99 mmol/L (98-107); GLUCOSE RANDOM 98 mg/dL (74-106); POTASSIUM,K 4.1 mmol/L (3.5-5.1); SODIUM,NA 134 mmol/L (136-148)
[2021-05-22] MEDS: Pantoprazole 40 MG Tab.CR PO SCH (08:00)
[2021-05-22] MEDS: Cholecalciferol (Vitamin D3) 25 MCG Tab PO SCH (08:07)
[2021-05-22] MEDS: Enoxaparin 40 MG/0.4 ML Syringe SUBCUT SCH (08:11)
[2021-05-22] MEDS ORDERED: Furosemide 20 MG/2 ML VIAL IVPUSH ONE (09:28)
--- NOTE | 2021-05-22 17:43 | PCM.PN ---
<Aldair Barraza - Last Filed: 05/22/21 17:59> - General Info Date of Service: 05/22/21 Subjective Update: Patient states he feels fine. Denies shortness of breath, chest pain, fever, chills, nausea, vomiting, abdominal pain. - Review of Systems General: Denies: Fever, Chills Pulmonary: Denies: Shortness of Breath, Cough Cardiovascular: Denies: Chest Pain Gastrointestinal: Denies: Abdominal Pain, Decreased Appetite, Nausea, Vomiting Neurological: Denies: Confusion, Dizziness - Patient Data Vitals - Most Recent: Last Vital Signs Temp 97.0 F 05/22/21 16:00 Pulse 64 05/21/21 20:57 Resp 22 H 05/22/21 17:00 BP 114/69 05/22/21 17:00 Pulse Ox 98 05/22/21 17:00 Weight - Most Recent: 77.292 kg I&O - Last 24 Hours: Intake & Output 05/22/21 05/22/21 05/22/21 06:59 14:59 22:59 Intake Total 1000 Output Total 1400 Balance -400 Lab Results Last 24 Hours: Laboratory Results - last 24 hr 05/22/21 05/22/21 Range/Units 05:10 05:10 WBC 7.51 (4.0-11.0) K/uL RBC 4.44 L (4.50-5.90) M/uL Hgb 13.5 (13.0-17.0) g/dL Hct 38.9 (38.0-50.0) % MCV 87.6 (80.0-98.0) fL MCH 30.4 (27.0-32.0) pg MCHC 34.7 (31.0-37.0) g/dL RDW Std Deviation 40.8 (28.0-62.0) fl RDW Coeff of [place] 13 (11.0-15.0) % Plt Count 348 (150-400) K/uL MPV 9.70 (7.40-12.00) fL Neut % (Auto) 83.8 H (48.0-80.0) % Lymph % (Auto) 12.4 L (16.0-40.0) % [place] % (Auto) 3.3 (0.0-15.0) % Eos % (Auto) 0.5 (0.0-7.0) % Baso % (Auto) 0.0 (0.0-1.5) % Neut # (Auto) 6.3 H (1.4-5.7) K/uL Lymph # (Auto) 0.9 (0.6-2.4) K/uL [place] # (Auto) 0.3 (0.0-0.8) K/uL Eos # (Auto) 0.0 (0.0-0.7) K/uL Baso # (Auto) 0.0 (0.0-0.1) K/uL Nucleated RBC % 0.0 /100WBC Nucleated RBCs # 0 K/uL Sodium 134 L (136-148) mmol/L Potassium 4.1 (3.5-5.1) mmol/L Chloride 99 (98-107) mmol/L Carbon Dioxide 26.6 (21.0-32.0) mmol/L BUN 18 (7.0-18.0) mg/dL Creatinine 0.7 L (0.8-1.3) mg/dL Est Cr Clr Drug Dosing 111.29 mL/min Estimated GFR (MDRD) > 60.0 ml/min Glucose 98 (74-106) mg/dL Calcium 8.9 (8.5-10.1) mg/dL Vitamin D 25-Hydroxy 24.1 L (30.0-100.0) ng/mL Med Orders - Current: Current Medications Acetaminophen (Acetaminophen 325 Mg Tab) 650 mg PO Q4H PRN PRN Reason: Pain Hydrocodone Bitart/Acetaminophen (Acetaminophen/Hydrocodone 325-7.5 Mg Tab) 1 tab PO Q4H PRN PRN Reason: Pain Last Admin: 05/19/21 09:33 Dose: 1 tab Documented by: Albuterol/Ipratropium (Albuterol/Ipratropium 4 Gm Inhalation [place]) 0 gm INH QID [facility] Last Admin: 05/22/21 17:10 Dose: 1 puff Documented by: Cholecalciferol (Cholecalciferol (Vitamin D3) 25 Mcg Tab) 50 mcg PO DAILY [facility] Last Admin: 05/22/21 08:07 Dose: 50 mcg Documented by: Enoxaparin Sodium (Enoxaparin 40 Mg/0.4 Ml Syringe) 40 mg SUBCUT Q24H [facility] Last Admin: 05/22/21 08:11 Dose: 40 mg Documented by: Guaifenesin/Dextromethorphan (Guaifenesin/Dextromethorphan 100-10 Mg/5 Ml Soln 10 Ml Cup) 10 ml PO Q4H PRN PRN Reason: Cough Levofloxacin/Dextrose 750 mg/ (Premix) 150 mls @ 100 mls/hr IV Q24H [facility] Last Admin: 05/21/21 22:04 Dose: 100 mls/hr Documented by: Ondansetron HCl (Ondansetron 4 Mg/2 Ml Sdv) 4 mg IVPUSH Q4H PRN PRN Reason: Nausea/Vomiting Pantoprazole Sodium (Pantoprazole 40 Mg Tab.Cr) 40 mg PO ACBREAKFAST [facility] Last Admin: 05/22/21 08:00 Dose: 40 mg Documented by: Polyethylene Glycol (Polyethylene Glycol 3350 Powder 17 Gm Packet) 17 gm PO BEDTIME [facility] Last Admin: 05/21/21 20:58 Dose: 17 gm Documented by: Discontinued Medications Acetaminophen (Acetaminophen 325 Mg Tab) 1,000 mg PO NOW ONE Stop: 05/12/21 19:56 Last Admin: 05/12/21 20:00 Dose: 1,000 mg Documented by: Dexamethasone (Dexamethasone 4 Mg Tab) 6 mg PO DAILY [facility] Stop: 05/21/21 09:01 Last Admin: 05/21/21 09:34 Dose: 6 mg Documented by: Enoxaparin Sodium (Enoxaparin 40 Mg/0.4 Ml Syringe) 40 mg SUBCUT Q24H [facility] Last Admin: 05/12/21 23:25 Dose: Not Given Documented by: Enoxaparin Sodium (Enoxaparin 100 Mg/1 Ml Syringe) 70 mg SUBCUT Q12H [facility] Last Admin: 05/12/21 23:04 Dose: 70 mg Documented by: Enoxaparin Sodium (Enoxaparin 100 Mg/1 Ml Syringe) 80 mg SUBCUT Q12H [facility] Last Admin: 05/13/21 10:35 Dose: 80 mg Documented by: Furosemide (Furosemide 20 Mg/2 Ml Vial) 20 mg IVPUSH NOW ONE Stop: 05/22/21 09:29 Last Admin: 05/22/21 10:13 Dose: 20 mg Documented by: Pantoprazole Sodium 40 mg/ (Sodium Chloride) 10 mls @ 200 mls/hr IV DAILY [facility] Remdesivir 100 mg/ Sodium (Chloride) 100 mls @ 100 mls/hr IV Q24H [facility] Stop: 05/16/21 22:59 Last Admin: 05/16/21 21:52 Dose: 100 mls/hr Documented by: Remdesivir 200 mg/ Sodium (Chloride) 250 mls @ 250 mls/hr IV ONETIME ONE Stop: 05/12/21 21:48 Last Admin: 05/12/21 23:09 Dose: 250 mls/hr Documented by: Iopamidol (Iopamidol 755 Mg/Ml 500 Ml Multipack Bottle) 75 ml IVPUSH ONETIME [facility] Stop: 05/13/21 11:21 Last Admin: 05/13/21 11:30 Dose: 75 ml Documented by: - Exam General: Alert, Oriented (Like with the cutting okay) Lungs: Normal Respiratory Effort, Crackles (bilateral, lower bases) Cardiovascular: Regular Rate, Regular Rhythm GI/Abdominal Exam: Soft, Non-Tender Extremities: No Pedal Edema Psy/Mental Status: Alert - Patient Data Lab Results Last 24 hrs: Laboratory Results - last 24 hr 05/22/21 05/22/21 Range/Units 05:10 05:10 WBC 7.51 (4.0-11.0) K/uL RBC 4.44 L (4.50-5.90) M/uL Hgb 13.5 (13.0-17.0) g/dL Hct 38.9 (38.0-50.0) % MCV 87.6 (80.0-98.0) fL MCH 30.4 (27.0-32.0) pg MCHC 34.7 (31.0-37.0) g/dL RDW Std Deviation 40.8 (28.0-62.0) fl RDW Coeff of [place] 13 (11.0-15.0) % Plt Count 348 (150-400) K/uL MPV 9.70 (7.40-12.00) fL Neut % (Auto) 83.8 H (48.0-80.0) % Lymph % (Auto) 12.4 L (16.0-40.0) % [place] % (Auto) 3.3 (0.0-15.0) % Eos % (Auto) 0.5 (0.0-7.0) % Baso % (Auto) 0.0 (0.0-1.5) % Neut # (Auto) 6.3 H (1.4-5.7) K/uL Lymph # (Auto) 0.9 (0.6-2.4) K/uL [place] # (Auto) 0.3 (0.0-0.8) K/uL Eos # (Auto) 0.0 (0.0-0.7) K/uL Baso # (Auto) 0.0 (0.0-0.1) K/uL Nucleated RBC % 0.0 /100WBC Nucleated RBCs # 0 K/uL Sodium 134 L (136-148) mmol/L Potassium 4.1 (3.5-5.1) mmol/L Chloride 99 (98-107) mmol/L Carbon Dioxide 26.6 (21.0-32.0) mmol/L BUN 18 (7.0-18.0) mg/dL Creatinine 0.7 L (0.8-1.3) mg/dL Est Cr Clr Drug Dosing 111.29 mL/min Estimated GFR (MDRD) > 60.0 ml/min Glucose 98 (74-106) mg/dL Calcium 8.9 (8.5-10.1) mg/dL Vitamin D 25-Hydroxy 24.1 L (30.0-100.0) ng/mL Result Diagrams: 05/22/21 05:10 05/22/21 05:10 Sepsis Event Note - Evaluation Sepsis Screening Result: No Definite Risk - Focused Exam Vital Signs: Vital Signs Temp Resp BP Pulse Ox 05/22/21 17:00 22 H 114/69 98 05/22/21 16:00 97.0 F 25 H 117/67 97 05/22/21 15:00 41 H 106/75 82 L 05/22/21 14:00 28 H 121/73 94 L 05/22/21 13:00 22 H 110/71 95 05/22/21 12:00 97.2 F 23 H 105/66 88 L 05/22/21 11:00 30 H 106/56 L 84 L 05/22/21 10:40 32 H 80 L 05/22/21 10:00 24 H 105/66 90 L 05/22/21 09:00 16 101/67 88 L 05/22/21 08:00 96.8 F L 19 97/59 L 91 L 05/22/21 07:00 23 H 96/61 90 L - Problem List & Annotations (1) Acute respiratory failure with hypoxia SNOMED Code(s): 98577578, 710593403 Code(s): J96.01 - ACUTE RESPIRATORY FAILURE WITH HYPOXIA Status: Acute Current Visit: Yes (2) COVID-19 SNOMED Code(s): 470726211 Code(s): U07.1 - COVID-19 Status: Acute Current Visit: Yes - Problem List Review Problem List Initiated/Reviewed/Updated: Yes - My Orders Last 24 Hours: My Active Orders 05/21/21 18:55 PROCALCITONIN [REF] Urgent 05/21/21 21:00 polyethylene glycoL 3350 [MiraLAX] 17 gm PO BEDTIME 05/22/21 09:00 Cholecalciferol (Vitamin D3) [Vitamin D3] 50 mcg PO DAILY - Plan Plan:: Acute hypoxic respiratory failure/COVID-19 Patient was transferred to the ICU overnight for closer monitoring. continue HHF, Oxygen to keep sats greater than 90%. Currently at flow 40, fiO2 65, continue to wean as tolerated Combivent, Encourage I/S, proning, Robitussin Levaquin started as patients chest x ray impression- hazy opacities within the left lung <Calvin Chung - Last Filed: 05/23/21 12:09> - Patient Data Vitals - Most Recent: Last Vital Signs Temp 36.5 C 05/23/21 04:00 Pulse 64 05/21/21 20:57 Resp 24 H 05/23/21 10:00 BP 116/62 05/23/21 10:00 Pulse Ox 91 L 05/23/21 10:00 I&O - Last 24 Hours: Intake & Output 05/22/21 05/23/21 05/23/21 22:59 06:59 14:59 Intake Total 1000 680 Output Total 1400 750 Balance -400 -70 Lab Results Last 24 Hours: Laboratory Results - last 24 hr 05/22/21 05/23/21 05/23/21 Range/Units 05:10 05:28 05:28 WBC 6.78 (4.0-11.0) K/uL RBC 4.65 (4.50-5.90) M/uL Hgb 14.2 (13.0-17.0) g/dL Hct 41.4 (38.0-50.0) % MCV 89.0 (80.0-98.0) fL MCH 30.5 (27.0-32.0) pg MCHC 34.3 (31.0-37.0) g/dL RDW Std Deviation 40.1 (28.0-62.0) fl RDW Coeff of [place] 13 (11.0-15.0) % Plt Count 326 (150-400) K/uL MPV 9.40 (7.40-12.00) fL Neut % (Auto) 81.8 H (48.0-80.0) % Lymph % (Auto) 12.1 L (16.0-40.0) % [place] % (Auto) 4.6 (0.0-15.0) % Eos % (Auto) 1.5 (0.0-7.0) % Baso % (Auto) 0.0 (0.0-1.5) % Neut # (Auto) 5.6 (1.4-5.7) K/uL Lymph # (Auto) 0.8 (0.6-2.4) K/uL [place] # (Auto) 0.3 (0.0-0.8) K/uL Eos # (Auto) 0.1 (0.0-0.7) K/uL Baso # (Auto) 0.0 (0.0-0.1) K/uL Sodium 132 L (136-148) mmol/L Potassium 3.9 (3.5-5.1) mmol/L Chloride 97 L (98-107) mmol/L Carbon Dioxide 27.2 (21.0-32.0) mmol/L BUN 22 H (7.0-18.0) mg/dL Creatinine 0.9 (0.8-1.3) mg/dL Est Cr Clr Drug Dosing 86.56 mL/min Estimated GFR (MDRD) > 60.0 ml/min Glucose 100 (74-106) mg/dL Calcium 9.0 (8.5-10.1) mg/dL Procalcitonin <0.05 ng/mL Med Orders - Current: Current Medications Acetaminophen (Acetaminophen 325 Mg Tab) 650 mg PO Q4H PRN PRN Reason: Pain Hydrocodone Bitart/Acetaminophen (Acetaminophen/Hydrocodone 325-7.5 Mg Tab) 1 tab PO Q4H PRN PRN Reason: Pain Last Admin: 05/19/21 09:33 Dose: 1 tab Documented by: Albuterol/Ipratropium (Albuterol/Ipratropium 4 Gm Inhalation [place]) 0 gm INH QID [facility] Last Admin: 05/23/21 05:56 Dose: 1 puff Documented by: Cholecalciferol (Cholecalciferol (Vitamin D3) 25 Mcg Tab) 50 mcg PO DAILY [facility] Last Admin: 05/23/21 08:34 Dose: 50 mcg Documented by: Docusate Sodium (Docusate Sodium 100 Mg Cap) 100 mg PO BID [facility] Last Admin: 05/23/21 10:13 Dose: 100 mg Documented by: Enoxaparin Sodium (Enoxaparin 40 Mg/0.4 Ml Syringe) 40 mg SUBCUT Q24H [facility] Last Admin: 05/23/21 08:34 Dose: 40 mg Documented by: Guaifenesin/Dextromethorphan (Guaifenesin/Dextromethorphan 100-10 Mg/5 Ml Soln 10 Ml Cup) 10 ml PO Q4H PRN PRN Reason: Cough Levofloxacin/Dextrose 750 mg/ (Premix) 150 mls @ 100 mls/hr IV Q24H [facility] Last Admin: 05/22/21 21:40 Dose: 100 mls/hr Documented by: Ondansetron HCl (Ondansetron 4 Mg/2 Ml Sdv) 4 mg IVPUSH Q4H PRN PRN Reason: Nausea/Vomiting Pantoprazole Sodium (Pantoprazole 40 Mg Tab.Cr) 40 mg PO ACBREAKFAST [facility] Last Admin: 05/23/21 08:34 Dose: 40 mg Documented by: Polyethylene Glycol (Polyethylene Glycol 3350 Powder 17 Gm Packet) 17 gm PO BEDTIME [facility] Last Admin: 05/22/21 21:40 Dose: 17 gm Documented by: Discontinued Medications Acetaminophen (Acetaminophen 325 Mg Tab) 1,000 mg PO NOW ONE Stop: 05/12/21 19:56 Last Admin: 05/12/21 20:00 Dose: 1,000 mg Documented by: Dexamethasone (Dexamethasone 4 Mg Tab) 6 mg PO DAILY [facility] Stop: 05/21/21 09:01 Last Admin: 05/21/21 09:34 Dose: 6 mg Documented by: Enoxaparin Sodium (Enoxaparin 40 Mg/0.4 Ml Syringe) 40 mg SUBCUT Q24H [facility] Last Admin: 05/12/21 23:25 Dose: Not Given Documented by: Enoxaparin Sodium (Enoxaparin 100 Mg/1 Ml Syringe) 70 mg SUBCUT Q12H [facility] Last Admin: 05/12/21 23:04 Dose: 70 mg Documented by: Enoxaparin Sodium (Enoxaparin 100 Mg/1 Ml Syringe) 80 mg SUBCUT Q12H [facility] Last Admin: 05/13/21 10:35 Dose: 80 mg Documented by: Furosemide (Furosemide 20 Mg/2 Ml Vial) 20 mg IVPUSH NOW ONE Stop: 05/22/21 09:29 Last Admin: 05/22/21 10:13 Dose: 20 mg Documented by: Pantoprazole Sodium 40 mg/ (Sodium Chloride) 10 mls @ 200 mls/hr IV DAILY [facility] Remdesivir 100 mg/ Sodium (Chloride) 100 mls @ 100 mls/hr IV Q24H [facility] Stop: 05/16/21 22:59 Last Admin: 05/16/21 21:52 Dose: 100 mls/hr Documented by: Remdesivir 200 mg/ Sodium (Chloride) 250 mls @ 250 mls/hr IV ONETIME ONE Stop: 05/12/21 21:48 Last Admin: 05/12/21 23:09 Dose: 250 mls/hr Documented by: Iopamidol (Iopamidol 755 Mg/Ml 500 Ml Multipack Bottle) 75 ml IVPUSH ONETIME [facility] Stop: 05/13/21 11:21 Last Admin: 05/13/21 11:30 Dose: 75 ml Documented by: - Patient Data Lab Results Last 24 hrs: Laboratory Results - last 24 hr 05/22/21 05/23/21 05/23/21 Range/Units 05:10 05:28 05:28 WBC 6.78 (4.0-11.0) K/uL RBC 4.65 (4.50-5.90) M/uL Hgb 14.2 (13.0-17.0) g/dL Hct 41.4 (38.0-50.0) % MCV 89.0 (80.0-98.0) fL MCH 30.5 (27.0-32.0) pg MCHC 34.3 (31.0-37.0) g/dL RDW Std Deviation 40.1 (28.0-62.0) fl RDW Coeff of [place] 13 (11.0-15.0) % Plt Count 326 (150-400) K/uL MPV 9.40 (7.40-12.00) fL Neut % (Auto) 81.8 H (48.0-80.0) % Lymph % (Auto) 12.1 L (16.0-40.0) % [place] % (Auto) 4.6 (0.0-15.0) % Eos % (Auto) 1.5 (0.0-7.0) % Baso % (Auto) 0.0 (0.0-1.5) % Neut # (Auto) 5.6 (1.4-5.7) K/uL Lymph # (Auto) 0.8 (0.6-2.4) K/uL [place] # (Auto) 0.3 (0.0-0.8) K/uL Eos # (Auto) 0.1 (0.0-0.7) K/uL Baso # (Auto) 0.0 (0.0-0.1) K/uL Sodium 132 L (136-148) mmol/L Potassium 3.9 (3.5-5.1) mmol/L Chloride 97 L (98-107) mmol/L Carbon Dioxide 27.2 (21.0-32.0) mmol/L BUN 22 H (7.0-18.0) mg/dL Creatinine 0.9 (0.8-1.3) mg/dL Est Cr Clr Drug Dosing 86.56 mL/min Estimated GFR (MDRD) > 60.0 ml/min Glucose 100 (74-106) mg/dL Calcium 9.0 (8.5-10.1) mg/dL Procalcitonin <0.05 ng/mL Result Diagrams: 05/23/21 05:28 05/23/21 05:28 Sepsis Event Note - Focused Exam Vital Signs: Vital Signs Temp Resp BP Pulse Ox 05/23/21 10:00 24 H 116/62 91 L 05/23/21 09:00 25 H 109/70 89 L 05/23/21 08:00 21 H 103/65 94 L 09/24/21 07:00 17 116/69 98 05/23/21 06:00 18 106/70 98 05/23/21 05:00 18 98/61 95 05/23/21 04:00 36.5 C 18 96/61 96 05/23/21 03:00 22 H 104/58 L 95 05/23/21 02:00 25 H 105/53 L 93 L 05/23/21 01:00 21 H 99/62 94 L - Problem List & Annotations (1) COVID-19 SNOMED Code(s): 269741686 Code(s): U07.1 - COVID-19 Status: Acute Current Visit: Yes (2) Hypoxia SNOMED Code(s): 446757514 Code(s): R09.02 - HYPOXEMIA Status: Acute Current Visit: Yes (3) Diarrhea SNOMED Code(s): 87856870 Code(s): R19.7 - DIARRHEA, UNSPECIFIED Status: Acute Current Visit: No (4) Fever SNOMED Code(s): 362283717 Code(s): R50.9 - FEVER, UNSPECIFIED Status: Acute Current Visit: No - Plan Plan:: I have seen and evaluated the patient and agree with the residents note unless specified in my note
[2021-05-22] MEDS: Levofloxacin/Dextrose 5%-Water 750 MG in Premix Bag 1 BAG IV SCH (21:40)
[2021-05-22] MEDS: Polyethylene Glycol 3350 Powder 17 GM Packet PO SCH (21:40)
[2021-05-23] MEDS: Albuterol/Ipratropium 4 GM Inhalation Spray INH SCH ×4 (00:05→18:06)
[2021-05-23 06:25] LABS: BLOOD UREA NITROGEN,BUN 22 mg/dL (7.0-18.0); CARBON DIOXIDE,CO2 27.2 mmol/L (21.0-32.0); CHLORIDE,CL 97 mmol/L (98-107); GLUCOSE RANDOM 100 mg/dL (74-106); POTASSIUM,K 3.9 mmol/L (3.5-5.1); SODIUM,NA 132 mmol/L (136-148)
[2021-05-23] MEDS: Enoxaparin 40 MG/0.4 ML Syringe SUBCUT SCH (08:34)
[2021-05-23] MEDS: Cholecalciferol (Vitamin D3) 25 MCG Tab PO SCH (08:34)
[2021-05-23] MEDS: Pantoprazole 40 MG Tab.CR PO SCH (08:34)
--- NOTE | 2021-05-23 08:56 | PCM.PN ---
<Aldair Barraza - Last Filed: 05/23/21 16:20> - General Info Date of Service: 05/23/21 Subjective Update: Patient states he feels fine this morning. Denies chest pain, shortness of breath, palpitations. States normal appetite. Patient was laying in bed comfortably in prone position at the time of questioning with no signs of respiratory distress - Review of Systems General: Denies: Fever, Chills Pulmonary: Denies: Shortness of Breath, Cough Cardiovascular: Denies: Chest Pain, Palpitations, Orthopnea, Edema Gastrointestinal: Denies: Abdominal Pain, Decreased Appetite, Nausea, Vomiting Neurological: Denies: Confusion, Dizziness, Headache Psychiatric: Denies: Confusion - Patient Data Vitals - Most Recent: Last Vital Signs Temp 97.7 F 05/23/21 04:00 Pulse 64 05/21/21 20:57 Resp 17 05/23/21 07:00 BP 116/69 05/23/21 07:00 Pulse Ox 98 05/23/21 07:00 Weight - Most Recent: 71.804 kg I&O - Last 24 Hours: Intake & Output 05/22/21 05/23/21 05/23/21 22:59 06:59 14:59 Intake Total 1000 680 Output Total 1400 750 Balance -400 -70 Lab Results Last 24 Hours: Laboratory Results - last 24 hr 05/22/21 05/23/21 05/23/21 Range/Units 05:10 05:28 05:28 WBC 6.78 (4.0-11.0) K/uL RBC 4.65 (4.50-5.90) M/uL Hgb 14.2 (13.0-17.0) g/dL Hct 41.4 (38.0-50.0) % MCV 89.0 (80.0-98.0) fL MCH 30.5 (27.0-32.0) pg MCHC 34.3 (31.0-37.0) g/dL RDW Std Deviation 40.1 (28.0-62.0) fl RDW Coeff of [place] 13 (11.0-15.0) % Plt Count 326 (150-400) K/uL MPV 9.40 (7.40-12.00) fL Neut % (Auto) 81.8 H (48.0-80.0) % Lymph % (Auto) 12.1 L (16.0-40.0) % [place] % (Auto) 4.6 (0.0-15.0) % Eos % (Auto) 1.5 (0.0-7.0) % Baso % (Auto) 0.0 (0.0-1.5) % Neut # (Auto) 5.6 (1.4-5.7) K/uL Lymph # (Auto) 0.8 (0.6-2.4) K/uL [place] # (Auto) 0.3 (0.0-0.8) K/uL Eos # (Auto) 0.1 (0.0-0.7) K/uL Baso # (Auto) 0.0 (0.0-0.1) K/uL Sodium 132 L (136-148) mmol/L Potassium 3.9 (3.5-5.1) mmol/L Chloride 97 L (98-107) mmol/L Carbon Dioxide 27.2 (21.0-32.0) mmol/L BUN 22 H (7.0-18.0) mg/dL Creatinine 0.9 (0.8-1.3) mg/dL Est Cr Clr Drug Dosing 86.56 mL/min Estimated GFR (MDRD) > 60.0 ml/min Glucose 100 (74-106) mg/dL Calcium 9.0 (8.5-10.1) mg/dL Procalcitonin <0.05 ng/mL Med Orders - Current: Current Medications Acetaminophen (Acetaminophen 325 Mg Tab) 650 mg PO Q4H PRN PRN Reason: Pain Hydrocodone Bitart/Acetaminophen (Acetaminophen/Hydrocodone 325-7.5 Mg Tab) 1 tab PO Q4H PRN PRN Reason: Pain Last Admin: 05/19/21 09:33 Dose: 1 tab Documented by: Albuterol/Ipratropium (Albuterol/Ipratropium 4 Gm Inhalation [place]) 0 gm INH QID [facility] Last Admin: 05/23/21 05:56 Dose: 1 puff Documented by: Cholecalciferol (Cholecalciferol (Vitamin D3) 25 Mcg Tab) 50 mcg PO DAILY [facility] Last Admin: 05/23/21 08:34 Dose: 50 mcg Documented by: Enoxaparin Sodium (Enoxaparin 40 Mg/0.4 Ml Syringe) 40 mg SUBCUT Q24H [facility] Last Admin: 05/23/21 08:34 Dose: 40 mg Documented by: Guaifenesin/Dextromethorphan (Guaifenesin/Dextromethorphan 100-10 Mg/5 Ml Soln 10 Ml Cup) 10 ml PO Q4H PRN PRN Reason: Cough Levofloxacin/Dextrose 750 mg/ (Premix) 150 mls @ 100 mls/hr IV Q24H [facility] Last Admin: 05/22/21 21:40 Dose: 100 mls/hr Documented by: Ondansetron HCl (Ondansetron 4 Mg/2 Ml Sdv) 4 mg IVPUSH Q4H PRN PRN Reason: Nausea/Vomiting Pantoprazole Sodium (Pantoprazole 40 Mg Tab.Cr) 40 mg PO ACBREAKFAST [facility] Last Admin: 05/23/21 08:34 Dose: 40 mg Documented by: Polyethylene Glycol (Polyethylene Glycol 3350 Powder 17 Gm Packet) 17 gm PO BEDTIME [facility] Last Admin: 05/22/21 21:40 Dose: 17 gm Documented by: Discontinued Medications Acetaminophen (Acetaminophen 325 Mg Tab) 1,000 mg PO NOW ONE Stop: 05/12/21 19:56 Last Admin: 05/12/21 20:00 Dose: 1,000 mg Documented by: Dexamethasone (Dexamethasone 4 Mg Tab) 6 mg PO DAILY [facility] Stop: 05/21/21 09:01 Last Admin: 05/21/21 09:34 Dose: 6 mg Documented by: Enoxaparin Sodium (Enoxaparin 40 Mg/0.4 Ml Syringe) 40 mg SUBCUT Q24H [facility] Last Admin: 05/12/21 23:25 Dose: Not Given Documented by: Enoxaparin Sodium (Enoxaparin 100 Mg/1 Ml Syringe) 70 mg SUBCUT Q12H [facility] Last Admin: 05/12/21 23:04 Dose: 70 mg Documented by: Enoxaparin Sodium (Enoxaparin 100 Mg/1 Ml Syringe) 80 mg SUBCUT Q12H [facility] Last Admin: 05/13/21 10:35 Dose: 80 mg Documented by: Furosemide (Furosemide 20 Mg/2 Ml Vial) 20 mg IVPUSH NOW ONE Stop: 05/22/21 09:29 Last Admin: 05/22/21 10:13 Dose: 20 mg Documented by: Pantoprazole Sodium 40 mg/ (Sodium Chloride) 10 mls @ 200 mls/hr IV DAILY [facility] Remdesivir 100 mg/ Sodium (Chloride) 100 mls @ 100 mls/hr IV Q24H [facility] Stop: 05/16/21 22:59 Last Admin: 05/16/21 21:52 Dose: 100 mls/hr Documented by: Remdesivir 200 mg/ Sodium (Chloride) 250 mls @ 250 mls/hr IV ONETIME ONE Stop: 05/12/21 21:48 Last Admin: 05/12/21 23:09 Dose: 250 mls/hr Documented by: Iopamidol (Iopamidol 755 Mg/Ml 500 Ml Multipack Bottle) 75 ml IVPUSH ONETIME STA Stop: 05/13/21 11:21 Last Admin: 05/13/21 11:30 Dose: 75 ml Documented by: - Exam Quality Assessment: Supplemental Oxygen (hhf) General: Alert, Oriented Lungs: Normal Respiratory Effort, Crackles (lower lobes) Cardiovascular: Regular Rate, Regular Rhythm GI/Abdominal Exam: Soft, Non-Tender, No Distention Extremities: No Pedal Edema Psy/Mental Status: Alert - Patient Data Lab Results Last 24 hrs: Laboratory Results - last 24 hr 05/22/21 05/23/21 05/23/21 Range/Units 05:10 05:28 05:28 WBC 6.78 (4.0-11.0) K/uL RBC 4.65 (4.50-5.90) M/uL Hgb 14.2 (13.0-17.0) g/dL Hct 41.4 (38.0-50.0) % MCV 89.0 (80.0-98.0) fL MCH 30.5 (27.0-32.0) pg MCHC 34.3 (31.0-37.0) g/dL RDW Std Deviation 40.1 (28.0-62.0) fl RDW Coeff of [place] 13 (11.0-15.0) % Plt Count 326 (150-400) K/uL MPV 9.40 (7.40-12.00) fL Neut % (Auto) 81.8 H (48.0-80.0) % Lymph % (Auto) 12.1 L (16.0-40.0) % [place] % (Auto) 4.6 (0.0-15.0) % Eos % (Auto) 1.5 (0.0-7.0) % Baso % (Auto) 0.0 (0.0-1.5) % Neut # (Auto) 5.6 (1.4-5.7) K/uL Lymph # (Auto) 0.8 (0.6-2.4) K/uL [place] # (Auto) 0.3 (0.0-0.8) K/uL Eos # (Auto) 0.1 (0.0-0.7) K/uL Baso # (Auto) 0.0 (0.0-0.1) K/uL Sodium 132 L (136-148) mmol/L Potassium 3.9 (3.5-5.1) mmol/L Chloride 97 L (98-107) mmol/L Carbon Dioxide 27.2 (21.0-32.0) mmol/L BUN 22 H (7.0-18.0) mg/dL Creatinine 0.9 (0.8-1.3) mg/dL Est Cr Clr Drug Dosing 86.56 mL/min Estimated GFR (MDRD) > 60.0 ml/min Glucose 100 (74-106) mg/dL Calcium 9.0 (8.5-10.1) mg/dL Procalcitonin <0.05 ng/mL Result Diagrams: 05/23/21 05:28 05/23/21 05:28 Sepsis Event Note - Evaluation Sepsis Screening Result: No Definite Risk - Focused Exam Vital Signs: Vital Signs Temp Resp BP Pulse Ox 05/23/21 07:00 17 116/69 98 05/23/21 06:00 18 106/70 98 05/23/21 05:00 18 98/61 95 05/23/21 04:00 97.7 F 18 96/61 96 05/23/21 03:00 22 H 104/58 L 95 05/23/21 02:00 25 H 105/53 L 93 L 05/23/21 01:00 21 H 99/62 94 L 05/23/21 00:00 97.2 F 22 H 98/51 L 92 L 05/22/21 23:00 24 H 94/58 L 92 L 05/22/21 22:00 22 H 98/59 L 94 L 05/22/21 21:00 22 H 123/92 H 92 L - Problem List & Annotations (1) Acute respiratory failure with hypoxia SNOMED Code(s): 60051195, 233648681 Code(s): J96.01 - ACUTE RESPIRATORY FAILURE WITH HYPOXIA Status: Acute (2) COVID-19 SNOMED Code(s): 320476685 Code(s): U07.1 - COVID-19 Status: Acute - Problem List Review Problem List Initiated/Reviewed/Updated: Yes - My Orders Last 24 Hours: My Active Orders 05/22/21 09:00 Cholecalciferol (Vitamin D3) [Vitamin D3] 50 mcg PO DAILY - Plan Plan:: Acute hypoxic respiratory failure/COVID-19 Patient remains in the ICU for closer monitoring continue HHF, Oxygen to keep sats greater than 90%. Currently at flow 45, fiO2 60, continue to wean as tolerated Combivent, Encourage I/S, proning, Robitussin Levaquin started as patients chest x ray impression- hazy opacities within the left lung Patient started on vitamin D 2000 IU <Calvin Chung - Last Filed: 05/31/21 15:14> - Patient Data Vitals - Most Recent: Last Vital Signs Temp 36.6 C 05/31/21 12:58 Pulse 71 05/31/21 12:58 Resp 18 05/31/21 12:58 BP 94/65 05/31/21 12:58 Pulse Ox 90 L 05/31/21 12:58 I&O - Last 24 Hours: Intake & Output 05/31/21 05/31/21 05/31/21 06:59 14:59 22:59 Intake Total 150 300 Balance 150 300 Med Orders - Current: Current Medications Discontinued Medications Acetaminophen (Acetaminophen 325 Mg Tab) 1,000 mg PO NOW ONE Stop: 05/12/21 19:56 Last Admin: 05/12/21 20:00 Dose: 1,000 mg Documented by: Acetaminophen (Acetaminophen 325 Mg Tab) 650 mg PO Q4H PRN PRN Reason: Pain Hydrocodone Bitart/Acetaminophen (Acetaminophen/Hydrocodone 325-7.5 Mg Tab) 1 tab PO Q4H PRN PRN Reason: Pain Last Admin: 05/19/21 09:33 Dose: 1 tab Documented by: Albuterol/Ipratropium (Albuterol/Ipratropium 4 Gm Inhalation [place]) 0 gm INH QID [facility] Last Admin: 05/31/21 12:57 Dose: 1 puff Documented by: Cholecalciferol (Cholecalciferol (Vitamin D3) 25 Mcg Tab) 50 mcg PO DAILY [facility] Last Admin: 05/31/21 09:02 Dose: 50 mcg Documented by: Dexamethasone (Dexamethasone 4 Mg Tab) 6 mg PO DAILY [facility] Stop: 05/21/21 09:01 Last Admin: 05/21/21 09:34 Dose: 6 mg Documented by: Docusate Sodium (Docusate Sodium 100 Mg Cap) 100 mg PO BID [facility] Last Admin: 05/31/21 09:02 Dose: 100 mg Documented by: Enoxaparin Sodium (Enoxaparin 40 Mg/0.4 Ml Syringe) 40 mg SUBCUT Q24H [facility] Last Admin: 05/12/21 23:25 Dose: Not Given Documented by: Enoxaparin Sodium (Enoxaparin 100 Mg/1 Ml Syringe) 70 mg SUBCUT Q12H [facility] Last Admin: 05/12/21 23:04 Dose: 70 mg Documented by: Enoxaparin Sodium (Enoxaparin 100 Mg/1 Ml Syringe) 80 mg SUBCUT Q12H [facility] Last Admin: 05/13/21 10:35 Dose: 80 mg Documented by: Enoxaparin Sodium (Enoxaparin 40 Mg/0.4 Ml Syringe) 40 mg SUBCUT Q24H [facility] Last Admin: 05/31/21 09:03 Dose: 40 mg Documented by: Furosemide (Furosemide 20 Mg/2 Ml Vial) 20 mg IVPUSH NOW ONE Stop: 05/22/21 09:29 Last Admin: 05/22/21 10:13 Dose: 20 mg Documented by: Guaifenesin (Guaifenesin 100 Mg/5 Ml Soln 5 Ml Ud Cup) 100 mg PO Q4H PRN PRN Reason: Cough Guaifenesin/Dextromethorphan (Guaifenesin/Dextromethorphan 100-10 Mg/5 Ml Soln 10 Ml Cup) 10 ml PO Q4H PRN PRN Reason: Cough Pantoprazole Sodium 40 mg/ (Sodium Chloride) 10 mls @ 200 mls/hr IV DAILY [facility] Remdesivir 100 mg/ Sodium (Chloride) 100 mls @ 100 mls/hr IV Q24H [facility] Stop: 05/16/21 22:59 Last Admin: 05/16/21 21:52 Dose: 100 mls/hr Documented by: Remdesivir 200 mg/ Sodium (Chloride) 250 mls @ 250 mls/hr IV ONETIME ONE Stop: 05/12/21 21:48 Last Admin: 05/12/21 23:09 Dose: 250 mls/hr Documented by: Levofloxacin/Dextrose 750 mg/ (Premix) 150 mls @ 100 mls/hr IV Q24H [facility] Last Admin: 05/30/21 21:47 Dose: Not Given Documented by: Levofloxacin/Dextrose 750 mg/ (Premix) 150 mls @ 100 mls/hr IV Q24H [facility] Last Admin: 05/31/21 03:58 Dose: 100 mls/hr Documented by: Iopamidol (Iopamidol 755 Mg/Ml 500 Ml Multipack Bottle) 75 ml IVPUSH ONETIME STA Stop: 05/13/21 11:21 Last Admin: 05/13/21 11:30 Dose: 75 ml Documented by: Ondansetron HCl (Ondansetron 4 Mg/2 Ml Sdv) 4 mg IVPUSH Q4H PRN PRN Reason: Nausea/Vomiting Pantoprazole Sodium (Pantoprazole 40 Mg Tab.Cr) 40 mg PO ACBREAKFAST [facility] Last Admin: 05/31/21 09:02 Dose: 40 mg Documented by: Polyethylene Glycol (Polyethylene Glycol 3350 Powder 17 Gm Packet) 17 gm PO BEDTIME [facility] Last Admin: 05/30/21 20:47 Dose: 17 gm Documented by: - Patient Data Result Diagrams: 05/30/21 06:06 05/30/21 06:06 Sepsis Event Note - Focused Exam Vital Signs: Vital Signs Temp Pulse Resp BP Pulse Ox Pulse Ox 05/31/21 12:58 36.6 C 71 18 94/65 90 L 05/31/21 08:56 92 L 05/31/21 08:55 36.7 C 72 18 98/58 L 92 L 05/31/21 03:27 36.7 C 82 18 93/60 95 - Problem List & Annotations (1) COVID-19 SNOMED Code(s): 921101361 Code(s): U07.1 - COVID-19 Status: Acute (2) Hypoxia SNOMED Code(s): 263487787 Code(s): R09.02 - HYPOXEMIA Status: Acute (3) Diarrhea SNOMED Code(s): 47715452 Code(s): R19.7 - DIARRHEA, UNSPECIFIED Status: Acute (4) Fever SNOMED Code(s): 911203482 Code(s): R50.9 - FEVER, UNSPECIFIED Status: Acute - Plan Plan:: I have seen and evaluated the patient and agree with the residents note unless specified in my note
[2021-05-23] MEDS: Docusate Sodium 100 MG Cap PO SCH ×2 (10:13→21:30)
[2021-05-23] MEDS: Polyethylene Glycol 3350 Powder 17 GM Packet PO SCH (21:30)
[2021-05-23] MEDS: Levofloxacin/Dextrose 5%-Water 750 MG in Premix Bag 1 BAG IV SCH (21:30)
[2021-05-24] MEDS: Albuterol/Ipratropium 4 GM Inhalation Spray INH SCH ×5 (00:32→23:42)
[2021-05-24] MEDS: Pantoprazole 40 MG Tab.CR PO SCH (06:37)
[2021-05-24 07:09] LABS: BLOOD UREA NITROGEN,BUN 16 mg/dL (7.0-18.0); CARBON DIOXIDE,CO2 24.3 mmol/L (21.0-32.0); CHLORIDE,CL 97 mmol/L (98-107); GLUCOSE RANDOM 107 mg/dL (74-106); POTASSIUM,K 3.7 mmol/L (3.5-5.1); SODIUM,NA 130 mmol/L (136-148)
[2021-05-24] MEDS: Cholecalciferol (Vitamin D3) 25 MCG Tab PO SCH (08:54)
[2021-05-24] MEDS: Docusate Sodium 100 MG Cap PO SCH ×2 (08:54→21:01)
[2021-05-24] MEDS: Enoxaparin 40 MG/0.4 ML Syringe SUBCUT SCH (08:54)
--- NOTE | 2021-05-24 14:03 | PCM.PN ---
- General Info Date of Service: 05/24/21 Subjective Update: Patient denies chest pain, shortness of breath, fever, chills, nausea, vomiting or abdominal pain. Patient states normal appetite. - Review of Systems General: Denies: Fever, Chills Pulmonary: Denies: Shortness of Breath, Cough Cardiovascular: Denies: Chest Pain, Orthopnea, Edema Gastrointestinal: Denies: Abdominal Pain, Diarrhea, Nausea, Vomiting Neurological: Denies: Confusion, Dizziness, Headache Psychiatric: Denies: Confusion - Patient Data Vitals - Most Recent: Last Vital Signs Temp 97.2 F 05/24/21 12:00 Pulse 72 05/24/21 12:00 Resp 27 H 05/24/21 12:00 BP 102/65 05/24/21 12:00 Pulse Ox 93 L 05/24/21 12:00 Weight - Most Recent: 158 lb 4.8 oz I&O - Last 24 Hours: Intake & Output 05/23/21 05/24/21 05/24/21 22:59 06:59 14:59 Intake Total 700 390 Output Total 800 0 Balance -100 390 Lab Results Last 24 Hours: Laboratory Results - last 24 hr 05/24/21 05/24/21 Range/Units 05:40 05:40 WBC 6.51 (4.0-11.0) K/uL RBC 4.39 L (4.50-5.90) M/uL Hgb 13.3 (13.0-17.0) g/dL Hct 38.1 (38.0-50.0) % MCV 86.8 (80.0-98.0) fL MCH 30.3 (27.0-32.0) pg MCHC 34.9 (31.0-37.0) g/dL RDW Std Deviation 40.4 (28.0-62.0) fl RDW Coeff of [place] 13 (11.0-15.0) % Plt Count 338 (150-400) K/uL MPV 9.20 (7.40-12.00) fL Neut % (Auto) 79.4 (48.0-80.0) % Lymph % (Auto) 13.2 L (16.0-40.0) % [place] % (Auto) 5.5 (0.0-15.0) % Eos % (Auto) 1.7 (0.0-7.0) % Baso % (Auto) 0.2 (0.0-1.5) % Neut # (Auto) 5.2 (1.4-5.7) K/uL Lymph # (Auto) 0.9 (0.6-2.4) K/uL [place] # (Auto) 0.4 (0.0-0.8) K/uL Eos # (Auto) 0.1 (0.0-0.7) K/uL Baso # (Auto) 0.0 (0.0-0.1) K/uL Nucleated RBC % 0.0 /100WBC Nucleated RBCs # 0 K/uL Sodium 130 L (136-148) mmol/L Potassium 3.7 (3.5-5.1) mmol/L Chloride 97 L (98-107) mmol/L Carbon Dioxide 24.3 (21.0-32.0) mmol/L BUN 16 (7.0-18.0) mg/dL Creatinine 0.9 (0.8-1.3) mg/dL Est Cr Clr Drug Dosing 86.56 mL/min Estimated GFR (MDRD) > 60.0 ml/min Glucose 107 H (74-106) mg/dL Calcium 8.5 (8.5-10.1) mg/dL Total Bilirubin 0.9 (0.2-1.0) mg/dL AST 41 H (15-37) IU/L ALT 71 H (14-63) IU/L Alkaline Phosphatase 90 (46-116) U/L Total Protein 6.9 (6.4-8.2) g/dL Albumin 2.2 L (3.4-5.0) g/dL Globulin 4.7 H (2.6-4.0) g/dL Albumin/Globulin Ratio 0.5 L (0.9-1.6) Med Orders - Current: Current Medications Acetaminophen (Acetaminophen 325 Mg Tab) 650 mg PO Q4H PRN PRN Reason: Pain Hydrocodone Bitart/Acetaminophen (Acetaminophen/Hydrocodone 325-7.5 Mg Tab) 1 tab PO Q4H PRN PRN Reason: Pain Last Admin: 05/19/21 09:33 Dose: 1 tab Documented by: Albuterol/Ipratropium (Albuterol/Ipratropium 4 Gm Inhalation [place]) 0 gm INH QID [facility] Last Admin: 05/24/21 12:29 Dose: 1 puff Documented by: Cholecalciferol (Cholecalciferol (Vitamin D3) 25 Mcg Tab) 50 mcg PO DAILY [facility] Last Admin: 05/24/21 08:54 Dose: 50 mcg Documented by: Docusate Sodium (Docusate Sodium 100 Mg Cap) 100 mg PO BID [facility] Last Admin: 05/24/21 08:54 Dose: 100 mg Documented by: Enoxaparin Sodium (Enoxaparin 40 Mg/0.4 Ml Syringe) 40 mg SUBCUT Q24H [facility] Last Admin: 05/24/21 08:54 Dose: 40 mg Documented by: Guaifenesin/Dextromethorphan (Guaifenesin/Dextromethorphan 100-10 Mg/5 Ml Soln 10 Ml Cup) 10 ml PO Q4H PRN PRN Reason: Cough Levofloxacin/Dextrose 750 mg/ (Premix) 150 mls @ 100 mls/hr IV Q24H [facility] Last Admin: 05/23/21 21:30 Dose: 100 mls/hr Documented by: Ondansetron HCl (Ondansetron 4 Mg/2 Ml Sdv) 4 mg IVPUSH Q4H PRN PRN Reason: Nausea/Vomiting Pantoprazole Sodium (Pantoprazole 40 Mg Tab.Cr) 40 mg PO ACBREAKFAST [facility] Last Admin: 05/24/21 06:37 Dose: 40 mg Documented by: Polyethylene Glycol (Polyethylene Glycol 3350 Powder 17 Gm Packet) 17 gm PO BEDTIME [facility] Last Admin: 05/23/21 21:30 Dose: 17 gm Documented by: Discontinued Medications Acetaminophen (Acetaminophen 325 Mg Tab) 1,000 mg PO NOW ONE Stop: 05/12/21 19:56 Last Admin: 05/12/21 20:00 Dose: 1,000 mg Documented by: Dexamethasone (Dexamethasone 4 Mg Tab) 6 mg PO DAILY [facility] Stop: 05/21/21 09:01 Last Admin: 05/21/21 09:34 Dose: 6 mg Documented by: Enoxaparin Sodium (Enoxaparin 40 Mg/0.4 Ml Syringe) 40 mg SUBCUT Q24H [facility] Last Admin: 05/12/21 23:25 Dose: Not Given Documented by: Enoxaparin Sodium (Enoxaparin 100 Mg/1 Ml Syringe) 70 mg SUBCUT Q12H [facility] Last Admin: 05/12/21 23:04 Dose: 70 mg Documented by: Enoxaparin Sodium (Enoxaparin 100 Mg/1 Ml Syringe) 80 mg SUBCUT Q12H [facility] Last Admin: 05/13/21 10:35 Dose: 80 mg Documented by: Furosemide (Furosemide 20 Mg/2 Ml Vial) 20 mg IVPUSH NOW ONE Stop: 05/22/21 09:29 Last Admin: 05/22/21 10:13 Dose: 20 mg Documented by: Pantoprazole Sodium 40 mg/ (Sodium Chloride) 10 mls @ 200 mls/hr IV DAILY [facility] Remdesivir 100 mg/ Sodium (Chloride) 100 mls @ 100 mls/hr IV Q24H [facility] Stop: 05/16/21 22:59 Last Admin: 05/16/21 21:52 Dose: 100 mls/hr Documented by: Remdesivir 200 mg/ Sodium (Chloride) 250 mls @ 250 mls/hr IV ONETIME ONE Stop: 05/12/21 21:48 Last Admin: 05/12/21 23:09 Dose: 250 mls/hr Documented by: Iopamidol (Iopamidol 755 Mg/Ml 500 Ml Multipack Bottle) 75 ml IVPUSH ONETIME [facility] Stop: 05/13/21 11:21 Last Admin: 05/13/21 11:30 Dose: 75 ml Documented by: - Exam Quality Assessment: Supplemental Oxygen General: Alert, Oriented Lungs: Normal Respiratory Effort, Crackles Cardiovascular: Regular Rate, Regular Rhythm GI/Abdominal Exam: Soft, Non-Tender, No Distention Extremities: No Pedal Edema Psy/Mental Status: Alert - Patient Data Lab Results Last 24 hrs: Laboratory Results - last 24 hr 05/24/21 05/24/21 Range/Units 05:40 05:40 WBC 6.51 (4.0-11.0) K/uL RBC 4.39 L (4.50-5.90) M/uL Hgb 13.3 (13.0-17.0) g/dL Hct 38.1 (38.0-50.0) % MCV 86.8 (80.0-98.0) fL MCH 30.3 (27.0-32.0) pg MCHC 34.9 (31.0-37.0) g/dL RDW Std Deviation 40.4 (28.0-62.0) fl RDW Coeff of [place] 13 (11.0-15.0) % Plt Count 338 (150-400) K/uL MPV 9.20 (7.40-12.00) fL Neut % (Auto) 79.4 (48.0-80.0) % Lymph % (Auto) 13.2 L (16.0-40.0) % [place] % (Auto) 5.5 (0.0-15.0) % Eos % (Auto) 1.7 (0.0-7.0) % Baso % (Auto) 0.2 (0.0-1.5) % Neut # (Auto) 5.2 (1.4-5.7) K/uL Lymph # (Auto) 0.9 (0.6-2.4) K/uL [place] # (Auto) 0.4 (0.0-0.8) K/uL Eos # (Auto) 0.1 (0.0-0.7) K/uL Baso # (Auto) 0.0 (0.0-0.1) K/uL Nucleated RBC % 0.0 /100WBC Nucleated RBCs # 0 K/uL Sodium 130 L (136-148) mmol/L Potassium 3.7 (3.5-5.1) mmol/L Chloride 97 L (98-107) mmol/L Carbon Dioxide 24.3 (21.0-32.0) mmol/L BUN 16 (7.0-18.0) mg/dL Creatinine 0.9 (0.8-1.3) mg/dL Est Cr Clr Drug Dosing 86.56 mL/min Estimated GFR (MDRD) > 60.0 ml/min Glucose 107 H (74-106) mg/dL Calcium 8.5 (8.5-10.1) mg/dL Total Bilirubin 0.9 (0.2-1.0) mg/dL AST 41 H (15-37) IU/L ALT 71 H (14-63) IU/L Alkaline Phosphatase 90 (46-116) U/L Total Protein 6.9 (6.4-8.2) g/dL Albumin 2.2 L (3.4-5.0) g/dL Globulin 4.7 H (2.6-4.0) g/dL Albumin/Globulin Ratio 0.5 L (0.9-1.6) Result Diagrams: 05/24/21 05:40 05/24/21 05:40 Sepsis Event Note - Evaluation Sepsis Screening Result: No Definite Risk - Focused Exam Vital Signs: Vital Signs Temp Pulse Resp BP Pulse Ox 05/24/21 12:00 97.2 F 72 27 H 102/65 93 L 05/24/21 11:00 86 24 H 107/66 93 L 05/24/21 10:00 86 27 H 102/64 96 05/24/21 09:00 97.7 F 95 28 H 117/74 86 L 05/24/21 08:00 116 H 31 H 107/72 92 L 05/24/21 07:00 69 21 H 92 L 05/24/21 06:00 97.6 F 22 H 108/63 96 05/24/21 05:00 19 106/63 95 05/24/21 04:00 25 H 102/65 89 L 05/24/21 03:00 24 H 93/63 93 L - Problem List & Annotations (1) Acute respiratory failure with hypoxia SNOMED Code(s): 71437420, 908817393 Code(s): J96.01 - ACUTE RESPIRATORY FAILURE WITH HYPOXIA Status: Acute Current Visit: Yes (2) COVID-19 SNOMED Code(s): 852075062 Code(s): U07.1 - COVID-19 Status: Acute Current Visit: Yes - Problem List Review Problem List Initiated/Reviewed/Updated: Yes - Plan Plan:: Acute hypoxic respiratory failure/COVID-19 Patient remains in the ICU for closer monitoring continue HHF, Oxygen to keep sats greater than 90%. Currently at flow 40, fiO2 56, continue to wean as tolerated Combivent, Encourage I/S, proning, Robitussin Levaquin started as patients chest x ray impression- hazy opacities within the left lung Patient started on vitamin D 2000 IU
[2021-05-24] MEDS: Polyethylene Glycol 3350 Powder 17 GM Packet PO SCH (21:01)
[2021-05-24] MEDS: Levofloxacin/Dextrose 5%-Water 750 MG in Premix Bag 1 BAG IV SCH (21:03)
[2021-05-25 06:26] LABS: BLOOD UREA NITROGEN,BUN 15 mg/dL (7.0-18.0); CARBON DIOXIDE,CO2 26.4 mmol/L (21.0-32.0); CHLORIDE,CL 97 mmol/L (98-107); GLUCOSE RANDOM 113 mg/dL (74-106); POTASSIUM,K 4.1 mmol/L (3.5-5.1); SODIUM,NA 132 mmol/L (136-148)
[2021-05-25] MEDS: Albuterol/Ipratropium 4 GM Inhalation Spray INH SCH ×4 (06:39→23:44)
[2021-05-25] MEDS: Pantoprazole 40 MG Tab.CR PO SCH (06:39)
[2021-05-25] MEDS: Enoxaparin 40 MG/0.4 ML Syringe SUBCUT SCH (08:35)
[2021-05-25] MEDS: Cholecalciferol (Vitamin D3) 25 MCG Tab PO SCH (08:35)
[2021-05-25] MEDS: Docusate Sodium 100 MG Cap PO SCH ×2 (08:35→20:59)
--- NOTE | 2021-05-25 11:07 | PCM.PN ---
- General Info Date of Service: 05/25/21 - Review of Systems Systems Review Comment:: report shortness of breath with exertion, cough - Patient Data Vitals - Most Recent: Last Vital Signs Temp 36.2 C 05/25/21 09:00 Pulse 86 05/25/21 10:00 Resp 25 H 05/25/21 10:00 BP 102/69 05/25/21 10:00 Pulse Ox 91 L 05/25/21 10:00 Weight - Most Recent: 71.441 kg I&O - Last 24 Hours: Intake & Output 05/24/21 05/25/21 05/25/21 22:59 06:59 14:59 Intake Total 675 600 Output Total 1050 700 Balance -375 -100 Lab Results Last 24 Hours: Laboratory Results - last 24 hr 05/25/21 05/25/21 Range/Units 05:15 05:15 WBC 6.47 (4.0-11.0) K/uL RBC 4.17 L (4.50-5.90) M/uL Hgb 13.0 (13.0-17.0) g/dL Hct 36.4 L (38.0-50.0) % MCV 87.3 (80.0-98.0) fL MCH 31.2 (27.0-32.0) pg MCHC 35.7 (31.0-37.0) g/dL RDW Std Deviation 40.7 (28.0-62.0) fl RDW Coeff of [place] 13 (11.0-15.0) % Plt Count 327 (150-400) K/uL MPV 9.30 (7.40-12.00) fL Neut % (Auto) 78.7 (48.0-80.0) % Lymph % (Auto) 13.9 L (16.0-40.0) % Mineral % (Auto) 5.7 (0.0-15.0) % Eos % (Auto) 1.5 (0.0-7.0) % Baso % (Auto) 0.2 (0.0-1.5) % Neut # (Auto) 5.1 (1.4-5.7) K/uL Lymph # (Auto) 0.9 (0.6-2.4) K/uL Min[place] # (Auto) 0.4 (0.0-0.8) K/uL Eos # (Auto) 0.1 (0.0-0.7) K/uL Baso # (Auto) 0.0 (0.0-0.1) K/uL Nucleated RBC % 0.0 /100WBC Nucleated RBCs # 0 K/uL Sodium 132 L (136-148) mmol/L Potassium 4.1 (3.5-5.1) mmol/L Chloride 97 L (98-107) mmol/L Carbon Dioxide 26.4 (21.0-32.0) mmol/L BUN 15 (7.0-18.0) mg/dL Creatinine 0.9 (0.8-1.3) mg/dL Est Cr Clr Drug Dosing 86.56 mL/min Estimated GFR (MDRD) > 60.0 ml/min Glucose 113 H (74-106) mg/dL Calcium 8.8 (8.5-10.1) mg/dL Magnesium 2.0 (1.8-2.4) mg/dL Total Bilirubin 0.7 (0.2-1.0) mg/dL AST 44 H (15-37) IU/L ALT 78 H (14-63) IU/L Alkaline Phosphatase 84 (46-116) U/L Total Protein 6.8 (6.4-8.2) g/dL Albumin 2.1 L (3.4-5.0) g/dL Globulin 4.7 H (2.6-4.0) g/dL Albumin/Globulin Ratio 0.5 L (0.9-1.6) Med Orders - Current: Current Medications Acetaminophen (Acetaminophen 325 Mg Tab) 650 mg PO Q4H PRN PRN Reason: Pain Hydrocodone Bitart/Acetaminophen (Acetaminophen/Hydrocodone 325-7.5 Mg Tab) 1 tab PO Q4H PRN PRN Reason: Pain Last Admin: 05/19/21 09:33 Dose: 1 tab Documented by: Albuterol/Ipratropium (Albuterol/Ipratropium 4 Gm Inhalation [place]) 0 gm INH QID [facility] Last Admin: 05/25/21 06:39 Dose: 1 puff Documented by: Cholecalciferol (Cholecalciferol (Vitamin D3) 25 Mcg Tab) 50 mcg PO DAILY [facility] Last Admin: 05/25/21 08:35 Dose: 50 mcg Documented by: Docusate Sodium (Docusate Sodium 100 Mg Cap) 100 mg PO BID [facility] Last Admin: 05/25/21 08:35 Dose: 100 mg Documented by: Enoxaparin Sodium (Enoxaparin 40 Mg/0.4 Ml Syringe) 40 mg SUBCUT Q24H [facility] Last Admin: 05/25/21 08:35 Dose: 40 mg Documented by: Guaifenesin/Dextromethorphan (Guaifenesin/Dextromethorphan 100-10 Mg/5 Ml Soln 10 Ml Cup) 10 ml PO Q4H PRN PRN Reason: Cough Levofloxacin/Dextrose 750 mg/ (Premix) 150 mls @ 100 mls/hr IV Q24H [facility] Last Admin: 05/24/21 21:03 Dose: 100 mls/hr Documented by: Ondansetron HCl (Ondansetron 4 Mg/2 Ml Sdv) 4 mg IVPUSH Q4H PRN PRN Reason: Nausea/Vomiting Pantoprazole Sodium (Pantoprazole 40 Mg Tab.Cr) 40 mg PO ACBREAKFAST [facility] Last Admin: 05/25/21 06:39 Dose: 40 mg Documented by: Polyethylene Glycol (Polyethylene Glycol 3350 Powder 17 Gm Packet) 17 gm PO BEDTIME [facility] Last Admin: 05/24/21 21:01 Dose: 17 gm Documented by: Discontinued Medications Acetaminophen (Acetaminophen 325 Mg Tab) 1,000 mg PO NOW ONE Stop: 05/12/21 19:56 Last Admin: 05/12/21 20:00 Dose: 1,000 mg Documented by: Dexamethasone (Dexamethasone 4 Mg Tab) 6 mg PO DAILY [facility] Stop: 05/21/21 09:01 Last Admin: 05/21/21 09:34 Dose: 6 mg Documented by: Enoxaparin Sodium (Enoxaparin 40 Mg/0.4 Ml Syringe) 40 mg SUBCUT Q24H [facility] Last Admin: 05/12/21 23:25 Dose: Not Given Documented by: Enoxaparin Sodium (Enoxaparin 100 Mg/1 Ml Syringe) 70 mg SUBCUT Q12H [facility] Last Admin: 05/12/21 23:04 Dose: 70 mg Documented by: Enoxaparin Sodium (Enoxaparin 100 Mg/1 Ml Syringe) 80 mg SUBCUT Q12H [facility] Last Admin: 05/13/21 10:35 Dose: 80 mg Documented by: Furosemide (Furosemide 20 Mg/2 Ml Vial) 20 mg IVPUSH NOW ONE Stop: 05/22/21 09:29 Last Admin: 05/22/21 10:13 Dose: 20 mg Documented by: Pantoprazole Sodium 40 mg/ (Sodium Chloride) 10 mls @ 200 mls/hr IV DAILY [facility] Remdesivir 100 mg/ Sodium (Chloride) 100 mls @ 100 mls/hr IV Q24H [facility] Stop: 05/16/21 22:59 Last Admin: 05/16/21 21:52 Dose: 100 mls/hr Documented by: Remdesivir 200 mg/ Sodium (Chloride) 250 mls @ 250 mls/hr IV ONETIME ONE Stop: 05/12/21 21:48 Last Admin: 05/12/21 23:09 Dose: 250 mls/hr Documented by: Iopamidol (Iopamidol 755 Mg/Ml 500 Ml Multipack Bottle) 75 ml IVPUSH ONETIME [facility] Stop: 05/13/21 11:21 Last Admin: 05/13/21 11:30 Dose: 75 ml Documented by: - Exam General: Alert, Oriented Neck: Supple Lungs: Clear to Auscultation, Normal Respiratory Effort GI/Abdominal Exam: Soft, Non-Tender, No Distention Extremities: Non-Tender, No Pedal Edema Skin: Warm, Dry, Intact Neurological: No New Focal Deficit - Patient Data Lab Results Last 24 hrs: Laboratory Results - last 24 hr 05/25/21 05/25/21 Range/Units 05:15 05:15 WBC 6.47 (4.0-11.0) K/uL RBC 4.17 L (4.50-5.90) M/uL Hgb 13.0 (13.0-17.0) g/dL Hct 36.4 L (38.0-50.0) % MCV 87.3 (80.0-98.0) fL MCH 31.2 (27.0-32.0) pg MCHC 35.7 (31.0-37.0) g/dL RDW Std Deviation 40.7 (28.0-62.0) fl RDW Coeff of [place] 13 (11.0-15.0) % Plt Count 327 (150-400) K/uL MPV 9.30 (7.40-12.00) fL Neut % (Auto) 78.7 (48.0-80.0) % Lymph % (Auto) 13.9 L (16.0-40.0) % Mineral % (Auto) 5.7 (0.0-15.0) % Eos % (Auto) 1.5 (0.0-7.0) % Baso % (Auto) 0.2 (0.0-1.5) % Neut # (Auto) 5.1 (1.4-5.7) K/uL Lymph # (Auto) 0.9 (0.6-2.4) K/uL [place] # (Auto) 0.4 (0.0-0.8) K/uL Eos # (Auto) 0.1 (0.0-0.7) K/uL Baso # (Auto) 0.0 (0.0-0.1) K/uL Nucleated RBC % 0.0 /100WBC Nucleated RBCs # 0 K/uL Sodium 132 L (136-148) mmol/L Potassium 4.1 (3.5-5.1) mmol/L Chloride 97 L (98-107) mmol/L Carbon Dioxide 26.4 (21.0-32.0) mmol/L BUN 15 (7.0-18.0) mg/dL Creatinine 0.9 (0.8-1.3) mg/dL Est Cr Clr Drug Dosing 86.56 mL/min Estimated GFR (MDRD) > 60.0 ml/min Glucose 113 H (74-106) mg/dL Calcium 8.8 (8.5-10.1) mg/dL Magnesium 2.0 (1.8-2.4) mg/dL Total Bilirubin 0.7 (0.2-1.0) mg/dL AST 44 H (15-37) IU/L ALT 78 H (14-63) IU/L Alkaline Phosphatase 84 (46-116) U/L Total Protein 6.8 (6.4-8.2) g/dL Albumin 2.1 L (3.4-5.0) g/dL Globulin 4.7 H (2.6-4.0) g/dL Albumin/Globulin Ratio 0.5 L (0.9-1.6) Result Diagrams: 05/25/21 05:15 05/25/21 05:15 Sepsis Event Note - Evaluation Sepsis Screening Result: No Definite Risk - Focused Exam Vital Signs: Vital Signs Temp Pulse Resp BP Pulse Ox 05/25/21 10:00 86 25 H 102/69 91 L 05/25/21 09:00 36.2 C 77 26 H 102/66 95 05/25/21 08:00 71 27 H 96/59 L 92 L 05/25/21 07:00 20 100/65 93 L 05/25/21 06:00 25 H 98/56 L 95 05/25/21 05:00 24 H 97/56 L 93 L 05/25/21 04:00 36.0 C L 24 H 89/57 L 93 L 05/25/21 03:00 23 H 91 L 05/25/21 02:00 26 H 101/64 93 L 05/25/21 01:00 25 H 97/60 92 L 05/25/21 00:00 24 H 102/67 95 - Problem List Review Problem List Initiated/Reviewed/Updated: Yes - Plan Plan:: Acute hypoxic respiratory failure/COVID-19 continue HHF, Oxygen to keep sats greater than 90%. Currently at flow 50, fiO2 60, continue to wean as tolerated Combivent, Encourage I/S, proning, Robitussin Levaquin started as patients chest x ray impression- hazy opacities within the left lung Patient started on vitamin D 2000 IU
[2021-05-25] MEDS: Polyethylene Glycol 3350 Powder 17 GM Packet PO SCH (20:59)
[2021-05-25] MEDS: Levofloxacin/Dextrose 5%-Water 750 MG in Premix Bag 1 BAG IV SCH (20:59)
[2021-05-26 06:39] LABS: BLOOD UREA NITROGEN,BUN 13 mg/dL (7.0-18.0); CARBON DIOXIDE,CO2 25.3 mmol/L (21.0-32.0); CHLORIDE,CL 100 mmol/L (98-107); GLUCOSE RANDOM 105 mg/dL (74-106); POTASSIUM,K 4.1 mmol/L (3.5-5.1); SODIUM,NA 136 mmol/L (136-148)
[2021-05-26] MEDS: Pantoprazole 40 MG Tab.CR PO SCH (06:55)
[2021-05-26] MEDS: Albuterol/Ipratropium 4 GM Inhalation Spray INH SCH ×3 (06:55→17:20)
[2021-05-26] MEDS: Docusate Sodium 100 MG Cap PO SCH ×2 (09:03→21:05)
[2021-05-26] MEDS: Cholecalciferol (Vitamin D3) 25 MCG Tab PO SCH (09:03)
[2021-05-26] MEDS: Enoxaparin 40 MG/0.4 ML Syringe SUBCUT SCH (09:04)
--- NOTE | 2021-05-26 13:05 | PCM.PN ---
- General Info Date of Service: 05/26/21 Subjective Update: Patient denies chest pain, shortness of breath, fever, chills, nausea, vomiting abdominal pain. States regular appetite. Patient's respiratory status has improved this patient is currently on 5 L nasal cannula. - Review of Systems General: Denies: Fever, Chills Pulmonary: Denies: Shortness of Breath Cardiovascular: Denies: Chest Pain, Edema Gastrointestinal: Denies: Abdominal Pain, Nausea, Vomiting Neurological: Denies: Confusion, Dizziness Psychiatric: Denies: Confusion - Patient Data Vitals - Most Recent: Last Vital Signs Temp 98.1 F 05/26/21 12:00 Pulse 88 05/25/21 19:00 Resp 24 H 05/26/21 12:00 BP 100/64 05/26/21 12:00 Pulse Ox 90 L 05/26/21 12:00 Weight - Most Recent: 157 lb 8 oz I&O - Last 24 Hours: Intake & Output 05/25/21 05/26/21 05/26/21 22:59 06:59 14:59 Intake Total 720 610 Output Total 600 1050 Balance 120 -440 Lab Results Last 24 Hours: Laboratory Results - last 24 hr 05/26/21 05/26/21 Range/Units 05:34 05:34 WBC 5.62 (4.0-11.0) K/uL RBC 4.21 L (4.50-5.90) M/uL Hgb 12.6 L (13.0-17.0) g/dL Hct 37.2 L (38.0-50.0) % MCV 88.4 (80.0-98.0) fL MCH 29.9 (27.0-32.0) pg MCHC 33.9 (31.0-37.0) g/dL RDW Std Deviation 41.1 (28.0-62.0) fl RDW Coeff of [place] 13 (11.0-15.0) % Plt Count 310 (150-400) K/uL MPV 9.00 (7.40-12.00) fL Neut % (Auto) 76.2 (48.0-80.0) % Lymph % (Auto) 14.4 L (16.0-40.0) % [place] % (Auto) 7.8 (0.0-15.0) % Eos % (Auto) 1.4 (0.0-7.0) % Baso % (Auto) 0.2 (0.0-1.5) % Neut # (Auto) 4.3 (1.4-5.7) K/uL Lymph # (Auto) 0.8 (0.6-2.4) K/uL [place] # (Auto) 0.4 (0.0-0.8) K/uL Eos # (Auto) 0.1 (0.0-0.7) K/uL Baso # (Auto) 0.0 (0.0-0.1) K/uL Nucleated RBC % 0.0 /100WBC Nucleated RBCs # 0 K/uL Sodium 136 (136-148) mmol/L Potassium 4.1 (3.5-5.1) mmol/L Chloride 100 (98-107) mmol/L Carbon Dioxide 25.3 (21.0-32.0) mmol/L BUN 13 (7.0-18.0) mg/dL Creatinine 0.9 (0.8-1.3) mg/dL Est Cr Clr Drug Dosing 86.56 mL/min Estimated GFR (MDRD) > 60.0 ml/min Glucose 105 (74-106) mg/dL Calcium 8.2 L (8.5-10.1) mg/dL Phosphorus 3.8 (2.6-4.7) mg/dL Magnesium 2.0 (1.8-2.4) mg/dL Total Bilirubin 0.6 (0.2-1.0) mg/dL AST 40 H (15-37) IU/L ALT 79 H (14-63) IU/L Alkaline Phosphatase 91 (46-116) U/L Total Protein 6.8 (6.4-8.2) g/dL Albumin 2.1 L (3.4-5.0) g/dL Globulin 4.7 H (2.6-4.0) g/dL Albumin/Globulin Ratio 0.5 L (0.9-1.6) Med Orders - Current: Current Medications Acetaminophen (Acetaminophen 325 Mg Tab) 650 mg PO Q4H PRN PRN Reason: Pain Hydrocodone Bitart/Acetaminophen (Acetaminophen/Hydrocodone 325-7.5 Mg Tab) 1 tab PO Q4H PRN PRN Reason: Pain Last Admin: 05/19/21 09:33 Dose: 1 tab Documented by: Albuterol/Ipratropium (Albuterol/Ipratropium 4 Gm Inhalation [place]) 0 gm INH QID [facility] Last Admin: 05/26/21 12:23 Dose: 1 puff Documented by: Cholecalciferol (Cholecalciferol (Vitamin D3) 25 Mcg Tab) 50 mcg PO DAILY [facility] Last Admin: 05/26/21 09:03 Dose: 50 mcg Documented by: Docusate Sodium (Docusate Sodium 100 Mg Cap) 100 mg PO BID [facility] Last Admin: 05/26/21 09:03 Dose: 100 mg Documented by: Enoxaparin Sodium (Enoxaparin 40 Mg/0.4 Ml Syringe) 40 mg SUBCUT Q24H [facility] Last Admin: 05/26/21 09:04 Dose: 40 mg Documented by: Guaifenesin/Dextromethorphan (Guaifenesin/Dextromethorphan 100-10 Mg/5 Ml Soln 10 Ml Cup) 10 ml PO Q4H PRN PRN Reason: Cough Levofloxacin/Dextrose 750 mg/ (Premix) 150 mls @ 100 mls/hr IV Q24H [facility] Last Admin: 05/25/21 20:59 Dose: 100 mls/hr Documented by: Ondansetron HCl (Ondansetron 4 Mg/2 Ml Sdv) 4 mg IVPUSH Q4H PRN PRN Reason: Nausea/Vomiting Pantoprazole Sodium (Pantoprazole 40 Mg Tab.Cr) 40 mg PO ACBREAKFAST [facility] Last Admin: 05/26/21 06:55 Dose: 40 mg Documented by: Polyethylene Glycol (Polyethylene Glycol 3350 Powder 17 Gm Packet) 17 gm PO BEDTIME [facility] Last Admin: 05/25/21 20:59 Dose: 17 gm Documented by: Discontinued Medications Acetaminophen (Acetaminophen 325 Mg Tab) 1,000 mg PO NOW ONE Stop: 05/12/21 19:56 Last Admin: 05/12/21 20:00 Dose: 1,000 mg Documented by: Dexamethasone (Dexamethasone 4 Mg Tab) 6 mg PO DAILY [facility] Stop: 05/21/21 09:01 Last Admin: 05/21/21 09:34 Dose: 6 mg Documented by: Enoxaparin Sodium (Enoxaparin 40 Mg/0.4 Ml Syringe) 40 mg SUBCUT Q24H [facility] Last Admin: 05/12/21 23:25 Dose: Not Given Documented by: Enoxaparin Sodium (Enoxaparin 100 Mg/1 Ml Syringe) 70 mg SUBCUT Q12H [facility] Last Admin: 05/12/21 23:04 Dose: 70 mg Documented by: Enoxaparin Sodium (Enoxaparin 100 Mg/1 Ml Syringe) 80 mg SUBCUT Q12H [facility] Last Admin: 05/13/21 10:35 Dose: 80 mg Documented by: Furosemide (Furosemide 20 Mg/2 Ml Vial) 20 mg IVPUSH NOW ONE Stop: 05/22/21 09:29 Last Admin: 05/22/21 10:13 Dose: 20 mg Documented by: Pantoprazole Sodium 40 mg/ (Sodium Chloride) 10 mls @ 200 mls/hr IV DAILY [facility] Remdesivir 100 mg/ Sodium (Chloride) 100 mls @ 100 mls/hr IV Q24H [facility] Stop: 05/16/21 22:59 Last Admin: 05/16/21 21:52 Dose: 100 mls/hr Documented by: Remdesivir 200 mg/ Sodium (Chloride) 250 mls @ 250 mls/hr IV ONETIME ONE Stop: 05/12/21 21:48 Last Admin: 05/12/21 23:09 Dose: 250 mls/hr Documented by: Iopamidol (Iopamidol 755 Mg/Ml 500 Ml Multipack Bottle) 75 ml IVPUSH ONETIME [facility] Stop: 05/13/21 11:21 Last Admin: 05/13/21 11:30 Dose: 75 ml Documented by: - Exam Quality Assessment: Supplemental Oxygen General: Alert, Oriented Lungs: Clear to Auscultation, Normal Respiratory Effort Cardiovascular: Regular Rate, Regular Rhythm GI/Abdominal Exam: Soft, Non-Tender Extremities: No Pedal Edema Psy/Mental Status: Alert - Patient Data Lab Results Last 24 hrs: Laboratory Results - last 24 hr 05/26/21 05/26/21 Range/Units 05:34 05:34 WBC 5.62 (4.0-11.0) K/uL RBC 4.21 L (4.50-5.90) M/uL Hgb 12.6 L (13.0-17.0) g/dL Hct 37.2 L (38.0-50.0) % MCV 88.4 (80.0-98.0) fL MCH 29.9 (27.0-32.0) pg MCHC 33.9 (31.0-37.0) g/dL RDW Std Deviation 41.1 (28.0-62.0) fl RDW Coeff of [place] 13 (11.0-15.0) % Plt Count 310 (150-400) K/uL MPV 9.00 (7.40-12.00) fL Neut % (Auto) 76.2 (48.0-80.0) % Lymph % (Auto) 14.4 L (16.0-40.0) % [place] % (Auto) 7.8 (0.0-15.0) % Eos % (Auto) 1.4 (0.0-7.0) % Baso % (Auto) 0.2 (0.0-1.5) % Neut # (Auto) 4.3 (1.4-5.7) K/uL Lymph # (Auto) 0.8 (0.6-2.4) K/uL [place] # (Auto) 0.4 (0.0-0.8) K/uL Eos # (Auto) 0.1 (0.0-0.7) K/uL Baso # (Auto) 0.0 (0.0-0.1) K/uL Nucleated RBC % 0.0 /100WBC Nucleated RBCs # 0 K/uL Sodium 136 (136-148) mmol/L Potassium 4.1 (3.5-5.1) mmol/L Chloride 100 (98-107) mmol/L Carbon Dioxide 25.3 (21.0-32.0) mmol/L BUN 13 (7.0-18.0) mg/dL Creatinine 0.9 (0.8-1.3) mg/dL Est Cr Clr Drug Dosing 86.56 mL/min Estimated GFR (MDRD) > 60.0 ml/min Glucose 105 (74-106) mg/dL Calcium 8.2 L (8.5-10.1) mg/dL Phosphorus 3.8 (2.6-4.7) mg/dL Magnesium 2.0 (1.8-2.4) mg/dL Total Bilirubin 0.6 (0.2-1.0) mg/dL AST 40 H (15-37) IU/L ALT 79 H (14-63) IU/L Alkaline Phosphatase 91 (46-116) U/L Total Protein 6.8 (6.4-8.2) g/dL Albumin 2.1 L (3.4-5.0) g/dL Globulin 4.7 H (2.6-4.0) g/dL Albumin/Globulin Ratio 0.5 L (0.9-1.6) Result Diagrams: 05/26/21 05:34 05/26/21 05:34 Sepsis Event Note - Evaluation Sepsis Screening Result: No Definite Risk - Focused Exam Vital Signs: Vital Signs Temp Resp BP Pulse Ox Pulse Ox 05/26/21 12:00 98.1 F 24 H 100/64 90 L 05/26/21 11:00 25 H 101/64 92 L 05/26/21 10:00 23 H 106/68 93 L 05/26/21 09:00 22 H 105/72 92 L 91 L 05/26/21 08:00 98.2 F 24 H 96/65 91 L 05/26/21 07:00 28 H 98/64 93 L 05/26/21 06:00 22 H 98/57 L 92 L 05/26/21 05:00 22 H 90/60 91 L 05/26/21 04:00 97.6 F 20 105/66 92 L 05/26/21 03:00 25 H 93/59 L 89 L 05/26/21 02:00 20 88/55 L 91 L - Problem List & Annotations (1) Acute respiratory failure with hypoxia SNOMED Code(s): 59514863, 754037861 Code(s): J96.01 - ACUTE RESPIRATORY FAILURE WITH HYPOXIA Status: Acute Current Visit: Yes (2) COVID-19 SNOMED Code(s): 979359971 Code(s): U07.1 - COVID-19 Status: Acute Current Visit: Yes - Problem List Review Problem List Initiated/Reviewed/Updated: Yes - Plan Plan:: Acute hypoxic respiratory failure/COVID-19 Patient remains in the ICU for closer monitoring. Patient currently at 5 L nasal cannula. Patient to be downgraded to MedSurg if respiratory status does not deteriorate. Combivent, Encourage I/S, proning, Robitussin Levaquin 750mg q24hr
--- NOTE | 2021-05-26 15:20 | PN ---
THC Physician - Brief Progress [id number]/27/2021 15:18[facility] [place], [place] - CHAR (GIANCARLO) - CHAR ICUSAHIL JEN Jono, COVID+Date of Service 05/26/2021 15:18HPI/ Events of Note eICU Progress [id number] male presented on 05/12 with shortness of breath and hypo xemia, tested positive forCOVID-19. CT chest showed no pulmonary embolism showed pulmonary opacities consistentwith COVID-19 infection. Patient was treated with remdesivir and completed 10 days ofdexame thasone. [facility].AntibioticsLevaquin started on 05/21Covid 10 treatment s/p remdesivirs/p Dexametasone 05/12-05/21eICU Recommendations:- Wean off O2 as tolerated, SpO2 goal >88%- Complete CAP c ourse- Maintain euvolemia- VTE and GI prophylaxis notedThank you for allowing us to participate in e care of your patient.Interventions Major-Hypoxemia - evaluation and management
[2021-05-26] MEDS: Polyethylene Glycol 3350 Powder 17 GM Packet PO SCH (21:05)
[2021-05-26] MEDS: Levofloxacin/Dextrose 5%-Water 750 MG in Premix Bag 1 BAG IV SCH (21:06)
[2021-05-27] MEDS: Albuterol/Ipratropium 4 GM Inhalation Spray INH SCH ×5 (00:05→23:19)
[2021-05-27 06:39] LABS: BLOOD UREA NITROGEN,BUN 12 mg/dL (7.0-18.0); CARBON DIOXIDE,CO2 27.4 mmol/L (21.0-32.0); CHLORIDE,CL 102 mmol/L (98-107); GLUCOSE RANDOM 104 mg/dL (74-106); POTASSIUM,K 4.2 mmol/L (3.5-5.1); SODIUM,NA 137 mmol/L (136-148)
[2021-05-27] MEDS: Pantoprazole 40 MG Tab.CR PO SCH (06:45)
[2021-05-27] MEDS: Cholecalciferol (Vitamin D3) 25 MCG Tab PO SCH (09:43)
[2021-05-27] MEDS: Docusate Sodium 100 MG Cap PO SCH ×2 (09:43→20:53)
[2021-05-27] MEDS: Enoxaparin 40 MG/0.4 ML Syringe SUBCUT SCH (09:43)
--- NOTE | 2021-05-27 11:48 | PCM.PN ---
- General Info Date of Service: 05/27/21 - Review of Systems Systems Review Comment:: feeling better, shortness of breath improving, no new complaints - Patient Data Vitals - Most Recent: Last Vital Signs Temp 36.0 C L 05/27/21 08:00 Pulse 88 05/25/21 19:00 Resp 21 H 05/27/21 11:00 BP 99/68 05/27/21 11:00 Pulse Ox 91 L 05/27/21 11:00 Weight - Most Recent: 71.441 kg I&O - Last 24 Hours: Intake & Output 05/26/21 05/27/21 05/27/21 22:59 06:59 14:59 Intake Total 650 1120 Output Total 980 1100 Balance -330 20 Lab Results Last 24 Hours: Laboratory Results - last 24 hr 05/27/21 05/27/21 Range/Units 04:44 04:44 WBC 5.81 (4.0-11.0) K/uL RBC 4.15 L (4.50-5.90) M/uL Hgb 12.7 L (13.0-17.0) g/dL Hct 37.1 L (38.0-50.0) % MCV 89.4 (80.0-98.0) fL MCH 30.6 (27.0-32.0) pg MCHC 34.2 (31.0-37.0) g/dL RDW Std Deviation 41.8 (28.0-62.0) fl RDW Coeff of [place] 13 (11.0-15.0) % Plt Count 328 (150-400) K/uL MPV 9.50 (7.40-12.00) fL Neut % (Auto) 70.5 (48.0-80.0) % Lymph % (Auto) 19.6 (16.0-40.0) % [place] % (Auto) 7.9 (0.0-15.0) % Eos % (Auto) 1.7 (0.0-7.0) % Baso % (Auto) 0.3 (0.0-1.5) % Neut # (Auto) 4.1 (1.4-5.7) K/uL Lymph # (Auto) 1.1 (0.6-2.4) K/uL [place] # (Auto) 0.5 (0.0-0.8) K/uL Eos # (Auto) 0.1 (0.0-0.7) K/uL Baso # (Auto) 0.0 (0.0-0.1) K/uL Nucleated RBC % 0.0 /100WBC Nucleated RBCs # 0 K/uL Sodium 137 (136-148) mmol/L Potassium 4.2 (3.5-5.1) mmol/L Chloride 102 (98-107) mmol/L Carbon Dioxide 27.4 (21.0-32.0) mmol/L BUN 12 (7.0-18.0) mg/dL Creatinine 0.8 (0.8-1.3) mg/dL Est Cr Clr Drug Dosing 97.38 mL/min Estimated GFR (MDRD) > 60.0 ml/min Glucose 104 (74-106) mg/dL Calcium 8.2 L (8.5-10.1) mg/dL Med Orders - Current: Current Medications Acetaminophen (Acetaminophen 325 Mg Tab) 650 mg PO Q4H PRN PRN Reason: Pain Hydrocodone Bitart/Acetaminophen (Acetaminophen/Hydrocodone 325-7.5 Mg Tab) 1 tab PO Q4H PRN PRN Reason: Pain Last Admin: 05/19/21 09:33 Dose: 1 tab Documented by: Albuterol/Ipratropium (Albuterol/Ipratropium 4 Gm Inhalation [place]) 0 gm INH QID [facility] Last Admin: 05/27/21 05:43 Dose: 1 puff Documented by: Cholecalciferol (Cholecalciferol (Vitamin D3) 25 Mcg Tab) 50 mcg PO DAILY [facility] Last Admin: 05/27/21 09:43 Dose: 50 mcg Documented by: Docusate Sodium (Docusate Sodium 100 Mg Cap) 100 mg PO BID [facility] Last Admin: 05/27/21 09:43 Dose: 100 mg Documented by: Enoxaparin Sodium (Enoxaparin 40 Mg/0.4 Ml Syringe) 40 mg SUBCUT Q24H [facility] Last Admin: 05/27/21 09:43 Dose: 40 mg Documented by: Guaifenesin/Dextromethorphan (Guaifenesin/Dextromethorphan 100-10 Mg/5 Ml Soln 10 Ml Cup) 10 ml PO Q4H PRN PRN Reason: Cough Levofloxacin/Dextrose 750 mg/ (Premix) 150 mls @ 100 mls/hr IV Q24H [facility] Last Admin: 05/26/21 21:06 Dose: 100 mls/hr Documented by: Ondansetron HCl (Ondansetron 4 Mg/2 Ml Sdv) 4 mg IVPUSH Q4H PRN PRN Reason: Nausea/Vomiting Pantoprazole Sodium (Pantoprazole 40 Mg Tab.Cr) 40 mg PO ACBREAKFAST [facility] Last Admin: 05/27/21 06:45 Dose: 40 mg Documented by: Polyethylene Glycol (Polyethylene Glycol 3350 Powder 17 Gm Packet) 17 gm PO BEDTIME [facility] Last Admin: 05/26/21 21:05 Dose: 17 gm Documented by: Discontinued Medications Acetaminophen (Acetaminophen 325 Mg Tab) 1,000 mg PO NOW ONE Stop: 05/12/21 19:56 Last Admin: 05/12/21 20:00 Dose: 1,000 mg Documented by: Dexamethasone (Dexamethasone 4 Mg Tab) 6 mg PO DAILY [facility] Stop: 05/21/21 09:01 Last Admin: 05/21/21 09:34 Dose: 6 mg Documented by: Enoxaparin Sodium (Enoxaparin 40 Mg/0.4 Ml Syringe) 40 mg SUBCUT Q24H [facility] Last Admin: 05/12/21 23:25 Dose: Not Given Documented by: Enoxaparin Sodium (Enoxaparin 100 Mg/1 Ml Syringe) 70 mg SUBCUT Q12H [facility] Last Admin: 05/12/21 23:04 Dose: 70 mg Documented by: Enoxaparin Sodium (Enoxaparin 100 Mg/1 Ml Syringe) 80 mg SUBCUT Q12H [facility] Last Admin: 05/13/21 10:35 Dose: 80 mg Documented by: Furosemide (Furosemide 20 Mg/2 Ml Vial) 20 mg IVPUSH NOW ONE Stop: 05/22/21 09:29 Last Admin: 05/22/21 10:13 Dose: 20 mg Documented by: Pantoprazole Sodium 40 mg/ (Sodium Chloride) 10 mls @ 200 mls/hr IV DAILY [facility] Remdesivir 100 mg/ Sodium (Chloride) 100 mls @ 100 mls/hr IV Q24H [facility] Stop: 05/16/21 22:59 Last Admin: 05/16/21 21:52 Dose: 100 mls/hr Documented by: Remdesivir 200 mg/ Sodium (Chloride) 250 mls @ 250 mls/hr IV ONETIME ONE Stop: 05/12/21 21:48 Last Admin: 05/12/21 23:09 Dose: 250 mls/hr Documented by: Iopamidol (Iopamidol 755 Mg/Ml 500 Ml Multipack Bottle) 75 ml IVPUSH ONETIME STA Stop: 05/13/21 11:21 Last Admin: 05/13/21 11:30 Dose: 75 ml Documented by: - Exam General: Alert, Oriented Neck: Supple Lungs: Normal Respiratory Effort, Rhonchi GI/Abdominal Exam: Soft, Non-Tender, No Distention Extremities: Non-Tender, No Pedal Edema Skin: Warm, Dry, Intact Neurological: No New Focal Deficit - Patient Data Lab Results Last 24 hrs: Laboratory Results - last 24 hr 05/27/21 05/27/21 Range/Units 04:44 04:44 WBC 5.81 (4.0-11.0) K/uL RBC 4.15 L (4.50-5.90) M/uL Hgb 12.7 L (13.0-17.0) g/dL Hct 37.1 L (38.0-50.0) % MCV 89.4 (80.0-98.0) fL MCH 30.6 (27.0-32.0) pg MCHC 34.2 (31.0-37.0) g/dL RDW Std Deviation 41.8 (28.0-62.0) fl RDW Coeff of [place] 13 (11.0-15.0) % Plt Count 328 (150-400) K/uL MPV 9.50 (7.40-12.00) fL Neut % (Auto) 70.5 (48.0-80.0) % Lymph % (Auto) 19.6 (16.0-40.0) % [place] % (Auto) 7.9 (0.0-15.0) % Eos % (Auto) 1.7 (0.0-7.0) % Baso % (Auto) 0.3 (0.0-1.5) % Neut # (Auto) 4.1 (1.4-5.7) K/uL Lymph # (Auto) 1.1 (0.6-2.4) K/uL [place] # (Auto) 0.5 (0.0-0.8) K/uL Eos # (Auto) 0.1 (0.0-0.7) K/uL Baso # (Auto) 0.0 (0.0-0.1) K/uL Nucleated RBC % 0.0 /100WBC Nucleated RBCs # 0 K/uL Sodium 137 (136-148) mmol/L Potassium 4.2 (3.5-5.1) mmol/L Chloride 102 (98-107) mmol/L Carbon Dioxide 27.4 (21.0-32.0) mmol/L BUN 12 (7.0-18.0) mg/dL Creatinine 0.8 (0.8-1.3) mg/dL Est Cr Clr Drug Dosing 97.38 mL/min Estimated GFR (MDRD) > 60.0 ml/min Glucose 104 (74-106) mg/dL Calcium 8.2 L (8.5-10.1) mg/dL Result Diagrams: 05/27/21 04:44 05/27/21 04:44 Sepsis Event Note - Evaluation Sepsis Screening Result: No Definite Risk - Focused Exam Vital Signs: Vital Signs Temp Resp BP Pulse Ox Pulse Ox 05/27/21 11:00 21 H 99/68 91 L 05/27/21 10:00 26 H 103/68 91 L 05/27/21 09:00 24 H 95/60 93 L 93 L 05/27/21 08:00 36.0 C L 21 H 90/59 L 92 L 05/27/21 07:00 21 H 100/63 91 L 05/27/21 06:00 23 H 90/60 89 L 05/27/21 05:00 25 H 101/54 L 92 L 05/27/21 04:00 36.6 C 22 H 96/62 88 L 05/27/21 03:00 26 H 98/64 89 L 05/27/21 02:00 23 H 107/71 90 L 05/27/21 01:00 26 H 100/67 90 L 05/27/21 00:00 36.6 C 28 H 105/65 88 L - Problem List Review Problem List Initiated/Reviewed/Updated: Yes - My Orders Last 24 Hours: My Active Orders 05/27/21 11:46 Transfer Patient (Change bed) [ADT] Routine 05/28/21 05:11 CBC WITH AUTO DIFF [HEME] AM COMPREHENSIVE METABOLIC PN,CMP [CHEM] AM - Plan Plan:: Acute hypoxic respiratory failure/COVID-19 Weened off heated high flow. m Patient currently at 5 L nasal cannula. will transfer to regular medical floor Combivent, Encourage I/S, proning, Robitussin Levaquin 750mg q24hr
[2021-05-27] MEDS: Polyethylene Glycol 3350 Powder 17 GM Packet PO SCH (20:53)
[2021-05-27] MEDS: Levofloxacin/Dextrose 5%-Water 750 MG in Premix Bag 1 BAG IV SCH (21:05)
[2021-05-28] MEDS: Albuterol/Ipratropium 4 GM Inhalation Spray INH SCH ×4 (06:33→23:12)
[2021-05-28] MEDS: Pantoprazole 40 MG Tab.CR PO SCH (06:33)
[2021-05-28 06:49] LABS: BLOOD UREA NITROGEN,BUN 15 mg/dL (7.0-18.0); CARBON DIOXIDE,CO2 26.2 mmol/L (21.0-32.0); CHLORIDE,CL 104 mmol/L (98-107); GLUCOSE RANDOM 102 mg/dL (74-106); POTASSIUM,K 4.4 mmol/L (3.5-5.1); SODIUM,NA 139 mmol/L (136-148)
[2021-05-28] MEDS: Docusate Sodium 100 MG Cap PO SCH ×2 (08:09→21:11)
[2021-05-28] MEDS: Cholecalciferol (Vitamin D3) 25 MCG Tab PO SCH (08:09)
[2021-05-28] MEDS: Enoxaparin 40 MG/0.4 ML Syringe SUBCUT SCH (08:09)
--- NOTE | 2021-05-28 08:45 | PCM.PN ---
- General Info Date of Service: 05/28/21 - Review of Systems Systems Review Comment:: no new complaints - Patient Data Vitals - Most Recent: Last Vital Signs Temp 35.9 C L 05/28/21 08:23 Pulse 78 05/28/21 08:23 Resp 14 05/28/21 08:23 BP 104/71 05/28/21 08:23 Pulse Ox 96 05/28/21 08:42 Weight - Most Recent: 71.441 kg I&O - Last 24 Hours: Intake & Output 05/27/21 05/28/21 05/28/21 22:59 06:59 14:59 Intake Total 890 750 Output Total 760 0 Balance 130 750 Lab Results Last 24 Hours: Laboratory Results - last 24 hr 05/28/21 05/28/21 Range/Units 05:23 05:23 WBC 6.14 (4.0-11.0) K/uL RBC 4.02 L (4.50-5.90) M/uL Hgb 12.3 L (13.0-17.0) g/dL Hct 35.8 L (38.0-50.0) % MCV 89.1 (80.0-98.0) fL MCH 30.6 (27.0-32.0) pg MCHC 34.4 (31.0-37.0) g/dL RDW Std Deviation 41.1 (28.0-62.0) fl RDW Coeff of [place] 13 (11.0-15.0) % Plt Count 283 (150-400) K/uL MPV 9.40 (7.40-12.00) fL Neut % (Auto) 69.0 (48.0-80.0) % Lymph % (Auto) 20.4 (16.0-40.0) % [place] % (Auto) 8.8 (0.0-15.0) % Eos % (Auto) 1.6 (0.0-7.0) % Baso % (Auto) 0.2 (0.0-1.5) % Neut # (Auto) 4.2 (1.4-5.7) K/uL Lymph # (Auto) 1.3 (0.6-2.4) K/uL [place] # (Auto) 0.5 (0.0-0.8) K/uL Eos # (Auto) 0.1 (0.0-0.7) K/uL Baso # (Auto) 0.0 (0.0-0.1) K/uL Nucleated RBC % 0.0 /100WBC Nucleated RBCs # 0 K/uL Sodium 139 (136-148) mmol/L Potassium 4.4 (3.5-5.1) mmol/L Chloride 104 (98-107) mmol/L Carbon Dioxide 26.2 (21.0-32.0) mmol/L BUN 15 (7.0-18.0) mg/dL Creatinine 0.8 (0.8-1.3) mg/dL Est Cr Clr Drug Dosing 97.38 mL/min Estimated GFR (MDRD) > 60.0 ml/min Glucose 102 (74-106) mg/dL Calcium 7.7 L (8.5-10.1) mg/dL Total Bilirubin 0.4 (0.2-1.0) mg/dL AST 27 (15-37) IU/L ALT 68 H (14-63) IU/L Alkaline Phosphatase 90 (46-116) U/L Total Protein 5.9 L (6.4-8.2) g/dL Albumin 2.1 L (3.4-5.0) g/dL Globulin 3.8 (2.6-4.0) g/dL Albumin/Globulin Ratio 0.6 L (0.9-1.6) Med Orders - Current: Current Medications Acetaminophen (Acetaminophen 325 Mg Tab) 650 mg PO Q4H PRN PRN Reason: Pain Hydrocodone Bitart/Acetaminophen (Acetaminophen/Hydrocodone 325-7.5 Mg Tab) 1 tab PO Q4H PRN PRN Reason: Pain Last Admin: 05/19/21 09:33 Dose: 1 tab Documented by: Albuterol/Ipratropium (Albuterol/Ipratropium 4 Gm Inhalation [place]) 0 gm INH QID [facility] Last Admin: 05/28/21 06:33 Dose: 1 puff Documented by: Cholecalciferol (Cholecalciferol (Vitamin D3) 25 Mcg Tab) 50 mcg PO DAILY [facility] Last Admin: 05/28/21 08:09 Dose: 50 mcg Documented by: Docusate Sodium (Docusate Sodium 100 Mg Cap) 100 mg PO BID [facility] Last Admin: 05/28/21 08:09 Dose: 100 mg Documented by: Enoxaparin Sodium (Enoxaparin 40 Mg/0.4 Ml Syringe) 40 mg SUBCUT Q24H [facility] Last Admin: 05/28/21 08:09 Dose: 40 mg Documented by: Guaifenesin/Dextromethorphan (Guaifenesin/Dextromethorphan 100-10 Mg/5 Ml Soln 10 Ml Cup) 10 ml PO Q4H PRN PRN Reason: Cough Levofloxacin/Dextrose 750 mg/ (Premix) 150 mls @ 100 mls/hr IV Q24H [facility] Last Admin: 05/27/21 21:05 Dose: 100 mls/hr Documented by: Ondansetron HCl (Ondansetron 4 Mg/2 Ml Sdv) 4 mg IVPUSH Q4H PRN PRN Reason: Nausea/Vomiting Pantoprazole Sodium (Pantoprazole 40 Mg Tab.Cr) 40 mg PO ACBREAKFAST [facility] Last Admin: 05/28/21 06:33 Dose: 40 mg Documented by: Polyethylene Glycol (Polyethylene Glycol 3350 Powder 17 Gm Packet) 17 gm PO BEDTIME [facility] Last Admin: 05/27/21 20:53 Dose: 17 gm Documented by: Discontinued Medications Acetaminophen (Acetaminophen 325 Mg Tab) 1,000 mg PO NOW ONE Stop: 05/12/21 19:56 Last Admin: 05/12/21 20:00 Dose: 1,000 mg Documented by: Dexamethasone (Dexamethasone 4 Mg Tab) 6 mg PO DAILY [facility] Stop: 05/21/21 09:01 Last Admin: 05/21/21 09:34 Dose: 6 mg Documented by: Enoxaparin Sodium (Enoxaparin 40 Mg/0.4 Ml Syringe) 40 mg SUBCUT Q24H [facility] Last Admin: 05/12/21 23:25 Dose: Not Given Documented by: Enoxaparin Sodium (Enoxaparin 100 Mg/1 Ml Syringe) 70 mg SUBCUT Q12H [facility] Last Admin: 05/12/21 23:04 Dose: 70 mg Documented by: Enoxaparin Sodium (Enoxaparin 100 Mg/1 Ml Syringe) 80 mg SUBCUT Q12H [facility] Last Admin: 05/13/21 10:35 Dose: 80 mg Documented by: Furosemide (Furosemide 20 Mg/2 Ml Vial) 20 mg IVPUSH NOW ONE Stop: 09/23/21 09:29 Last Admin: 05/22/21 10:13 Dose: 20 mg Documented by: Pantoprazole Sodium 40 mg/ (Sodium Chloride) 10 mls @ 200 mls/hr IV DAILY [facility] Remdesivir 100 mg/ Sodium (Chloride) 100 mls @ 100 mls/hr IV Q24H [facility] Stop: 05/16/21 22:59 Last Admin: 05/16/21 21:52 Dose: 100 mls/hr Documented by: Remdesivir 200 mg/ Sodium (Chloride) 250 mls @ 250 mls/hr IV ONETIME ONE Stop: 05/12/21 21:48 Last Admin: 05/12/21 23:09 Dose: 250 mls/hr Documented by: Iopamidol (Iopamidol 755 Mg/Ml 500 Ml Multipack Bottle) 75 ml IVPUSH ONETIME [facility] Stop: 05/13/21 11:21 Last Admin: 05/13/21 11:30 Dose: 75 ml Documented by: - Exam General: Alert, Oriented Neck: Supple Lungs: Clear to Auscultation, Normal Respiratory Effort Cardiovascular: Regular Rate, Regular Rhythm GI/Abdominal Exam: Soft, Non-Tender, No Distention Extremities: Non-Tender, No Pedal Edema Skin: Warm, Dry, Intact Neurological: No New Focal Deficit - Patient Data Lab Results Last 24 hrs: Laboratory Results - last 24 hr 05/28/21 05/28/21 Range/Units 05:23 05:23 WBC 6.14 (4.0-11.0) K/uL RBC 4.02 L (4.50-5.90) M/uL Hgb 12.3 L (13.0-17.0) g/dL Hct 35.8 L (38.0-50.0) % MCV 89.1 (80.0-98.0) fL MCH 30.6 (27.0-32.0) pg MCHC 34.4 (31.0-37.0) g/dL RDW Std Deviation 41.1 (28.0-62.0) fl RDW Coeff of [place] 13 (11.0-15.0) % Plt Count 283 (150-400) K/uL MPV 9.40 (7.40-12.00) fL Neut % (Auto) 69.0 (48.0-80.0) % Lymph % (Auto) 20.4 (16.0-40.0) % [place] % (Auto) 8.8 (0.0-15.0) % Eos % (Auto) 1.6 (0.0-7.0) % Baso % (Auto) 0.2 (0.0-1.5) % Neut # (Auto) 4.2 (1.4-5.7) K/uL Lymph # (Auto) 1.3 (0.6-2.4) K/uL [place] # (Auto) 0.5 (0.0-0.8) K/uL Eos # (Auto) 0.1 (0.0-0.7) K/uL Baso # (Auto) 0.0 (0.0-0.1) K/uL Nucleated RBC % 0.0 /100WBC Nucleated RBCs # 0 K/uL Sodium 139 (136-148) mmol/L Potassium 4.4 (3.5-5.1) mmol/L Chloride 104 (98-107) mmol/L Carbon Dioxide 26.2 (21.0-32.0) mmol/L BUN 15 (7.0-18.0) mg/dL Creatinine 0.8 (0.8-1.3) mg/dL Est Cr Clr Drug Dosing 97.38 mL/min Estimated GFR (MDRD) > 60.0 ml/min Glucose 102 (74-106) mg/dL Calcium 7.7 L (8.5-10.1) mg/dL Total Bilirubin 0.4 (0.2-1.0) mg/dL AST 27 (15-37) IU/L ALT 68 H (14-63) IU/L Alkaline Phosphatase 90 (46-116) U/L Total Protein 5.9 L (6.4-8.2) g/dL Albumin 2.1 L (3.4-5.0) g/dL Globulin 3.8 (2.6-4.0) g/dL Albumin/Globulin Ratio 0.6 L (0.9-1.6) Result Diagrams: 05/28/21 05:23 05/28/21 05:23 Sepsis Event Note - Evaluation Sepsis Screening Result: No Definite Risk - Focused Exam Vital Signs: Vital Signs Temp Pulse Resp BP Pulse Ox Pulse Ox 05/28/21 08:42 96 09/29/21 08:23 35.9 C L 78 14 104/71 96 05/28/21 05:00 93 L 05/28/21 04:00 36.8 C 20 96/63 93 L 05/28/21 00:00 36.6 C 22 H 105/59 L 94 L 05/27/21 21:00 93 L - Problem List Review Problem List Initiated/Reviewed/Updated: Yes - My Orders Last 24 Hours: My Active Orders 05/27/21 11:46 Transfer Patient (Change bed) [ADT] Routine - Plan Plan:: Acute hypoxic respiratory failure/COVID-19 Weened off heated high flow. m Patient currently at 3 L nasal cannula. will transfer to regular medical floor Combivent, Encourage I/S, proning, Robitussin Levaquin 750mg q24hr Dispo: likely home 1-2 days.
[2021-05-28] MEDS: Polyethylene Glycol 3350 Powder 17 GM Packet PO SCH (21:11)
[2021-05-28] MEDS: Levofloxacin/Dextrose 5%-Water 750 MG in Premix Bag 1 BAG IV SCH (21:12)
[2021-05-29] MEDS: Albuterol/Ipratropium 4 GM Inhalation Spray INH SCH ×3 (06:17→18:49)
[2021-05-29 06:26] LABS: BLOOD UREA NITROGEN,BUN 14 mg/dL (7.0-18.0); CHLORIDE,CL 105 mmol/L (98-107); GLUCOSE RANDOM 112 mg/dL (74-106); POTASSIUM,K 4.5 mmol/L (3.5-5.1); SODIUM,NA 139 mmol/L (136-148)
[2021-05-29] MEDS: Pantoprazole 40 MG Tab.CR PO SCH (06:37)
[2021-05-29] MEDS: Enoxaparin 40 MG/0.4 ML Syringe SUBCUT SCH (08:36)
[2021-05-29] MEDS: Cholecalciferol (Vitamin D3) 25 MCG Tab PO SCH (08:36)
[2021-05-29] MEDS: Docusate Sodium 100 MG Cap PO SCH ×2 (08:36→20:46)
--- NOTE | 2021-05-29 10:00 | PN ---
THC Physician - Brief Progress [id number]/25/2021 15:19[facility] [place], [place] - CHAR (GIANCARLO) - CHAR CRANECAMILO JEN RaglandAbdi, COVID+Date of Service 05/24/2021 15:19HPI/ Events of Note eICU Progress [id number] male presented on 05/12 with shortness of breath and hypo xemia, tested positive forCOVID-19. CT chest showed no pulmonary embolism showed pulmonary opacities consistentwith COVID-19 infection. Patient was treated with remdesivir and completed 10 days ofdexame thasone. He remains on HFNC, increase to 50L as patient continue to desat on exertion. Patient was se en in camera and is breathing comfortably, not tachypneic at rest.AntibioticsLevaquin started on 05/21 Covid 10 treatment s/p remdesivirs/p Dexametasone 05/12-05/21eICU Recommendations:-Wean off O2 as jillian ated-Consider diuresis to keep fluid balance negative 0.6-7E-Dyrcuizl complete 7 days of antibiotics given persistent hypoxia-DVT and PUD prophyalxis-Insentive spirometerThank you for allowing us to par ticipate in the care of your patient.Interventions Major-Hypoxemia - evaluation and managementInterme diate-Communication with other healthcare providers and/or family
--- NOTE | 2021-05-29 17:18 | PCM.PN ---
<Aldair Barraza - Last Filed: 05/29/21 17:15> - General Info Date of Service: 05/29/21 Subjective Update: Patient states he feels fine. Patient denies fever, chills, nausea, vomiting, shortness of breath, chest pain. - Review of Systems General: Denies: Fever, Chills Pulmonary: Denies: Shortness of Breath, Cough Cardiovascular: Denies: Chest Pain, Edema Gastrointestinal: Denies: Abdominal Pain, Decreased Appetite, Nausea, Vomiting Neurological: Denies: Confusion - Patient Data Vitals - Most Recent: Last Vital Signs Temp 98.5 F 05/29/21 16:00 Pulse 89 05/29/21 16:00 Resp 20 05/29/21 16:00 BP 112/66 05/29/21 16:00 Pulse Ox 90 L 05/29/21 16:00 Weight - Most Recent: 71.441 kg I&O - Last 24 Hours: Intake & Output 05/29/21 05/29/21 05/29/21 06:59 14:59 22:59 Intake Total 550 650 Balance 550 650 Lab Results Last 24 Hours: Laboratory Results - last 24 hr 05/29/21 05/29/21 Range/Units 05:40 05:40 WBC 5.87 (4.0-11.0) K/uL RBC 3.97 L (4.50-5.90) M/uL Hgb 12.2 L (13.0-17.0) g/dL Hct 36.3 L (38.0-50.0) % MCV 91.4 (80.0-98.0) fL MCH 30.7 (27.0-32.0) pg MCHC 33.6 (31.0-37.0) g/dL RDW Std Deviation 40.3 (28.0-62.0) fl RDW Coeff of [place] 12 (11.0-15.0) % Plt Count 300 (150-400) K/uL MPV 9.20 (7.40-12.00) fL Add Manual Diff YES Neutrophils % (Manual) 71 (48.0-80.0) % Band Neutrophils % 3 % Lymphocytes % (Manual) 21 (16.0-40.0) % Monocytes % (Manual) 4 (0.0-15.0) % Basophils % (Manual) 1 (0.0-1.5) % Absolute Seg Neuts 4.2 (1.4-5.7) Band Neutrophils # 0.2 Lymphocytes # (Manual) 1.2 (0.6-2.4) Monocytes # (Manual) 0.2 (0.0-0.8) Basophils # (Manual) 0.1 (0.0-0.1) Sodium 139 (136-148) mmol/L Potassium 4.5 (3.5-5.1) mmol/L Chloride 105 (98-107) mmol/L Carbon Dioxide 25.0 (21.0-32.0) mmol/L BUN 14 (7.0-18.0) mg/dL Creatinine 1.0 (0.8-1.3) mg/dL Est Cr Clr Drug Dosing 77.90 mL/min Estimated GFR (MDRD) > 60.0 ml/min Glucose 112 H (74-106) mg/dL Calcium 8.1 L (8.5-10.1) mg/dL Med Orders - Current: Current Medications Acetaminophen (Acetaminophen 325 Mg Tab) 650 mg PO Q4H PRN PRN Reason: Pain Hydrocodone Bitart/Acetaminophen (Acetaminophen/Hydrocodone 325-7.5 Mg Tab) 1 tab PO Q4H PRN PRN Reason: Pain Last Admin: 05/19/21 09:33 Dose: 1 tab Documented by: Albuterol/Ipratropium (Albuterol/Ipratropium 4 Gm Inhalation [place]) 0 gm INH QID [facility] Last Admin: 05/29/21 11:43 Dose: 1 puff Documented by: Cholecalciferol (Cholecalciferol (Vitamin D3) 25 Mcg Tab) 50 mcg PO DAILY [facility] Last Admin: 05/29/21 08:36 Dose: 50 mcg Documented by: Docusate Sodium (Docusate Sodium 100 Mg Cap) 100 mg PO BID [facility] Last Admin: 05/29/21 08:36 Dose: 100 mg Documented by: Enoxaparin Sodium (Enoxaparin 40 Mg/0.4 Ml Syringe) 40 mg SUBCUT Q24H [facility] Last Admin: 05/29/21 08:36 Dose: 40 mg Documented by: Guaifenesin/Dextromethorphan (Guaifenesin/Dextromethorphan 100-10 Mg/5 Ml Soln 10 Ml Cup) 10 ml PO Q4H PRN PRN Reason: Cough Levofloxacin/Dextrose 750 mg/ (Premix) 150 mls @ 100 mls/hr IV Q24H [facility] Last Admin: 05/28/21 21:12 Dose: 100 mls/hr Documented by: Ondansetron HCl (Ondansetron 4 Mg/2 Ml Sdv) 4 mg IVPUSH Q4H PRN PRN Reason: Nausea/Vomiting Pantoprazole Sodium (Pantoprazole 40 Mg Tab.Cr) 40 mg PO ACBREAKFAST [facility] Last Admin: 05/29/21 06:37 Dose: 40 mg Documented by: Polyethylene Glycol (Polyethylene Glycol 3350 Powder 17 Gm Packet) 17 gm PO BEDTIME [facility] Last Admin: 05/28/21 21:11 Dose: 17 gm Documented by: Discontinued Medications Acetaminophen (Acetaminophen 325 Mg Tab) 1,000 mg PO NOW ONE Stop: 05/12/21 19:56 Last Admin: 05/12/21 20:00 Dose: 1,000 mg Documented by: Dexamethasone (Dexamethasone 4 Mg Tab) 6 mg PO DAILY [facility] Stop: 05/21/21 09:01 Last Admin: 05/21/21 09:34 Dose: 6 mg Documented by: Enoxaparin Sodium (Enoxaparin 40 Mg/0.4 Ml Syringe) 40 mg SUBCUT Q24H [facility] Last Admin: 05/12/21 23:25 Dose: Not Given Documented by: Enoxaparin Sodium (Enoxaparin 100 Mg/1 Ml Syringe) 70 mg SUBCUT Q12H [facility] Last Admin: 05/12/21 23:04 Dose: 70 mg Documented by: Enoxaparin Sodium (Enoxaparin 100 Mg/1 Ml Syringe) 80 mg SUBCUT Q12H [facility] Last Admin: 05/13/21 10:35 Dose: 80 mg Documented by: Furosemide (Furosemide 20 Mg/2 Ml Vial) 20 mg IVPUSH NOW ONE Stop: 05/22/21 09:29 Last Admin: 05/22/21 10:13 Dose: 20 mg Documented by: Pantoprazole Sodium 40 mg/ (Sodium Chloride) 10 mls @ 200 mls/hr IV DAILY [facility] Remdesivir 100 mg/ Sodium (Chloride) 100 mls @ 100 mls/hr IV Q24H [facility] Stop: 05/16/21 22:59 Last Admin: 05/16/21 21:52 Dose: 100 mls/hr Documented by: Remdesivir 200 mg/ Sodium (Chloride) 250 mls @ 250 mls/hr IV ONETIME ONE Stop: 05/12/21 21:48 Last Admin: 05/12/21 23:09 Dose: 250 mls/hr Documented by: Iopamidol (Iopamidol 755 Mg/Ml 500 Ml Multipack Bottle) 75 ml IVPUSH ONETIME STA Stop: 05/13/21 11:21 Last Admin: 05/13/21 11:30 Dose: 75 ml Documented by: - Exam Quality Assessment: Supplemental Oxygen General: Alert, Oriented Lungs: Crackles (Lower lobes bilaterally) Cardiovascular: Regular Rate, Regular Rhythm GI/Abdominal Exam: Soft, Non-Tender Extremities: No Pedal Edema Psy/Mental Status: Alert - Patient Data Lab Results Last 24 hrs: Laboratory Results - last 24 hr 05/29/21 05/29/21 Range/Units 05:40 05:40 WBC 5.87 (4.0-11.0) K/uL RBC 3.97 L (4.50-5.90) M/uL Hgb 12.2 L (13.0-17.0) g/dL Hct 36.3 L (38.0-50.0) % MCV 91.4 (80.0-98.0) fL MCH 30.7 (27.0-32.0) pg MCHC 33.6 (31.0-37.0) g/dL RDW Std Deviation 40.3 (28.0-62.0) fl RDW Coeff of [place] 12 (11.0-15.0) % Plt Count 300 (150-400) K/uL MPV 9.20 (7.40-12.00) fL Add Manual Diff YES Neutrophils % (Manual) 71 (48.0-80.0) % Band Neutrophils % 3 % Lymphocytes % (Manual) 21 (16.0-40.0) % Monocytes % (Manual) 4 (0.0-15.0) % Basophils % (Manual) 1 (0.0-1.5) % Absolute Seg Neuts 4.2 (1.4-5.7) Band Neutrophils # 0.2 Lymphocytes # (Manual) 1.2 (0.6-2.4) Monocytes # (Manual) 0.2 (0.0-0.8) Basophils # (Manual) 0.1 (0.0-0.1) Sodium 139 (136-148) mmol/L Potassium 4.5 (3.5-5.1) mmol/L Chloride 105 (98-107) mmol/L Carbon Dioxide 25.0 (21.0-32.0) mmol/L BUN 14 (7.0-18.0) mg/dL Creatinine 1.0 (0.8-1.3) mg/dL Est Cr Clr Drug Dosing 77.90 mL/min Estimated GFR (MDRD) > 60.0 ml/min Glucose 112 H (74-106) mg/dL Calcium 8.1 L (8.5-10.1) mg/dL Result Diagrams: 05/29/21 05:40 05/29/21 05:40 Sepsis Event Note - Evaluation Sepsis Screening Result: No Definite Risk - Focused Exam Vital Signs: Vital Signs Temp Pulse Resp BP Pulse Ox 05/29/21 16:00 98.5 F 89 20 112/66 90 L 05/29/21 11:00 97.0 F 91 16 101/65 91 L 05/29/21 07:00 97.7 F 76 18 92/61 92 L - Problem List & Annotations (1) Acute respiratory failure with hypoxia SNOMED Code(s): 66616766, 549133815 Code(s): J96.01 - ACUTE RESPIRATORY FAILURE WITH HYPOXIA Status: Acute (2) COVID-19 SNOMED Code(s): 156359296 Code(s): U07.1 - COVID-19 Status: Acute - Problem List Review Problem List Initiated/Reviewed/Updated: Yes - Plan Plan:: Acute hypoxic respiratory failure/COVID-19 Patient currently at 3 L nasal cannula and 94% oxygen saturation. Will assess patient tomorrow, complete walking trial and see if patient is ready for discharge. Combivent, Encourage I/S, proning, Robitussin Levaquin 750mg q24hr <Calvin Chung - Last Filed: 05/31/21 15:28> - Patient Data Vitals - Most Recent: Last Vital Signs Temp 36.6 C 05/31/21 12:58 Pulse 71 05/31/21 12:58 Resp 18 05/31/21 12:58 BP 94/65 05/31/21 12:58 Pulse Ox 90 L 05/31/21 12:58 I&O - Last 24 Hours: Intake & Output 05/31/21 05/31/21 05/31/21 06:59 14:59 22:59 Intake Total 150 300 Balance 150 300 Med Orders - Current: Current Medications Discontinued Medications Acetaminophen (Acetaminophen 325 Mg Tab) 1,000 mg PO NOW ONE Stop: 05/12/21 19:56 Last Admin: 05/12/21 20:00 Dose: 1,000 mg Documented by: Acetaminophen (Acetaminophen 325 Mg Tab) 650 mg PO Q4H PRN PRN Reason: Pain Hydrocodone Bitart/Acetaminophen (Acetaminophen/Hydrocodone 325-7.5 Mg Tab) 1 tab PO Q4H PRN PRN Reason: Pain Last Admin: 05/19/21 09:33 Dose: 1 tab Documented by: Albuterol/Ipratropium (Albuterol/Ipratropium 4 Gm Inhalation [place]) 0 gm INH QID [facility] Last Admin: 05/31/21 12:57 Dose: 1 puff Documented by: Cholecalciferol (Cholecalciferol (Vitamin D3) 25 Mcg Tab) 50 mcg PO DAILY [facility] Last Admin: 05/31/21 09:02 Dose: 50 mcg Documented by: Dexamethasone (Dexamethasone 4 Mg Tab) 6 mg PO DAILY [facility] Stop: 05/21/21 09:01 Last Admin: 05/21/21 09:34 Dose: 6 mg Documented by: Docusate Sodium (Docusate Sodium 100 Mg Cap) 100 mg PO BID [facility] Last Admin: 05/31/21 09:02 Dose: 100 mg Documented by: Enoxaparin Sodium (Enoxaparin 40 Mg/0.4 Ml Syringe) 40 mg SUBCUT Q24H [facility] Last Admin: 05/12/21 23:25 Dose: Not Given Documented by: Enoxaparin Sodium (Enoxaparin 100 Mg/1 Ml Syringe) 70 mg SUBCUT Q12H [facility] Last Admin: 05/12/21 23:04 Dose: 70 mg Documented by: Enoxaparin Sodium (Enoxaparin 100 Mg/1 Ml Syringe) 80 mg SUBCUT Q12H [facility] Last Admin: 05/13/21 10:35 Dose: 80 mg Documented by: Enoxaparin Sodium (Enoxaparin 40 Mg/0.4 Ml Syringe) 40 mg SUBCUT Q24H [facility] Last Admin: 05/31/21 09:03 Dose: 40 mg Documented by: Furosemide (Furosemide 20 Mg/2 Ml Vial) 20 mg IVPUSH NOW ONE Stop: 05/22/21 09:29 Last Admin: 05/22/21 10:13 Dose: 20 mg Documented by: Guaifenesin (Guaifenesin 100 Mg/5 Ml Soln 5 Ml Ud Cup) 100 mg PO Q4H PRN PRN Reason: Cough Guaifenesin/Dextromethorphan (Guaifenesin/Dextromethorphan 100-10 Mg/5 Ml Soln 10 Ml Cup) 10 ml PO Q4H PRN PRN Reason: Cough Pantoprazole Sodium 40 mg/ (Sodium Chloride) 10 mls @ 200 mls/hr IV DAILY [facility] Remdesivir 100 mg/ Sodium (Chloride) 100 mls @ 100 mls/hr IV Q24H [facility] Stop: 05/16/21 22:59 Last Admin: 05/16/21 21:52 Dose: 100 mls/hr Documented by: Remdesivir 200 mg/ Sodium (Chloride) 250 mls @ 250 mls/hr IV ONETIME ONE Stop: 05/12/21 21:48 Last Admin: 05/12/21 23:09 Dose: 250 mls/hr Documented by: Levofloxacin/Dextrose 750 mg/ (Premix) 150 mls @ 100 mls/hr IV Q24H [facility] Last Admin: 05/30/21 21:47 Dose: Not Given Documented by: Levofloxacin/Dextrose 750 mg/ (Premix) 150 mls @ 100 mls/hr IV Q24H [facility] Last Admin: 05/31/21 03:58 Dose: 100 mls/hr Documented by: Iopamidol (Iopamidol 755 Mg/Ml 500 Ml Multipack Bottle) 75 ml IVPUSH ONETIME STA Stop: 05/13/21 11:21 Last Admin: 05/13/21 11:30 Dose: 75 ml Documented by: Ondansetron HCl (Ondansetron 4 Mg/2 Ml Sdv) 4 mg IVPUSH Q4H PRN PRN Reason: Nausea/Vomiting Pantoprazole Sodium (Pantoprazole 40 Mg Tab.Cr) 40 mg PO ACBREAKFAST [facility] Last Admin: 05/31/21 09:02 Dose: 40 mg Documented by: Polyethylene Glycol (Polyethylene Glycol 3350 Powder 17 Gm Packet) 17 gm PO BEDTIME [facility] Last Admin: 05/30/21 20:47 Dose: 17 gm Documented by: - Patient Data Result Diagrams: 05/30/21 06:06 05/30/21 06:06 Sepsis Event Note - Focused Exam Vital Signs: Vital Signs Temp Pulse Resp BP Pulse Ox Pulse Ox 05/31/21 12:58 36.6 C 71 18 94/65 90 L 05/31/21 08:56 92 L 05/31/21 08:55 36.7 C 72 18 98/58 L 92 L - Problem List & Annotations (1) COVID-19 SNOMED Code(s): 149898795 Code(s): U07.1 - COVID-19 Status: Acute (2) Hypoxia SNOMED Code(s): 759347166 Code(s): R09.02 - HYPOXEMIA Status: Acute (3) Diarrhea SNOMED Code(s): 74348315 Code(s): R19.7 - DIARRHEA, UNSPECIFIED Status: Acute (4) Fever SNOMED Code(s): 200615779 Code(s): R50.9 - FEVER, UNSPECIFIED Status: Acute - Plan Plan:: I have seen and evaluated the patient and agree with the residents note unless specified in my note
[2021-05-29] MEDS: Polyethylene Glycol 3350 Powder 17 GM Packet PO SCH (20:46)
[2021-05-30] MEDS: Albuterol/Ipratropium 4 GM Inhalation Spray INH SCH ×4 (01:20→17:40)
[2021-05-30] MEDS: Levofloxacin/Dextrose 5%-Water 750 MG in Premix Bag 1 BAG IV SCH ×2 (02:01→21:47)
[2021-05-30 07:32] LABS: BLOOD UREA NITROGEN,BUN 12 mg/dL (7.0-18.0); CHLORIDE,CL 103 mmol/L (98-107); GLUCOSE RANDOM 102 mg/dL (74-106); POTASSIUM,K 4.7 mmol/L (3.5-5.1); SODIUM,NA 139 mmol/L (136-148)
[2021-05-30] MEDS: Cholecalciferol (Vitamin D3) 25 MCG Tab PO SCH (09:03)
[2021-05-30] MEDS: Enoxaparin 40 MG/0.4 ML Syringe SUBCUT SCH (09:03)
[2021-05-30] MEDS: Docusate Sodium 100 MG Cap PO SCH ×2 (09:03→20:47)
[2021-05-30] MEDS: Pantoprazole 40 MG Tab.CR PO SCH (09:03)
[2021-05-30] MEDS: Polyethylene Glycol 3350 Powder 17 GM Packet PO SCH (20:47)
--- NOTE | 2021-05-30 21:36 | PCM.PN ---
<Aldair Barraza - Last Filed: 05/30/21 21:36> - General Info Date of Service: 05/30/21 Subjective Update: Denies any chills overnight. Denies fever, chills, nausea, vomiting, abdominal pain, shortness of breath. Of note when patient was ambulation on 3 L, oxygen saturation dropped to 84-86%. - Review of Systems General: Denies: Fever, Chills Pulmonary: Denies: Shortness of Breath, Cough Cardiovascular: Denies: Chest Pain, Palpitations, Edema Gastrointestinal: Denies: Abdominal Pain, Decreased Appetite, Diarrhea, Nausea, Vomiting Neurological: Denies: Confusion, Dizziness, Headache Psychiatric: Denies: Confusion - Patient Data Vitals - Most Recent: Last Vital Signs Temp 97.5 F 05/30/21 15:22 Pulse 86 05/30/21 15:22 Resp 22 H 05/30/21 15:22 BP 105/61 05/30/21 15:22 Pulse Ox 93 L 05/30/21 15:22 Weight - Most Recent: 71.441 kg I&O - Last 24 Hours: Intake & Output 05/30/21 05/30/21 05/30/21 06:59 14:59 22:59 Intake Total 636 Balance 636 Lab Results Last 24 Hours: Laboratory Results - last 24 hr 05/30/21 05/30/21 Range/Units 06:06 06:06 WBC 5.71 (4.0-11.0) K/uL RBC 4.05 L (4.50-5.90) M/uL Hgb 12.4 L (13.0-17.0) g/dL Hct 36.2 L (38.0-50.0) % MCV 89.4 (80.0-98.0) fL MCH 30.6 (27.0-32.0) pg MCHC 34.3 (31.0-37.0) g/dL RDW Std Deviation 42.0 (28.0-62.0) fl RDW Coeff of [place] 13 (11.0-15.0) % Plt Count 288 (150-400) K/uL MPV 9.30 (7.40-12.00) fL Neut % (Auto) 60.8 (48.0-80.0) % Lymph % (Auto) 26.8 (16.0-40.0) % [place] % (Auto) 9.8 (0.0-15.0) % Eos % (Auto) 2.1 (0.0-7.0) % Baso % (Auto) 0.5 (0.0-1.5) % Neut # (Auto) 3.5 (1.4-5.7) K/uL Lymph # (Auto) 1.5 (0.6-2.4) K/uL [place] # (Auto) 0.6 (0.0-0.8) K/uL Eos # (Auto) 0.1 (0.0-0.7) K/uL Baso # (Auto) 0.0 (0.0-0.1) K/uL Nucleated RBC % 0.0 /100WBC Nucleated RBCs # 0 K/uL Sodium 139 (136-148) mmol/L Potassium 4.7 (3.5-5.1) mmol/L Chloride 103 (98-107) mmol/L Carbon Dioxide 25.0 (21.0-32.0) mmol/L BUN 12 (7.0-18.0) mg/dL Creatinine 0.9 (0.8-1.3) mg/dL Est Cr Clr Drug Dosing 86.56 mL/min Estimated GFR (MDRD) > 60.0 ml/min Glucose 102 (74-106) mg/dL Calcium 8.3 L (8.5-10.1) mg/dL Med Orders - Current: Current Medications Acetaminophen (Acetaminophen 325 Mg Tab) 650 mg PO Q4H PRN PRN Reason: Pain Hydrocodone Bitart/Acetaminophen (Acetaminophen/Hydrocodone 325-7.5 Mg Tab) 1 tab PO Q4H PRN PRN Reason: Pain Last Admin: 05/19/21 09:33 Dose: 1 tab Documented by: Albuterol/Ipratropium (Albuterol/Ipratropium 4 Gm Inhalation [place]) 0 gm INH QID [facility] Last Admin: 05/30/21 17:40 Dose: 1 puff Documented by: Cholecalciferol (Cholecalciferol (Vitamin D3) 25 Mcg Tab) 50 mcg PO DAILY [facility] Last Admin: 05/30/21 09:03 Dose: 50 mcg Documented by: Docusate Sodium (Docusate Sodium 100 Mg Cap) 100 mg PO BID [facility] Last Admin: 05/30/21 20:47 Dose: 100 mg Documented by: Enoxaparin Sodium (Enoxaparin 40 Mg/0.4 Ml Syringe) 40 mg SUBCUT Q24H [facility] Last Admin: 05/30/21 09:03 Dose: 40 mg Documented by: Guaifenesin/Dextromethorphan (Guaifenesin/Dextromethorphan 100-10 Mg/5 Ml Soln 10 Ml Cup) 10 ml PO Q4H PRN PRN Reason: Cough Levofloxacin/Dextrose 750 mg/ (Premix) 150 mls @ 100 mls/hr IV Q24H [facility] Last Admin: 05/30/21 02:01 Dose: 100 mls/hr Documented by: Ondansetron HCl (Ondansetron 4 Mg/2 Ml Sdv) 4 mg IVPUSH Q4H PRN PRN Reason: Nausea/Vomiting Pantoprazole Sodium (Pantoprazole 40 Mg Tab.Cr) 40 mg PO ACBREAKFAST [facility] Last Admin: 05/30/21 09:03 Dose: 40 mg Documented by: Polyethylene Glycol (Polyethylene Glycol 3350 Powder 17 Gm Packet) 17 gm PO B EDTIME [facility] Last Admin: 05/30/21 20:47 Dose: 17 gm Documented by: Discontinued Medications Acetaminophen (Acetaminophen 325 Mg Tab) 1,000 mg PO NOW ONE Stop: 05/12/21 19:56 Last Admin: 05/12/21 20:00 Dose: 1,000 mg Documented by: Dexamethasone (Dexamethasone 4 Mg Tab) 6 mg PO DAILY [facility] Stop: 05/21/21 09:01 Last Admin: 05/21/21 09:34 Dose: 6 mg Documented by: Enoxaparin Sodium (Enoxaparin 40 Mg/0.4 Ml Syringe) 40 mg SUBCUT Q24H [facility] Last Admin: 05/12/21 23:25 Dose: Not Given Documented by: Enoxaparin Sodium (Enoxaparin 100 Mg/1 Ml Syringe) 70 mg SUBCUT Q12H [facility] Last Admin: 05/12/21 23:04 Dose: 70 mg Documented by: Enoxaparin Sodium (Enoxaparin 100 Mg/1 Ml Syringe) 80 mg SUBCUT Q12H [facility] Last Admin: 05/13/21 10:35 Dose: 80 mg Documented by: Furosemide (Furosemide 20 Mg/2 Ml Vial) 20 mg IVPUSH NOW ONE Stop: 05/22/21 09:29 Last Admin: 05/22/21 10:13 Dose: 20 mg Documented by: Pantoprazole Sodium 40 mg/ (Sodium Chloride) 10 mls @ 200 mls/hr IV DAILY [facility] Remdesivir 100 mg/ Sodium (Chloride) 100 mls @ 100 mls/hr IV Q24H [facility] Stop: 05/16/21 22:59 Last Admin: 05/16/21 21:52 Dose: 100 mls/hr Documented by: Remdesivir 200 mg/ Sodium (Chloride) 250 mls @ 250 mls/hr IV ONETIME ONE Stop: 05/12/21 21:48 Last Admin: 05/12/21 23:09 Dose: 250 mls/hr Documented by: Levofloxacin/Dextrose 750 mg/ (Premix) 150 mls @ 100 mls/hr IV Q24H [facility] Last Admin: 05/28/21 21:12 Dose: 100 mls/hr Documented by: Iopamidol (Iopamidol 755 Mg/Ml 500 Ml Multipack Bottle) 75 ml IVPUSH ONETIME STA Stop: 05/13/21 11:21 Last Admin: 05/13/21 11:30 Dose: 75 ml Documented by: - Exam Quality Assessment: Supplemental Oxygen General: Alert, Oriented Lungs: Normal Respiratory Effort, Crackles Cardiovascular: Regular Rate, Regular Rhythm GI/Abdominal Exam: Soft, Non-Tender, No Distention Extremities: No Pedal Edema Psy/Mental Status: Alert - Patient Data Lab Results Last 24 hrs: Laboratory Results - last 24 hr 05/30/21 05/30/21 Range/Units 06:06 06:06 WBC 5.71 (4.0-11.0) K/uL RBC 4.05 L (4.50-5.90) M/uL Hgb 12.4 L (13.0-17.0) g/dL Hct 36.2 L (38.0-50.0) % MCV 89.4 (80.0-98.0) fL MCH 30.6 (27.0-32.0) pg MCHC 34.3 (31.0-37.0) g/dL RDW Std Deviation 42.0 (28.0-62.0) fl RDW Coeff of [place] 13 (11.0-15.0) % Plt Count 288 (150-400) K/uL MPV 9.30 (7.40-12.00) fL Neut % (Auto) 60.8 (48.0-80.0) % Lymph % (Auto) 26.8 (16.0-40.0) % [place] % (Auto) 9.8 (0.0-15.0) % Eos % (Auto) 2.1 (0.0-7.0) % Baso % (Auto) 0.5 (0.0-1.5) % Neut # (Auto) 3.5 (1.4-5.7) K/uL Lymph # (Auto) 1.5 (0.6-2.4) K/uL [place] # (Auto) 0.6 (0.0-0.8) K/uL Eos # (Auto) 0.1 (0.0-0.7) K/uL Baso # (Auto) 0.0 (0.0-0.1) K/uL Nucleated RBC % 0.0 /100WBC Nucleated RBCs # 0 K/uL Sodium 139 (136-148) mmol/L Potassium 4.7 (3.5-5.1) mmol/L Chloride 103 (98-107) mmol/L Carbon Dioxide 25.0 (21.0-32.0) mmol/L BUN 12 (7.0-18.0) mg/dL Creatinine 0.9 (0.8-1.3) mg/dL Est Cr Clr Drug Dosing 86.56 mL/min Estimated GFR (MDRD) > 60.0 ml/min Glucose 102 (74-106) mg/dL Calcium 8.3 L (8.5-10.1) mg/dL Result Diagrams: 05/30/21 06:06 05/30/21 06:06 Sepsis Event Note - Evaluation Sepsis Screening Result: No Definite Risk - Focused Exam Vital Signs: Vital Signs Temp Pulse Resp BP Pulse Ox 05/30/21 15:22 97.5 F 86 22 H 105/61 93 L 05/30/21 11:36 96.7 F L 68 20 99/60 90 L - Problem List & Annotations (1) Acute respiratory failure with hypoxia SNOMED Code(s): 40482418, 694116964 Code(s): J96.01 - ACUTE RESPIRATORY FAILURE WITH HYPOXIA Status: Acute (2) COVID-19 SNOMED Code(s): 933982044 Code(s): U07.1 - COVID-19 Status: Acute - Problem List Review Problem List Initiated/Reviewed/Updated: Yes - Plan Plan:: Acute hypoxic respiratory failure/COVID-19 Patient currently at 3 L nasal cannula and 94% oxygen saturation. Patient's oxygen saturation measured while walking, 3 L saturation dropped to 84-86%. We will continue to wean oxygen as tolerated. Combivent, Encourage I/S, proning, Robitussin Levaquin 750mg q24hr <Calvin Chung - Last Filed: 05/31/21 15:36> - Patient Data Vitals - Most Recent: Last Vital Signs Temp 36.6 C 05/31/21 12:58 Pulse 71 05/31/21 12:58 Resp 18 05/31/21 12:58 BP 94/65 05/31/21 12:58 Pulse Ox 90 L 05/31/21 12:58 I&O - Last 24 Hours: Intake & Output 05/31/21 05/31/21 05/31/21 06:59 14:59 22:59 Intake Total 150 300 Balance 150 300 Med Orders - Current: Current Medications Discontinued Medications Acetaminophen (Acetaminophen 325 Mg Tab) 1,000 mg PO NOW ONE Stop: 05/12/21 19:56 Last Admin: 05/12/21 20:00 Dose: 1,000 mg Documented by: Acetaminophen (Acetaminophen 325 Mg Tab) 650 mg PO Q4H PRN PRN Reason: Pain Hydrocodone Bitart/Acetaminophen (Acetaminophen/Hydrocodone 325-7.5 Mg Tab) 1 tab PO Q4H PRN PRN Reason: Pain Last Admin: 05/19/21 09:33 Dose: 1 tab Documented by: Albuterol/Ipratropium (Albuterol/Ipratropium 4 Gm Inhalation [place]) 0 gm INH QID [facility] Last Admin: 05/31/21 12:57 Dose: 1 puff Documented by: Cholecalciferol (Cholecalciferol (Vitamin D3) 25 Mcg Tab) 50 mcg PO DAILY [facility] Last Admin: 05/31/21 09:02 Dose: 50 mcg Documented by: Dexamethasone (Dexamethasone 4 Mg Tab) 6 mg PO DAILY [facility] Stop: 05/21/21 09:01 Last Admin: 05/21/21 09:34 Dose: 6 mg Documented by: Docusate Sodium (Docusate Sodium 100 Mg Cap) 100 mg PO BID [facility] Last Admin: 05/31/21 09:02 Dose: 100 mg Documented by: Enoxaparin Sodium (Enoxaparin 40 Mg/0.4 Ml Syringe) 40 mg SUBCUT Q24H [facility] Last Admin: 05/12/21 23:25 Dose: Not Given Documented by: Enoxaparin Sodium (Enoxaparin 100 Mg/1 Ml Syringe) 70 mg SUBCUT Q12H [facility] Last Admin: 05/12/21 23:04 Dose: 70 mg Documented by: Enoxaparin Sodium (Enoxaparin 100 Mg/1 Ml Syringe) 80 mg SUBCUT Q12H [facility] Last Admin: 05/13/21 10:35 Dose: 80 mg Documented by: Enoxaparin Sodium (Enoxaparin 40 Mg/0.4 Ml Syringe) 40 mg SUBCUT Q24H [facility] Last Admin: 05/31/21 09:03 Dose: 40 mg Documented by: Furosemide (Furosemide 20 Mg/2 Ml Vial) 20 mg IVPUSH NOW ONE Stop: 05/22/21 09:29 Last Admin: 05/22/21 10:13 Dose: 20 mg Documented by: Guaifenesin (Guaifenesin 100 Mg/5 Ml Soln 5 Ml Ud Cup) 100 mg PO Q4H PRN PRN Reason: Cough Guaifenesin/Dextromethorphan (Guaifenesin/Dextromethorphan 100-10 Mg/5 Ml Soln 10 Ml Cup) 10 ml PO Q4H PRN PRN Reason: Cough Pantoprazole Sodium 40 mg/ (Sodium Chloride) 10 mls @ 200 mls/hr IV DAILY [facility] Remdesivir 100 mg/ Sodium (Chloride) 100 mls @ 100 mls/hr IV Q24H [facility] Stop: 05/16/21 22:59 Last Admin: 05/16/21 21:52 Dose: 100 mls/hr Documented by: Remdesivir 200 mg/ Sodium (Chloride) 250 mls @ 250 mls/hr IV ONETIME ONE Stop: 05/12/21 21:48 Last Admin: 05/12/21 23:09 Dose: 250 mls/hr Documented by: Levofloxacin/Dextrose 750 mg/ (Premix) 150 mls @ 100 mls/hr IV Q24H [facility] Last Admin: 05/30/21 21:47 Dose: Not Given Documented by: Levofloxacin/Dextrose 750 mg/ (Premix) 150 mls @ 100 mls/hr IV Q24H [facility] Last Admin: 05/31/21 03:58 Dose: 100 mls/hr Documented by: Iopamidol (Iopamidol 755 Mg/Ml 500 Ml Multipack Bottle) 75 ml IVPUSH ONETIME STA Stop: 05/13/21 11:21 Last Admin: 05/13/21 11:30 Dose: 75 ml Documented by: Ondansetron HCl (Ondansetron 4 Mg/2 Ml Sdv) 4 mg IVPUSH Q4H PRN PRN Reason: Nausea/Vomiting Pantoprazole Sodium (Pantoprazole 40 Mg Tab.Cr) 40 mg PO ACBREAKFAST [facility] Last Admin: 05/31/21 09:02 Dose: 40 mg Documented by: Polyethylene Glycol (Polyethylene Glycol 3350 Powder 17 Gm Packet) 17 gm PO BEDTIME [facility] Last Admin: 05/30/21 20:47 Dose: 17 gm Documented by: - Patient Data Result Diagrams: 05/30/21 06:06 05/30/21 06:06 Sepsis Event Note - Focused Exam Vital Signs: Vital Signs Temp Pulse Resp BP Pulse Ox Pulse Ox 05/31/21 12:58 36.6 C 71 18 94/65 90 L 05/31/21 08:56 92 L 05/31/21 08:55 36.7 C 72 18 98/58 L 92 L - Problem List & Annotations (1) COVID-19 SNOMED Code(s): 733675558 Code(s): U07.1 - COVID-19 Status: Acute (2) Hypoxia SNOMED Code(s): 276780520 Code(s): R09.02 - HYPOXEMIA Status: Acute (3) Diarrhea SNOMED Code(s): 65057426 Code(s): R19.7 - DIARRHEA, UNSPECIFIED Status: Acute (4) Fever SNOMED Code(s): 584537564 Code(s): R50.9 - FEVER, UNSPECIFIED Status: Acute - Plan Plan:: I have seen and evaluated the patient and agree with the residents note unless specified in my note
[2021-05-31] MEDS: Albuterol/Ipratropium 4 GM Inhalation Spray INH SCH ×3 (01:24→12:57)
[2021-05-31] MEDS: Levofloxacin/Dextrose 5%-Water 750 MG in Premix Bag 1 BAG IV SCH (03:58)
[2021-05-31] MEDS: Pantoprazole 40 MG Tab.CR PO SCH (09:02)
[2021-05-31] MEDS: Docusate Sodium 100 MG Cap PO SCH (09:02)
[2021-05-31] MEDS: Cholecalciferol (Vitamin D3) 25 MCG Tab PO SCH (09:02)
[2021-05-31] MEDS: Enoxaparin 40 MG/0.4 ML Syringe SUBCUT SCH (09:03)
[2021-05-31] MEDS ORDERED: guaiFENesin 100 MG/5 ML Soln 5 ML UD Cup PO PRN (12:00)
--- NOTE | 2021-05-31 16:34 | PCM.DCSUM1 ---
Discharge Summary - Hospital Course Free Text/Narrative:: 56-year-old male with no significant past medical history presents department on 05-12-21 with shortness of breath and hypoxia. Of note patient was diagnosed with COVID-19 on May 082020. Patient symptoms were mostly respiratory in nature including shortness of breath, cough with some slight loose stools. Patient denies chest pain or shortness of breath at admission. Patient also denies any history of respiratory, cardiac disease. Patient has no history of DVT or pulmonary embolisms. At admission he stated that he has had poor oral intake. ER courseEKG was obtained which not reveal any acute signs of ischemia. patient was placed on nasal cannula 2 L and pulse oximetry with good waveform was 94 to 95%. Lab work was unremarkable, D-dimer was slightly elevated. Per ER physician low suspicion for PE so CTA wasn't obtained. Patient was admitted to hospital for further management. Patient has completed 10 days of dexamethasone, 5 days remdesivir, Levaquin. Patient's total admission course was from 05-12-20. Patient did require part of his stay in the ICU for observation and increased oxygen support. Patient was on heated high flow for roughly 10 days of stay, then transitioned to nasal cannula prior to discharge. Patient's oxygen requirement at discharge was 1.5 L nasal cannula at rest. Patient's oxygen saturation did go down to 84- 86% with activity but came back up to 90-90% quickly with 2 L of oxygen. Gulshan valdivia discharged home in stable condition with home oxygen. - Discharge Data Discharge Date: 05/31/21 Discharge Disposition: Home, Self-Care 01 Condition: Good - Referral to Home Health Primary Care Physician: Rojas Lewis MD - Discharge Diagnosis/Problem(s) (1) Acute respiratory failure with hypoxia SNOMED Code(s): 68360746, 037555056 ICD Code: J96.01 - ACUTE RESPIRATORY FAILURE WITH HYPOXIA Status: Acute (2) COVID-19 SNOMED Code(s): 140294760 ICD Code: U07.1 - COVID-19 Status: Acute - Patient Instructions Diet: Usual Diet as Tolerated Activity: As Tolerated Showering/Bathing: May Shower Notify Provider of: Fever, Increased Pain, Nausea and/or Vomiting Other/Special Instructions: Report to the emergency department if experiencing significant shortness of breath, chest pain. Report any symptoms of mild shortness of breath, wheezing to primary care physician. Patient discharged home with home oxygen. Patient to discuss any other medical concerns with primary care physician. - Discharge Plan *PRESCRIPTION DRUG MONITORING PROGRAM REVIEWED*: Not Applicable *COPY OF PRESCRIPTION DRUG MONITORING REPORT IN PATIENT ROCAEL: Not Applicable Oxygen Therapy Mode: Nasal Cannula Oxygen Flow Rate (L/min): 2 Maintain SpO2% greater than: 92 Patient Handouts: Ipratropium; Albuterol Inhalation [place] (Combivent Respimat), COVID-19, COVID-19 Vaccine Information, Hypoxemia, Home Oxygen Use, Adult Forms: ED Department Discharge Referrals: Rojas Lewis MD [Primary Care Provider] - - Discharge Summary/Plan Comment DC Time >30 min.: Yes Total # of Minutes for Discharge Time: 35 - General Info Date of Service: 05/31/21 Subjective Update: Patient states feeling fine today. Patient states he would like to go home as he has been in the hospital for some time now. Patient denies chest pain, shortness of breath, fever, chills, nausea, vomiting, diarrhea. - Review of Systems Pulmonary: Denies: Shortness of Breath, Cough Cardiovascular: Denies: Chest Pain, Dyspnea on Exertion, Edema Gastrointestinal: Denies: Abdominal Pain, Decreased Appetite, Diarrhea, Nausea, Vomiting Neurological: Denies: Confusion, Dizziness, Headache Psychiatric: Denies: Confusion - Patient Data Vitals - Most Recent: Last Vital Signs Temp 97.9 F 05/31/21 12:58 Pulse 71 05/31/21 12:58 Resp 18 05/31/21 12:58 BP 94/65 05/31/21 12:58 Pulse Ox 90 L 05/31/21 12:58 Weight - Most Recent: 157 lb 8 oz I&O - Last 24 hours: Intake & Output 05/31/21 05/31/21 05/31/21 06:59 14:59 22:59 Intake Total 150 300 Balance 150 300 Med Orders - Current: Current Medications Discontinued Medications Acetaminophen (Acetaminophen 325 Mg Tab) 1,000 mg PO NOW ONE Stop: 05/12/21 19:56 Last Admin: 05/12/21 20:00 Dose: 1,000 mg Documented by: Acetaminophen (Acetaminophen 325 Mg Tab) 650 mg PO Q4H PRN PRN Reason: Pain Hydrocodone Bitart/Acetaminophen (Acetaminophen/Hydrocodone 325-7.5 Mg Tab) 1 tab PO Q4H PRN PRN Reason: Pain Last Admin: 05/19/21 09:33 Dose: 1 tab Documented by: Albuterol/Ipratropium (Albuterol/Ipratropium 4 Gm Inhalation [place]) 0 gm INH QID [facility] Last Admin: 05/31/21 12:57 Dose: 1 puff Documented by: Cholecalciferol (Cholecalciferol (Vitamin D3) 25 Mcg Tab) 50 mcg PO DAILY [facility] Last Admin: 05/31/21 09:02 Dose: 50 mcg Documented by: Dexamethasone (Dexamethasone 4 Mg Tab) 6 mg PO DAILY [facility] Stop: 05/21/21 09:01 Last Admin: 05/21/21 09:34 Dose: 6 mg Documented by: Docusate Sodium (Docusate Sodium 100 Mg Cap) 100 mg PO BID [facility] Last Admin: 05/31/21 09:02 Dose: 100 mg Documented by: Enoxaparin Sodium (Enoxaparin 40 Mg/0.4 Ml Syringe) 40 mg SUBCUT Q24H [facility] Last Admin: 05/12/21 23:25 Dose: Not Given Documented by: Enoxaparin Sodium (Enoxaparin 100 Mg/1 Ml Syringe) 70 mg SUBCUT Q12H [facility] Last Admin: 05/12/21 23:04 Dose: 70 mg Documented by: Enoxaparin Sodium (Enoxaparin 100 Mg/1 Ml Syringe) 80 mg SUBCUT Q12H [facility] Last Admin: 05/13/21 10:35 Dose: 80 mg Documented by: Enoxaparin Sodium (Enoxaparin 40 Mg/0.4 Ml Syringe) 40 mg SUBCUT Q24H [facility] Last Admin: 05/31/21 09:03 Dose: 40 mg Documented by: Furosemide (Furosemide 20 Mg/2 Ml Vial) 20 mg IVPUSH NOW ONE Stop: 05/22/21 09:29 Last Admin: 05/22/21 10:13 Dose: 20 mg Documented by: Guaifenesin (Guaifenesin 100 Mg/5 Ml Soln 5 Ml Ud Cup) 100 mg PO Q4H PRN PRN Reason: Cough Guaifenesin/Dextromethorphan (Guaifenesin/Dextromethorphan 100-10 Mg/5 Ml Soln 10 Ml Cup) 10 ml PO Q4H PRN PRN Reason: Cough Pantoprazole Sodium 40 mg/ (Sodium Chloride) 10 mls @ 200 mls/hr IV DAILY [facility] Remdesivir 100 mg/ Sodium (Chloride) 100 mls @ 100 mls/hr IV Q24H [facility] Stop: 05/16/21 22:59 Last Admin: 05/16/21 21:52 Dose: 100 mls/hr Documented by: Remdesivir 200 mg/ Sodium (Chloride) 250 mls @ 250 mls/hr IV ONETIME ONE Stop: 05/12/21 21:48 Last Admin: 05/12/21 23:09 Dose: 250 mls/hr Documented by: Levofloxacin/Dextrose 750 mg/ (Premix) 150 mls @ 100 mls/hr IV Q24H [facility] Last Admin: 05/30/21 21:47 Dose: Not Given Documented by: Levofloxacin/Dextrose 750 mg/ (Premix) 150 mls @ 100 mls/hr IV Q24H [facility] Last Admin: 05/31/21 03:58 Dose: 100 mls/hr Documented by: Iopamidol (Iopamidol 755 Mg/Ml 500 Ml Multipack Bottle) 75 ml IVPUSH ONETIME STA Stop: 05/13/21 11:21 Last Admin: 05/13/21 11:30 Dose: 75 ml Documented by: Ondansetron HCl (Ondansetron 4 Mg/2 Ml Sdv) 4 mg IVPUSH Q4H PRN PRN Reason: Nausea/Vomiting Pantoprazole Sodium (Pantoprazole 40 Mg Tab.Cr) 40 mg PO ACBREAKFAST [facility] Last Admin: 05/31/21 09:02 Dose: 40 mg Documented by: Polyethylene Glycol (Polyethylene Glycol 3350 Powder 17 Gm Packet) 17 gm PO BEDTIME [facility] Last Admin: 05/30/21 20:47 Dose: 17 gm Documented by: - Exam General: Reports: Alert, Oriented Lungs: Reports: Normal Respiratory Effort Cardiovascular: Reports: Regular Rate, Regular Rhythm
== END 2021-05-31 14:37 | disposition home or self-care (01) | DRG 137 ==
LOC: MW.ED 18:17 → MW.MS 20:50 → MW.ICU 05-21 21:40 → MW.MS 05-28 13:20
PROVIDERS: ADMIT Student in an Organized Health Care Education/Training Program; ATTEND Student in an Organized Health Care Education/Training Program
PROC: XW033E5 Introduction of Remdesivir Anti-infective into Peripheral Vein, Percutaneous Approach, New Technology Group 5 (ICD-10-PCS; principal; 2021-05-12)
PROC: 3E0DX3Z Introduction of Anti-inflammatory into Mouth and Pharynx, External Approach (ICD-10-PCS; 2021-05-12)
PROC: 5A0955A Assistance with Respiratory Ventilation, Greater than 96 Consecutive Hours, High Flow/Velocity Cannula (ICD-10-PCS; 2021-05-12)
DX: U07.1 COVID-19 (principal); J96.01 Acute respiratory failure with hypoxia; J12.82 Pneumonia due to coronavirus disease 2019; A08.39 Other viral enteritis; E78.00 Pure hypercholesterolemia, unspecified; M54.9 Dorsalgia, unspecified; G89.29 Other chronic pain; F17.200 Nicotine dependence, unspecified, uncomplicated; J43.9 Emphysema, unspecified
CPT/HCPCS: 36415; 71045; 71045-26; 71275; 71275-26; 80048; 80053; 81001; 82306; 83735; 84100; 84145; 84484; 85025; 85379; 86140; 93005; 94640; 99284; 99285-25; A9270-GY; J1650; J1940; J1956; J7050; J8540; Q9967

== ENCOUNTER 2022-02-25 06:37 | Inpatient (IN) | payer BC ==
[~2022-02-25 06:37] MED LIST: Famotidine 20 MG/2 ML SDV IVPUSH SCH; Lactated Ringers 1,000 ML IV SCH; Ropivacaine 49.25 ML, Ketorolac 30 MG, EPINEPHrine 0.5 MG, cloNIDine 80 MCG in Sodium C... INJECT SCH; Scopolamine 1.5 MG Transdermal Patch TRDERM SCH; Tranexamic Acid 1,000 MG in Sodium Chloride 0.9% 100 ML IV ONE
[2022-02-25] MEDS ORDERED: Famotidine 20 MG/2 ML SDV ONE (07:15)
[2022-02-25] MEDS ORDERED: Propofol 200 MG/20 ML SDV ONE (07:24)
[2022-02-25] MEDS ORDERED: Ketamine 500 mg/10 ML MDV ONE (07:24)
[2022-02-25] MEDS ORDERED: fentaNYL 100 MCG/2 ML SDV ONE (07:24)
[2022-02-25] MEDS ORDERED: Midazolam 1 MG/ML 2 ML SDV ONE (07:24)
[2022-02-25] MEDS ORDERED: Albuterol 0.083% 2.5 MG/3 ML Neb Soln NEB PRN (07:38)
[2022-02-25] MEDS ORDERED: Metoclopramide 10 MG/2 ML SDV IVPUSH PRN (07:38)
[2022-02-25] MEDS ORDERED: Naloxone 0.4 MG/ML SDV IVPUSH PRN (07:38)
[2022-02-25] MEDS ORDERED: HYDROmorphone 1 MG/ML Syringe IVPUSH PRN (07:38)
[2022-02-25] MEDS ORDERED: fentaNYL 50 MCG/ML SDV IVPUSH PRN (07:38)
[2022-02-25] MEDS ORDERED: Morphine 4 MG/ML VIAL IVPUSH PRN (07:38)
[2022-02-25] MEDS ORDERED: Ondansetron 4 MG/2 ML SDV IVPUSH PRN ×2 (07:38→11:14)
[2022-02-25] MEDS ORDERED: Ropivacaine 0.5% 5 MG/ML 30 ML SDV ONE (07:56)
[2022-02-25] MEDS ORDERED: Ropivacaine/Ketorolac/Ketamine 100-15-30/50 ML Syringe INJECT ONE (08:00)
[2022-02-25] MEDS ORDERED: ceFAZolin 2 GM in Premix Bag 1 BAG IV SCH (08:00)
[2022-02-25] MEDS ORDERED: ePHEDrine 50 MG/ML SDV ONE (09:31)
[2022-02-25] MEDS ORDERED: Glycopyrrolate 0.2 MG/ML SDV ONE (09:31)
[2022-02-25] MEDS ORDERED: Ondansetron 4 MG/2 ML SDV ONE (10:18)
[2022-02-25] MEDS ORDERED: EPINEPHrine 1:10,000 1 MG/10 ML Syringe ONE (10:34)
[2022-02-25] MEDS ORDERED: Aluminum Hydroxide/Magnesium Hydroxide/Simethicone XS Susp 30 ML Cup PO PRN (11:14)
[2022-02-25] MEDS ORDERED: Morphine 2 MG/ML SYRINGE IVPUSH PRN (11:14)
[2022-02-25] MEDS ORDERED: diphenhydrAMINE 25 MG Cap PO PRN (11:14)
[2022-02-25] MEDS ORDERED: Acetaminophen 325 MG Tab PO PRN (11:14)
[2022-02-25] MEDS ORDERED: Sodium Chloride 0.9% 2.5 ML Syringe FLUSH PRN (11:14)
[2022-02-25] MEDS ORDERED: Sodium Chloride 0.9% 10 ML Syringe FLUSH PRN (11:14)
[2022-02-25] MEDS ORDERED: traMADol 50 MG Tab PO PRN (11:14)
[2022-02-25] MEDS ORDERED: Bisacodyl 10 MG Supp RECTAL PRN (11:14)
[2022-02-25] MEDS ORDERED: oxyCODONE 5 MG Tab PO PRN (11:14)
[2022-02-25] MEDS: Ketorolac 30 MG/ML SDV IVPUSH SCH ×3 (13:04→23:53)
[2022-02-25 14:44] LABS: CARBON DIOXIDE,CO2 24.5 mmol/L (21.0-32.0); POTASSIUM,K 3.8 mmol/L (3.5-5.1)
[2022-02-25] MEDS ORDERED: Albuterol/Ipratropium 3.0-0.5 MG/3 ML Neb Soln NEB PRN (14:58)
[2022-02-25] MEDS: ceFAZolin 2 GM in Premix Bag 1 BAG IV SCH ×2 (16:22→23:52)
[2022-02-25] MEDS: Aspirin 325 MG Tab PO SCH (17:19)
[2022-02-25] MEDS: Docusate Sodium 100 MG Cap PO SCH (20:33)
[2022-02-26 06:24] LABS: CARBON DIOXIDE,CO2 25.1 mmol/L (21.0-32.0); POTASSIUM,K 4.1 mmol/L (3.5-5.1)
[2022-02-26] MEDS ORDERED: Polyethylene Glycol 3350 Powder 17 GM Packet PO SCH (09:00)
[2022-02-26] MEDS ORDERED: Famotidine 20 MG Tab PO SCH (09:00)
[2022-02-26] MEDS ORDERED: Ibuprofen 800 MG Tab PO PRN (09:00)
[2022-02-26] MEDS: Aspirin 325 MG Tab PO SCH (09:02)
[2022-02-26] MEDS: Docusate Sodium 100 MG Cap PO SCH (09:02)
== END 2022-02-26 13:25 | disposition home or self-care (01) | DRG 324 ==
LOC: MW.MS 06:37
PROVIDERS: ADMIT Orthopaedic Surgery; ATTEND Orthopaedic Surgery
PROC: 0SR90JZ Replacement of Right Hip Joint with Synthetic Substitute, Open Approach (ICD-10-PCS; principal; 2022-02-25)
DX: M16.11 Unilateral primary osteoarthritis, right hip (principal); M25.551 Pain in right hip; Z79.82 Long term (current) use of aspirin; Z79.899 Other long term (current) drug therapy; J44.9 Chronic obstructive pulmonary disease, unspecified; Z86.16 Personal history of COVID-19; G89.29 Other chronic pain; Z86.19 Personal history of other infectious and parasitic diseases; Z98.890 Other specified postprocedural states; Z87.891 Personal history of nicotine dependence; M25.851 Other specified joint disorders, right hip
CPT/HCPCS: 36415; 73501-26-RT; 73501-RT; 80048; 83735; 85014; 85018; 85025; 86850; 86900; 86901; 97110-GP; 97116-GP; 97161-GP; A9270-GY; J0171; J0690; J0735; J1885; J2250; J2405; J2704; J2795; J3010; J3490; J7120

== ENCOUNTER 2022-03-02 11:19 | Emergency (ER) | payer BC ==
[2022-03-02] MEDS ORDERED: Sodium Chloride 0.9% 10 ML Syringe FLUSH PRN (11:29)
[2022-03-02] MEDS ORDERED: Sodium Chloride 0.9% 2.5 ML Syringe FLUSH PRN (11:29)
[2022-03-02] MEDS ORDERED: Sodium Chloride 0.9% 1,000 ML IV ONE ×2 (11:29→11:44)
[2022-03-02] MEDS ORDERED: Acetaminophen 500 MG Tab PO ONE (11:44)
[2022-03-02 12:17] LABS: CARBON DIOXIDE,CO2 21.4 mmol/L (21.0-32.0); POTASSIUM,K 4.1 mmol/L (3.5-5.1)
== END 2022-03-02 13:55 | disposition home or self-care (01) ==
LOC: MW.ED 11:19
DX: U07.1 COVID-19 (principal); I10 Essential (primary) hypertension; I25.2 Old myocardial infarction; J44.9 Chronic obstructive pulmonary disease, unspecified; M19.90 Unspecified osteoarthritis, unspecified site; Z79.82 Long term (current) use of aspirin; Z79.899 Other long term (current) drug therapy
CPT/HCPCS: 36415; 71045; 72192; 73700; 80053; 85025; 85610; 87040; 87635; 96360; 99284; A9270; J3490; J7030; 72193; U0002